=== PATIENT | female | born 1940 | race Caucasian/White ===

== ENCOUNTER 2023-11-10 14:26 | Outpatient (RCR) | payer MEDICARE, OTHER, SELFPAY ==
[2023-11-10 14:58] VITALS: BP 141/66
[2023-11-10] MEDS: PROLIA 60 MG SC (15:20)
== END 2023-11-13 10:59 | disposition home or self-care (01) ==
LOC: OID 14:26
PROVIDERS: ATTENDING PHYSICIAN Internal Medicine Rheumatology; FAMILY PHYSICIAN Nurse Practitioner Adult Health; PRIMARYCARE PHYSICIAN Specialist
DX: M81.0 Age-related osteoporosis without current pathological fracture (principal); G61.81 Chronic inflammatory demyelinating polyneuritis; R29.6 Repeated falls
CPT/HCPCS: 96372; J0897

== ENCOUNTER → 2023-12-04 14:20 | Outpatient (REF) | payer MEDICARE, OTHER, SELFPAY ==
[2023-12-04 14:51] LABS: % Basophils 0.9 % (0-2); % Eosinophils 2.7 % (0-6); % Immature Granulocytes 0.4 % (0-0.5); % Lymphocytes 22.8 % (20.5-51.1); % Monocytes 6.5 % (1.7-9.3); % Neutrophils 66.7 % (42.2-75.2); Absolute Basophils 0.1 10^3/uL (0-0.2); Absolute Eosinophils 0.3 10^3/uL (0-0.7); Absolute Lymphocytes 2.1 10^3/uL (1.2-3.4); Absolute Monocytes 0.6 10^3/uL (0.1-0.6); Absolute Neutrophils 6.2 10^3/uL (1.4-6.5); Hematocrit 31.9 % (37.0-47.0); Hemoglobin 10.2 g/dL (12.0-16.0); Mean Corpuscular Hgb 28.3 pg (27.0-31.0); Mean Corpuscular Volume 88.4 fL (81.0-99.0); Mean Platelet Volume 9.4 fL (7.4-10.4); Nucleated Red Blood Cells % 0 %; Platelet Count 175 10^3/uL (130-400); Red Blood Cell Count 3.61 10^6/uL (4.20-5.40); Red Cell Dist. Width 17.1 % (11.5-14.5); White Blood Cell Count 9.3 10^3/uL (4.8-10.8)
== END ==
LOC: OIDL 14:20
PROVIDERS: ATTENDING PHYSICIAN Internal Medicine Hematology & Oncology
DX: D72.829 Elevated white blood cell count, unspecified (principal)
CPT/HCPCS: 85025

== ENCOUNTER → 2023-12-11 12:47 | Outpatient (REF) | payer MEDICARE, OTHER, SELFPAY ==
[2023-12-11 16:26] LABS: ALT (SGPT) 26 U/L (0-35); AST (SGOT) 45 U/L (14-36); Albumin 4.2 g/dl (3.5-5.0); Alkaline Phosphatase 188 U/L (38-126); Blood Urea Nitrogen 17 mg/dl (7-17); Carbon Dioxide 24 mmol/L (22-30); Chloride 101 mmol/L (98-107); Glucose 123 mg/dl (70-99); Potassium 4.3 mmol/L (3.5-5.1); Sodium 140 mmol/L (135-145); Total Bilirubin 0.4 mg/dl (0.2-1.3); Total Protein 7.7 g/dl (6.3-8.2); eGFR > 60.00
[2023-12-11 16:58] LABS: TSH 0.96 uIU/ml (0.47-4.68)
[2023-12-12 08:56] LABS: Glycohemoglobin (HgbA1c) 6.5 % (4.0-5.6)
[2023-12-12 10:26] LABS: Intact PTH 11.1 pg/ml (13.6-85.8)
== END ==
LOC: DHCBS HW 12:47
PROVIDERS: ATTENDING PHYSICIAN Internal Medicine Cardiovascular Disease; FAMILY PHYSICIAN Nurse Practitioner Adult Health; OTHER PHYSICIAN Internal Medicine Hematology & Oncology; REFERRING PHYSICIAN Internal Medicine Endocrinology, Diabetes & Metabolism
DX: R06.00 Dyspnea, unspecified (principal); I35.0 Nonrheumatic aortic (valve) stenosis; E11.40 Type 2 diabetes mellitus with diabetic neuropathy, unspecified; E83.52 Hypercalcemia; E04.2 Nontoxic multinodular goiter
CPT/HCPCS: 36415; 80053; 83036; 83970; 84443; 93306

== ENCOUNTER 2023-12-12 14:57 | Outpatient (RCR) | payer MEDICARE, OTHER, SELFPAY ==
[2023-12-12 14:25] LABS: % Basophils 0.5 % (0-2); % Eosinophils 3.1 % (0-6); % Immature Granulocytes 0.2 % (0-0.5); % Lymphocytes 25.4 % (20.5-51.1); % Monocytes 5.6 % (1.7-9.3); % Neutrophils 65.2 % (42.2-75.2); Absolute Basophils 0.1 10^3/uL (0-0.2); Absolute Eosinophils 0.3 10^3/uL (0-0.7); Absolute Lymphocytes 2.5 10^3/uL (1.2-3.4); Absolute Monocytes 0.6 10^3/uL (0.1-0.6); Absolute Neutrophils 6.4 10^3/uL (1.4-6.5); Hematocrit 31.9 % (37.0-47.0); Hemoglobin 10.2 g/dL (12.0-16.0); Mean Corpuscular Hgb 28.3 pg (27.0-31.0); Mean Corpuscular Volume 88.6 fL (81.0-99.0); Mean Platelet Volume 9.2 fL (7.4-10.4); Platelet Count 189 10^3/uL (130-400); Red Cell Dist. Width 18.2 % (11.5-14.5); White Blood Cell Count 9.8 10^3/uL (4.8-10.8)
== END 2024-01-07 23:59 | disposition home or self-care (01) ==
LOC: OID 14:57
PROVIDERS: Internal Medicine Hematology & Oncology; ATTENDING PHYSICIAN Internal Medicine Rheumatology; FAMILY PHYSICIAN Nurse Practitioner Adult Health; PRIMARYCARE PHYSICIAN Specialist
DX: M81.0 Age-related osteoporosis without current pathological fracture (principal); G61.81 Chronic inflammatory demyelinating polyneuritis; Z87.81 Personal history of (healed) traumatic fracture; R29.6 Repeated falls
CPT/HCPCS: 85025

== ENCOUNTER → 2023-12-19 14:10 | Outpatient (REF) | payer MEDICARE, OTHER, SELFPAY ==
[2023-12-19 14:14] LABS: % Basophils 0.5 % (0-2); % Eosinophils 4.9 % (0-6); % Immature Granulocytes 0.2 % (0-0.5); % Lymphocytes 25.5 % (20.5-51.1); % Monocytes 7.4 % (1.7-9.3); % Neutrophils 61.5 % (42.2-75.2); Absolute Eosinophils 0.3 10^3/uL (0-0.7); Absolute Lymphocytes 1.7 10^3/uL (1.2-3.4); Absolute Monocytes 0.5 10^3/uL (0.1-0.6); Absolute Neutrophils 4.1 10^3/uL (1.4-6.5); Hematocrit 32.4 % (37.0-47.0); Hemoglobin 10.3 g/dL (12.0-16.0); Mean Corp Hgb Conc. 31.8 g/dL (33.0-37.0); Mean Corpuscular Hgb 28.9 pg (27.0-31.0); Mean Platelet Volume 10.1 fL (7.4-10.4); Platelet Count 163 10^3/uL (130-400); Red Blood Cell Count 3.56 10^6/uL (4.20-5.40); Red Cell Dist. Width 19.2 % (11.5-14.5); White Blood Cell Count 6.6 10^3/uL (4.8-10.8)
== END ==
LOC: OIDL 14:10
PROVIDERS: ATTENDING PHYSICIAN Internal Medicine Hematology & Oncology
DX: D72.829 Elevated white blood cell count, unspecified (principal); D47.2 Monoclonal gammopathy; D50.9 Iron deficiency anemia, unspecified
CPT/HCPCS: 85025

== ENCOUNTER → 2024-01-17 09:50 | Outpatient (REF) | payer MEDICARE, OTHER, SELFPAY ==
[2024-01-17 16:48] LABS: HDL Cholesterol 37 mg/dl
[2024-01-17 16:58] LABS: LDL Cholesterol, Calculated 40 mg/dl; Total Cholesterol 134 mg/dl (50-199); Triglyceride 288 mg/dl (10-149); Very Low Density Lipoprotein 57 mg/dl (0-30)
== END ==
LOC: WDC 09:50
PROVIDERS: ATTENDING PHYSICIAN Nurse Practitioner Adult Health; REFERRING PHYSICIAN Internal Medicine Endocrinology, Diabetes & Metabolism
DX: E04.2 Nontoxic multinodular goiter (principal); N63.24 Unspecified lump in the left breast, lower inner quadrant; N64.4 Mastodynia; E78.2 Mixed hyperlipidemia; D64.9 Anemia, unspecified; K31.84 Gastroparesis; R14.0 Abdominal distension (gaseous); K43.9 Ventral hernia without obstruction or gangrene
CPT/HCPCS: 36415; 74177; 76536; 76642; 77062; 77066; 80061; Q9967

== ENCOUNTER → 2024-03-13 12:25 | Outpatient (REF) | payer MEDICARE, OTHER, SELFPAY ==
[2024-03-13 16:51] LABS: % Basophils 0.9 % (0-2); % Eosinophils 5.1 % (0-6); % Immature Granulocytes 0.5 % (0-0.5); % Lymphocytes 27.1 % (20.5-51.1); % Monocytes 6.5 % (1.7-9.3); % Neutrophils 59.9 % (42.2-75.2); Absolute Basophils 0.1 10^3/uL (0-0.2); Absolute Eosinophils 0.4 10^3/uL (0-0.7); Absolute Lymphocytes 2.2 10^3/uL (1.2-3.4); Absolute Monocytes 0.5 10^3/uL (0.1-0.6); Absolute Neutrophils 4.9 10^3/uL (1.4-6.5); Hematocrit 31.1 % (37.0-47.0); Hemoglobin 9.6 g/dL (12.0-16.0); Mean Corp Hgb Conc. 30.9 g/dL (33.0-37.0); Mean Corpuscular Hgb 28.6 pg (27.0-31.0); Mean Corpuscular Volume 92.6 fL (81.0-99.0); Mean Platelet Volume 10.2 fL (7.4-10.4); Nucleated Red Blood Cells % 0 %; Platelet Count 162 10^3/uL (130-400); Red Blood Cell Count 3.36 10^6/uL (4.20-5.40); Red Cell Dist. Width 16.4 % (11.5-14.5); White Blood Cell Count 8.2 10^3/uL (4.8-10.8)
[2024-03-13 17:09] LABS: Iron 62 ug/dl (37-170)
[2024-03-13 17:18] LABS: Percent Saturation 15 % (20-50); Total Iron Binding Capacity 393 ug/dl (265-497)
[2024-03-13 17:54] LABS: Ferritin 20.1 ng/ml (11.1-264.0)
== END ==
LOC: HWLAB 12:25
PROVIDERS: ATTENDING PHYSICIAN Internal Medicine Hematology & Oncology; FAMILY PHYSICIAN Nurse Practitioner Adult Health; OTHER PHYSICIAN Specialist; REFERRING PHYSICIAN Internal Medicine Endocrinology, Diabetes & Metabolism
DX: D72.829 Elevated white blood cell count, unspecified (principal); D47.2 Monoclonal gammopathy; D50.9 Iron deficiency anemia, unspecified
CPT/HCPCS: 36415; 82728; 82784; 83521; 83540; 83550; 84155; 84165; 85025; 86334

== ENCOUNTER → 2024-03-18 13:31 | Outpatient (REF) | payer MEDICARE, OTHER, SELFPAY | LOC: SDSPAT 13:31 | PROVIDERS: ATTENDING PHYSICIAN Surgery; FAMILY PHYSICIAN Nurse Practitioner Adult Health; OTHER PHYSICIAN Internal Medicine Cardiovascular Disease; OTHER PHYSICIAN Internal Medicine Endocrinology, Diabetes & Metabolism; OTHER PHYSICIAN Obstetrics & Gynecology | DX: K43.2 Incisional hernia without obstruction or gangrene (principal) | CPT/HCPCS: 36415; 93005 ==

== ENCOUNTER 2024-03-20 14:23 | Emergency (ER) | payer MEDICARE, OTHER, SELFPAY ==
[2024-03-20 14:25] VITALS: BP 147/70
--- NOTE | 2024-03-20 15:42 | ED.GENMED ---
History of Present Illness
General
Chief Complaint: Fall
Source: patient
Exam Limitations: none
Time Seen by Provider: 03/20/24 15:12
Nursing documentation reviewed up to this point in time: agreed with
Travel History
Have you had any contact with someone who has COVID-19?: No
Do you have any symptoms of coronavirus? Fever > 100 degrees, chills, cough, shortness of breath, sore throat, loss of taste or smell, muscle aches, or headache?: No
History of Present Illness
History of Present Illness:
Patient is an atrial female who presents to the ER for evaluation right leg pain care patient reports she fell 3 times on Monday her knees gave out. She since then has had pain in the right buttock area rating down to her right knee. She normally
walks with a rollator type walker. She is concerned that she is possibly anemic or it was her low iron that caused her to fall though she denies any weakness presently.
Daughter at bedside reports patient has had intermittent sciatica in the past this is not new. She was prescribed tramadol and gabapentin. She in addition has been taking her Tylenol.
Past History
Past History
ED Past Medical History: Asthma, GERD, HTN, Hypercholesterolemia, NIDDM and Other (Diverticulosis)
ED Past Surgical History: Cholecystectomy, Gynecological (Hysterectomy) and Other (Bladder lift, back surg, Hernia repair)
Social History
Tobacco: Former smoker
Alcohol: Occasional
Drug: None
Personal:
Living: with family
Family History
Family History: Other (Breast cancer in her brother, colon cancer breast cancer and cervical cancer in her mother, coronary disease and hypertension in the family)
Review of Systems
Review of Systems
Allergies reviewed?: Yes
All Other Systems: ROS reviewed and negative except as documented in HPI and ROS
Constitutional: Reports no symptoms
Musculoskeletal: Reports other (pain right hip radiating to right knee region )
Skin: Reports no symptoms
Neurological: Reports no symptoms
Psychiatric: Reports no symptoms
Phy Exam
General Physical Exam
General Presentation: no apparent distress
General age: appears stated age
General Skin: warm and dry
General Habitus: elderly
General Mental: alert
General Hydration: appears well hydrated
Cardiovascular Exam
Cardiovascular Exam: regular rate/rhythm, no murmur and normal peripheral pulses
Pulmonary Exam
Pulmonary Exam: lungs clear and no respiratory distress
Neurological Exam
Neurological Exam: alert and oriented x3
Musculoskeletal Exam
Musculoskeletal Exam: other (Bilateral pulses to both extremities full range of motion to bilateral hips no obvious swelling to right leg no erythema full lection extension of knee, mildly tender over the right sciatic and region of buttocks, left
arm with mild scattered ecchymosis no bony tenderness, full ROM no head injury )
Skin Exam
Skin Exam: normal color and warm/dry
Psychiatric Exam
Psychiatric Exam: normal mood/affect
Course
Orders/Labs/Results
Orders:
Orders
03/20/24 15:31
Hip, Right 2-3 Views [CR Hip - RT w/wo Pel 2-3 Vw*] Urgent
Comment:
Reason For Exam: trauma
Include a pelvis x-ray?: Yes
03/20/24 15:43
CBC/With Diff [Complete Blood Count/With Diff] Urgent
Comprehensive Metabolic Panel Urgent
CR Foot - Left Min 3 Views Urgent
Comment:
Reason For Exam: Injury, bruising and pain
Abnormal Lab Results
03/20/24
15:43
RBC 3.45 L 10^6/uL
(4.20-5.40)
Hgb 10.0 L g/dL
(12.0-16.0)
Hct 30.9 L %
(37.0-47.0)
MCHC 32.4 L g/dL
(33.0-37.0)
RDW 16.3 H %
(11.5-14.5)
Abs Immat Gran (auto) 0.1 H 10^3/uL
(0-0.05)
Absolute Neuts (auto) 6.8 H 10^3/uL
(1.4-6.5)
Immature Gran % 0.6 H %
(0-0.5)
Lymphocytes % 14.6 L %
(20.5-51.1)
BUN 19 H mg/dl
(7-17)
Glucose 135 H mg/dl
(70-99)
AST 41 H U/L
(14-36)
Alkaline Phosphatase 213 H U/L
(38-126)
03/20/24 15:43
03/20/24 15:43
Vital Signs
Initial and Last Documented VS:
Initial Vital Signs
Temp Pulse Resp BP Pulse Ox
99.4 F 92 20 147/70 97
03/20/24 14:25 03/20/24 14:25 03/20/24 14:25 03/20/24 14:25 03/20/24 14:25
Last Documented Vital Signs
Temp Pulse Resp BP Pulse Ox
99.4 F 92 20 147/70 97
03/20/24 14:25 03/20/24 14:25 03/20/24 14:25 03/20/24 14:25 03/20/24 14:25
MDM/Problems Addressed
Differential Diagnosis Includes:
Not limited to fracture muscle strain sciatica
MDM/Problems Addressed:
83-year-old female presents to the ER for evaluation of right buttock pain rating to her right knee. Patient reports she fell several days ago because her legs gave out. She was concerned that she is possibly anemic. She currently has no
symptoms. Patient arrives awake alert no acute distress she is describing more of a sciatica type pain she does have full range of motion to her hip full range of motion to her knee and there is no obvious swelling or effusion to the knee no
redness. She has no obvious swelling to right leg. She has bilateral strong pulses. No obvious head injury. Patient's hemoglobin today is 10.0 which is improved from 9.6 March 13. She has normal creatinine. Patient w/ normal hip x-ray/ nml foot
xray.
Daughter reports patient has had sciatica in the past. She is on tramadol and gabapentin.
Patient walked back and forth with a walker very stable feels want to go home.
*Radiology
Radiology exam reviewed: radiology read reviewed
*Critical Care Note
Total Time (30-74mins, 75-104mins- exclusive of procedures): Not Applicable
ED Attending Note
-
Portions of this chart may have been created with voice recognition software.� Occasional wrong word or��sound alike� substitutions may have occurred due to the inherent limitations of voice recognition software.
Discharge Plan
Departure
Patient Disposition: Home (Routine Discharge)
Date of Disposition: 03/20/24
Time of Disposition: 17:44
Patient with high blood pressure during this ER visit?: Yes
Condition: Fair
Covid-19: Not Applicable
Discharge Problem:
Sciatica
Instructions: Sciatica (DC), BLOOD PRESSURE
Prescriptions:
No Action
albuterol sulfate 1 PUFF HFA aerosol inhaler
2 puff inhalation R Q6HPRN PRN (Reason: sob)
cyanocobalamin (vitamin B-12) 1,000 MCG tablet
1,000 mcg PO DAILY
amlodipine 2.5 MG tablet
10 mg PO DAILY
oxybutynin chloride [Ditropan XL] 5 MG tablet extended release 24hr
5 mg PO DAILY
rosuvastatin 5 MG tablet
5 mg PO QPM
lisinopril 20 MG tablet
20 mg PO DAILY
gabapentin 100 MG capsule
300 mg PO QID
fluticasone propionate 1 SPRAY spray,suspension
1 spray intranasal DAILYPRN PRN (Reason: congestion)
metformin 500 MG tablet extended release 24 hr
1,000 mg PO BID@0800,1700
loratadine 10 MG tablet
10 mg PO DAILY
cholecalciferol (vitamin D3) 1,000 UNITS tablet
5,000 units PO DAILY
nortriptyline 75 MG capsule
75 mg PO HS
acetaminophen 325 MG tablet
650 mg PO Q4HWA 0RF
aspirin 325 MG tablet,delayed release (DR/EC)
81 mg PO DAILY
Ocuvite Tablet
1 tab PO DAILY
Systane (PF) 0.4-0.3 % Dropperette
1 drp OPHTHALMIC (EYE) 6XD PRN (Reason: dry eye)
omega-3 acid ethyl esters [Lovaza] 1 gram Capsule
2 cap PO BID
ropinirole 12 mg Tablet Extended Release 24 Hr
25 mg PO HS
Centrum Silver Women 8 mg iron-400 mcg-300 mcg Tablet
1 tab PO DAILY
estradiol 0.01 % (0.1 mg/gram) Cream
1 g VAGINAL QWEEK
coenzyme Q10 [CoQ-10] 100 mg Capsule
100 mg PO DAILY
milk thistle 140 mg Capsule
140 mg PO BID
allopurinol 300 mg Tablet
450 mg PO DAILY
Prolia 60 mg/mL Syringe
60 mg SC [id number]
cranberry fruit concentrate
1 unit PO DAILY
tramadol 50 MG tablet
50 mg PO DAILY
polyethylene glycol 3350 [Miralax] 17 gram Powder In Packet
17 g PO DAILY
Benefiber (guar gum) Packet
1 tbsp PO DAILY
pantoprazole 40 mg Tablet,Delayed Release (Dr/Ec)
40 mg PO DAILY
ropinirole 0.5 mg Tablet
0.5 mg PO .2DAYSEVERYOTHERWEEK
Patient Comments:
With Gammagard Infusion
methenamine hippurate 1 gram Tablet
1 g PO BID
Gammagard 10 gram Recon Soln
30 g IV [id number]
Referrals:
Mana Abreu CRNP [Family Provider] -
Activity Restrictions/Additional Instructions:
Follow-up with family doctor in the next several days for reevaluation. Continue to take your medications as previously recommended and return if any worsening of symptoms
Interventions
Interventions:
*Risk Screen - Suicide Last Done: 03/20/24 14:25
*General Assessment Last Done: 03/20/24 14:54
*Neglect/Abuse Screening Last Done: 03/20/24 14:54
ED-Musculoskeletal Assessment Last Done: 03/20/24 14:50
ED- Neurological Assessment Last Done: 03/20/24 14:50
ED-Skin Assessment Last Done: 03/20/24 14:50
Discharge Date and Time
Print Language: PASHTO
[2024-03-20 16:02] LABS: % Basophils 0.7 % (0-2); % Eosinophils 4.4 % (0-6); % Immature Granulocytes 0.6 % (0-0.5); % Lymphocytes 14.6 % (20.5-51.1); % Monocytes 5.2 % (1.7-9.3); % Neutrophils 74.5 % (42.2-75.2); Absolute Basophils 0.1 10^3/uL (0-0.2); Absolute Eosinophils 0.4 10^3/uL (0-0.7); Absolute Immature Granulocytes 0.1 10^3/uL (0-0.05); Absolute Lymphocytes 1.3 10^3/uL (1.2-3.4); Absolute Monocytes 0.5 10^3/uL (0.1-0.6); Absolute Neutrophils 6.8 10^3/uL (1.4-6.5); Hematocrit 30.9 % (37.0-47.0); Mean Corp Hgb Conc. 32.4 g/dL (33.0-37.0); Mean Corpuscular Volume 89.6 fL (81.0-99.0); Mean Platelet Volume 9.7 fL (7.4-10.4); Nucleated Red Blood Cells % 0 %; Platelet Count 186 10^3/uL (130-400); Red Blood Cell Count 3.45 10^6/uL (4.20-5.40); Red Cell Dist. Width 16.3 % (11.5-14.5); White Blood Cell Count 9.1 10^3/uL (4.8-10.8)
[2024-03-20 16:12] LABS: ALT (SGPT) 24 U/L (0-35); AST (SGOT) 41 U/L (14-36); Alkaline Phosphatase 213 U/L (38-126); Blood Urea Nitrogen 19 mg/dl (7-17); Calcium 10.1 mg/dl (8.4-10.2); Carbon Dioxide 26 mmol/L (22-30); Chloride 104 mmol/L (98-107); Glucose 135 mg/dl (70-99); Potassium 4.1 mmol/L (3.5-5.1); Sodium 139 mmol/L (135-145); Total Bilirubin 0.4 mg/dl (0.2-1.3); Total Protein 8.1 g/dl (6.3-8.2); eGFR > 60.00
== END 2024-03-20 18:07 | disposition home or self-care (01) ==
LOC: EMR 14:23
PROVIDERS: Nurse Practitioner; EMERGENCY PHYSICIAN Emergency Medicine; FAMILY PHYSICIAN Nurse Practitioner Adult Health
DX: M79.604 Pain in right leg (principal); M54.30 Sciatica, unspecified side; W19.XXXA Unspecified fall, initial encounter; J45.909 Unspecified asthma, uncomplicated; K21.9 Gastro-esophageal reflux disease without esophagitis; I10 Essential (primary) hypertension; E78.00 Pure hypercholesterolemia, unspecified; E11.9 Type 2 diabetes mellitus without complications; Z87.891 Personal history of nicotine dependence; Z80.0 Family history of malignant neoplasm of digestive organs; Z80.3 Family history of malignant neoplasm of breast; Z82.49 Family history of ischemic heart disease and other diseases of the circulatory system; Z90.49 Acquired absence of other specified parts of digestive tract; Z90.710 Acquired absence of both cervix and uterus
CPT/HCPCS: 99283; 73502; 73630; 80053; 85025

== ENCOUNTER → 2024-03-22 15:47 | Outpatient (REF) | payer MEDICARE, OTHER, SELFPAY ==
[2024-03-22 16:38] LABS: % Basophils 0.6 % (0-2); % Eosinophils 4.5 % (0-6); % Immature Granulocytes 0.7 % (0-0.5); % Lymphocytes 23.5 % (20.5-51.1); % Monocytes 6.8 % (1.7-9.3); % Neutrophils 63.9 % (42.2-75.2); Absolute Basophils 0.1 10^3/uL (0-0.2); Absolute Eosinophils 0.4 10^3/uL (0-0.7); Absolute Immature Granulocytes 0.1 10^3/uL (0-0.05); Absolute Monocytes 0.6 10^3/uL (0.1-0.6); Absolute Neutrophils 5.4 10^3/uL (1.4-6.5); Hematocrit 28.9 % (37.0-47.0); Hemoglobin 9.4 g/dL (12.0-16.0); Mean Corp Hgb Conc. 32.5 g/dL (33.0-37.0); Mean Corpuscular Hgb 29.3 pg (27.0-31.0); Mean Platelet Volume 9.9 fL (7.4-10.4); Nucleated Red Blood Cells % 0 %; Platelet Count 195 10^3/uL (130-400); Red Blood Cell Count 3.21 10^6/uL (4.20-5.40); Red Cell Dist. Width 17.1 % (11.5-14.5); White Blood Cell Count 8.4 10^3/uL (4.8-10.8)
== END ==
LOC: REG 15:47
PROVIDERS: Nurse Practitioner Acute Care; ATTENDING PHYSICIAN Internal Medicine Rheumatology; FAMILY PHYSICIAN Nurse Practitioner Adult Health; PRIMARYCARE PHYSICIAN Specialist
DX: M81.0 Age-related osteoporosis without current pathological fracture (principal); G61.81 Chronic inflammatory demyelinating polyneuritis; R29.6 Repeated falls; Z87.81 Personal history of (healed) traumatic fracture; D72.829 Elevated white blood cell count, unspecified; D47.2 Monoclonal gammopathy; D50.9 Iron deficiency anemia, unspecified
CPT/HCPCS: 85025

== ENCOUNTER → 2024-04-03 16:25 | Outpatient (REF) | payer MEDICARE, OTHER, SELFPAY ==
[2024-04-03 12:24] LABS: % Basophils 0.4 % (0-2); % Eosinophils 3.7 % (0-6); % Immature Granulocytes 0.2 % (0-0.5); % Lymphocytes 21.6 % (20.5-51.1); % Monocytes 4.5 % (1.7-9.3); % Neutrophils 69.6 % (42.2-75.2); Absolute Eosinophils 0.4 10^3/uL (0-0.7); Absolute Lymphocytes 2.1 10^3/uL (1.2-3.4); Absolute Monocytes 0.4 10^3/uL (0.1-0.6); Absolute Neutrophils 6.6 10^3/uL (1.4-6.5); Hematocrit 31.5 % (37.0-47.0); Mean Corp Hgb Conc. 31.7 g/dL (33.0-37.0); Mean Corpuscular Hgb 29.7 pg (27.0-31.0); Mean Corpuscular Volume 93.5 fL (81.0-99.0); Mean Platelet Volume 9.8 fL (7.4-10.4); Platelet Count 180 10^3/uL (130-400); Red Blood Cell Count 3.37 10^6/uL (4.20-5.40); Red Cell Dist. Width 17.8 % (11.5-14.5); White Blood Cell Count 9.5 10^3/uL (4.8-10.8)
== END ==
LOC: OIDL 16:25
PROVIDERS: ATTENDING PHYSICIAN Nurse Practitioner Acute Care
DX: D72.829 Elevated white blood cell count, unspecified (principal)
CPT/HCPCS: 85025

== ENCOUNTER → 2024-04-15 12:26 | Outpatient (REF) | payer MEDICARE, OTHER, SELFPAY ==
[2024-04-15 16:00] LABS: ALT (SGPT) 27 U/L (0-35); AST (SGOT) 44 U/L (14-36); Alkaline Phosphatase 215 U/L (38-126); Blood Urea Nitrogen 24 mg/dl (7-17); Calcium 9.8 mg/dl (8.4-10.2); Carbon Dioxide 25 mmol/L (22-30); Chloride 104 mmol/L (98-107); Glucose 131 mg/dl (70-99); Potassium 4.3 mmol/L (3.5-5.1); Sodium 140 mmol/L (135-145); Total Bilirubin 0.3 mg/dl (0.2-1.3); Total Protein 6.9 g/dl (6.3-8.2); Uric Acid 4.3 mg/dl (2.5-6.2); eGFR 56.25
[2024-04-15 16:16] LABS: Vitamin D, 25-OH*** 79.4 ng/mL (30-80)
== END ==
LOC: HWLAB 12:26
PROVIDERS: ATTENDING PHYSICIAN Internal Medicine Rheumatology; FAMILY PHYSICIAN Nurse Practitioner Adult Health; OTHER PHYSICIAN Internal Medicine Endocrinology, Diabetes & Metabolism; REFERRING PHYSICIAN Internal Medicine Hematology & Oncology
DX: E55.9 Vitamin D deficiency, unspecified (principal); M10.9 Gout, unspecified
CPT/HCPCS: 36415; 80053; 82306; 84550

== ENCOUNTER → 2024-04-26 13:36 | Outpatient (REF) | payer MEDICARE, OTHER, SELFPAY ==
[2024-04-26 15:46] LABS: % Basophils 1.1 % (0-2); % Eosinophils 4.5 % (0-6); % Immature Granulocytes 0.6 % (0-0.5); % Monocytes 5.9 % (1.7-9.3); % Neutrophils 62.9 % (42.2-75.2); Absolute Basophils 0.1 10^3/uL (0-0.2); Absolute Eosinophils 0.4 10^3/uL (0-0.7); Absolute Immature Granulocytes 0.1 10^3/uL (0-0.05); Absolute Monocytes 0.5 10^3/uL (0.1-0.6); Hematocrit 29.7 % (37.0-47.0); Hemoglobin 9.6 g/dL (12.0-16.0); Mean Corp Hgb Conc. 32.3 g/dL (33.0-37.0); Mean Corpuscular Hgb 29.6 pg (27.0-31.0); Mean Corpuscular Volume 91.7 fL (81.0-99.0); Mean Platelet Volume 9.9 fL (7.4-10.4); Nucleated Red Blood Cells % 0 %; Platelet Count 173 10^3/uL (130-400); Red Blood Cell Count 3.24 10^6/uL (4.20-5.40); Red Cell Dist. Width 17.3 % (11.5-14.5)
[2024-04-26 16:02] LABS: Iron 63 ug/dl (37-170)
[2024-04-26 16:11] LABS: Percent Saturation 18 % (20-50); Total Iron Binding Capacity 338 ug/dl (265-497)
== END ==
LOC: HWLAB 13:36
PROVIDERS: ATTENDING PHYSICIAN Internal Medicine Hematology & Oncology; FAMILY PHYSICIAN Nurse Practitioner Adult Health; OTHER PHYSICIAN Internal Medicine Gastroenterology; OTHER PHYSICIAN Obstetrics & Gynecology; REFERRING PHYSICIAN Specialist
DX: D72.829 Elevated white blood cell count, unspecified (principal)
CPT/HCPCS: 36415; 82728; 83540; 83550; 85025

== ENCOUNTER → 2024-04-30 12:25 | Outpatient (REF) | payer MEDICARE, OTHER, SELFPAY ==
[2024-04-30 15:51] LABS: ALT (SGPT) 30 U/L (0-35); AST (SGOT) 50 U/L (14-36); Albumin 4.1 g/dl (3.5-5.0); Alkaline Phosphatase 231 U/L (38-126); Alkaline Phosphatase, Total 231 U/L (38-126); Amylase 55 U/L (30-110); Blood Urea Nitrogen 21 mg/dl (7-17); Calcium 10.2 mg/dl (8.4-10.2); Carbon Dioxide 27 mmol/L (22-30); Chloride 101 mmol/L (98-107); GGTP 280 U/L (12-43); Glucose 170 mg/dl (70-99); Lipase 130 U/L (23-300); Potassium 4.4 mmol/L (3.5-5.1); Sodium 141 mmol/L (135-145); Total Bilirubin 0.3 mg/dl (0.2-1.3); eGFR 56.25
[2024-04-30 22:30] LABS: Alk Phos After Heat 190; Alkaline Phosphatase Percent 82.25
[2024-05-02 17:49] LABS: Alk Phos Bone Specific Results 28.3 ug/L
== END ==
LOC: HWLAB 12:25
PROVIDERS: ATTENDING PHYSICIAN Nurse Practitioner Adult Health; OTHER PHYSICIAN Internal Medicine Gastroenterology; OTHER PHYSICIAN Obstetrics & Gynecology; REFERRING PHYSICIAN Internal Medicine Hematology & Oncology
DX: R74.8 Abnormal levels of other serum enzymes (principal); R19.00 Intra-abdominal and pelvic swelling, mass and lump, unspecified site; R14.0 Abdominal distension (gaseous); R10.12 Left upper quadrant pain
CPT/HCPCS: 36415; 80053; 82150; 82977; 83690; 84075; 84078

== ENCOUNTER → 2024-05-06 07:30 | Outpatient (REF) | payer MEDICARE, OTHER, SELFPAY ==
--- NOTE | 2024-03-18 10:48 | PTCARENOTE ---
Patients 03/13 [facility] 9.6- Orin @ Dr. Sanchez office notified
[2024-03-18 13:54] VITALS: BMI 31.8
[2024-05-06 14:28] LABS: % Basophils 1.1 % (0-2); % Eosinophils 5.6 % (0-6); % Immature Granulocytes 0.3 % (0-0.5); % Lymphocytes 27.9 % (20.5-51.1); % Monocytes 7.6 % (1.7-9.3); % Neutrophils 57.5 % (42.2-75.2); Absolute Basophils 0.1 10^3/uL (0-0.2); Absolute Eosinophils 0.4 10^3/uL (0-0.7); Absolute Lymphocytes 1.8 10^3/uL (1.2-3.4); Absolute Monocytes 0.5 10^3/uL (0.1-0.6); Absolute Neutrophils 3.7 10^3/uL (1.4-6.5); Hematocrit 31.1 % (37.0-47.0); Hemoglobin 10.2 g/dL (12.0-16.0); Mean Corp Hgb Conc. 32.8 g/dL (33.0-37.0); Mean Corpuscular Hgb 29.6 pg (27.0-31.0); Mean Corpuscular Volume 90.1 fL (81.0-99.0); Mean Platelet Volume 9.4 fL (7.4-10.4); Nucleated Red Blood Cells % 0 %; Platelet Count 172 10^3/uL (130-400); Red Blood Cell Count 3.45 10^6/uL (4.20-5.40); Red Cell Dist. Width 17.1 % (11.5-14.5); White Blood Cell Count 6.4 10^3/uL (4.8-10.8)
== END ==
LOC: REG 07:30
PROVIDERS: ATTENDING PHYSICIAN Surgery
DX: K43.2 Incisional hernia without obstruction or gangrene (principal); Z01.818 Encounter for other preprocedural examination
CPT/HCPCS: 85025

== ENCOUNTER 2024-05-13 15:25 | Outpatient (RCR) | payer MEDICARE, OTHER, SELFPAY ==
[2024-05-13 15:53] VITALS: BP 127/64
[2024-05-13] MEDS: PROLIA 60 MG SC (15:55)
== END 2024-05-14 08:22 | disposition home or self-care (01) ==
LOC: OID 15:25
PROVIDERS: ATTENDING PHYSICIAN Internal Medicine Rheumatology; FAMILY PHYSICIAN Nurse Practitioner Adult Health
DX: M81.0 Age-related osteoporosis without current pathological fracture (principal)
CPT/HCPCS: 96372; J0897

== ENCOUNTER → 2024-05-13 15:51 | Outpatient (REF) | payer MEDICARE, OTHER, SELFPAY ==
[2024-05-13 14:47] LABS: % Basophils 0.8 % (0-2); % Eosinophils 4.3 % (0-6); % Immature Granulocytes 0.6 % (0-0.5); % Monocytes 6.4 % (1.7-9.3); % Neutrophils 63.9 % (42.2-75.2); Absolute Basophils 0.1 10^3/uL (0-0.2); Absolute Eosinophils 0.4 10^3/uL (0-0.7); Absolute Immature Granulocytes 0.1 10^3/uL (0-0.05); Absolute Monocytes 0.5 10^3/uL (0.1-0.6); Absolute Neutrophils 5.3 10^3/uL (1.4-6.5); Hematocrit 31.9 % (37.0-47.0); Hemoglobin 10.3 g/dL (12.0-16.0); Mean Corp Hgb Conc. 32.3 g/dL (33.0-37.0); Mean Corpuscular Hgb 29.3 pg (27.0-31.0); Mean Corpuscular Volume 90.9 fL (81.0-99.0); Mean Platelet Volume 9.5 fL (7.4-10.4); Nucleated Red Blood Cells % 0 %; Platelet Count 167 10^3/uL (130-400); Red Blood Cell Count 3.51 10^6/uL (4.20-5.40); Red Cell Dist. Width 17.1 % (11.5-14.5); White Blood Cell Count 8.3 10^3/uL (4.8-10.8)
== END ==
LOC: OIDL 15:51
PROVIDERS: ATTENDING PHYSICIAN Internal Medicine Hematology & Oncology
DX: D72.829 Elevated white blood cell count, unspecified (principal)
CPT/HCPCS: 85025

== ENCOUNTER → 2024-05-29 17:58 | Outpatient (REF) | payer MEDICARE, OTHER, SELFPAY | LOC: MRI 17:58 | PROVIDERS: ATTENDING PHYSICIAN Nurse Practitioner Adult Health | DX: R74.8 Abnormal levels of other serum enzymes (principal); R19.00 Intra-abdominal and pelvic swelling, mass and lump, unspecified site; K31.84 Gastroparesis; K45.8 Other specified abdominal hernia without obstruction or gangrene; R14.0 Abdominal distension (gaseous); R10.12 Left upper quadrant pain | CPT/HCPCS: 74183; A9575 ==

== ENCOUNTER → 2024-06-25 12:34 | Outpatient (REF) | payer MEDICARE, OTHER, SELFPAY ==
[2024-06-25 15:40] LABS: % Basophils 0.9 % (0-2); % Eosinophils 4.9 % (0-6); % Immature Granulocytes 0.5 % (0-0.5); % Lymphocytes 24.6 % (20.5-51.1); % Monocytes 4.9 % (1.7-9.3); % Neutrophils 64.2 % (42.2-75.2); Absolute Basophils 0.1 10^3/uL (0-0.2); Absolute Eosinophils 0.4 10^3/uL (0-0.7); Absolute Lymphocytes 2.2 10^3/uL (1.2-3.4); Absolute Monocytes 0.4 10^3/uL (0.1-0.6); Absolute Neutrophils 5.7 10^3/uL (1.4-6.5); Hematocrit 30.6 % (37.0-47.0); Hemoglobin 9.6 g/dL (12.0-16.0); Mean Corp Hgb Conc. 31.4 g/dL (33.0-37.0); Mean Corpuscular Volume 95.6 fL (81.0-99.0); Mean Platelet Volume 9.5 fL (7.4-10.4); Nucleated Red Blood Cells % 0 %; Platelet Count 176 10^3/uL (130-400); Red Cell Dist. Width 16.6 % (11.5-14.5); White Blood Cell Count 8.8 10^3/uL (4.8-10.8)
[2024-06-25 15:43] LABS: Urine Albumin 1+ (Neg - Trace); Urine Bilirubin Negative (Negative); Urine Character Slightly Cloudy (Clear); Urine Color Yellow; Urine Glucose Negative (Negative); Urine Ketone Negative (Negative); Urine Leukocyte Trace (Negative); Urine Nitrite Negative (Negative); Urine Occult Blood Negative (Negative); Urine Urobilinogen Negative (Neg - 1+)
[2024-06-25 15:48] LABS: ALT (SGPT) 34 U/L (0-35); AST (SGOT) 49 U/L (14-36); Albumin 4.1 g/dl (3.5-5.0); Alkaline Phosphatase 265 U/L (38-126); Blood Urea Nitrogen 23 mg/dl (7-17); Carbon Dioxide 26 mmol/L (22-30); Chloride 103 mmol/L (98-107); Glucose 102 mg/dl (70-99); HDL Cholesterol 41 mg/dl; Iron 62 ug/dl (37-170); LDL Cholesterol, Calculated 39 mg/dl; Potassium 4.8 mmol/L (3.5-5.1); Sodium 143 mmol/L (135-145); Total Bilirubin 0.3 mg/dl (0.2-1.3); Total Cholesterol 138 mg/dl (50-199); Total Protein 7.2 g/dl (6.3-8.2); Triglyceride 291 mg/dl (10-149); Very Low Density Lipoprotein 58 mg/dl (0-30); eGFR 44.91
[2024-06-25 15:58] LABS: Percent Saturation 18 % (20-50); Total Iron Binding Capacity 334 ug/dl (265-497)
[2024-06-25 16:19] LABS: TSH 2.42 uIU/ml (0.47-4.68)
[2024-06-25 16:26] LABS: Urine Bacteria Many (Negative); Urine Red Blood Cell 0-2 /HPF (0-2); Urine White Cell 30-40 /HPF (0-5)
[2024-06-26 08:39] LABS: Glycohemoglobin (HgbA1c) 5.3 % (4.0-5.6)
[2024-06-26 10:27] LABS: Intact PTH 27.6 pg/ml (13.6-85.8)
== END ==
LOC: HWLAB 12:34
PROVIDERS: ATTENDING PHYSICIAN Internal Medicine Hematology & Oncology; FAMILY PHYSICIAN Nurse Practitioner Adult Health; OTHER PHYSICIAN Internal Medicine Endocrinology, Diabetes & Metabolism; OTHER PHYSICIAN Internal Medicine Gastroenterology; OTHER PHYSICIAN Internal Medicine Rheumatology; REFERRING PHYSICIAN Specialist
DX: R39.9 Unspecified symptoms and signs involving the genitourinary system (principal); E78.2 Mixed hyperlipidemia; E11.40 Type 2 diabetes mellitus with diabetic neuropathy, unspecified; E04.2 Nontoxic multinodular goiter; E83.52 Hypercalcemia; D72.829 Elevated white blood cell count, unspecified; D47.2 Monoclonal gammopathy; D50.9 Iron deficiency anemia, unspecified
CPT/HCPCS: 36415; 80053; 80061; 81003; 81015; 82728; 83036; 83540; 83550; 83970; 84443; 85025; 87086; 87088; 87186

== ENCOUNTER → 2024-07-11 11:19 | Outpatient (REF) | payer MEDICARE, OTHER, SELFPAY ==
[2024-07-11 15:31] LABS: HDL Cholesterol 38 mg/dl; LDL Cholesterol, Calculated 37 mg/dl; Total Cholesterol 132 mg/dl (50-199); Triglyceride 289 mg/dl (10-149); Very Low Density Lipoprotein 57 mg/dl (0-30)
[2024-07-11 15:53] LABS: Urine Albumin 2+ (Neg - Trace); Urine Bilirubin Negative (Negative); Urine Character Slightly Cloudy (Clear); Urine Color Yellow; Urine Glucose Negative (Negative); Urine Ketone Negative (Negative); Urine Leukocyte 1+ (Negative); Urine Nitrite Negative (Negative); Urine Occult Blood Negative (Negative); Urine Urobilinogen Negative (Neg - 1+)
[2024-07-11 16:11] LABS: Urine Bacteria Many (Negative); Urine Red Blood Cell 0-2 /HPF (0-2)
== END ==
LOC: HWLAB 11:19
PROVIDERS: ATTENDING PHYSICIAN Nurse Practitioner Adult Health
DX: R39.9 Unspecified symptoms and signs involving the genitourinary system (principal); E78.2 Mixed hyperlipidemia
CPT/HCPCS: 36415; 80061; 81003; 81015; 87086; 87088; 87186

== ENCOUNTER → 2024-07-16 13:28 | Outpatient (REF) | payer MEDICARE, OTHER, SELFPAY | LOC: RAD 13:28 | PROVIDERS: ATTENDING PHYSICIAN Surgery Vascular Surgery; FAMILY PHYSICIAN Nurse Practitioner Adult Health; OTHER PHYSICIAN Specialist | DX: I73.9 Peripheral vascular disease, unspecified (principal) | CPT/HCPCS: 93922; 93925 ==

== ENCOUNTER → 2024-07-29 12:26 | Outpatient (REF) | payer MEDICARE, OTHER, SELFPAY ==
[2024-07-29 16:20] LABS: % Eosinophils 5.2 % (0-6); % Immature Granulocytes 0.5 % (0-0.5); % Lymphocytes 21.3 % (20.5-51.1); % Monocytes 6.1 % (1.7-9.3); % Neutrophils 65.9 % (42.2-75.2); Absolute Basophils 0.1 10^3/uL (0-0.2); Absolute Eosinophils 0.4 10^3/uL (0-0.7); Absolute Lymphocytes 1.6 10^3/uL (1.2-3.4); Absolute Monocytes 0.5 10^3/uL (0.1-0.6); Absolute Neutrophils 4.9 10^3/uL (1.4-6.5); Hematocrit 27.7 % (37.0-47.0); Hemoglobin 8.7 g/dL (12.0-16.0); Mean Corp Hgb Conc. 31.4 g/dL (33.0-37.0); Mean Corpuscular Hgb 29.2 pg (27.0-31.0); Mean Platelet Volume 10.4 fL (7.4-10.4); Nucleated Red Blood Cells % 0.3 %; Platelet Count 175 10^3/uL (130-400); Red Blood Cell Count 2.98 10^6/uL (4.20-5.40); White Blood Cell Count 7.4 10^3/uL (4.8-10.8)
[2024-07-29 17:30] LABS: Iron 49 ug/dl (37-170)
[2024-07-29 17:41] LABS: Percent Saturation 13 % (20-50); Total Iron Binding Capacity 370 ug/dl (265-497)
[2024-07-29 20:49] LABS: AFP Male/Tumor Marker 2.42 ng/ml; Ferritin 19.6 ng/ml (11.1-264.0)
== END ==
LOC: HWLAB 12:26
PROVIDERS: ATTENDING PHYSICIAN Internal Medicine Gastroenterology; FAMILY PHYSICIAN Nurse Practitioner Adult Health; OTHER PHYSICIAN Obstetrics & Gynecology; OTHER PHYSICIAN Specialist; REFERRING PHYSICIAN Internal Medicine Hematology & Oncology
DX: N39.0 Urinary tract infection, site not specified (principal); K74.69 Other cirrhosis of liver
CPT/HCPCS: 36415; 82105; 82728; 83540; 83550; 85025; 87086

== ENCOUNTER → 2024-08-12 09:31 | Outpatient (REF) | payer MEDICARE, OTHER, SELFPAY ==
[2024-08-12 09:59] VITALS: BP 156/70; BP_SYST 90
[2024-08-12 09:59] LABS: % Eosinophils 6.3 % (0-6); % Immature Granulocytes 0.5 % (0-0.5); % Lymphocytes 22.9 % (20.5-51.1); % Monocytes 5.8 % (1.7-9.3); % Neutrophils 63.5 % (42.2-75.2); Absolute Basophils 0.1 10^3/uL (0-0.2); Absolute Eosinophils 0.4 10^3/uL (0-0.7); Absolute Lymphocytes 1.4 10^3/uL (1.2-3.4); Absolute Monocytes 0.4 10^3/uL (0.1-0.6); Absolute Neutrophils 3.9 10^3/uL (1.4-6.5); Hematocrit 26.9 % (37.0-47.0); Hemoglobin 8.3 g/dL (12.0-16.0); Mean Corp Hgb Conc. 30.9 g/dL (33.0-37.0); Mean Corpuscular Volume 90.9 fL (81.0-99.0); Mean Platelet Volume 10.4 fL (7.4-10.4); Nucleated Red Blood Cells % 0 %; Platelet Count 166 10^3/uL (130-400); Red Blood Cell Count 2.96 10^6/uL (4.20-5.40); Red Cell Dist. Width 16.9 % (11.5-14.5); White Blood Cell Count 6.2 10^3/uL (4.8-10.8)
[2024-08-12 10:09] LABS: INR 1.11; PT 14.1 Sec (11.4-14.6)
[2024-08-12] MEDS: ATIVAN 0.5 MG IV (10:11)
[2024-08-12] MEDS: NSS (PRESERVATIVE FREE) 0.25 ML IV (10:11)
[2024-08-12 11:15] VITALS: BP 129/61
== END ==
LOC: RADI 09:31
PROVIDERS: ATTENDING PHYSICIAN Internal Medicine Hematology & Oncology; FAMILY PHYSICIAN Nurse Practitioner Adult Health
DX: D72.829 Elevated white blood cell count, unspecified (principal); D47.2 Monoclonal gammopathy; D50.9 Iron deficiency anemia, unspecified
CPT/HCPCS: 88305; 88311; 88312; 36415; 38222; 77012; 85025; 85610; 88313

== ENCOUNTER → 2024-08-16 13:49 | Outpatient (REF) | payer MEDICARE, OTHER, SELFPAY ==
[2024-08-16 14:22] LABS: % Basophils 0.9 % (0-2); % Eosinophils 5.8 % (0-6); % Immature Granulocytes 0.4 % (0-0.5); % Monocytes 6.4 % (1.7-9.3); % Neutrophils 61.5 % (42.2-75.2); Absolute Basophils 0.1 10^3/uL (0-0.2); Absolute Eosinophils 0.5 10^3/uL (0-0.7); Absolute Monocytes 0.5 10^3/uL (0.1-0.6); Absolute Neutrophils 4.9 10^3/uL (1.4-6.5); Hematocrit 27.9 % (37.0-47.0); Hemoglobin 8.6 g/dL (12.0-16.0); Mean Corp Hgb Conc. 30.8 g/dL (33.0-37.0); Mean Corpuscular Hgb 27.1 pg (27.0-31.0); Nucleated Red Blood Cells % 0 %; Platelet Count 192 10^3/uL (130-400); Red Blood Cell Count 3.17 10^6/uL (4.20-5.40); Red Cell Dist. Width 16.6 % (11.5-14.5)
== END ==
LOC: OIDL 13:49
PROVIDERS: ATTENDING PHYSICIAN Internal Medicine Hematology & Oncology
DX: D72.829 Elevated white blood cell count, unspecified (principal); D47.2 Monoclonal gammopathy; D50.9 Iron deficiency anemia, unspecified
CPT/HCPCS: 85025

== ENCOUNTER → 2024-08-23 13:29 | Outpatient (REF) | payer MEDICARE, OTHER, SELFPAY ==
[2024-08-23 13:53] LABS: % Basophils 0.8 % (0-2); % Eosinophils 7.6 % (0-6); % Immature Granulocytes 0.7 % (0-0.5); % Lymphocytes 17.1 % (20.5-51.1); % Monocytes 6.7 % (1.7-9.3); % Neutrophils 67.1 % (42.2-75.2); Absolute Basophils 0.1 10^3/uL (0-0.2); Absolute Eosinophils 0.6 10^3/uL (0-0.7); Absolute Immature Granulocytes 0.1 10^3/uL (0-0.05); Absolute Lymphocytes 1.4 10^3/uL (1.2-3.4); Absolute Monocytes 0.6 10^3/uL (0.1-0.6); Absolute Neutrophils 5.6 10^3/uL (1.4-6.5); Hematocrit 27.5 % (37.0-47.0); Hemoglobin 8.4 g/dL (12.0-16.0); Mean Corp Hgb Conc. 30.5 g/dL (33.0-37.0); Mean Corpuscular Hgb 28.3 pg (27.0-31.0); Mean Corpuscular Volume 92.6 fL (81.0-99.0); Mean Platelet Volume 10.1 fL (7.4-10.4); Nucleated Red Blood Cells % 0.2 %; Platelet Count 179 10^3/uL (130-400); Red Blood Cell Count 2.97 10^6/uL (4.20-5.40); Red Cell Dist. Width 18.5 % (11.5-14.5); White Blood Cell Count 8.3 10^3/uL (4.8-10.8)
== END ==
LOC: OIDL 13:29
PROVIDERS: ATTENDING PHYSICIAN Internal Medicine Hematology & Oncology
DX: D72.829 Elevated white blood cell count, unspecified (principal); D47.2 Monoclonal gammopathy
CPT/HCPCS: 85025

== ENCOUNTER → 2024-10-07 12:35 | Outpatient (REF) | payer MEDICARE, OTHER, SELFPAY ==
[2024-10-07 16:20] LABS: ALT (SGPT) 28 U/L (0-35); AST (SGOT) 45 U/L (14-36); Alkaline Phosphatase 246 U/L (38-126); Alkaline Phosphatase, Total 246 U/L (38-126); Blood Urea Nitrogen 26 mg/dl (7-17); Calcium 10.1 mg/dl (8.4-10.2); Carbon Dioxide 23 mmol/L (22-30); Chloride 103 mmol/L (98-107); Glucose 113 mg/dl (70-99); Iron 58 ug/dl (37-170); Potassium 4.9 mmol/L (3.5-5.1); Sodium 138 mmol/L (135-145); Total Bilirubin 0.2 mg/dl (0.2-1.3); Total Protein 7.6 g/dl (6.3-8.2); Uric Acid 3.2 mg/dl (2.5-6.2)
[2024-10-07 16:29] LABS: Percent Saturation 14 % (20-50); Total Iron Binding Capacity 387 ug/dl (265-497)
[2024-10-07 16:55] LABS: Ferritin 18.2 ng/ml (11.1-264.0)
[2024-10-07 17:40] LABS: % Basophils 0.7 % (0-2); % Eosinophils 5.5 % (0-6); % Immature Granulocytes 0.5 % (0-0.5); % Lymphocytes 22.7 % (20.5-51.1); % Monocytes 7.3 % (1.7-9.3); % Neutrophils 63.3 % (42.2-75.2); Absolute Basophils 0.1 10^3/uL (0-0.2); Absolute Eosinophils 0.5 10^3/uL (0-0.7); Absolute Lymphocytes 1.9 10^3/uL (1.2-3.4); Absolute Monocytes 0.6 10^3/uL (0.1-0.6); Absolute Neutrophils 5.4 10^3/uL (1.4-6.5); Hematocrit 27.5 % (37.0-47.0); Hemoglobin 7.9 g/dL (12.0-16.0); Mean Corp Hgb Conc. 28.7 g/dL (33.0-37.0); Mean Corpuscular Hgb 28.3 pg (27.0-31.0); Mean Corpuscular Volume 98.6 fL (81.0-99.0); Nucleated Red Blood Cells % 0 %; Platelet Count 171 10^3/uL (130-400); Red Blood Cell Count 2.79 10^6/uL (4.20-5.40); Red Cell Dist. Width 18.4 % (11.5-14.5); White Blood Cell Count 8.5 10^3/uL (4.8-10.8)
[2024-10-07 17:41] LABS: Hypochromasia 2+; Microcytosis 2+; Normal RBC Morphology No
[2024-10-07 17:42] LABS: Macrocytosis 1+; Tear Drop Red Blood Cells Occasional
[2024-10-07 17:48] LABS: Alk Phos After Heat 227; Alkaline Phosphatase Percent 92.28
== END ==
LOC: HWLAB 12:35
PROVIDERS: ATTENDING PHYSICIAN Internal Medicine Hematology & Oncology; FAMILY PHYSICIAN Nurse Practitioner Adult Health; OTHER PHYSICIAN Internal Medicine Cardiovascular Disease; OTHER PHYSICIAN Internal Medicine Gastroenterology; REFERRING PHYSICIAN Internal Medicine Rheumatology
DX: D72.829 Elevated white blood cell count, unspecified (principal); D47.2 Monoclonal gammopathy; D50.9 Iron deficiency anemia, unspecified; C90.00 Multiple myeloma not having achieved remission
CPT/HCPCS: 36415; 80053; 82728; 83540; 83550; 84078; 84550; 85025

== ENCOUNTER → 2024-10-10 14:29 | Outpatient (REF) | payer MEDICARE, OTHER, SELFPAY | LOC: RAD 14:29 | PROVIDERS: ATTENDING PHYSICIAN Internal Medicine Hematology & Oncology; OTHER PHYSICIAN Internal Medicine Gastroenterology; PRIMARYCARE PHYSICIAN Nurse Practitioner Adult Health | DX: D72.829 Elevated white blood cell count, unspecified (principal); D47.2 Monoclonal gammopathy; D50.9 Iron deficiency anemia, unspecified; C90.00 Multiple myeloma not having achieved remission | CPT/HCPCS: 77075 ==

== ENCOUNTER 2024-10-11 11:23 | Outpatient (RCR) | payer MEDICARE, OTHER, SELFPAY ==
[2024-10-11 12:12] VITALS: BP 118/52
[2024-10-11 12:29] VITALS: BP 117/54
[2024-10-11 14:36] VITALS: BP 134/63
== END 2024-11-08 23:59 | disposition home or self-care (01) ==
LOC: OID 11:23
PROVIDERS: ATTENDING PHYSICIAN Internal Medicine Hematology & Oncology; FAMILY PHYSICIAN Nurse Practitioner Adult Health
DX: D50.9 Iron deficiency anemia, unspecified (principal); D47.2 Monoclonal gammopathy; D72.829 Elevated white blood cell count, unspecified; C90.00 Multiple myeloma not having achieved remission
CPT/HCPCS: 36415; 36430; 86850; 86900; 86901; 86920; P9016

== ENCOUNTER → 2024-10-18 15:50 | Outpatient (REF) | payer MEDICARE, OTHER, SELFPAY ==
[2024-10-18 14:44] LABS: % Basophils 0.5 % (0-2); % Eosinophils 7.9 % (0-6); % Immature Granulocytes 0.4 % (0-0.5); % Lymphocytes 20.6 % (20.5-51.1); % Monocytes 4.8 % (1.7-9.3); % Neutrophils 65.8 % (42.2-75.2); Absolute Eosinophils 0.6 10^3/uL (0-0.7); Absolute Lymphocytes 1.7 10^3/uL (1.2-3.4); Absolute Monocytes 0.4 10^3/uL (0.1-0.6); Absolute Neutrophils 5.4 10^3/uL (1.4-6.5); Hemoglobin 9.7 g/dL (12.0-16.0); Mean Corp Hgb Conc. 30.3 g/dL (33.0-37.0); Mean Corpuscular Hgb 28.5 pg (27.0-31.0); Mean Corpuscular Volume 94.1 fL (81.0-99.0); Mean Platelet Volume 10.1 fL (7.4-10.4); Platelet Count 204 10^3/uL (130-400); Red Cell Dist. Width 16.8 % (11.5-14.5); White Blood Cell Count 8.2 10^3/uL (4.8-10.8)
== END ==
LOC: OIDL 15:50
PROVIDERS: ATTENDING PHYSICIAN Internal Medicine Hematology & Oncology
DX: D72.829 Elevated white blood cell count, unspecified (principal)
CPT/HCPCS: 85025

== ENCOUNTER → 2024-10-25 16:22 | Outpatient (REF) | payer MEDICARE, OTHER, SELFPAY ==
[2024-10-25 11:47] LABS: % Basophils 0.3 % (0-2); % Eosinophils 3.8 % (0-6); % Immature Granulocytes 0.3 % (0-0.5); % Monocytes 5.3 % (1.7-9.3); % Neutrophils 72.3 % (42.2-75.2); Absolute Eosinophils 0.5 10^3/uL (0-0.7); Absolute Lymphocytes 2.2 10^3/uL (1.2-3.4); Absolute Monocytes 0.7 10^3/uL (0.1-0.6); Absolute Neutrophils 8.8 10^3/uL (1.4-6.5); Hemoglobin 10.5 g/dL (12.0-16.0); Mean Corp Hgb Conc. 30.9 g/dL (33.0-37.0); Mean Corpuscular Hgb 29.2 pg (27.0-31.0); Mean Corpuscular Volume 94.4 fL (81.0-99.0); Mean Platelet Volume 9.2 fL (7.4-10.4); Platelet Count 213 10^3/uL (130-400); Red Cell Dist. Width 17.9 % (11.5-14.5); White Blood Cell Count 12.2 10^3/uL (4.8-10.8)
== END ==
LOC: OIDL 16:22
PROVIDERS: ATTENDING PHYSICIAN Internal Medicine Hematology & Oncology
DX: D72.829 Elevated white blood cell count, unspecified (principal)
CPT/HCPCS: 85025

== ENCOUNTER → 2024-11-01 16:16 | Outpatient (REF) | payer MEDICARE, OTHER, SELFPAY ==
[2024-11-01 12:12] LABS: % Basophils 0.3 % (0-2); % Eosinophils 6.3 % (0-6); % Immature Granulocytes 0.1 % (0-0.5); % Lymphocytes 21.3 % (20.5-51.1); % Monocytes 5.6 % (1.7-9.3); % Neutrophils 66.4 % (42.2-75.2); Absolute Eosinophils 0.5 10^3/uL (0-0.7); Absolute Lymphocytes 1.5 10^3/uL (1.2-3.4); Absolute Monocytes 0.4 10^3/uL (0.1-0.6); Absolute Neutrophils 4.7 10^3/uL (1.4-6.5); Hematocrit 30.9 % (37.0-47.0); Hemoglobin 9.5 g/dL (12.0-16.0); Mean Corp Hgb Conc. 30.7 g/dL (33.0-37.0); Mean Corpuscular Hgb 29.4 pg (27.0-31.0); Mean Corpuscular Volume 95.7 fL (81.0-99.0); Mean Platelet Volume 9.1 fL (7.4-10.4); Platelet Count 189 10^3/uL (130-400); Red Blood Cell Count 3.23 10^6/uL (4.20-5.40); Red Cell Dist. Width 18.8 % (11.5-14.5); White Blood Cell Count 7.1 10^3/uL (4.8-10.8)
== END ==
LOC: OIDL 16:16
PROVIDERS: ATTENDING PHYSICIAN Internal Medicine Hematology & Oncology
DX: D72.829 Elevated white blood cell count, unspecified (principal)
CPT/HCPCS: 85025

== ENCOUNTER → 2024-11-07 13:33 | Outpatient (REF) | payer MEDICARE, OTHER, SELFPAY ==
[2024-11-07 16:05] LABS: % Basophils 0.6 % (0-2); % Eosinophils 5.7 % (0-6); % Immature Granulocytes 0.5 % (0-0.5); % Lymphocytes 21.9 % (20.5-51.1); % Monocytes 5.4 % (1.7-9.3); % Neutrophils 65.9 % (42.2-75.2); Absolute Basophils 0.1 10^3/uL (0-0.2); Absolute Eosinophils 0.5 10^3/uL (0-0.7); Absolute Lymphocytes 1.9 10^3/uL (1.2-3.4); Absolute Monocytes 0.5 10^3/uL (0.1-0.6); Absolute Neutrophils 5.6 10^3/uL (1.4-6.5); Hematocrit 29.6 % (37.0-47.0); Hemoglobin 9.3 g/dL (12.0-16.0); Mean Corp Hgb Conc. 31.4 g/dL (33.0-37.0); Mean Corpuscular Hgb 29.6 pg (27.0-31.0); Mean Corpuscular Volume 94.3 fL (81.0-99.0); Nucleated Red Blood Cells % 0.2 %; Platelet Count 175 10^3/uL (130-400); Red Blood Cell Count 3.14 10^6/uL (4.20-5.40); White Blood Cell Count 8.5 10^3/uL (4.8-10.8)
[2024-11-07 16:24] LABS: ALT (SGPT) 26 U/L (0-35); AST (SGOT) 39 U/L (14-36); Albumin 4.3 g/dl (3.5-5.0); Alkaline Phosphatase 261 U/L (38-126); Blood Urea Nitrogen 23 mg/dl (7-17); Carbon Dioxide 24 mmol/L (22-30); Chloride 102 mmol/L (98-107); Glucose 110 mg/dl (70-99); Iron 93 ug/dl (37-170); Sodium 139 mmol/L (135-145); Total Bilirubin 0.5 mg/dl (0.2-1.3); Total Protein 7.4 g/dl (6.3-8.2); eGFR > 60.00
[2024-11-07 16:33] LABS: Percent Saturation 27 % (20-50); Total Iron Binding Capacity 341 ug/dl (265-497)
== END ==
LOC: HWLAB 13:33
PROVIDERS: ATTENDING PHYSICIAN Internal Medicine Hematology & Oncology; FAMILY PHYSICIAN Nurse Practitioner Adult Health; OTHER PHYSICIAN Internal Medicine Cardiovascular Disease; OTHER PHYSICIAN Internal Medicine Gastroenterology; REFERRING PHYSICIAN Internal Medicine Rheumatology
DX: D72.829 Elevated white blood cell count, unspecified (principal); D47.2 Monoclonal gammopathy; D50.9 Iron deficiency anemia, unspecified; C90.00 Multiple myeloma not having achieved remission
CPT/HCPCS: 36415; 80053; 82232; 82728; 82784; 83521; 83540; 83550; 84155; 84165; 85025; 86334

== ENCOUNTER 2024-11-25 13:38 | Outpatient (RCR) | payer MEDICARE, OTHER, SELFPAY ==
[2024-11-25 14:28] VITALS: BP 138/52
[2024-11-25] MEDS: PROLIA 60 MG SC (14:38)
== END 2024-11-26 08:54 | disposition home or self-care (01) ==
LOC: OID 13:38
PROVIDERS: ATTENDING PHYSICIAN Internal Medicine Rheumatology; FAMILY PHYSICIAN Nurse Practitioner Adult Health
DX: M81.0 Age-related osteoporosis without current pathological fracture (principal)
CPT/HCPCS: 96372; J0897

== ENCOUNTER → 2024-12-04 13:16 | Outpatient (REF) | payer MEDICARE, OTHER, SELFPAY ==
[2024-12-04 15:58] LABS: % Eosinophils 4.9 % (0-6); % Immature Granulocytes 0.3 % (0-0.5); % Lymphocytes 23.6 % (20.5-51.1); % Monocytes 6.9 % (1.7-9.3); % Neutrophils 63.3 % (42.2-75.2); Absolute Basophils 0.1 10^3/uL (0-0.2); Absolute Eosinophils 0.3 10^3/uL (0-0.7); Absolute Lymphocytes 1.6 10^3/uL (1.2-3.4); Absolute Monocytes 0.5 10^3/uL (0.1-0.6); Absolute Neutrophils 4.3 10^3/uL (1.4-6.5); Hematocrit 25.4 % (37.0-47.0); Mean Corp Hgb Conc. 31.5 g/dL (33.0-37.0); Mean Corpuscular Hgb 29.7 pg (27.0-31.0); Mean Corpuscular Volume 94.4 fL (81.0-99.0); Nucleated Red Blood Cells % 0.3 %; Platelet Count 185 10^3/uL (130-400); Red Blood Cell Count 2.69 10^6/uL (4.20-5.40); Red Cell Dist. Width 17.8 % (11.5-14.5); White Blood Cell Count 6.8 10^3/uL (4.8-10.8)
[2024-12-04 16:05] LABS: Iron 51 ug/dl (37-170)
[2024-12-04 16:15] LABS: Percent Saturation 13 % (20-50); Total Iron Binding Capacity 377 ug/dl (265-497)
[2024-12-04 16:41] LABS: Ferritin 32.1 ng/ml (11.1-264.0)
== END ==
LOC: HWLAB 13:16
PROVIDERS: ATTENDING PHYSICIAN Internal Medicine Hematology & Oncology; FAMILY PHYSICIAN Nurse Practitioner Adult Health; OTHER PHYSICIAN Internal Medicine Gastroenterology; REFERRING PHYSICIAN Specialist
DX: D72.829 Elevated white blood cell count, unspecified (principal); C90.00 Multiple myeloma not having achieved remission
CPT/HCPCS: 36415; 82728; 83540; 83550; 85025

== ENCOUNTER → 2024-12-11 11:20 | Outpatient (REF) | payer MEDICARE, OTHER, SELFPAY ==
[2024-12-11 16:19] LABS: % Basophils 1.1 % (0-2); % Eosinophils 5.9 % (0-6); % Immature Granulocytes 0.3 % (0-0.5); % Lymphocytes 25.6 % (20.5-51.1); % Monocytes 5.9 % (1.7-9.3); % Neutrophils 61.2 % (42.2-75.2); ALT (SGPT) 25 U/L (0-35); AST (SGOT) 40 U/L (14-36); Absolute Basophils 0.1 10^3/uL (0-0.2); Absolute Eosinophils 0.4 10^3/uL (0-0.7); Absolute Lymphocytes 1.9 10^3/uL (1.2-3.4); Absolute Monocytes 0.4 10^3/uL (0.1-0.6); Absolute Neutrophils 4.6 10^3/uL (1.4-6.5); Albumin 4.1 g/dl (3.5-5.0); Alkaline Phosphatase 257 U/L (38-126); Blood Urea Nitrogen 25 mg/dl (7-17); Carbon Dioxide 24 mmol/L (22-30); Chloride 104 mmol/L (98-107); Glucose 107 mg/dl (70-99); Hematocrit 26.9 % (37.0-47.0); Mean Corp Hgb Conc. 29.7 g/dL (33.0-37.0); Mean Corpuscular Hgb 28.4 pg (27.0-31.0); Mean Corpuscular Volume 95.4 fL (81.0-99.0); Mean Platelet Volume 10.7 fL (7.4-10.4); Nucleated Red Blood Cells % 0 %; Platelet Count 213 10^3/uL (130-400); Potassium 4.9 mmol/L (3.5-5.1); Red Blood Cell Count 2.82 10^6/uL (4.20-5.40); Red Cell Dist. Width 17.1 % (11.5-14.5); Sodium 139 mmol/L (135-145); Total Bilirubin 0.7 mg/dl (0.2-1.3); Total Protein 7.3 g/dl (6.3-8.2); White Blood Cell Count 7.5 10^3/uL (4.8-10.8)
[2024-12-11 16:25] LABS: INR 0.97; PT 13.4 Sec (11.4-14.6)
[2024-12-11 16:26] LABS: APTT 31.3 Sec (23.4-35.0)
[2024-12-11 16:35] LABS: Intact PTH 25.1 pg/ml (13.6-85.8)
[2024-12-11 16:49] LABS: TSH 2.85 uIU/ml (0.47-4.68)
[2024-12-12 08:13] LABS: Glycohemoglobin (HgbA1c) 5.3 % (4.0-5.6)
[2024-12-12 19:22] LABS: AFP Male/Tumor Marker 2.94 ng/ml
== END ==
LOC: HWRAD 11:20
PROVIDERS: ATTENDING PHYSICIAN Internal Medicine Gastroenterology; FAMILY PHYSICIAN Nurse Practitioner Adult Health; OTHER PHYSICIAN Internal Medicine Cardiovascular Disease; OTHER PHYSICIAN Internal Medicine Hematology & Oncology; OTHER PHYSICIAN Internal Medicine Rheumatology; OTHER PHYSICIAN Specialist; REFERRING PHYSICIAN Internal Medicine Endocrinology, Diabetes & Metabolism
DX: K74.69 Other cirrhosis of liver (principal); E11.40 Type 2 diabetes mellitus with diabetic neuropathy, unspecified; E04.2 Nontoxic multinodular goiter; E83.52 Hypercalcemia
CPT/HCPCS: 36415; 76700; 80053; 82105; 83036; 83970; 84443; 85025; 85610; 85730

== ENCOUNTER → 2024-12-11 12:44 | Outpatient (REF) | payer MEDICARE, OTHER, SELFPAY | LOC: HWRCS 12:44 | PROVIDERS: ATTENDING PHYSICIAN Internal Medicine Cardiovascular Disease; FAMILY PHYSICIAN Nurse Practitioner Adult Health | DX: I35.0 Nonrheumatic aortic (valve) stenosis (principal) | CPT/HCPCS: 93306 ==

== ENCOUNTER → 2024-12-17 13:39 | Outpatient (REF) | payer MEDICARE, OTHER, SELFPAY ==
[2024-12-17 13:49] LABS: % Basophils 0.3 % (0-2); % Eosinophils 4.4 % (0-6); % Immature Granulocytes 0.5 % (0-0.5); % Lymphocytes 19.2 % (20.5-51.1); % Monocytes 5.7 % (1.7-9.3); % Neutrophils 69.9 % (42.2-75.2); Absolute Eosinophils 0.4 10^3/uL (0-0.7); Absolute Immature Granulocytes 0.1 10^3/uL (0-0.05); Absolute Lymphocytes 1.9 10^3/uL (1.2-3.4); Absolute Monocytes 0.6 10^3/uL (0.1-0.6); Absolute Neutrophils 6.9 10^3/uL (1.4-6.5); Hematocrit 26.4 % (37.0-47.0); Mean Corp Hgb Conc. 30.3 g/dL (33.0-37.0); Mean Corpuscular Hgb 29.1 pg (27.0-31.0); Mean Platelet Volume 8.9 fL (7.4-10.4); Platelet Count 184 10^3/uL (130-400); Red Blood Cell Count 2.75 10^6/uL (4.20-5.40); White Blood Cell Count 9.8 10^3/uL (4.8-10.8)
== END ==
LOC: OIDL 13:39
PROVIDERS: ATTENDING PHYSICIAN Internal Medicine Hematology & Oncology
DX: D72.829 Elevated white blood cell count, unspecified (principal); D47.2 Monoclonal gammopathy; D50.9 Iron deficiency anemia, unspecified; C90.00 Multiple myeloma not having achieved remission
CPT/HCPCS: 85025

== ENCOUNTER → 2024-12-19 13:42 | Outpatient (REF) | payer MEDICARE, OTHER, SELFPAY ==
[2024-12-19 14:22] LABS: % Basophils 0.5 % (0-2); % Immature Granulocytes 1.2 % (0-0.5); % Lymphocytes 21.5 % (20.5-51.1); % Monocytes 5.4 % (1.7-9.3); % Neutrophils 66.4 % (42.2-75.2); Absolute Basophils 0.1 10^3/uL (0-0.2); Absolute Eosinophils 0.5 10^3/uL (0-0.7); Absolute Immature Granulocytes 0.1 10^3/uL (0-0.05); Absolute Lymphocytes 2.2 10^3/uL (1.2-3.4); Absolute Monocytes 0.6 10^3/uL (0.1-0.6); Absolute Neutrophils 6.8 10^3/uL (1.4-6.5); Hematocrit 26.4 % (37.0-47.0); Hemoglobin 8.1 g/dL (12.0-16.0); Mean Corp Hgb Conc. 30.7 g/dL (33.0-37.0); Mean Corpuscular Hgb 28.7 pg (27.0-31.0); Mean Corpuscular Volume 93.6 fL (81.0-99.0); Mean Platelet Volume 10.4 fL (7.4-10.4); Platelet Count 227 10^3/uL (130-400); Red Blood Cell Count 2.82 10^6/uL (4.20-5.40); White Blood Cell Count 10.3 10^3/uL (4.8-10.8)
== END ==
LOC: OIDL 13:42
PROVIDERS: ATTENDING PHYSICIAN Internal Medicine Hematology & Oncology
DX: D72.829 Elevated white blood cell count, unspecified (principal); D47.2 Monoclonal gammopathy; D50.9 Iron deficiency anemia, unspecified; C90.00 Multiple myeloma not having achieved remission
CPT/HCPCS: 85025

== ENCOUNTER 2024-12-24 06:14 | Day surgery (SDC) | payer MEDICARE, OTHER, SELFPAY ==
[2024-12-24 08:10] LABS: Glucose - Point of Care 125 mg/dl (70-99)
[2024-12-24 08:13] VITALS: BMI 31.2
[2024-12-24 08:14] VITALS: BMI 31.2
[2024-12-24 08:15] VITALS: BP 136/57
[2024-12-24 10:21] LABS: Glucose - Point of Care 104 mg/dl (70-99)
[2024-12-24 12:16] VITALS: BP 124/60
[2024-12-24 12:30] VITALS: BP 130/72
== END 2024-12-24 12:50 | disposition home or self-care (01) ==
LOC: GI 06:14
PROVIDERS: ATTENDING PHYSICIAN Internal Medicine Gastroenterology
DX: K31.811 Angiodysplasia of stomach and duodenum with bleeding (principal); D50.9 Iron deficiency anemia, unspecified; K92.1 Melena
CPT/HCPCS: 44366; 82962

== ENCOUNTER → 2024-12-26 15:04 | Outpatient (REF) | payer MEDICARE, OTHER, SELFPAY ==
[2024-12-26 14:34] LABS: % Basophils 0.4 % (0-2); % Eosinophils 4.8 % (0-6); % Immature Granulocytes 0.4 % (0-0.5); % Lymphocytes 20.5 % (20.5-51.1); % Monocytes 5.4 % (1.7-9.3); % Neutrophils 68.5 % (42.2-75.2); Absolute Eosinophils 0.4 10^3/uL (0-0.7); Absolute Lymphocytes 1.9 10^3/uL (1.2-3.4); Absolute Monocytes 0.5 10^3/uL (0.1-0.6); Absolute Neutrophils 6.2 10^3/uL (1.4-6.5); Hematocrit 30.3 % (37.0-47.0); Hemoglobin 9.1 g/dL (12.0-16.0); Mean Corpuscular Hgb 28.9 pg (27.0-31.0); Mean Corpuscular Volume 96.2 fL (81.0-99.0); Mean Platelet Volume 9.9 fL (7.4-10.4); Platelet Count 221 10^3/uL (130-400); Red Blood Cell Count 3.15 10^6/uL (4.20-5.40)
== END ==
LOC: OIDL 15:04
PROVIDERS: ATTENDING PHYSICIAN Internal Medicine Hematology & Oncology
DX: D72.829 Elevated white blood cell count, unspecified (principal); D47.2 Monoclonal gammopathy; D50.9 Iron deficiency anemia, unspecified; C90.00 Multiple myeloma not having achieved remission
CPT/HCPCS: 85025

== ENCOUNTER → 2025-01-07 14:34 | Outpatient (REF) | payer MEDICARE, OTHER, SELFPAY | LOC: RAD 14:34 | PROVIDERS: ATTENDING PHYSICIAN Nurse Practitioner Adult Health; OTHER PHYSICIAN Internal Medicine Cardiovascular Disease; REFERRING PHYSICIAN Surgery Vascular Surgery | DX: R60.0 Localized edema (principal) | CPT/HCPCS: 93971 ==

== ENCOUNTER → 2025-02-05 09:56 | Outpatient (REF) | payer MEDICARE, OTHER, SELFPAY ==
[2025-02-05 11:23] LABS: % Basophils 1.1 % (0-2); % Eosinophils 6.2 % (0-6); % Immature Granulocytes 0.5 % (0-0.5); % Monocytes 5.8 % (1.7-9.3); % Neutrophils 66.4 % (42.2-75.2); Absolute Basophils 0.1 10^3/uL (0-0.2); Absolute Eosinophils 0.5 10^3/uL (0-0.7); Absolute Lymphocytes 1.7 10^3/uL (1.2-3.4); Absolute Monocytes 0.5 10^3/uL (0.1-0.6); Absolute Neutrophils 5.7 10^3/uL (1.4-6.5); Hemoglobin 10.3 g/dL (12.0-16.0); Mean Corp Hgb Conc. 31.2 g/dL (33.0-37.0); Mean Corpuscular Hgb 28.7 pg (27.0-31.0); Mean Corpuscular Volume 91.9 fL (81.0-99.0); Mean Platelet Volume 10.1 fL (7.4-10.4); Nucleated Red Blood Cells % 0 %; Platelet Count 190 10^3/uL (130-400); Red Blood Cell Count 3.59 10^6/uL (4.20-5.40); Red Cell Dist. Width 16.1 % (11.5-14.5); White Blood Cell Count 8.6 10^3/uL (4.8-10.8)
[2025-02-05 11:40] LABS: Iron 54 ug/dl (37-170)
[2025-02-05 11:50] LABS: Percent Saturation 13 % (20-50); Total Iron Binding Capacity 401 ug/dl (265-497)
[2025-02-05 12:13] LABS: Ferritin 28.3 ng/ml (11.1-264.0)
== END ==
LOC: HWLAB 09:56
PROVIDERS: ATTENDING PHYSICIAN Internal Medicine Hematology & Oncology; FAMILY PHYSICIAN Nurse Practitioner Adult Health
DX: D72.829 Elevated white blood cell count, unspecified (principal); D47.2 Monoclonal gammopathy; D50.9 Iron deficiency anemia, unspecified; C90.00 Multiple myeloma not having achieved remission
CPT/HCPCS: 36415; 82728; 83540; 83550; 85025

== ENCOUNTER → 2025-02-13 12:48 | Outpatient (REF) | payer MEDICARE, OTHER, SELFPAY ==
[2025-02-13 16:35] LABS: % Eosinophils 6.2 % (0-6); % Immature Granulocytes 0.5 % (0-0.5); % Lymphocytes 22.7 % (20.5-51.1); % Neutrophils 64.6 % (42.2-75.2); Absolute Basophils 0.1 10^3/uL (0-0.2); Absolute Eosinophils 0.7 10^3/uL (0-0.7); Absolute Immature Granulocytes 0.1 10^3/uL (0-0.05); Absolute Lymphocytes 2.4 10^3/uL (1.2-3.4); Absolute Monocytes 0.5 10^3/uL (0.1-0.6); Absolute Neutrophils 6.8 10^3/uL (1.4-6.5); Hematocrit 32.7 % (37.0-47.0); Hemoglobin 10.2 g/dL (12.0-16.0); Mean Corp Hgb Conc. 31.2 g/dL (33.0-37.0); Mean Corpuscular Hgb 28.1 pg (27.0-31.0); Mean Corpuscular Volume 90.1 fL (81.0-99.0); Nucleated Red Blood Cells % 0 %; Platelet Count 205 10^3/uL (130-400); Red Blood Cell Count 3.63 10^6/uL (4.20-5.40); Red Cell Dist. Width 16.1 % (11.5-14.5); White Blood Cell Count 10.4 10^3/uL (4.8-10.8)
[2025-02-13 16:46] LABS: ALT (SGPT) 24 U/L (0-35); AST (SGOT) 33 U/L (14-36); Albumin 4.2 g/dl (3.5-5.0); Alkaline Phosphatase 231 U/L (38-126); Blood Urea Nitrogen 24 mg/dl (7-17); Calcium 9.7 mg/dl (8.4-10.2); Carbon Dioxide 23 mmol/L (22-30); Chloride 106 mmol/L (98-107); Glucose 171 mg/dl (70-99); Potassium 4.7 mmol/L (3.5-5.1); Sodium 141 mmol/L (135-145); Total Bilirubin 0.4 mg/dl (0.2-1.3); Total Protein 7.1 g/dl (6.3-8.2)
[2025-02-16 04:50] LABS: Beta-2-Microglobulin 6.1 mg/L (<=3.0)
== END ==
LOC: HWLAB 12:48
PROVIDERS: ATTENDING PHYSICIAN Nurse Practitioner Primary Care; FAMILY PHYSICIAN Nurse Practitioner Adult Health; OTHER PHYSICIAN Internal Medicine Gastroenterology; OTHER PHYSICIAN Specialist; REFERRING PHYSICIAN Internal Medicine Rheumatology
DX: D72.829 Elevated white blood cell count, unspecified (principal); D47.2 Monoclonal gammopathy; D50.9 Iron deficiency anemia, unspecified; C90.00 Multiple myeloma not having achieved remission
CPT/HCPCS: 36415; 80053; 82232; 82784; 83521; 84155; 84165; 85025; 86334

== ENCOUNTER 2025-02-21 16:14 | Outpatient (RCR) | payer MEDICARE, OTHER, SELFPAY ==
[2025-02-21 15:19] LABS: % Basophils 0.8 % (0-2); % Eosinophils 5.2 % (0-6); % Immature Granulocytes 0.6 % (0-0.5); % Lymphocytes 20.9 % (20.5-51.1); % Monocytes 5.9 % (1.7-9.3); % Neutrophils 66.6 % (42.2-75.2); Absolute Basophils 0.1 10^3/uL (0-0.2); Absolute Eosinophils 0.5 10^3/uL (0-0.7); Absolute Immature Granulocytes 0.1 10^3/uL (0-0.05); Absolute Monocytes 0.6 10^3/uL (0.1-0.6); Absolute Neutrophils 6.5 10^3/uL (1.4-6.5); Hematocrit 32.2 % (37.0-47.0); Hemoglobin 10.2 g/dL (12.0-16.0); Mean Corp Hgb Conc. 31.7 g/dL (33.0-37.0); Mean Corpuscular Hgb 28.6 pg (27.0-31.0); Mean Corpuscular Volume 90.2 fL (81.0-99.0); Mean Platelet Volume 9.5 fL (7.4-10.4); Nucleated Red Blood Cells % 0.2 %; Platelet Count 184 10^3/uL (130-400); Red Blood Cell Count 3.57 10^6/uL (4.20-5.40); Red Cell Dist. Width 16.4 % (11.5-14.5); White Blood Cell Count 9.7 10^3/uL (4.8-10.8)
== END 2025-03-08 23:59 | disposition home or self-care (01) ==
LOC: OID 16:14
PROVIDERS: Internal Medicine Hematology & Oncology; ATTENDING PHYSICIAN Internal Medicine Rheumatology; FAMILY PHYSICIAN Nurse Practitioner Adult Health
DX: M81.0 Age-related osteoporosis without current pathological fracture (principal); D64.9 Anemia, unspecified
CPT/HCPCS: 85025

== ENCOUNTER → 2025-03-06 12:02 | Outpatient (REF) | payer MEDICARE, OTHER, SELFPAY ==
[2025-03-06 15:36] LABS: % Basophils 1.1 % (0-2); % Eosinophils 5.5 % (0-6); % Immature Granulocytes 0.9 % (0-0.5); % Lymphocytes 22.5 % (20.5-51.1); % Monocytes 5.7 % (1.7-9.3); % Neutrophils 64.3 % (42.2-75.2); Absolute Basophils 0.1 10^3/uL (0-0.2); Absolute Eosinophils 0.4 10^3/uL (0-0.7); Absolute Immature Granulocytes 0.1 10^3/uL (0-0.05); Absolute Lymphocytes 1.8 10^3/uL (1.2-3.4); Absolute Monocytes 0.5 10^3/uL (0.1-0.6); Absolute Neutrophils 5.1 10^3/uL (1.4-6.5); Hematocrit 32.9 % (37.0-47.0); Hemoglobin 10.3 g/dL (12.0-16.0); Mean Corp Hgb Conc. 31.3 g/dL (33.0-37.0); Mean Corpuscular Hgb 29.6 pg (27.0-31.0); Mean Corpuscular Volume 94.5 fL (81.0-99.0); Mean Platelet Volume 9.9 fL (7.4-10.4); Nucleated Red Blood Cells % 0 %; Platelet Count 173 10^3/uL (130-400); Red Blood Cell Count 3.48 10^6/uL (4.20-5.40); Red Cell Dist. Width 18.7 % (11.5-14.5); White Blood Cell Count 7.9 10^3/uL (4.8-10.8)
[2025-03-06 15:42] LABS: ALT (SGPT) 26 U/L (0-35); AST (SGOT) 34 U/L (14-36); Alkaline Phosphatase 272 U/L (38-126); Blood Urea Nitrogen 16 mg/dl (7-17); Calcium 9.6 mg/dl (8.4-10.2); Carbon Dioxide 31 mmol/L (22-30); Chloride 108 mmol/L (98-107); Glucose 128 mg/dl (70-99); Potassium 4.8 mmol/L (3.5-5.1); Sodium 146 mmol/L (135-145); Total Bilirubin 0.4 mg/dl (0.2-1.3); Total Protein 7.4 g/dl (6.3-8.2); eGFR > 60.00
[2025-03-09 04:02] LABS: Beta-2-Microglobulin 5.8 mg/L (<=3.0)
== END ==
LOC: HWRAD 12:02
PROVIDERS: ATTENDING PHYSICIAN Nurse Practitioner Adult Health; FAMILY PHYSICIAN Nurse Practitioner Adult Health; OTHER PHYSICIAN Internal Medicine Gastroenterology; OTHER PHYSICIAN Internal Medicine Rheumatology; OTHER PHYSICIAN Specialist; REFERRING PHYSICIAN Nurse Practitioner Primary Care
DX: R91.1 Solitary pulmonary nodule (principal); D72.829 Elevated white blood cell count, unspecified; D47.2 Monoclonal gammopathy; D50.9 Iron deficiency anemia, unspecified; C90.00 Multiple myeloma not having achieved remission
CPT/HCPCS: 36415; 71250; 80053; 82232; 82784; 83521; 84155; 84165; 85025; 86334

== ENCOUNTER → 2025-03-31 13:54 | Outpatient (REF) | payer MEDICARE, OTHER, SELFPAY | LOC: HWRAD 13:54 | PROVIDERS: ATTENDING PHYSICIAN Internal Medicine Rheumatology; FAMILY PHYSICIAN Nurse Practitioner Adult Health | DX: M81.0 Age-related osteoporosis without current pathological fracture (principal) | CPT/HCPCS: 77080 ==

== ENCOUNTER → 2025-04-02 09:44 | Outpatient (REF) | payer MEDICARE, OTHER, SELFPAY | LOC: PAVMRI 09:44 | PROVIDERS: ATTENDING PHYSICIAN Internal Medicine Gastroenterology; FAMILY PHYSICIAN Nurse Practitioner Adult Health | DX: K74.69 Other cirrhosis of liver (principal) | CPT/HCPCS: 74183; A9575 ==

== ENCOUNTER → 2025-04-02 12:13 | Outpatient (REF) | payer MEDICARE, OTHER, SELFPAY ==
[2025-04-02 16:01] LABS: % Basophils 0.7 % (0-2); % Eosinophils 5.5 % (0-6); % Immature Granulocytes 0.7 % (0-0.5); % Lymphocytes 21.8 % (20.5-51.1); % Monocytes 5.2 % (1.7-9.3); % Neutrophils 66.1 % (42.2-75.2); Absolute Basophils 0.1 10^3/uL (0-0.2); Absolute Eosinophils 0.5 10^3/uL (0-0.7); Absolute Immature Granulocytes 0.1 10^3/uL (0-0.05); Absolute Lymphocytes 1.8 10^3/uL (1.2-3.4); Absolute Monocytes 0.4 10^3/uL (0.1-0.6); Absolute Neutrophils 5.6 10^3/uL (1.4-6.5); Hematocrit 30.4 % (37.0-47.0); Hemoglobin 9.7 g/dL (12.0-16.0); Mean Corp Hgb Conc. 31.9 g/dL (33.0-37.0); Mean Corpuscular Hgb 29.5 pg (27.0-31.0); Mean Corpuscular Volume 92.4 fL (81.0-99.0); Mean Platelet Volume 10.6 fL (7.4-10.4); Nucleated Red Blood Cells % 0.2 %; Platelet Count 186 10^3/uL (130-400); Red Blood Cell Count 3.29 10^6/uL (4.20-5.40); Red Cell Dist. Width 17.7 % (11.5-14.5); White Blood Cell Count 8.4 10^3/uL (4.8-10.8)
[2025-04-02 16:10] LABS: Iron 65 ug/dl (37-170)
[2025-04-02 16:24] LABS: Percent Saturation 18 % (20-50); Total Iron Binding Capacity 351 ug/dl (265-497)
[2025-04-02 16:44] LABS: Ferritin 59.6 ng/ml (11.1-264.0)
== END ==
LOC: HWLAB 12:13
PROVIDERS: ATTENDING PHYSICIAN Nurse Practitioner Primary Care; FAMILY PHYSICIAN Nurse Practitioner Adult Health; REFERRING PHYSICIAN Internal Medicine Endocrinology, Diabetes & Metabolism
DX: D72.829 Elevated white blood cell count, unspecified (principal); D47.2 Monoclonal gammopathy; D50.9 Iron deficiency anemia, unspecified; C90.00 Multiple myeloma not having achieved remission
CPT/HCPCS: 36415; 82728; 83540; 83550; 85025

== ENCOUNTER → 2025-05-07 12:42 | Outpatient (REF) | payer MEDICARE, OTHER, SELFPAY ==
[2025-05-07 16:10] LABS: Hematocrit 28.5 % (37.0-47.0); Hemoglobin 8.9 g/dL (12.0-16.0); Mean Corp Hgb Conc. 31.2 g/dL (33.0-37.0); Mean Corpuscular Volume 91.6 fL (81.0-99.0); Nucleated Red Blood Cells % 0 %; Platelet Count 219 10^3/uL (130-400); Red Cell Dist. Width 16.6 % (11.5-14.5)
[2025-05-07 16:24] LABS: Iron 50 ug/dl (37-170)
[2025-05-07 16:33] LABS: Total Iron Binding Capacity 421 ug/dl (265-497)
[2025-05-07 16:59] LABS: Ferritin 15.9 ng/ml (11.1-264.0)
== END ==
LOC: HWLAB 12:42
PROVIDERS: ATTENDING PHYSICIAN Nurse Practitioner Primary Care; FAMILY PHYSICIAN Nurse Practitioner Adult Health
DX: D72.829 Elevated white blood cell count, unspecified (principal); D47.2 Monoclonal gammopathy; D50.9 Iron deficiency anemia, unspecified; C90.00 Multiple myeloma not having achieved remission
CPT/HCPCS: 36415; 82728; 83540; 83550; 85025

== ENCOUNTER → 2025-05-08 12:35 | Outpatient (REF) | payer MEDICARE, OTHER, SELFPAY ==
[2025-05-08 15:57] LABS: ALT (SGPT) 23 U/L (0-35); AST (SGOT) 35 U/L (14-36); Albumin 4.1 g/dl (3.5-5.0); Alkaline Phosphatase 236 U/L (38-126); Blood Urea Nitrogen 26 mg/dl (7-17); Calcium 9.8 mg/dl (8.4-10.2); Carbon Dioxide 23 mmol/L (22-30); Chloride 105 mmol/L (98-107); Glucose 190 mg/dl (70-99); Potassium 5.1 mmol/L (3.5-5.1); Sodium 140 mmol/L (135-145); Total Protein 7.1 g/dl (6.3-8.2); Uric Acid 3.7 mg/dl (2.5-6.2); eGFR 44.64
[2025-05-08 16:13] LABS: Vitamin D, 25-OH*** 73.5 ng/mL (30-80)
== END ==
LOC: HWLAB 12:35
PROVIDERS: ATTENDING PHYSICIAN Internal Medicine Rheumatology; FAMILY PHYSICIAN Nurse Practitioner Adult Health
DX: M81.0 Age-related osteoporosis without current pathological fracture (principal); M10.9 Gout, unspecified
CPT/HCPCS: 36415; 80053; 82306; 84550

== ENCOUNTER 2025-05-27 13:00 | Outpatient (RCR) | payer MEDICARE, OTHER, SELFPAY ==
[2025-05-27 13:15] VITALS: BP 143/56
[2025-05-27] MEDS: PROLIA 60 MG SC (13:30)
== END 2025-05-28 11:00 | disposition home or self-care (01) ==
LOC: OID 13:00
PROVIDERS: ATTENDING PHYSICIAN Internal Medicine Rheumatology; FAMILY PHYSICIAN Nurse Practitioner Adult Health
DX: M81.0 Age-related osteoporosis without current pathological fracture (principal); D64.9 Anemia, unspecified
CPT/HCPCS: 96372; J0897

== ENCOUNTER → 2025-06-05 10:41 | Outpatient (REF) | payer MEDICARE, OTHER, SELFPAY ==
[2025-06-05 15:42] LABS: Hematocrit 25.2 % (37.0-47.0); Hemoglobin 7.4 g/dL (12.0-16.0); Mean Corp Hgb Conc. 29.4 g/dL (33.0-37.0); Mean Corpuscular Volume 88.7 fL (81.0-99.0); Nucleated Red Blood Cells % 0 %; Platelet Count 229 10^3/uL (130-400); Red Cell Dist. Width 16.6 % (11.5-14.5)
[2025-06-05 15:59] LABS: ALT (SGPT) 20 U/L (0-35); AST (SGOT) 29 U/L (14-36); Albumin 4.1 g/dl (3.5-5.0); Alkaline Phosphatase 214 U/L (38-126); Blood Urea Nitrogen 21 mg/dl (7-17); Calcium 9.2 mg/dl (8.4-10.2); Carbon Dioxide 26 mmol/L (22-30); Chloride 107 mmol/L (98-107); Glucose 126 mg/dl (70-99); Iron 34 ug/dl (37-170); Potassium 4.9 mmol/L (3.5-5.1); Sodium 139 mmol/L (135-145); Total Protein 6.9 g/dl (6.3-8.2); eGFR 55.55
[2025-06-05 16:07] LABS: Total Iron Binding Capacity 429 ug/dl (265-497)
[2025-06-05 16:21] LABS: TSH 4.85 uIU/ml (0.47-4.68)
[2025-06-05 16:26] LABS: Ferritin 8.3 ng/ml (11.1-264.0)
[2025-06-06 08:54] LABS: Glycohemoglobin (HgbA1c) 6.5 % (4.0-5.6)
== END ==
LOC: HWLAB 10:41
PROVIDERS: ATTENDING PHYSICIAN Internal Medicine Endocrinology, Diabetes & Metabolism; FAMILY PHYSICIAN Nurse Practitioner Adult Health; OTHER PHYSICIAN Internal Medicine Cardiovascular Disease; OTHER PHYSICIAN Internal Medicine Gastroenterology; OTHER PHYSICIAN Internal Medicine Hematology & Oncology; OTHER PHYSICIAN Internal Medicine Rheumatology; OTHER PHYSICIAN Specialist; REFERRING PHYSICIAN Nurse Practitioner Primary Care
DX: D72.829 Elevated white blood cell count, unspecified (principal); D47.2 Monoclonal gammopathy; D50.9 Iron deficiency anemia, unspecified; C90.00 Multiple myeloma not having achieved remission; E11.40 Type 2 diabetes mellitus with diabetic neuropathy, unspecified; E04.2 Nontoxic multinodular goiter; E83.52 Hypercalcemia
CPT/HCPCS: 36415; 80053; 82728; 83036; 83540; 83550; 83970; 84443; 85025

== ENCOUNTER 2025-06-13 18:21 | Inpatient (IN) | payer MEDICARE, OTHER, SELFPAY ==
[2025-06-13] VITALS (7 sets, daily range): BP systolic 88–149; BP diastolic 50–75; BMI 32.2
[2025-06-13 16:02] LABS: Hematocrit 22.1 % (37.0-47.0); Hemoglobin 6.7 g/dL (12.0-16.0); Mean Corp Hgb Conc. 30.3 g/dL (33.0-37.0); Mean Corpuscular Volume 85.7 fL (81.0-99.0); Nucleated Red Blood Cells % 0.2 %; Platelet Count 175 10^3/uL (130-400); Red Cell Dist. Width 16.7 % (11.5-14.5)
[2025-06-13 16:03] LABS: ALT (SGPT) 22 U/L (0-35); AST (SGOT) 25 U/L (14-36); Albumin 3.9 g/dl (3.5-5.0); Alkaline Phosphatase 180 U/L (38-126); Blood Urea Nitrogen 24 mg/dl (7-17); Calcium 9.2 mg/dl (8.4-10.2); Carbon Dioxide 26 mmol/L (22-30); Chloride 106 mmol/L (98-107); Glucose 155 mg/dl (70-99); Potassium 4.9 mmol/L (3.5-5.1); Sodium 138 mmol/L (135-145); Total Protein 6.4 g/dl (6.3-8.2); eGFR 55.55
--- NOTE | 2025-06-13 16:50 | ED.GENMED ---
History of Present Illness
General
Chief Complaint: Dizziness
Source: patient, spouse and family
Exam Limitations: none
Time Seen by Provider: 06/13/25 16:15
Nursing documentation reviewed up to this point in time: agreed with
History of Present Illness
History of Present Illness:
Note:
CHIEF COMPLAINT(S)
Anemia and symptoms of dizziness or lightheadedness.
HISTORY OF PRESENT ILLNESS
The patient is an 85-year-old female presenting with anemia. The patient had a visit today with another physician, Dr. Mckeon, who reviewed recent test results showing the patients blood levels are low. Previous tests on the showed
hemoglobin at 7, now decreased to 6.7. The patient is not on blood thinners aside from taking a baby aspirin. This issue of anemia has been ongoing for over a year. The patient has had previous interventions including iron infusions and a
transfusion. In December, an endoscopy was performed revealing a bleeder, which was treated with cautery, resulting in temporary improvement. However, symptoms worsened again by April. The patient reports feeling dizzy or light-headed for the past week.
No blood has been noticed in stools. Further examination, including a rectal exam, suggests no external bleeding but indicates potential higher gastrointestinal tract bleeding as stools appear brown.
The patient is also being evaluated for a possible blood transfusion and will likely be admitted to the hospital for further management. A consent form for a blood transfusion is being prepared, and discussions with a hospitalist about admission are
underway. Future gastrointestinal evaluation may include a colonoscopy to further explore the source of bleeding.
CHRONIC MEDICAL CONDITIONS SIGNIFICANTLY AFFECTING CARE
The patient has a history of fatty liver which has progressed to cirrhosis, potentially contributing to the current condition.
PHYSICAL EXAM
General: Alert, no acute distress.
Skin: Warm, dry.
Head: Normocephalic, atraumatic.
Neck: Supple, trachea midline.
Eye Ears, nose, mouth and throat: Oral mucosa moist.
Cardiovascular: Normal peripheral perfusion, No edema.
Respiratory: Respirations are non-labored.
Gastrointestinal: Abdomen nondistended.
Back: Normal range of motion, Normal alignment.
Musculoskeletal: Normal ROM, normal strength.
Neurological: Alert and oriented to person, place, time, and situation, No focal neurological deficit observed.
Psychiatric: Cooperative, appropriate mood & affect.
PLAN
1. Prepare a consent form and proceed with a blood transfusion of at least one unit based on the patients present anemia.
2. Admit the patient to the hospital for further monitoring and investigation regarding the source of bleeding.
3. Consult with a hospitalist regarding the admission.
4. Consider future gastrointestinal evaluation with colonoscopy to assess potential sources of higher GI tract bleeding.
DIFFERENTIAL DIAGNOSIS
The Differential Diagnosis includes, in no particular order and is not limited to:
1. Gastrointestinal bleed (upper or lower)
2. Peptic ulcer disease
3. Hiatal hernia
4. Colon cancer
5. Esophageal varices
6. Gastritis
7. Angiodysplasia
8. Diverticulosis
9. Iron deficiency anemia
10. Liver cirrhosis-related bleeding
SUMMARY OF ENCOUNTER
The patient presented to the emergency department with symptoms of anemia and a history of gastrointestinal bleeding. Initial laboratory tests indicated significant anemia, and as a result, one unit of packed red blood cells was ordered. The
patients vital signs were stable, and their condition was assessed as good upon arrival. Given the persistent anemia and suspected ongoing gastrointestinal bleeding, the decision was made to admit the patient for inpatient monitoring and management.
DISPOSITION
Admit
ASSESSMENT
The patient is likely experiencing a gastrointestinal bleed as evidenced by anemia, which requires further investigation and management.
PLAN
1. Admit the patient to the hospital under the care of hospitalists.
2. Administer one unit of packed red blood cells for anemia correction.
INDEPENDENT REVIEW OF LABS AND INTERPRETATION OF TESTS
My independent review of hemoglobin levels shows a decrease to 6.7, indicating anemia.
MANAGEMENT OF THE PATIENTS CARE WAS DISCUSSED WITH
The case was discussed with the hospitalist team for admission and further management.
MEDICAL DECISION MAKING
-Complexity of Data Reviewed: Chronic conditions affecting care include liver cirrhosis potentially related to the bleeding. Differential diagnoses considered include gastrointestinal bleed, peptic ulcer disease, hiatal hernia, colon cancer,
esophageal varices, gastritis, angiodysplasia, diverticulosis, iron deficiency anemia, and liver cirrhosis-related bleeding.
Category 3
Discussion of management with hospitalist for admission and with gastroenterology for likely consultation.
DIAGNOSIS
1. Gastrointestinal hemorrhage (ICD-10: K92.2)
2. Anemia, unspecified (ICD-10: D64.9)
Past History
Past History
ED Past Medical History: Asthma, GERD, HTN, Hypercholesterolemia, NIDDM and Other (Diverticulosis)
ED Past Surgical History: Cholecystectomy, Gynecological (Hysterectomy) and Other (Bladder lift, back surg, Hernia repair)
Social History
Tobacco: Former smoker
Alcohol: Occasional
Drug: None
Personal:
Living: with family
Family History
Family History: Other (Breast cancer in her brother, colon cancer breast cancer and cervical cancer in her mother, coronary disease and hypertension in the family)
Phy Exam
Physical Exam
Physical Exam:
.
Course
Orders/Labs/Results
Orders:
Orders
06/13/25 Dinner
1800 calorie (15 carb) Diabetic
At Your Request: Full Participation
06/13/25 15:29
Type And Crossmatch [Type+Screen] Urgent
CMP [Comprehensive Metabolic Panel] Urgent
Complete Blood Count/With Diff Urgent
Folate Urgent
Comment: ADD ON
LDH Urgent
Comment: ADD ON
Reticulocyte Count Urgent
Comment: ADD ON
Vitamin B12 Urgent
Comment: ADD ON
06/13/25 16:48
Blood Bank Products [* Blood Bank Products] Urgent
Dr's Orders: 1 unit packed red blood cells
Blood Bank Products: *Packed RBC Leuko(PRBC's)
Quantity: 1
Transfuse Today: Yes
Reason: Anemia
06/13/25 17:35
Add On- LAB Routine
Tests Added?: B12, folate, retic, LDH
06/13/25 17:53
Admit/Transfer Patient As Directed
Co-Sign Provider:
Level of Care: Inpatient admission
Assign to:: Medical/Surgical
Physician / Group: Katherine
Diagnosis: Symptomatic anemia, GI bleed
Reason for Hospitalization: Transfusion, GI consult
Expected length of stay greater than two midnights?: Yes
ELOS- Estimated Length of Stay in days: 3
I certify the patient meets the requirements for IP care: Yes
06/13/25 17:54
PRN Pain Medication Management As Directed
May give lesser potent ordered pain med per pt: Yes
preference::
Protocol:: Medication orders for pain may be administered in a
manner that supports deferring to patient preference
when the pt is:
- Requesting an ordered lesser potent pain medication.
Least to most potent pain medications are defined
as: acetaminophen < NSAID < tramadol < opioids
(morphine, oxycodone, hydromorphone).
- Requesting a lesser dose of the same medication IF
ORDERED.
- Requesting a less intrusive route of administration
if both routes are prescribed by the provider (PO <
IV).
06/13/25 17:57
Code Status As Directed
Resuscitation Status: Full Code
06/13/25 20:41
Acetaminophen [Tylenol] 650 mg PO Q6HPRN PRN
Albuterol [ProAIR HFA INHALER] 2 puff INH R Q6HPRN PRN sob
Dextrose 50%-Water [Dextrose 50% Syringe] 12.5 grams IV [id number] PRN
Gabapentin [Neurontin] 300 mg PO BID
Glucagon [GlucaGen] 1 mg IM PRN PRN
Methenamine Hippurate [Hiprex] 1 gram PO BID
Pantoprazole [Protonix IV] 40 mg IV BID
06/13/25 20:41
GASTROINTESTINAL CONSULT Routine
Consulting Provider: Shivani Monahan
Was physician already notified: Yes
Activity As Directed
Activity Level: With Assistance
Bedside Glucose Monitoring As Directed
Frequency: AC&HS
Additional Instructions:: Change to q6h if pt on TPN, tube feeding or not eating
Sequential Compression Device [Pneumatic Compression Sleeves] As Directed
Type: Knee high
DX Deep Vein Thrombosis Video Routine
06/13/25 22:00
Gabapentin [Neurontin] 600 mg PO HS
Risperidone [Risperdal] 0.25 mg PO HS
nortriptyline 75 mg PO HS
06/14/25 06:00
CBC/With Diff [Complete Blood Count/With Diff] IN AM
06/14/25 07:30
Insulin Aspart Corrective Low [Novolog Flexpen-Low Resistance] See Protocol SC AC
06/14/25 08:00
Allopurinol [Zyloprim] 450 mg PO DAILY
Amlodipine [Norvasc] 10 mg PO DAILY
Aspirin Low Dose EC [Aspir Low (Enteric Coated)] 81 mg PO DAILY
Cholecalciferol (Vitamin D3) [VITAMIN D3 (cholecalciferol)] 25 mcg PO DAILY
Lisinopril [Zestril] 20 mg PO DAILY
Oxybutynin Chloride [Ditropan] 5 mg PO DAILY
Polyethylene Glycol Powder [Miralax] 17 grams PO DAILY
Rosuvastatin Calcium [Crestor] 5 mg PO DAILY
cyanocobalamin (vitamin B-12) 1,000 mcg PO DAILY
06/15/25 06:00
CBC/With Diff [Complete Blood Count/With Diff] IN AM
06/16/25 06:00
CBC/With Diff [Complete Blood Count/With Diff] IN AM
Abnormal Lab Results
06/13/25
15:29
RBC 2.58 L 10^6/uL
(4.20-5.40)
Hgb 6.7 L* g/dL
(12.0-16.0)
Hct 22.1 L %
(37.0-47.0)
MCH 26.0 L pg
(27.0-31.0)
MCHC 30.3 L g/dL
(33.0-37.0)
RDW 16.7 H %
(11.5-14.5)
Abs Immat Gran (auto) 0.1 H 10^3/uL
(0-0.05)
Immature Gran % 0.6 H %
(0-0.5)
Lymphocytes % 19.6 L %
(20.5-51.1)
Retic Count 3.2 H %
(0.4-2.8)
BUN 24 H mg/dl
(7-17)
Glucose 155 H mg/dl
(70-99)
Alkaline Phosphatase 180 H U/L
(38-126)
Vitamin B12 > 1000 H pg/ml
(239-931)
Crossmatch IS Only See Detail
06/13/25 15:29
06/13/25 15:29
Vital Signs
Initial and Last Documented VS:
Initial Vital Signs
Temp Pulse Resp BP Pulse Ox
97.7 F 91 18 138/59 96
06/13/25 15:13 06/13/25 15:13 06/13/25 15:13 06/13/25 15:13 06/13/25 15:13
Last Documented Vital Signs
Temp Pulse Resp BP Pulse Ox
98.2 F 85 20 133/75 92
06/13/25 18:56 06/13/25 18:56 06/13/25 18:56 06/13/25 18:56 06/13/25 18:56
*Pulse Oximetry
SaO2: 96
Oxygen Mode of Delivery: Room air
Patient hypoxic: no
*Critical Care Note
Total Time (30-74mins, 75-104mins- exclusive of procedures): 32
comment:
Critical care statement: A total of 32 minutes of critical care time was provided for this patient. This includes management of unstable vital signs, evaluation of the patient at bedside, reviewing the patient's pertinent medical records, discussion
with consultants, review of old EKGs and review of pertinent medical records. This time with separate from time utilized to perform the aforementioned documented procedures
ED Attending Note
-
Portions of this chart may have been created with voice recognition software.� Occasional wrong word or��sound alike� substitutions may have occurred due to the inherent limitations of voice recognition software.
Discharge Plan
Departure
Patient Disposition: Admit
Date of Disposition: 06/13/25
Time of Disposition: 17:00
Admit to: Med/Surg
Presentation/result/management discussed w/ accepting MD/DO: Hospitalist
Patient with high blood pressure during this ER visit?: Yes
Condition: Good
Discharge Problem:
GI (gastrointestinal hemorrhage), Anemia
Interventions
Interventions:
*Risk Screen - Suicide Last Done: 06/13/25 17:33
*General Assessment Last Done: 06/13/25 17:34
*Neglect/Abuse Screening Last Done: 06/13/25 17:33
*ED- Fall Risk Assessment Last Done: 06/13/25 17:32
ED- Neurological Assessment Last Done: 06/13/25 17:33
ED Swallowing Screen Last Done: 06/13/25 17:31
--- NOTE | 2025-06-13 18:00 | HPS.HSE ---
Family Physician
-
Family Physician: Mana Abreu
Chief Complaint
-
Fatigue, weakness, anemia
History of Present Illness
85-year-old female with chronic anemia here with progressive fatigue, weakness, dyspnea with exertion.
She was seen by her electrical logger (Dr. Faina Mckeon) this morning and referred to the emergency room for further evaluation of worsening anemia.
Patient denies melena or hematochezia.
Medical History
Past Medical History
Past Medical History: Reports Other
Additional Past Medical History:
Chronic anemia
Moderate aortic stenosis
AVALOS cirrhosis
CIDP
Hyperlipidemia
DM2
MILTON
PAD
MGUS
Emphysema
Ambulatory dysfunction
Essential hypertension
Past Surgical History: Reports Other
Additional Past Surgical History:
Back surgery
Hysterectomy
Cholecystectomy
Oophorectomy
Esophageal dilation
Bladder procedure
Social History
Tobacco: Former Smoker
Alcohol: Occasional
Drug: None
Living: With Family
Employment: Not Employed
Family History
Family History: Not pertinent
Allergies / Home Medications
Allergies reflects when Allergies were last updated in [facility].
Home Medications with original date entered in [facility]
Allergy/Medication List:
Allergies
Allergy/AdvReac Type Severity Reaction Status Date / Time
adhesive Allergy TAPE-BLISTE Verified 05/27/25 14:14
RS
atorvastatin Allergy muscle Verified 05/27/25 14:14
spasm
ciprofloxacin (From Cipro) Allergy Severe Verified 05/27/25 14:14
Hypotension
pollen extracts Allergy Shortness Verified 05/27/25 14:14
of Breath
Sulfa (Sulfonamide Allergy red line Verified 05/27/25 14:14
Antibiotics) on body
environment Allergy Shortness Uncoded 05/27/25 14:14
of Breath
Home Medications
albuterol sulfate 90 mcg/actuation aerosol inhaler 2 puff inhalation R Q6HPRN PRN sob 04/30/13
cyanocobalamin (vitamin B-12) 1,000 mcg tablet 1,000 mcg PO DAILY 08/08/18
rosuvastatin 5 mg tablet 5 mg PO DAILY High cholesterol 01/24/19
fluticasone propionate 50 mcg/actuation nasal spray,suspension 1 spray intranasal DAILYPRN PRN congestion 10/03/19
lisinopril 20 mg tablet 20 mg PO DAILY Blood pressure 10/03/19
metformin 500 mg tablet,extended release 24 hr 1,000 mg PO BID@0800,1700 Diabetes 10/03/19
nortriptyline 75 mg capsule 75 mg PO HS Mental Health/Anxiety 09/27/20
allopurinol 300 mg tablet 450 mg PO DAILY 08/30/22
denosumab 60 mg/mL subcutaneous syringe (Prolia) 60 mg SC [id number] 08/30/22
milk thistle 140 mg capsule 250 mg PO DAILY 08/30/22
coenzyme Q10 100 mg capsule (CoQ-10) 200 mg PO DAILY 09/15/22
estradiol 0.01% (0.1 mg/gram) vaginal cream 1 applic vaginal DAILYPRN PRN vaginal dryness 09/15/22
peg 400-propylene glycol (PF) 0.4 %-0.3 % eye drops in a dropperette (Systane (PF)) 1 drp BOTH EYES TIDPRN PRN dry eye 09/15/22
vitamin A-vitamin C-vit E-min tablet 1 tab PO DAILY 09/15/22
cranberry fruit concentrate 500 mg capsule 500 mg PO DAILY 03/30/23
immune globulin (human) (IgG) 10 gram intravenous solution 30 g IV QMONTH 11/10/23
methenamine hippurate 1 gram tablet 1 g PO BID 11/10/23
pantoprazole 40 mg tablet,delayed release 40 mg PO DAILY 11/10/23
polyethylene glycol 3350 17 gram oral powder packet (Miralax) 17 g PO DAILY 11/10/23
amlodipine 10 mg tablet 10 mg PO DAILY 08/08/24
cholecalciferol (vitamin D3) 125 mcg (5,000 unit) tablet (Vitamin D3) 25 mcg PO DAILY 08/08/24
gabapentin 300 mg capsule 300 mg PO BID 08/08/24
oxybutynin chloride 5 mg tablet 5 mg PO DAILY 05/27/25
aspirin 81 mg tablet,delayed release 81 mg PO DAILY 06/13/25
gabapentin 300 mg capsule 600 mg PO HS 06/13/25
omega-3 acid ethyl esters 1 gram capsule 2 g PO BID 06/13/25
risperidone 0.25 mg tablet 0.25 mg PO HS 06/13/25
wheat dextrin (with aspartame) 3 gram/6 gram oral powder packet 1 ea PO DAILY 06/13/25
Review of Systems
-
History Source: Patient and Family
A 12 point ROS was completed and negative except as noted: Yes
Physical Exam
Vital Signs
Vital Signs
Temp Pulse Resp BP Pulse Ox
98.4 F 92 20 125/65 92
06/13/25 17:45 06/13/25 17:45 06/13/25 17:45 06/13/25 17:45 06/13/25 17:45
Physical Exam
General: Well Developed, Well Nourished, No Apparent Distress, Comfortable and Other (Pale complexion)
HEENT: NormoCephalic, Anicteric and Moist mucous membranes
Respiratory: Clear
Cardiac: S1/S2 and Regular Rhythm
Breast: Deferred by me
GI: Soft, Non Tender and Non Distended
Genito-urinary: Deferred by me
Musculoskeletal: No Clubbing, No Cyanosis and No Edema
Skin: Warm and Dry
Neuro: AO x 3
Hematologic/Lymphatic: No Lymphadenopathy
Psych: Calm
Laboratory Results
-
06/13/25 15:29
06/13/25 15:29
Laboratory Results
Total Bilirubin 0.3 mg/dl (0.2-1.3) 06/13/25 15:29
AST 25 U/L (14-36) 06/13/25 15:29
ALT 22 U/L (0-35) 06/13/25 15:29
Alkaline Phosphatase 180 U/L (38-126) H 06/13/25 15:29
Impression/Plan
-
Symptomatic acute on chronic anemia -known history of iron deficiency anemia. Admit to [facility]. Continue blood transfusion ordered in the emergency room.
Check CBC in the morning.
She had a bone marrow biopsy August 2024, no evidence of amyloid. She carries a diagnosis of MGUS. Known to Dr. Fowler.
Acute on chronic GI bleed -heme positive stool in the emergency room. Hemodynamically stable. Consult GI. Protonix IV twice daily.
Previous colonoscopy August 2022 showed rectal tubular adenoma.
Previous small bowel enteroscopy December 2024 showed nonbleeding gastric angiectasia, bleeding duodenal angiectasia, treated.
Not on anticoagulation. Does use low-dose aspirin daily.
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
GERD
CIDP/ambulatory dysfunction -uses a walker. Consult PT.
MGUS
DM 2 with neuropathy/nephropathy -hemoglobin A1c 6.5% on 06/05/2025. Hold metformin, use low resistance NovoLog scale.
History of gout
Osteoporosis
Restless leg syndrome
Moderate aortic stenosis
Essential hypertension -stable.
Hyperlipidemia -rosuvastatin.
Mild emphysema
Obesity due to excess calories
Full code
Family updated at the bedside.
[2025-06-13 18:05] LABS: Reticulocyte Count 3.2 % (0.4-2.8)
[2025-06-13 18:16] LABS: LDH 158 U/L (120-246)
[2025-06-13] MEDS: TYLENOL 650 MG PO (18:25)
[2025-06-13 19:22] LABS: Folate 19.2 ng/ml (2.76-20); Vitamin B12 > 1000 pg/ml (239-931)
[2025-06-13 19:56] LABS: Glucose - Point of Care 118 mg/dl (70-99)
[2025-06-13] MEDS: PROTONIX IV 40 MG IV (22:01)
[2025-06-13] MEDS: PAMELOR 75 MG PO (22:02)
[2025-06-13] MEDS: HIPREX 1 GRAM PO (22:02)
[2025-06-13] MEDS: NEURONTIN 300 MG PO ×2 (22:02→22:47)
[2025-06-13] MEDS: NSS (PRESERVATIVE FREE) 10 ML IV (22:02)
[2025-06-13] MEDS: RISPERDAL 0.25 MG PO (22:04)
[2025-06-14] MEDS: TYLENOL 650 MG PO (00:42)
[2025-06-14 07:18] VITALS: BP 135/71
[2025-06-14 07:29] LABS: Hematocrit 23.8 % (37.0-47.0); Hemoglobin 7.5 g/dL (12.0-16.0); Mean Corp Hgb Conc. 31.5 g/dL (33.0-37.0); Mean Corpuscular Volume 83.5 fL (81.0-99.0); Nucleated Red Blood Cells % 0 %; Platelet Count 170 10^3/uL (130-400); Red Cell Dist. Width 16.5 % (11.5-14.5)
--- NOTE | 2025-06-14 08:06 | W.PN.HOSP.TC ---
Today's Communication/Plan
-
Transfuse
IV iron
GI consult
Assessment / Plan
Assessment / Plan
Gen-AAOx3, NAD
HEENT-NC, AT, anicteric, clear oral mm
Neck-supple
CV-reg, no M, +S1/S2
Lungs-clear B/L
Abd-soft, NT, ND
Ext-no edema
Musculoskeletal-no cyanosis, clubbing
Skin-warm and dry
Neuro-grossly non-focal
Psych-calm, cooperative
Symptomatic acute on chronic anemia -known history of iron deficiency anemia.
She had a bone marrow biopsy August 2024, no evidence of amyloid. She carries a diagnosis of MGUS. Known to Dr. Fowler.
Admission hemoglobin 6.7, 7.5 this morning after 1 unit PRBC. Will order second unit of blood.
Start IV iron.
Acute on chronic GI bleed -heme positive stool in the emergency room. Hemodynamically stable. Consult GI. Protonix IV twice daily.
Previous colonoscopy August 2022 showed rectal tubular adenoma.
Previous small bowel enteroscopy December 2024 showed nonbleeding gastric angiectasia, bleeding duodenal angiectasia, treated.
Not on anticoagulation. Does use low-dose aspirin daily.
AVALOS cirrhosis -known to Dr Frnaco.
GERD
CIDP/ambulatory dysfunction -uses a walker. Consult PT.
MGUS
DM 2 with neuropathy/nephropathy -hemoglobin A1c 6.5% on 06/05/2025. Hold metformin, use low resistance NovoLog scale.
History of gout
Osteoporosis
Restless leg syndrome
Moderate aortic stenosis
Essential hypertension -stable.
Hyperlipidemia -rosuvastatin.
Mild emphysema
Obesity due to excess calories
Full code
Anticipated Discharge: > 48 hours
Subjective/Interval History
-
Date of Service: June 14, 2025
Patient seen and examined, complaining of lower extremity pain from her neuropathy.
Objective Data
-
Labs:
Laboratory Results
06/14/25
07:06
WBC 7.8
Hgb 7.5 L
Hct 23.8 L
Plt Count 170
Vital Signs:
Vital Signs
Temp Pulse Resp BP Pulse Ox
98.3 F 92 18 141/55 92
06/13/25 23:52 06/13/25 23:52 06/13/25 23:52 06/13/25 23:52 06/13/25 23:52
I&O
06/13/25 06/14/25 06/15/25
06:59 06:59 06:59
Intake Total 250 / 250
Balance 250 / 250
Review of Systems
-
History Source: Patient
All other systems: Reviewed and negative
[2025-06-14 08:17] LABS: Glucose - Point of Care 141 mg/dl (70-99)
[2025-06-14 08:18] VITALS: BP 135/71
[2025-06-14] MEDS: NOVOLOG FLEXPEN-LOW RESISTANCE SC (08:55)
--- NOTE | 2025-06-14 09:33 | CON.GI ---
Addendum entered and electronically signed by Shivani Monahan DO 06/14/25 14:45:
Patient seen and examined independently of the medical practice assistant. I agree with his note with my additions below. I was available throughout the history, physical, assessment and plan which we discussed thoroughly
Patient was seen with her daughter at bedside who gave some history as well.
Sanna is a 84 year-old female with PMH�of�Hypertension, hyperlipidemia, mod , type 2 diabetes, MILTON uses CPAP, PVD, chronic inflammatory demyelinating polyneuropathy gets IVIG, gout, emphysema, ventral hernia containing bladder, MGUS/MM, chronic
constipation/IBS, gastroparesis, GERD, esophageal stenosis s/p dilatation in the past, colon polyps, MERRICK, cirrhosis here for f/u.� She had small bowel enteroscopy for iron deficiency anemia with Dr. Rowley on 12/24/2024 and was noted to have nonbleeding
gastric AVM and a bleeding duodenal AVM which was treated with APC.� She has not had any further episodes of melena and her hemoglobin was stable prior to May. She also received IV iron infusion multiple times throughout 2024 she sees
Juana Fowler and had a bone marrow biopsy 08/2024 and was consistent with smoldering MM. reflux is pretty well-controlled on pantoprazole 40 mg daily.� She does have intermittent episodes of epigastric and right upper quadrant pain.� She also
describes some dysphagia at times with even regurgitation. She states her ventral hernia has been problematic and causes some upper abdominal discomfort. She met with Dr. Bishop who because of her comorbidities held off on surgery.
In terms of anemia she does get intermittent significant epistaxis where she feels like she almost has to come to the emergency room because they will not stop. She gets them roughly every other month. Has not seen ENT in quite some time which she
saw in the past for sinusitis. Her stools are brown. She does not have any significant overt bleeding. Denies any vaginal bleeding or any blood in the urine.
Her last colonoscopy was a fair prep in 2021 which has not been repeated.
OBJECTIVE DATA :
--- Hemoglobins throughout 2024 been roughly around 10 then on 06/05/2025 hemoglobin 7.4, 06/13/2025 hemoglobin 6.7 and after 1 unit 7.5 today 06/14/2025 -patient has received multiple rounds of IV iron with Dr. Fowler and 1 unit of transfusion in February 2025
--- 12/11/2024 echocardiogram shows mild aortic regurgitation, moderate aortic stenosis, trace tricuspid regurgitation, IVC is of normal size, EF is 55 to 60%
---12/2024 hemoglobin 8, MCV 95, platelets 213
12/24/2024� small bowel enteroscopy with Dr. Rowley normal esophagus possible single nonbleeding angiectasia in the stomach treated with APC actively bleeding angiectasia in the fourth portion of the duodenum/ proximal jejunum treated with APC rest of
the examined jejunum was normal
12/11/2024 ultrasound of the abdomen cirrhosis and portal hypertension changes small 0.7 cm right hepatic lobe lesion possible hemangioma although indeterminate MRI was recommended
12/11/2024 AFP normal at 2.94
05/30/2024 MRI abdomen status post cholecystectomy, CBD 9.9 mm no CBD stone or mass seen, cirrhosis, splenomegaly, minimal fluid in the left upper quadrant, no hepatic mass, right adrenal adenoma stable from 2021, lung nodule in the right lower lobe
of the lung, pancreas appeared normal
02/12/24 PET scan Small focus of minimal FDG uptake in the lower lobe of the right lung corresponding with nodular opacity seen on prior Abdomen CT which does not meet PET criteria for malignancy
01/17/2024 CT abdomen and pelvis no acute pathology, groundglass density in the right lower lung possible pulmonary nodule, bladder containing ventral hernia of the anterior pelvic wall, right adrenal nodule stable from 2018, moderate fecal material
throughout the colon
05/09/2023 capsule endoscopy was normal
08/30/[address] Felix showed one 7 mm rectal polyp- TA, a large amount of semiliquid stool was found in the entire colon lavaged resulting in fair visualization, ileum was normal.
04/14/2022 Gastric emptying study showed markedly prolonged gastric emptying suspicious for gastroparesis.
03/21/[address] Felix showed a benign-appearing esophageal stenosis which was dilated with 18 mm TTS balloon, mild antral gastritis- negative for H. pylori, fundic-body polyp, retained food in the stomach, esophageal biopsies
obtained negative for EOE, normal duodenum - negative for celiac
03/03/2022�Upper GI on showed a 3 cm long segment of smoothly marginated narrowing of the distal thoracic esophagus probably a benign stricture.
#Acute on chronic iron deficiency anemia with history of melena which has resolved since her enteroscopy 12/[address] Rowley and had a bleeding duodenal angiectasia and a nonbleeding gastric angiectasia that was treated. Currently here with brown
Heme positive stool
-- Etiology of her chronic anemia with iron deficiency is likely multifactorial including blood loss from epistaxis plus GI angioectasias plus multiple myeloma/MGUS
--She has had multiple IV iron infusions and still has low iron
-- Received 1 unit of blood on 06/13/2025, will give her IV iron as well. Ordered by hospitalist already
-- Patient on twice daily PPI
Will proceed to endoscopy on Monday--and patient will also need inpatient colonoscopy
--She will likely be very difficult to prep as she has had fair preps in the past, has neuropathy and is not very mobile so we will start prep tomorrow at noon. I also discussed we may do the EGD separate from the colonoscopy but we will see how
well she preps
--Full liquids tonight then clears tomorrow
--I did tell her I would inform Dr. Fowler on Monday
# Questionable cirrhosis likely from MAFLD. Given her age will hold on liver biopsy. She does have a chronically elevated alkaline phosphatase level and GGT elevated workup in the past was essentially unremarkable but now positive monoclonal protein
is being worked up for possible myeloma versus MGUS. MRI in 2023 was negative for neoplasm. Endoscopy in 2021 and recent enteroscopy 12/2024 did not reveal any varices.
Patient has normal platelet count--no varices on prior EGD
No IVC distention or significant right-sided heart failure on echo that I reviewed from December 2024
Original Note:
Consultation
-
Date/Time Consultation Requested: 06/13/2025 21:00
Date/Time Consultation Performed: 06/14/2025 09:30
Requesting Provider: Ezra Murphy
Performing Provider: Shivani Monahan
Reason for Consultation: heme positive stool
Medical History
Chief Complaint / HPI
Chief Complaint: Dyspnea on exertion
History of Present Illness:
Sanna is an 85-year-old female with a past medical history of chronic anemia (known MERRICK), MGUS (follows with Dr. Fowler, bone marrow biopsy August 2024 showed no evidence of amyloid), moderate aortic stenosis, AVALOS with cirrhosis, GERD,
ambulatory dysfunction, NIDDM, osteoporosis, essential hypertension, hyperlipidemia, obesity who presented with worsening dyspnea on exertion and low hemoglobin on outpatient labs.
She reports a chronic history of anemia which has previously been worked up and considered to be multifactorial. She reports no BRBPR, melenic stools or hematochezia of any kind. She has a history of alternating constipation followed by incontinence
and liquid stools for which she takes daily fiber and miralax. She has been receiving iron infusions for [address] Fowler and required blood transfusions in February of 2025 for anemia. She has a history of near monthly epistaxis which she reports
is hard to stop. She has been getting monthly lab work to follow blood counts and was seen by her frame table operator (Dr. Faina Mckeon) morning of admission for results which showed worsening anemia <7 for which she was referred to the emergency room
for further evaluation and transfusion. Hemoglobin on admission was 6.7 with MCV 85 and she was hemodynamically stable. She received 1 unit PRBC with repeat hemoglobin 7.5. Heme stool was positive in the ED. GI was consulted for further evaluation
and positive stool and progressive anemia.
She had a upper endoscopy in December 2021 which demonstrated normal mucosa of entire esophagus, biopsies for EOE which were negative, mild antral gastritis with negative biopsies for H. pylori, normal duodenum with negative biopsies for celiac.
She had a colonoscopy in August 2022 which demonstrated polyp in the mid rectum, biopsy positive for tubular adenoma, large amount of stool in the colon interfering with visualization, normal terminal ileum. There was concern for possible missed
polyps given poor prep, but she has not had repeat colonoscopy.
She had small bowel enteroscopy 12/24/[address] Rowley which demonstrated normal esophagus, single nonbleeding angioectasia in the stomach, active bleeding angioectasia in the fourth portion of duodenum/proximal jejunum treated with APC, normal
jejunum.
Past Medical History
Past Medical History: Other (see hpi)
Past Surgical History: Other
Social History
Tobacco: Former Smoker
Alcohol: Occasional
Drug: None
Living: With Family
Employment: Not Employed
Family History
Family History: Reviewed & Not Pertinent
Allergies / Home Medications
Allergy/AdvReac Type Severity Reaction Status Date / Time
adhesive Allergy TAPE-BLISTE Verified 05/27/25 14:14
RS
atorvastatin Allergy muscle Verified 05/27/25 14:14
spasm
ciprofloxacin (From Cipro) Allergy Severe Verified 05/27/25 14:14
Hypotension
dog dander Allergy Shortness Verified 06/13/25 20:46
of Breath
grass pollen Allergy Shortness Verified 06/13/25 20:46
of Breath
house dust Allergy Shortness Verified 06/13/25 20:46
of Breath
pollen extracts Allergy Shortness Verified 05/27/25 14:14
of Breath
Sulfa (Sulfonamide Allergy red line Verified 05/27/25 14:14
Antibiotics) on body
tree and shrub pollen Allergy Shortness Verified 06/13/25 20:46
of Breath
�Medication �Instructions �Recorded
albuterol sulfate 90 mcg/actuation 2 puff inhalation R Q6HPRN PRN sob 04/30/13
aerosol inhaler
cyanocobalamin (vitamin B-12) 1,000 mcg PO DAILY 08/08/18
1,000 mcg tablet
rosuvastatin 5 mg tablet 5 mg PO DAILY High cholesterol 01/24/19
fluticasone propionate 50 1 spray intranasal DAILYPRN PRN 10/03/19
mcg/actuation nasal congestion
spray,suspension
lisinopril 20 mg tablet 20 mg PO DAILY Blood pressure 10/03/19
metformin 500 mg tablet,extended 1,000 mg PO BID@0800,1700 Diabetes 10/03/19
release 24 hr
nortriptyline 75 mg capsule 75 mg PO HS Mental Health/Anxiety 09/27/20
allopurinol 300 mg tablet 450 mg PO DAILY 08/30/22
denosumab 60 mg/mL subcutaneous 60 mg SC [id number] 08/30/22
syringe (Prolia)
milk thistle 140 mg capsule 250 mg PO DAILY 08/30/22
coenzyme Q10 100 mg capsule 200 mg PO DAILY 09/15/22
(CoQ-10)
estradiol 0.01% (0.1 mg/gram) 1 applic vaginal DAILYPRN PRN 09/15/22
vaginal cream vaginal dryness
peg 400-propylene glycol (PF) 0.4 1 drp BOTH EYES TIDPRN PRN dry eye 09/15/22
%-0.3 % eye drops in a dropperette
(Systane (PF))
vitamin A-vitamin C-vit E-min 1 tab PO DAILY 09/15/22
tablet
cranberry fruit concentrate 500 mg 500 mg PO DAILY 03/30/23
capsule
immune globulin (human) (IgG) 10 30 g IV QMONTH 11/10/23
gram intravenous solution
methenamine hippurate 1 gram tablet 1 g PO BID 11/10/23
pantoprazole 40 mg tablet,delayed 40 mg PO DAILY 11/10/23
release
polyethylene glycol 3350 17 gram 17 g PO DAILY 11/10/23
oral powder packet (Miralax)
amlodipine 10 mg tablet 10 mg PO DAILY 08/08/24
cholecalciferol (vitamin D3) 125 25 mcg PO DAILY 08/08/24
mcg (5,000 unit) tablet (Vitamin
D3)
gabapentin 300 mg capsule 300 mg PO BID 08/08/24
oxybutynin chloride 5 mg tablet 5 mg PO DAILY 05/27/25
aspirin 81 mg tablet,delayed 81 mg PO DAILY 06/13/25
release
gabapentin 300 mg capsule 600 mg PO HS 06/13/25
omega-3 acid ethyl esters 1 gram 2 g PO BID 06/13/25
capsule
risperidone 0.25 mg tablet 0.25 mg PO HS 06/13/25
wheat dextrin (with aspartame) 3 1 ea PO DAILY 06/13/25
gram/6 gram oral powder packet
Review of Systems
-
History Source: Patient and Family
All other systems: A 12 pt ROS was Negative except as stated above in HPI
Vital Signs
Temp Pulse Resp BP Pulse Ox
98.2 F 83 18 135/71 94
06/14/25 07:18 06/14/25 07:18 06/14/25 07:18 06/14/25 07:18 06/14/25 07:18
Physical Exam
Exam
General: Well Developed, Well Nourished, No Apparent Distress and Comfortable
HEENT: Normocephalic, Anicteric, Moist Mucous Membranes and Atraumatic
Respiratory: Clear and Non Labored Respirations; Negative Wheezes, Rales or Rhonchi
Cardiac: S1/S2, Regular Rhythm and Murmur
Breast: Deferred by me
GI: Soft, Normal Bowel Sounds, Tender (epigastric region) and Distended
Musculoskeletal: No Clubbing, No Cyanosis and No Edema
Skin: Warm and Dry
Neuro: AO x 3
Psych: Calm
Results
WBC 7.8 10^3/uL (4.8-10.8) 06/14/25 07:06
Hgb 7.5 g/dL (12.0-16.0) L 06/14/25 07:06
Hct 23.8 % (37.0-47.0) L 06/14/25 07:06
MCV 83.5 fL (81.0-99.0) 06/14/25 07:06
Plt Count 170 10^3/uL (130-400) 06/14/25 07:06
Absolute Neuts (auto) 5.0 10^3/uL (1.4-6.5) 06/14/25 07:06
Sodium 138 mmol/L (135-145) 06/13/25 15:
Potassium 4.9 mmol/L (3.5-5.1) 06/13/25:
Chloride 106 mmol/L (98-107) 06/13/25:
Carbon Dioxide 26 mmol/L (22-30) 06/13/25:
BUN 24 mg/dl (7-17) H 06/13/25:
Creatinine 1.0 mg/dL (0.6-1.0) 06/13/25:
Calcium 9.2 mg/dl (8.4-10.2) 06/13/25:
Total Bilirubin 0.3 mg/dl (0.2-1.3) 06/13/25 15:
AST 25 U/L (14-36) 06/13/25:
ALT 22 U/L (0-35) 06/13/25 15:
Alkaline Phosphatase 180 U/L (38-126) H 06/13/25:
Diagnostic Image Results:
Prior GI Procedures:
EGD:
(03/21/2022):
Impression: - Normal mucosa was found in the entire esophagus.
Several biopsies were obtained for evaluation of
eosinophilic esophagitis.
- Z-line regular, 39 cm from the incisors.
- Benign-appearing esophageal stenosis. Dilated with
18 mm balloon.
- Mild antral gastritis. Biopsies were taken for
Helicobacter pylori testing.
- A medium amount of food (residue) in the stomach.
- Normal examined duodenum. Biopsied for evaluation of
celiac disease.
Recommendation: - To prevent gastroesophageal reflux and heartburn;
Avoid fatty/greasy meals, caffeine (coffee, tea, cola
and chocolate), alcohol, tobacco, spicy foods (onions,
garlic, peppers, tomatoes) and citric acid (oranges,
ignacia, limes, grapefruits). You have to decide what
causes symptoms- everyone is different.
Don't lie down for a few hours after eating.
Don't wear tight clothes.
Lose weight if needed.
Elevate the head of your bed by six inches (sleeping
on more pillows is not effective) if problems occur at
night or you have symptoms upon awakening in the
morning.
- Call my office after next week for biopsy results
([phone]).
- Do a gastric emptying study at appointment to be
scheduled.
- Return to my office in 6 months.
Colonoscopy:
(08/30/2022):
Findings:
A 7 mm polyp was found in the mid rectum. The polyp was sessile. The
polyp was removed with a cold snare. Resection and retrieval were
complete. To prevent bleeding post-intervention, one hemostatic clip was
successfully placed. There was no bleeding at the end of the procedure.
A large amount of semi-liquid stool was found in the entire colon,
interfering with visualization. Lavage of the area was performed using
200 - 500 mL of normal saline, resulting in clearance with fair
visualization.
No other significant abnormalities were identified in a careful
examination of the remainder of the colon.
No additional abnormalities were found on retroflexion.
The terminal ileum appeared normal.
Impression: - One 7 mm polyp in the mid rectum, removed with a
cold snare. Resected and retrieved. Clip was placed.
- A large amount of semi-liquid stool was found in the
entire colon, interfering with visualization. Lavage
of the area was performed using 200 - 500 mL of normal
saline, resulting in clearance with fair visualization.
- The examined portion of the ileum was normal.
Recommendation: - To prevent colon cancer:
High fiber, low fat diet.
Take a multivitamin with Vitamins C and B complex
along with calcium (Centrum, Theragram, Multiple
vitamin, etc.)
- Call my office next week for biopsy results
([phone]).
- For constipation;
Increase the amount of fiber in your diet with fruits,
vegetables and/or bran.
Use Fibercon, Citrucel, Benefiber or Metamucil if
foods don't help.
Ideally you should consume 25-30 grams of fiber daily.
Consider stool softeners (Colace/Docusate) or senna
based medications.
If problems persist, try Miralax/Glycolax- an over the
counter medicine.
Linzess, Amitiza, Trulance (prescription medicines)
can also be effective.
Assessment / Plan
-
Sanna is an 85-year-old female with a past medical history of chronic anemia (known MERRICK), MGUS (follows with Dr. Fowler, bone marrow biopsy August 2024 showed no evidence of amyloid), moderate aortic stenosis, AVALOS with cirrhosis, GERD,
ambulatory dysfunction, NIDDM, osteoporosis, essential hypertension, hyperlipidemia, obesity who presented with worsening dyspnea on exertion and low hemoglobin on outpatient labs. She has a long history of anemia believed to be multifactorial,
gets iron infusions outpatient and is required blood transfusion in the past. She has no overt bright red blood per rectum, melenic stools, hematochezia, however stool was heme positive in ED.
#Heme positive stool
#Acute on chronic normocytic anemia, multifactorial (MERRICK, proliferative, ?blood loss)
#Angioectasia of the duodenum/proximal jejunum
#GERD
Given history of known bleeding angioectasias and worsening acute on chronic anemia requiring blood transfusion, would ideally proceed with bidirectional scoping, starting with EGD with tentative date on Saturday 06/16
Start clear liquid diet tomorrow
Start bowel prep for colonoscopy in afternoon tomorrow she would likely need 2 days of prep
Baseline hemoglobin seems to be 10 - 8. Admission hemoglobin 6.7, posttransfusion hemoglobin 7.5
- Continue to monitor H&H, transfuse for hemoglobin <7
She remains hemodynamically stable, no signs of overt large-volume blood loss
B12 folate levels normal
Continue with iron infusion
Continue with IV PPI BID
GI will continue following,
-
-
Thank you for consultation and allowing me to participate in the patient's care. Please call the motion picture critic GI physician during the after hours with any questions or concerns.
[2025-06-14] MEDS: ASPIR LOW (ENTERIC COATED) 81 MG PO (10:12)
[2025-06-14] MEDS: NORVASC 10 MG PO (10:12)
[2025-06-14] MEDS: DITROPAN 5 MG PO (10:12)
[2025-06-14] MEDS: CRESTOR 5 MG PO (10:12)
[2025-06-14] MEDS: NSS (PRESERVATIVE FREE) 10 ML IV ×2 (10:12→20:17)
[2025-06-14] MEDS: HIPREX 1 GRAM PO ×2 (10:12→20:17)
[2025-06-14] MEDS: MIRALAX 17 GRAMS PO (10:12)
[2025-06-14] MEDS: VITAMIN B-12 1000 MCG PO (10:13)
[2025-06-14] MEDS: ZESTRIL 20 MG PO (10:13)
[2025-06-14] MEDS: ZYLOPRIM 450 MG PO (10:13)
[2025-06-14] MEDS: PROTONIX IV 40 MG IV ×2 (10:13→20:17)
[2025-06-14] MEDS: VITAMIN D3 (cholecalciferol) 25 MCG PO (10:13)
[2025-06-14] MEDS: FLUSH (NSS) 2 FLUSH IV (10:14)
[2025-06-14] MEDS: NEURONTIN 300 MG PO ×2 (10:17→13:47)
[2025-06-14 12:32] LABS: Glucose - Point of Care 209 mg/dl (70-99)
[2025-06-14 12:34] VITALS: BP 147/65
[2025-06-14 12:52] VITALS: BP 145/66
[2025-06-14] MEDS: NOVOLOG FLEXPEN-LOW RESISTANCE 2 UNITS SC ×2 (13:47→17:26)
[2025-06-14 15:04] VITALS: BP 127/56
--- NOTE | 2025-06-14 15:04 | PTCARENOTE ---
Completed entire unit of PRBCs at this time without any apparent transfusion reaction, will monitor.
--- NOTE | 2025-06-14 15:05 | PTOTSP ---
Speech therapy
Presentation: Patient was oriented, alert and willing to participate. Patient's speech and language appeared to be WNL during conversation. Patient denied any communicative deficits or complaints.
History: Patient and family shared that patient has a hx of 'slow to empty esophagus' and hiatal hernia which she visits GI for. Patient prefers to take medications whole in puree.
Swallowing function: Patient was observed with several presentations of thin liquids (straw), puree, and regular consistency solids in which patient appeared to tolerate as she did not exhibit any overt clinical s/sx of aspiration. Patient did
demonstrate slight prolonged mastication of regular consistency solids in which thin liquid wash assisted with manipulation. Of note, patient has top dentures and is edentulous on the bottom which is likely contributing to the prolonged but
effective mastication.
Given patient's history, consider GI workup and consideration of small, frequent meals of regular consistency solids and thin liquids to assist with intake.
Recommendations:
1) Continuation of regular consistency solids and thin liquids
2) GI work up
3) Small, frequent meals
4) Medications whole in puree
Plan: [employer]PER will continue to follow to ensure tolerance; pending hospitalization.
[2025-06-14] MEDS: FERRLECIT 110 MG IV (15:11)
[2025-06-14 16:50] LABS: Glucose - Point of Care 230 mg/dl (70-99)
[2025-06-14] MEDS: NEURONTIN 600 MG PO (21:34)
[2025-06-14] MEDS: PAMELOR 75 MG PO (21:35)
[2025-06-14] MEDS: RISPERDAL 0.25 MG PO (21:36)
[2025-06-14 21:55] LABS: Glucose - Point of Care 154 mg/dl (70-99)
[2025-06-14 22:57] VITALS: BP 136/60
[2025-06-15 07:45] LABS: Glucose - Point of Care 161 mg/dl (70-99)
[2025-06-15] MEDS: NOVOLOG FLEXPEN-LOW RESISTANCE 1 UNITS SC ×2 (07:51→12:38)
[2025-06-15] MEDS: HIPREX 1 GRAM PO ×2 (07:52→20:24)
[2025-06-15] MEDS: ASPIR LOW (ENTERIC COATED) 81 MG PO (07:52)
[2025-06-15] MEDS: CRESTOR 5 MG PO (07:52)
[2025-06-15] MEDS: DITROPAN 5 MG PO (07:52)
[2025-06-15] MEDS: MIRALAX 17 GRAMS PO (07:52)
[2025-06-15 07:53] VITALS: BP 162/81
[2025-06-15] MEDS: VITAMIN D3 (cholecalciferol) 25 MCG PO (07:53)
[2025-06-15] MEDS: NSS (PRESERVATIVE FREE) 10 ML IV ×2 (07:53→20:25)
[2025-06-15] MEDS: PROTONIX IV 40 MG IV ×2 (07:53→20:24)
[2025-06-15] MEDS: VITAMIN B-12 1000 MCG PO (07:53)
[2025-06-15] MEDS: ZYLOPRIM 450 MG PO (07:53)
[2025-06-15] MEDS: FLUSH (NSS) 2 FLUSH IV (07:54)
[2025-06-15] MEDS: TYLENOL 650 MG PO (07:54)
[2025-06-15 07:57] LABS: Hematocrit 28.8 % (37.0-47.0); Hemoglobin 8.7 g/dL (12.0-16.0); Mean Corp Hgb Conc. 30.2 g/dL (33.0-37.0); Mean Corpuscular Volume 84.2 fL (81.0-99.0); Nucleated Red Blood Cells % 0 %; Platelet Count 174 10^3/uL (130-400); Red Cell Dist. Width 16.5 % (11.5-14.5)
[2025-06-15] MEDS: NORVASC 10 MG PO (07:58)
[2025-06-15] MEDS: ZESTRIL 20 MG PO (07:58)
[2025-06-15] MEDS: NEURONTIN 300 MG PO ×2 (08:13→12:37)
--- NOTE | 2025-06-15 09:42 | W.PN.HOSP.TC ---
Today's Communication/Plan
-
Check EKG
Assessment / Plan
Assessment / Plan
Gen-AAOx3, NAD
HEENT-NC, AT, anicteric, clear oral mm
Neck-supple
CV-tachycardic, irregular, no M, +S1/S2
Lungs-clear B/L
Abd-soft, NT, ND
Ext-no edema
Musculoskeletal-no cyanosis, clubbing
Skin-warm and dry
Neuro-grossly non-focal
Psych-calm, cooperative
Symptomatic acute on chronic anemia -known history of iron deficiency anemia.
She had a bone marrow biopsy August 2024, no evidence of amyloid. She carries a diagnosis of MGUS. Known to Dr. Fowler.
Hemoglobin improved to 8.7 today. Has had 2 units of blood transfused so far. Continue IV iron.
Acute on chronic GI bleed -heme positive stool in the emergency room. Hemodynamically stable. Seen by gastroenterology.
Previous colonoscopy August 2022 showed rectal tubular adenoma.
Previous small bowel enteroscopy December 2024 showed nonbleeding gastric angiectasia, bleeding duodenal angiectasia, treated.
Not on anticoagulation. Does use low-dose aspirin daily.
Plan for EGD and colonoscopy this admission. Starting prep today.
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
GERD
CIDP/ambulatory dysfunction -uses a walker. Consult PT.
MGUS
DM 2 with neuropathy/nephropathy -hemoglobin A1c 6.5% on 06/05/2025. Hold metformin, use low resistance NovoLog scale.
History of gout
Osteoporosis
Restless leg syndrome -symptoms improving on IV iron, as well as blood transfusion. Continue gabapentin at home dose.
Moderate aortic stenosis
Essential hypertension -stable.
Hyperlipidemia -rosuvastatin.
Mild emphysema
Obesity due to excess calories
Full code
Anticipated Discharge: > 48 hours
Subjective/Interval History
-
Date of Service: June 15, 2025
Patient seen and examined, complaining of some abdominal discomfort. Restless legs have improved overnight.
Objective Data
-
Labs:
Laboratory Results
06/15/25
06:11
WBC 8.7
Hgb 8.7 L
Hct 28.8 L
Plt Count 174
Vital Signs:
Vital Signs
Temp Pulse Resp BP Pulse Ox
97.6 F 91 18 162/81 97
06/15/25 07:53 06/15/25 07:58 06/15/25 07:53 06/15/25 07:58 06/15/25 07:53
I&O
06/14/25 06/15/25 06/16/25
06:59 06:59 06:59
Intake Total 250 / 250 860 / 860
Output Total 550 / 550
Balance 250 / 250 310 / 310
Review of Systems
-
History Source: Patient
All other systems: Reviewed and negative
[2025-06-15 12:03] LABS: Glucose - Point of Care 153 mg/dl (70-99)
[2025-06-15 12:15] VITALS: BP 125/65
[2025-06-15] MEDS: NULYTELY SOLUTION 4 LITERS PO (12:38)
--- NOTE | 2025-06-15 13:07 | CM ---
Met with patient at bedside
Pharmacy verified: [facility] @ [address] [facility]
Lives alone; Rancher w/ basement; ramp to enter; does not go down the basement; bathroom has walk-in shower w/ grab bar and shower chair
PLOF: Ambulates w/ Rollator; needs Assistance w/ personal care and ADLs; has watchmaker apprentice 7 days/week; stay till dinner time; neighbor is readily available if needed. She wears an emergency alert bracelet; no longer drives
DME: Glucometer, CPAP
SNF stay at [facility]; no Home Health/VN services; if home health/VN is recommended, preference is VNA
Daughter will transport home
PT/OT assessments pending
Discharge plan to be determined; Case Management will monitor for needs/services and support if recommended
[2025-06-15] MEDS: FERRLECIT 110 MG IV (14:08)
[2025-06-15 15:06] VITALS: BP 125/75
[2025-06-15 15:49] VITALS: BP 124/78; BP 125/75; PULSE 89
[2025-06-15 16:33] LABS: Glucose - Point of Care 126 mg/dl (70-99)
[2025-06-15] MEDS: NOVOLOG FLEXPEN-LOW RESISTANCE SC (17:22)
[2025-06-15 21:17] LABS: Glucose - Point of Care 171 mg/dl (70-99)
[2025-06-15] MEDS: PAMELOR 75 MG PO (22:52)
[2025-06-15] MEDS: RISPERDAL 0.25 MG PO (22:52)
[2025-06-15] MEDS: NEURONTIN 600 MG PO (22:52)
[2025-06-15 23:00] VITALS: BP 153/65
[2025-06-16 05:56] LABS: Glucose - Point of Care 131 mg/dl (70-99)
[2025-06-16 07:25] VITALS: BP 137/71
[2025-06-16] MEDS: NOVOLOG FLEXPEN-LOW RESISTANCE SC ×3 (08:21→17:47)
[2025-06-16] MEDS: ZYLOPRIM 450 MG PO (08:41)
[2025-06-16] MEDS: NSS (PRESERVATIVE FREE) 10 ML IV ×2 (08:42→20:47)
[2025-06-16] MEDS: PROTONIX IV 40 MG IV ×2 (08:43→20:46)
[2025-06-16] MEDS: NORVASC 10 MG PO (08:45)
[2025-06-16] MEDS: CRESTOR 5 MG PO (08:45)
[2025-06-16] MEDS: VITAMIN B-12 1000 MCG PO (08:45)
[2025-06-16] MEDS: HIPREX 1 GRAM PO ×2 (08:46→20:46)
[2025-06-16] MEDS: ZESTRIL 20 MG PO (08:46)
[2025-06-16] MEDS: VITAMIN D3 (cholecalciferol) 25 MCG PO (08:46)
[2025-06-16] MEDS: DITROPAN 5 MG PO (08:46)
[2025-06-16] MEDS: TYLENOL 650 MG PO (08:50)
--- NOTE | 2025-06-16 09:25 | W.PN.HOSP.TC ---
Today's Communication/Plan
-
For colonoscopy tomorrow
Assessment / Plan
Assessment / Plan
Symptomatic acute on chronic anemia -known history of iron deficiency anemia.
She had a bone marrow biopsy August 2024, no evidence of amyloid. She carries a diagnosis of MGUS. Known to Dr. Fowler.
Status post 2 units packed red blood cells 06/13 due to hemoglobin is 6.7. Hemoglobin improved to 7.5 after transfusion, and continues to trend upward
Continue IV iron, trend hemoglobin
Acute on chronic GI bleed -heme positive stool in the emergency room. Hemodynamically stable. Seen by gastroenterology.
Previous colonoscopy August 2022 showed rectal tubular adenoma.
Previous small bowel enteroscopy December 2024 showed nonbleeding gastric angiectasia, bleeding duodenal angiectasia, treated.
Not on anticoagulation. Does use low-dose aspirin daily.
Status post EGD 06/16, showing torturous esophagus, no lesions in the stomach
Plan for colonoscopy tomorrow
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
GERD
CIDP/ambulatory dysfunction -uses a walker. PT rec SNF, CM sent referrals
MGUS - f/u w/ Dr. Fowler outpt
DM 2 with neuropathy/nephropathy -hemoglobin A1c 6.5% on 06/05/2025. Hold metformin, use low resistance NovoLog scale.
History of gout
Osteoporosis
Restless leg syndrome -symptoms improving on IV iron, as well as blood transfusion. Continue gabapentin at home dose.
Moderate aortic stenosis
Essential hypertension -stable.
Hyperlipidemia -rosuvastatin.
Mild emphysema
Obesity due to excess calories
DVT prophylaxis�SCD secondary to GI bleed
Full code
Total time spent to see the patient on the floor, examine the patient, review data and lab results, discuss treatment plan with patient, nursing staff around 45 minutes.
Physical Exam
General: No acute distress
HEENT: Normocephalic, Atraumatic, EOMI, MMM
Respiratory: Clear to Auscultation bilaterally
Cardiac: Normal S1/S2, Regular Rate and Rhythm
GI: Soft, Nontender, Nondistended, Normal Bowel Sounds
Extremities: No Clubbing, Cyanosis, or Edema
Neuro: Nonfocal/Grossly Intact
Psych: Calm, Cooperative
Derm: No Visible lesions
Anticipated Discharge: 24 - 48 hours
Subjective/Interval History
-
Date of Service: June 16, 2025
Denies abd pain, N/V. No fever.
Objective Data
-
Labs:
Laboratory Results
06/16/25
08:53
WBC Pending
Hgb Pending
Hct Pending
Plt Count Pending
Vital Signs:
Vital Signs
Temp Pulse Resp BP Pulse Ox
98.2 F 93 18 137/71 95
06/16/25 07:25 06/16/25 08:45 06/16/25 07:25 06/16/25 08:45 06/16/25 07:25
I&O
06/15/25 06/16/25 06/17/25
06:59 06:59 06:59
Intake Total 860 / 860 660 / 660
Output Total 550 / 550
Balance 310 / 310 660 / 660
[2025-06-16 09:32] LABS: Hematocrit 30.8 % (37.0-47.0); Hemoglobin 9.4 g/dL (12.0-16.0); Mean Corp Hgb Conc. 30.5 g/dL (33.0-37.0); Mean Corpuscular Volume 83.9 fL (81.0-99.0); Nucleated Red Blood Cells % 0.2 %; Platelet Count 179 10^3/uL (130-400); Red Cell Dist. Width 16.5 % (11.5-14.5)
[2025-06-16] MEDS: ASPIR LOW (ENTERIC COATED) 81 MG PO (10:41)
[2025-06-16] MEDS: MIRALAX 17 GRAMS PO (10:41)
[2025-06-16] MEDS: NEURONTIN 300 MG PO ×2 (10:44→14:18)
[2025-06-16 12:18] LABS: Glucose - Point of Care 123 mg/dl (70-99)
[2025-06-16] MEDS: CITROMA 300 ML PO (12:25)
--- NOTE | 2025-06-16 13:41 | CM ---
Spoke with patient with daughter Patel and son in law bedside.
Patient is interested in skilled rehab, referrals sent.
Per daughter patient is for colonoscopy tomorrow.
Plan: skilled rehab once stable, will need insurance auth.
[2025-06-16] MEDS: FERRLECIT 110 MG IV (14:17)
[2025-06-16 15:22] VITALS: BP 125/58
[2025-06-16 16:53] LABS: Glucose - Point of Care 157 mg/dl (70-99)
[2025-06-16] MEDS: NULYTELY SOLUTION 2 LITERS PO (18:23)
[2025-06-16 21:20] LABS: Glucose - Point of Care 171 mg/dl (70-99)
[2025-06-16] MEDS: RISPERDAL 0.25 MG PO (22:33)
[2025-06-16] MEDS: PAMELOR 75 MG PO (22:33)
[2025-06-16] MEDS: NEURONTIN 600 MG PO (22:34)
[2025-06-16 23:00] VITALS: BP 149/72
[2025-06-17] VITALS (7 sets, daily range): BP systolic 13–146; BP diastolic 49–71; PULSE 87; O2SAT 95
[2025-06-17 07:01] LABS: Glucose - Point of Care 131 mg/dl (70-99)
[2025-06-17] MEDS: NOVOLOG FLEXPEN-LOW RESISTANCE SC ×2 (07:39→12:53)
[2025-06-17 09:23] LABS: Hematocrit 31.4 % (37.0-47.0); Hemoglobin 9.7 g/dL (12.0-16.0); Mean Corp Hgb Conc. 30.9 g/dL (33.0-37.0); Mean Corpuscular Volume 83.1 fL (81.0-99.0); Platelet Count 174 10^3/uL (130-400); Red Cell Dist. Width 16.8 % (11.5-14.5)
--- NOTE | 2025-06-17 11:09 | PN.CDI ---
CDI
- -
CDI:
Physician Documentation Request
Admit Date: 06/13/25 18:21
Dear Doctor Do,
Patient admitted for anemia.
06/16 Hospitalist PN: 'Symptomatic acute on chronic anemia -known history of iron deficiency anemia...Status post 2 units packed red blood cells 06/13 due to hemoglobin is 6.7. Hemoglobin improved to 7.5 after transfusion, and continues to trend
upward...Acute on chronic GI bleed -heme positive stool in the emergency room.'
Based on the above, could you clarify, in your progress note, which of the following is the most likely type of anemia you are evaluating, monitoring and/or treating?
Acute blood loss anemia with baseline chronic anemia
Chronic iron deficiency anemia due to blood loss
Other
Use of terms such as suspected, likely, concern for, or probable (associated with a specific diagnosis that is being evaluated, monitored, or treated as if it exists) are acceptable and can be coded in the inpatient setting, when documented at the
time of discharge.
Thank you,
Candice Ramírez RN, BSN
CDI Specialist
Available via [facility] text
Please use your independent medical judgment in providing your response.
[2025-06-17 12:03] LABS: Glucose - Point of Care 129 mg/dl (70-99)
[2025-06-17 12:43] LABS: Glucose - Point of Care 114 mg/dl (70-99)
[2025-06-17] MEDS: HIPREX 1 GRAM PO ×2 (12:49→19:56)
[2025-06-17] MEDS: ZYLOPRIM 450 MG PO (12:49)
[2025-06-17] MEDS: VITAMIN D3 (cholecalciferol) 25 MCG PO (12:49)
[2025-06-17] MEDS: NORVASC 10 MG PO (12:49)
[2025-06-17] MEDS: CRESTOR 5 MG PO (12:50)
[2025-06-17] MEDS: ASPIR LOW (ENTERIC COATED) PO (12:51)
[2025-06-17] MEDS: ZESTRIL 20 MG PO (12:51)
[2025-06-17] MEDS: DITROPAN 5 MG PO (12:51)
[2025-06-17] MEDS: VITAMIN B-12 1000 MCG PO (12:51)
[2025-06-17] MEDS: PROTONIX IV 40 MG IV ×2 (12:52→19:57)
[2025-06-17] MEDS: NSS (PRESERVATIVE FREE) 10 ML IV ×2 (12:52→19:57)
[2025-06-17] MEDS: MIRALAX PO (12:52)
[2025-06-17] MEDS: NEURONTIN PO (12:56)
[2025-06-17] MEDS: NEURONTIN 300 MG PO (12:56)
--- NOTE | 2025-06-17 15:44 | W.PN.HOSP.TC ---
Today's Communication/Plan
-
Discharge to short-term rehab when bed available
Assessment / Plan
Assessment / Plan
Acute blood loss anemia with baseline chronic anemia -known history of iron deficiency anemia.
She had a bone marrow biopsy August 2024, no evidence of amyloid. She carries a diagnosis of MGUS. Known to Dr. Fowler.
Status post 2 units packed red blood cells 06/13 due to hemoglobin is 6.7. Hemoglobin improved to 7.5 after transfusion, and continues to trend upward
Continue IV iron, monitor hemoglobin. Can discharge on oral iron every other day
Discharge to short-term rehab when bed available
Acute on chronic GI bleed -heme positive stool in the emergency room. Hemodynamically stable. Seen by gastroenterology.
Previous colonoscopy August 2022 showed rectal tubular adenoma.
Previous small bowel enteroscopy December 2024 showed nonbleeding gastric angiectasia, bleeding duodenal angiectasia, treated.
Not on anticoagulation. Does use low-dose aspirin daily.
Status post EGD 06/16, showing torturous esophagus, no lesions in the stomach
Status post colonoscopy 06/17, showing multiple polyps, internal hemorrhoids, no evidence of active GI bleeding, brown stool noted
GI recommends outpatient follow-up, may need VCE if continues to have bloody stools
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
GERD
CIDP/ambulatory dysfunction -uses a walker. PT rec SNF, CM sent referrals
MGUS - f/u w/ Dr. Fowler outpt
DM 2 with neuropathy/nephropathy -hemoglobin A1c 6.5% on 06/05/2025. Hold metformin, use low resistance NovoLog scale.
History of gout
Osteoporosis
Restless leg syndrome -symptoms improving on IV iron, as well as blood transfusion. Continue gabapentin at home dose.
Moderate aortic stenosis
Essential hypertension -stable.
Hyperlipidemia -rosuvastatin.
Mild emphysema
Obesity due to excess calories
DVT prophylaxis�SCD secondary to GI bleed
Full code
Updated family at bedside 06/17
Total time spent to see the patient on the floor, examine the patient, review data and lab results, discuss treatment plan with patient, nursing staff around 40 minutes.
Physical Exam
General: No acute distress
HEENT: Normocephalic, Atraumatic, EOMI, MMM
Respiratory: Clear to Auscultation bilaterally
Cardiac: Normal S1/S2, Regular Rate and Rhythm
GI: Soft, Nontender, Nondistended, Normal Bowel Sounds
Extremities: No Clubbing, Cyanosis, or Edema
Neuro: Nonfocal/Grossly Intact
Psych: Calm, Cooperative
Derm: No Visible lesions
Anticipated Discharge: Within 24 hours
Subjective/Interval History
-
Date of Service: June 17, 2025
Patient denies black or bloody stools. Denies nausea, vomiting. No chest pain, shortness of breath. No fever.
Objective Data
-
Labs:
Laboratory Results
06/17/25
08:43
WBC Pending
Hgb Pending
Hct Pending
Plt Count Pending
Vital Signs:
Vital Signs
Temp Pulse Resp BP Pulse Ox
97.9 F 87 18 135/67 96
06/17/25 07:20 06/17/25 07:20 06/17/25 07:20 06/17/25 07:20 06/17/25 07:20
I&O
06/16/25 06/17/25 06/18/25
06:59 06:59 06:59
Intake Total 660 / 660 840 / 840
Balance 660 / 660 840 / 840
[2025-06-17] MEDS: FERRLECIT 110 MG IV (16:03)
[2025-06-17 16:30] LABS: Glucose - Point of Care 262 mg/dl (70-99)
[2025-06-17] MEDS: NOVOLOG FLEXPEN-LOW RESISTANCE 3 UNITS SC (17:18)
--- NOTE | 2025-06-17 18:47 | W.PN.UPDATE ---
Update Note
Progress Note Update
Updated colonoscopy results with patient's daughter over the phone. Will recommend continued follow-up with Dr. Franco. No further recommendation. Will sign off
[2025-06-17 21:35] LABS: Glucose - Point of Care 201 mg/dl (70-99)
[2025-06-17] MEDS: NEURONTIN 600 MG PO (22:49)
[2025-06-17] MEDS: RISPERDAL 0.25 MG PO (22:49)
[2025-06-17] MEDS: PAMELOR 75 MG PO (22:49)
[2025-06-18 07:25] VITALS: BP 162/78
[2025-06-18 08:13] LABS: Glucose - Point of Care 170 mg/dl (70-99)
[2025-06-18 08:42] LABS: Hematocrit 27.9 % (37.0-47.0); Hemoglobin 8.3 g/dL (12.0-16.0); Mean Corp Hgb Conc. 29.7 g/dL (33.0-37.0); Mean Corpuscular Volume 86.1 fL (81.0-99.0); Platelet Count 172 10^3/uL (130-400); Red Cell Dist. Width 17.4 % (11.5-14.5)
--- NOTE | 2025-06-18 09:13 | W.PN.HOSP.TC ---
Today's Communication/Plan
-
Discharge to short-term rehab tomorrow
Assessment / Plan
Assessment / Plan
Acute blood loss anemia with baseline chronic anemia -known history of iron deficiency anemia.
She had a bone marrow biopsy August 2024, no evidence of amyloid. She carries a diagnosis of MGUS. Known to Dr. Fowler.
Status post 2 units packed red blood cells 06/13 due to hemoglobin is 6.7. Hemoglobin improved to 7.5 after transfusion, and continues to trend upward
Continue IV iron, monitor hemoglobin. Can discharge on oral iron every other day
Discharge to short-term rehab when bed available
Acute on chronic GI bleed -heme positive stool in the emergency room. Hemodynamically stable. Seen by gastroenterology.
Previous colonoscopy August 2022 showed rectal tubular adenoma.
Previous small bowel enteroscopy December 2024 showed nonbleeding gastric angiectasia, bleeding duodenal angiectasia, treated.
Not on anticoagulation. Does use low-dose aspirin daily.
Status post EGD 06/16, showing torturous esophagus, no lesions in the stomach
Status post colonoscopy 06/17, showing multiple polyps, internal hemorrhoids, no evidence of active GI bleeding, brown stool noted
GI recommends outpatient follow-up, may need VCE if continues to have bloody stools
Follow-up with your usual GI doctor, Dr. Franco in the office
Acute urinary retention -start bladder scan protocol
Inguinal hernia-outpatient follow-up with general surgery
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
GERD
CIDP/ambulatory dysfunction -uses a walker. PT rec SNF, CM sent referrals
MGUS - f/u w/ Dr. Fowler outpt
DM 2 with neuropathy/nephropathy -hemoglobin A1c 6.5% on 06/05/2025. Hold metformin, use low resistance NovoLog scale.
History of gout
Osteoporosis
Restless leg syndrome -symptoms improving on IV iron, as well as blood transfusion. Continue gabapentin at home dose.
Moderate aortic stenosis
Essential hypertension -stable.
Hyperlipidemia -rosuvastatin.
Mild emphysema
Obesity due to excess calories
DVT prophylaxis�SCD secondary to GI bleed
Full code
Updated family at bedside 06/17
Updated daughter on phone 06/18, all questions answered
Total time spent to see the patient on the floor, examine the patient, review data and lab results, discuss treatment plan with patient, nursing staff around 50 minutes.
Physical Exam
General: No acute distress
HEENT: Normocephalic, Atraumatic, EOMI, MMM
Respiratory: Clear to Auscultation bilaterally
Cardiac: Normal S1/S2, Regular Rate and Rhythm
GI: Soft, Nontender, Nondistended, Normal Bowel Sounds
Extremities: No Clubbing, Cyanosis, or Edema
Neuro: Nonfocal/Grossly Intact
Psych: Calm, Cooperative
Anticipated Discharge: Within 24 hours
Subjective/Interval History
-
Date of Service: June 18, 2025
Patient complains of feeling bloated. She is having problems urinating. No stools since her colonoscopy. No chest pain, no shortness of breath. No fever, no vomiting.
Objective Data
-
Labs:
Laboratory Results
06/18/25
07:10
WBC 9.0
Hgb 8.3 L
Hct 27.9 L
Plt Count 172
Vital Signs:
Vital Signs
Temp Pulse Resp BP Pulse Ox
98.2 F 86 16 162/78 92
06/18/25 07:25 06/18/25 07:25 06/18/25 07:25 06/18/25 07:25 06/18/25 07:25
I&O
06/17/25 06/18/25 06/19/25
06:59 06:59 06:59
Intake Total 840 / 840 480 / 480
Balance 840 / 840 480 / 480
[2025-06-18] MEDS: VITAMIN B-12 1000 MCG PO (09:32)
[2025-06-18] MEDS: ZYLOPRIM 450 MG PO (09:32)
[2025-06-18] MEDS: VITAMIN D3 (cholecalciferol) 25 MCG PO (09:32)
[2025-06-18] MEDS: MIRALAX 17 GRAMS PO (09:32)
[2025-06-18] MEDS: HIPREX 1 GRAM PO ×2 (09:32→22:15)
[2025-06-18] MEDS: NEURONTIN 300 MG PO ×2 (09:33→11:50)
[2025-06-18] MEDS: DITROPAN 5 MG PO (09:33)
[2025-06-18] MEDS: ZESTRIL 20 MG PO (09:33)
[2025-06-18] MEDS: NOVOLOG FLEXPEN-LOW RESISTANCE 1 UNITS SC (09:33)
[2025-06-18] MEDS: CRESTOR 5 MG PO (09:33)
[2025-06-18] MEDS: NORVASC 10 MG PO (09:33)
[2025-06-18] MEDS: NSS (PRESERVATIVE FREE) 10 ML IV ×2 (09:34→22:14)
[2025-06-18] MEDS: PROTONIX IV 40 MG IV ×2 (09:34→22:15)
[2025-06-18 12:36] LABS: Glucose - Point of Care 210 mg/dl (70-99)
[2025-06-18] MEDS: NOVOLOG FLEXPEN-LOW RESISTANCE 2 UNITS SC (13:02)
[2025-06-18] MEDS: FERRLECIT 110 MG IV (13:03)
--- NOTE | 2025-06-18 14:06 | CM ---
Addendum entered by Og Hollins 06/18/25 15:55:
CM called [facility] ([phone]) to initiate SNF auth. Spoke w/ Ana. Requested clinicals to be faxed for review
ANTONIA faxed clinicals to [phone]. Pending ref # [id number]
Original Note:
Chart reviewed. Plan is for patient to d/c to SNF. [facility] and is able to offer a bed to patient.
Awaiting OT, orders placed. Will start authorization once notes are available
Spoke w/ patient's daughter, agreeable to [facility]. Shared concerns about patient's blood level and desire to speak w/ GI. Updated hospitalist who confirmed daughter was explained patient's medical progress, will have GI follow up w/ daughter today
Plan is for patient to d/c tomorrow, however, will need to await insurance authorization
Plan: [facility]
[2025-06-18 15:20] VITALS: BP 151/61
[2025-06-18 15:24] VITALS: BP 144/61; PULSE 86; O2SAT 95
[2025-06-18 15:26] VITALS: BP 144/61; PULSE 87
[2025-06-18 17:33] LABS: Glucose - Point of Care 123 mg/dl (70-99)
[2025-06-18] MEDS: NOVOLOG FLEXPEN-LOW RESISTANCE SC (17:36)
[2025-06-18 21:18] LABS: Glucose - Point of Care 160 mg/dl (70-99)
[2025-06-18] MEDS: PAMELOR 75 MG PO (22:15)
[2025-06-18] MEDS: NEURONTIN 600 MG PO (22:15)
[2025-06-18] MEDS: RISPERDAL 0.25 MG PO (22:16)
[2025-06-18 23:39] VITALS: BP 158/72
[2025-06-19 07:49] VITALS: BP 147/69
[2025-06-19 08:14] LABS: Glucose - Point of Care 153 mg/dl (70-99)
[2025-06-19 08:19] LABS: Hematocrit 28.9 % (37.0-47.0); Hemoglobin 9.0 g/dL (12.0-16.0); Mean Corp Hgb Conc. 31.1 g/dL (33.0-37.0); Mean Corpuscular Volume 86.8 fL (81.0-99.0); Platelet Count 158 10^3/uL (130-400); Red Cell Dist. Width 17.8 % (11.5-14.5)
--- NOTE | 2025-06-19 08:35 | W.PN.UPDATE ---
Update Note
Progress Note Update
I spoke with the daughter again. Explained GI findings. Answered all question. Advised to follow-up with Dr. Franco as outpatient for video capsule endoscopy. message sent to office to schedule VCE
[2025-06-19] MEDS: NOVOLOG FLEXPEN-LOW RESISTANCE 1 UNITS SC (09:02)
[2025-06-19] MEDS: HIPREX 1 GRAM PO (09:02)
[2025-06-19] MEDS: CRESTOR 5 MG PO (09:02)
[2025-06-19] MEDS: DITROPAN 5 MG PO (09:02)
[2025-06-19] MEDS: ZESTRIL 20 MG PO (09:03)
[2025-06-19] MEDS: VITAMIN D3 (cholecalciferol) 25 MCG PO (09:03)
[2025-06-19] MEDS: ZYLOPRIM 450 MG PO (09:03)
[2025-06-19] MEDS: NORVASC 10 MG PO (09:03)
[2025-06-19] MEDS: PROTONIX IV 40 MG IV (09:03)
[2025-06-19] MEDS: NSS (PRESERVATIVE FREE) 10 ML IV (09:04)
[2025-06-19] MEDS: MIRALAX 17 GRAMS PO (09:04)
[2025-06-19] MEDS: NEURONTIN 300 MG PO ×2 (09:13→12:50)
--- NOTE | 2025-06-19 09:24 | W.PN.HOSP.TC ---
Today's Communication/Plan
-
Discharge to STR today
Assessment / Plan
Assessment / Plan
Acute blood loss anemia with baseline chronic anemia -known history of iron deficiency anemia.
She had a bone marrow biopsy August 2024, no evidence of amyloid. She carries a diagnosis of MGUS. Known to Dr. Fowler.
Status post 2 units packed red blood cells 06/13 due to hemoglobin is 6.7. Hemoglobin improved to 7.5 after transfusion, and continues to trend upward
S/p IV iron, Hgb stable at 9. Will discharge on oral iron every other day
Discharge to short-term rehab today
Acute on chronic GI bleed -heme positive stool in the emergency room. Hemodynamically stable. Seen by gastroenterology.
Previous colonoscopy August 2022 showed rectal tubular adenoma.
Previous small bowel enteroscopy December 2024 showed nonbleeding gastric angiectasia, bleeding duodenal angiectasia, treated.
Not on anticoagulation. Does use low-dose aspirin daily. Cleared by GI to resume aspirin upon discharge
Status post EGD 06/16, showing torturous esophagus, no lesions in the stomach
Status post colonoscopy 06/17, showing multiple polyps, internal hemorrhoids, no evidence of active GI bleeding, brown stool noted
GI recommends outpatient follow-up, may need VCE if continues to have bloody stools
Follow-up with your usual GI doctor, Dr. Franco in the office
Acute urinary retention - bladder scan protocol, pt has been voiding. Recommend stopping oxybutynin
Inguinal hernia-outpatient follow-up with Dr. Bishop/general surgery
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
GERD - continue PPI daily
CIDP/ambulatory dysfunction -uses a walker. PT rec SNF, CM on board
MGUS - seen by jean claude 06/19. F/u w/ Dr. Fowler outpt
DM 2 with neuropathy/nephropathy -hemoglobin A1c 6.5% on 06/05/2025. Resume metformin upon dc
History of gout
Osteoporosis
Restless leg syndrome -symptoms improving on IV iron, as well as blood transfusion. Continue gabapentin at home dose.
Moderate aortic stenosis
Essential hypertension -stable.
Hyperlipidemia -rosuvastatin.
Mild emphysema
Obesity due to excess calories
DVT prophylaxis�SCD secondary to GI bleed
Full code
Updated family at bedside 06/17
Updated daughter on phone 06/18, all questions answered
Updated daughter on phone 06/19, all questions answered
Physical Exam
General: No acute distress
HEENT: Normocephalic, Atraumatic, EOMI, MMM
Respiratory: Clear to Auscultation bilaterally
Cardiac: Normal S1/S2, Regular Rate and Rhythm
GI: Soft, Nontender, Nondistended, Normal Bowel Sounds
Extremities: No Clubbing, Cyanosis, or Edema
Neuro: Nonfocal/Grossly Intact
Psych: Calm, Cooperative
Anticipated Discharge: Today
Subjective/Interval History
-
Date of Service: June 19, 2025
Patient was able to void. No BM. No CP/SOB/palp. No fever, no vomiting.
Objective Data
-
Labs:
Laboratory Results
06/19/25
07:37
WBC 8.2
Hgb 9.0 L
Hct 28.9 L
Plt Count 158
Vital Signs:
Vital Signs
Temp Pulse Resp BP Pulse Ox
97.9 F 77 18 147/69 93
06/19/25 07:49 06/19/25 07:49 06/19/25 07:49 06/19/25 07:49 06/19/25 07:49
I&O
06/18/25 06/19/25 06/20/25
06:59 06:59 06:59
Intake Total 480 / 480 240 / 720 480 / 480
Balance 480 / 480 240 / 720 480 / 480
[2025-06-19] MEDS: VITAMIN B-12 1000 MCG PO (09:27)
--- NOTE | 2025-06-19 09:40 | CON.ONC ---
Consultation
-
Date Consultation Requested: 06/18/25
Date Consultation Performed: 06/19/25
Requesting Provider: Tripp Vance MD
Performing Provider: Dr. Larkin
Reason for Consultation: MGUS and Anemia
Impression
Impression
Acute on Chronic Iron Deficiency Anemia
MGUS
Essential Hypertension
Hyperlipidemia
Type 2 Diabetes Mellitus
Obstructive Sleep Apnea with CPAP
Plan
Plan
Acute on Chronic Iron Deficiency Anemia
-S/p 2 units of pRBCs. Most recent hemoglobin 9.0 with relative stability in this value since her 2nd transfusion
-S/p 5 bags of IV Iron therapy, with the last bag administered on 06/18/2025
-EGD on 06/16/2025: Tortuous esophagus, and no lesions in the stomach.
-Colonoscopy 06/17/2025: Multiple polyps, internal hemorrhoids and no active GI bleed.
-Continue to monitor H&H while in the hospital
-Patient is known to Dr. Fowler in the outpatient setting. Recommend outpatient follow up for continued care of her Iron Deficiency Anemia and MGUS
-Thank you for the consultation. Hematology will sign off. Please contact the team with any further questions.
Patient History
History of Present Illness
This is an 85 y/o female with history of chronic iron deficiency anemia and MGUS who presented to the ED with fatigue, weakness and dyspnea on exertion on 06/13/2025. She is a patient of Dr. Fowler in the outpatient office where she received IV Iron
infusions. She had a small bowel enteroscopy on 12/2024 which showed nonbleeding gastric angiectasia, bleeding duodenal angiectasia which was treated at that time.
In the ED, her stool was heme positive. Her hemoglobin was 6.7, and 7.5 after 1 unit of pRBCs. GI was consulted and she was started on Protonix IV twice daily. She was admitted for further management.
A second unit of pRBCs was given on 06/14/2025 and her hemoglobin increased to 8.7. On 06/16/2025 she had an EGD which showed tortuous esophagus, and no lesions in the stomach. On 06/17/2025 colonoscopy which showed multiple polyps, internal hemorrhoids
and no active GI bleed. It was recommended she follow up outpatient with GI.
Today, she reports feeling very well. She denies any shortness of breath, chest pain, abdominal pain, nasuea, diarrhea, constipation or fatigue. She is in good spirits today and has no complaints or concerns.
Past-Medical/Surgical History
Essential Hypertension
Hyperlipidemia
Type 2 Diabetes Mellitus
Obstructive Sleep Apnea with CPAP
MGUS
Iron Deficiency Anemia
GERD
Patient Medication
�Medication �Instructions �Recorded �Confirmed �Last Taken �Type
albuterol sulfate 90 mcg/actuation 2 puff inhalation R Q6HPRN PRN sob 04/30/13 06/13/25 05/30/25 12:00 History
aerosol inhaler
cyanocobalamin (vitamin B-12) 1,000 mcg PO DAILY 08/08/18 06/13/25 06/13/25 08:00 History
1,000 mcg tablet
rosuvastatin 5 mg tablet 5 mg PO DAILY High cholesterol 01/24/19 06/13/25 06/13/25 08:00 History
fluticasone propionate 50 1 spray intranasal DAILYPRN PRN 10/03/19 06/13/25 05/26/25 History
mcg/actuation nasal congestion
spray,suspension
lisinopril 20 mg tablet 20 mg PO DAILY Blood pressure 10/03/19 06/13/25 06/13/25 08:00 History
metformin 500 mg tablet,extended 1,000 mg PO BID@0800,1700 Diabetes 10/03/19 06/13/25 06/13/25 08:00 History
release 24 hr
nortriptyline 75 mg capsule 75 mg PO HS Mental Health/Anxiety 09/27/20 06/13/25 06/12/25 History
allopurinol 300 mg tablet 450 mg PO DAILY 1106/13/25 06/13/25 08:00 History
denosumab 60 mg/mL subcutaneous 60 mg SC [id number] 08/30/22 06/13/25 05/26/25 History
syringe (Prolia)
milk thistle 140 mg capsule 250 mg PO DAILY 08/30/22 06/13/25 06/13/25 08:00 History
coenzyme Q10 100 mg capsule 200 mg PO DAILY 09/15/22 06/13/25 06/13/25 08:00 History
(CoQ-10)
estradiol 0.01% (0.1 mg/gram) 1 applic vaginal DAILYPRN PRN 09/15/22 06/13/25 05/26/25 History
vaginal cream vaginal dryness
peg 400-propylene glycol (PF) 0.4 1 drp BOTH EYES TIDPRN PRN dry eye 09/15/22 06/13/25 06/13/25 08:00 History
%-0.3 % eye drops in a dropperette
(Systane (PF))
vitamin A-vitamin C-vit E-min 1 tab PO DAILY 09/15/22 06/13/25 06/13/25 08:00 History
tablet
cranberry fruit concentrate 500 mg 500 mg PO DAILY 03/30/23 06/13/25 06/13/25 08:00 History
capsule
immune globulin (human) (IgG) 10 30 g IV QMONTH 11/10/23 06/13/25 11/26/24 History
gram intravenous solution
methenamine hippurate 1 gram tablet 1 g PO BID 11/10/23 06/13/25 06/13/25 History
pantoprazole 40 mg tablet,delayed 40 mg PO DAILY 11/10/23 06/13/25 06/13/25 08:00 History
release
polyethylene glycol 3350 17 gram 17 g PO DAILY 11/10/23 06/13/25 06/13/25 08:00 History
oral powder packet (Miralax)
amlodipine 10 mg tablet 10 mg PO DAILY 08/08/24 06/13/25 06/13/25 08:00 History
cholecalciferol (vitamin D3) 125 25 mcg PO DAILY 08/08/24 06/13/25 06/13/25 08:00 History
mcg (5,000 unit) tablet (Vitamin
D3)
gabapentin 300 mg capsule 300 mg PO BID 08/08/24 06/13/25 06/13/25 History
oxybutynin chloride 5 mg tablet 5 mg PO DAILY 05/27/25 06/13/25 06/13/25 08:00 History
aspirin 81 mg tablet,delayed 81 mg PO DAILY 06/13/25 06/13/25 06/13/25 08:00 History
release
gabapentin 300 mg capsule 600 mg PO HS 06/13/25 06/13/25 06/12/25 History
omega-3 acid ethyl esters 1 gram 2 g PO BID 06/13/25 06/13/25 06/13/25 History
capsule
risperidone 0.25 mg tablet 0.25 mg PO HS 06/13/25 06/13/25 06/12/25 History
wheat dextrin (with aspartame) 3 1 ea PO DAILY 06/13/25 06/13/25 06/13/25 08:00 History
gram/6 gram oral powder packet
Active Medications
Generic Name Dose Route Start Last Admin
Trade Name Freq PRN Reason Stop Dose Admin
Acetaminophen 650 mg 06/13/25 20:41 06/16/25 08:50
Acetaminophen 325 Mg Tablet PO 07/11/25 20:40 650 mg
Q6HPRN PRN Administration
mild pain/ fever>100.5F
Albuterol 2 puff 06/13/25 20:41
Albuterol Hfa [90 Mcg/Dose] Inhaler INH
R Q6HPRN PRN
sob
Protocol
Allopurinol 450 mg 06/14/25 08:00 06/19/25 09:03
Allopurinol 300 Mg Tablet PO 07/12/25 07:59 450 mg
DAILY MAXI Administration
Amlodipine Besylate 10 mg 06/14/25 08:00 06/19/25 09:03
Amlodipine 10 Mg Tablet PO 07/12/25 07:59 10 mg
DAILY MAXI Administration
Cholecalciferol 25 mcg 06/14/25 08:00 06/19/25 09:03
Cholecalciferol (Vitamin D3) 25 Mcg Tablet (1,000 Units) PO 07/12/25 07:59 25 mcg
DAILY MAXI Administration
Cyanocobalamin 1,000 mcg 06/14/25 08:00 06/19/25 09:27
Cyanocobalamin (Vitamin B-12) 500 Mcg Tablet PO 07/12/25 07:59 1,000 mcg
DAILY MAXI Administration
Dextrose 12.5 grams 06/13/25 20:41
Dextrose 50% (0.5 Grams/Ml) 50 Ml Syringe IV 07/11/25 20:40
[id number] PRN
hypoglycemia
Protocol
Gabapentin 300 mg 06/14/25 09:00 06/19/25 09:13
Gabapentin 300 Mg Capsule PO 07/12/25 08:59 300 mg
BID@0900,1200 MAXI Administration
Gabapentin 600 mg 06/14/25 22:00 06/18/25 22:15
Gabapentin 300 Mg Capsule PO 07/12/25 21:59 600 mg
HS MAXI Administration
Glucagon 1 mg 06/13/25 20:41
Glucagon 1 Mg Vial IM 07/11/25 20:40
PRN PRN
hypoglycemia
Protocol
Insulin Aspart 0 units 06/14/25 07:30 06/19/25 09:02
Insulin Aspart Low Resistance 300 Units/3 Ml Pen.Injctr SC 07/12/25 07:29 1 units
AC MAXI Administration
Protocol
Lisinopril 20 mg 06/14/25 08:00 06/19/25 09:03
Lisinopril 20 Mg Tablet PO 07/12/25 07:59 20 mg
DAILY MAXI Administration
Methenamine Hippurate 1 gram 06/13/25 20:41 06/19/25 09:02
Methenamine Hippurate 1 Gram Tablet PO 07/13/25 08:01 1 gram
BID MAXI Administration
Nortriptyline HCl 75 mg 06/13/25 22:00 06/18/25 22:15
Nortriptyline 25 Mg Capsule PO 07/11/25 21:59 75 mg
HS MAXI Administration
Oxybutynin Chloride 5 mg 06/14/25 08:00 06/19/25 09:02
Oxybutynin 5 Mg Tablet PO 07/12/25 07:59 5 mg
DAILY MAXI Administration
Pantoprazole Sodium 40 mg 06/13/25 20:41 06/19/25 09:03
Pantoprazole Sodium 40 Mg/10 Ml Vial IV 07/11/25 20:40 40 mg
BID MAXI Administration
Polyethylene Glycol 17 grams 06/14/25 08:00 06/19/25 09:04
Polyethylene Glycol Powder 17 Grams Packet PO 07/12/25 07:59 17 grams
DAILY MAXI Administration
Risperidone 0.25 mg 06/13/25 22:00 06/18/25 22:16
Risperidone 0.25 Mg Tablet PO 07/11/25 21:59 0.25 mg
HS MAXI Administration
Rosuvastatin Calcium 5 mg 06/14/25 08:00 06/19/25 09:02
Rosuvastatin (Crestor) 5 Mg Tablet PO 07/12/25 07:59 5 mg
DAILY MAXI Administration
Sodium Chloride 0 flush 06/13/25 21:00 06/15/25 07:54
Sodium Chloride 0.9% (Flush) Syringe IV 07/11/25 20:59 2 flush
PER PROTOCOL MAXI Administration
Sodium Chloride 10 ml 06/13/25 20:41 06/19/25 09:04
Sodium Chloride 0.9% (Preservative Free) 10 Ml Vial IV 07/11/25 20:40 10 ml
BID MAXI Administration
Review of Systems
-
History Source: Patient
Constitutional: Denies Fever, Fatigue, Chills or Weakness
Respiratory: Denies Cough or Trouble Breathing
Cardiac: Denies Chest Pain
GI: Denies Abdominal Pain, Nausea, Vomiting, Diarrhea or Constipated
Musculoskeletal: Denies Joint Pain
Neuro: Denies Dizzy, Headache or Weakness
Hematologic/Lymphatic: Denies Bleeding
Physical Exam
-
General: Well Developed, Well Nourished, No Apparent Distress and Comfortable
Cardiology: Normal Sinus Rhythm, S1 and S2
Pulmonary: Clear
Musculoskeletal: No Clubbing, No Cyanosis and No Edema
Skin: Warm and Dry
Psych: Calm
Labs
Lab Results
WBC 8.2 10^3/uL (4.8-10.8) 06/19/25 07:37
RBC 3.33 10^6/uL (4.20-5.40) L 06/19/25 07:37
Hgb 9.0 g/dL (12.0-16.0) L 06/19/25 07:37
Hct 28.9 % (37.0-47.0) L 06/19/25 07:37
MCV 86.8 fL (81.0-99.0) 06/19/25 07:37
MCH 27.0 pg (27.0-31.0) 06/19/25 07:37
MCHC 31.1 g/dL (33.0-37.0) L 06/19/25 07:37
RDW 17.8 % (11.5-14.5) H 06/19/25 07:37
Plt Count 158 10^3/uL (130-400) 06/19/25 07:37
MPV 9.5 fL (7.4-10.4) 06/19/25 07:37
Abs Immat Gran (auto) 0.1 10^3/uL (0-0.05) H 06/16/25 08:53
Absolute Neuts (auto) 6.6 10^3/uL (1.4-6.5) H 06/16/25 08:53
Absolute Lymphs (auto) 1.6 10^3/uL (1.2-3.4) 06/16/25 08:53
Absolute Monos (auto) 0.5 10^3/uL (0.1-0.6) 06/16/25 08:53
Absolute Eos (auto) 0.3 10^3/uL (0-0.7) 06/16/25 08:53
Absolute Basos (auto) 0.0 10^3/uL (0-0.2) 06/16/25 08:53
Immature Gran % 0.6 % (0-0.5) H 06/16/25 08:53
Neutrophils % 72.9 % (42.2-75.2) 06/16/25 08:53
Lymphocytes % 17.8 % (20.5-51.1) L 06/16/25 08:53
Monocytes % 5.2 % (1.7-9.3) 06/16/25 08:53
Eosinophils % 3.1 % (0-6) 06/16/25 08:53
Basophils % 0.4 % (0-2) 06/16/25 08:53
Creatinine 1.0 mg/dL (0.6-1.0) 06/13/25 15:29
Vital Signs
Vital Signs
Temp Pulse Resp BP Pulse Ox
97.9 F 77 18 147/69 93
06/19/25 07:49 06/19/25 07:49 06/19/25 07:49 06/19/25 07:49 06/19/25 07:49
[2025-06-19 12:03] LABS: Glucose - Point of Care 299 mg/dl (70-99)
--- NOTE | 2025-06-19 12:40 | CM ---
Addendum entered by Sabina Arora 06/19/25 14:29:
ANTONIA met with Sanna, her daughter and son in law to discuss transfer to [facility] today. IMM reviewed, signed and copy placed in chart.
Pt is ambulatory in the room, does not qualify for ambulance, and family is upset about the cost of a w/c van ($90). Daughter requested that I stay in the room while she called pt's insurance; daughter advised by the medical insurance collector that
w/c van transport was not covered.
ANTONIA spoke with RN who agrees that going by car with family is a safe plan.
Pt's daughter and son in law will drive her via car; will need to go home to drive a different car before they can transport to [facility].
Original Note:
Call received from Lisa with [facility]. Sanna has been approved for transfer to [facility] 06/19-06/23/2025. NRD os 06/23/2025 with updates to be sent to [phone].
[facility] has accepted for transfer today.
IMM provided to patient, signed copy placed in chart.
Report: [phone]
[2025-06-19] MEDS: NOVOLOG FLEXPEN-LOW RESISTANCE 3 UNITS SC (12:50)
--- NOTE | 2025-06-19 14:24 | W.DCSUMMARY ---
Discharge Summary
Discharge Data
Date of Admission: 06/13/25
Date of Discharge: 06/19/25
-
Pending Results: Yes
Additional Pending Results:
Colon polyps
Hospital Course
Discharge diagnosis:
Acute blood loss anemia superimposed on chronic baseline iron deficiency anemia
Acute on chronic gastrointestinal bleed
Acute urinary retention
Inguinal hernia
Cirrhosis
Gastroesophageal reflux disease
Monoclonal colopathy of undetermined significance
Chronic inflammatory demyelinating polyneuropathy
Obesity due to excess calories
Consults: GI, hematology
Procedures:
EGD Impression:
- Tortuous esophagus.
The fundus contained apple sauce which made visualization slightly
difficult but no findings to explain her anemia.
- No gross lesions were noted in the entire examined stomach. No
angioectasias to treat. No blood found.
- Normal examined duodenum.
- No specimens collected.
Colonoscopy Impression:
- The examined portion of the ileum was normal.
- One 14 mm polyp in the cecum, removed with a hot snare. Resected
and retrieved.
- Five 4 to 8 mm polyps in the ascending colon, removed with a cold
snare. Resected and retrieved.
- Four 4 to 7 mm polyps in the transverse colon, removed with a
cold snare. Resected and retrieved.
- Four 5 to 18 mm polyps in the sigmoid colon, removed with a hot
snare. Resected and retrieved.
- Internal hemorrhoids.
Hospital course:
85-year-old female with a past medical history of GI bleed, chronic iron deficiency anemia, CIDP, MGUS, AVALOS cirrhosis, hypertension, and obesity who is admitted for worsening symptomatic anemia with concerns for GI bleed. Patient was seen in
conjunction with GI, she has brown heme positive stool. Her aspirin was held. She underwent endoscopy which was unremarkable. She underwent colonoscopy and had multiple removal of polyps. Colonoscopy also revealed internal hemorrhoids. GI
cleared her to resume her aspirin 2 days post colonoscopy.
Patient's hemoglobin was 6.7 on the day of admission. She received a total of 2 units of packed red blood cells. Her hemoglobin improved, and remained stable at 9.0 on the day of discharge. She also received 5 doses of IV iron. She will be
discharged on oral iron to be taken every other day. She was seen in conjunction with hematology per daughter's request. Hematology recommends outpatient follow-up.
Daughter is concerned about patient's AVALOS cirrhosis. She has been recommended to follow-up with her usual GI doctor, Dr. Adam, for her cirrhosis as well as her anemia and heme positive stool.
Patient has an inguinal hernia, and had canceled her elective repair with Dr. Bishop due to anemia. She had difficulty urinating. Recommend that she permanently discontinue her oxybutynin. Daughter was concerned that her hernia was causing
impaired urination. Discussed with Dr. Bishop, who states that her inguinal hernia would not cause that. Dr. Bishop recommends outpatient follow-up.
Patient was seen in conjunction with PT, who recommended short-term rehab. She is medically stable and cleared by GI for discharge. She needs to follow-up with her usual GI doctor, foundation drill operator helper, surgeon, and neurologist in the office.
Disposition: Short-term rehab
Discharge planning: Required 38 minutes
Discharge Plan
-
Patient Disposition: Retirement/SNF
Discharge Diagnosis/Procedures: Acute blood loss anemia superimposed on chronic iron deficiency anemia
Condition: Good
Diet: Low Fat and Low Cholesterol
Activity: As tolerated
Activity Restrictions/Additional Instructions:
GI said it was fine for you to resume your aspirin 81 mg daily.
You complained of difficulty urinating. Recommend you stop oxybutynin, as this causes urinary retention.
Follow-up with your PCP 1 week after you leave rehab, and hematology/GI/general surgery as directed.
Referrals:
Juana Fowler DO [Active, Hematology / Oncology] - in two to three weeks
Calvin Bishop MD [Active, Surgical] - in two to three weeks
Leslie Franco MD [Active, Gastroenterology]
Referral Note: follow up 4-6 weeks with anemia
Mana Abreu CRNP [Family Provider, General] - in one week
Prescriptions:
New
ferrous sulfate 325 mg (65 mg iron) tablet
325 mg PO Q OTHER DAY Qty: 30 0RF
Continued
albuterol sulfate 1 PUFF HFA aerosol inhaler
2 puff inhalation R Q6HPRN PRN (Reason: sob)
cyanocobalamin (vitamin B-12) 1,000 MCG tablet
1,000 mcg PO DAILY
rosuvastatin 5 MG tablet
5 mg PO DAILY
lisinopril 20 MG tablet
20 mg PO DAILY
fluticasone propionate 1 SPRAY spray,suspension
1 spray intranasal DAILYPRN PRN (Reason: congestion)
metformin 500 MG tablet extended release 24 hr
1,000 mg PO BID@0800,1700
nortriptyline 75 MG capsule
75 mg PO HS
vitamin A-vitamin C-vit E-min Tablet
1 tab PO DAILY
Systane (PF) 0.4-0.3 % Dropperette
1 drp BOTH EYES TIDPRN PRN (Reason: dry eye)
estradiol 0.01 % (0.1 mg/gram) Cream
1 applic VAGINAL DAILYPRN PRN (Reason: vaginal dryness)
coenzyme Q10 [CoQ-10] 100 mg Capsule
200 mg PO DAILY
milk thistle 140 mg Capsule
250 mg PO DAILY
allopurinol 300 mg Tablet
450 mg PO DAILY
Prolia 60 mg/mL Syringe
60 mg SC [id number]
Patient Comments:
cranberry fruit concentrate 500 mg Capsule
500 mg PO DAILY
polyethylene glycol 3350 [Miralax] 17 gram Powder In Packet
17 g PO DAILY
pantoprazole 40 mg Tablet,Delayed Release (Dr/Ec)
40 mg PO DAILY
methenamine hippurate 1 gram Tablet
1 g PO BID
immune globulin (human) (IgG) 10 gram Recon Soln
30 g IV QMONTH
amlodipine 10 mg Tablet
10 mg PO DAILY
gabapentin 300 mg Capsule
300 mg PO BID
cholecalciferol (vitamin D3) [Vitamin D3] 125 mcg (5,000 unit) Tablet
25 mcg PO DAILY
risperidone 0.25 mg Tablet
0.25 mg PO HS
aspirin 81 mg Tablet,Delayed Release (Dr/Ec)
81 mg PO DAILY
gabapentin 300 mg Capsule
600 mg PO HS
omega-3 acid ethyl esters 1 gram capsule
2 g PO BID
wheat dextrin (with aspartame) 3 gram/6 gram Powder In Packet
1 ea PO DAILY
Discontinued
oxybutynin chloride 5 mg Tablet
5 mg PO DAILY
Patient Comments:
no current pharmacy fills
Discharge Orders:
Discharge Patient (As Directed); Ordered 06/19/25
Ordered By: Tripp Vance
Discharge Date and Time
Discharge Date/Time: 06/19/25 15:46
Print Language: MONEGASQUE
[2025-06-19 14:56] VITALS: BP 150/70
== END 2025-06-19 15:46 | DRG 378 ==
LOC: 4 EAST ACU 18:21
PROVIDERS: Internal Medicine Gastroenterology; Student in an Organized Health Care Education/Training Program; ADMITTING PHYSICIAN Hospitalist; ATTENDING PHYSICIAN Family Medicine; CONSULT PHYSICIAN Internal Medicine; EMERGENCY PHYSICIAN Emergency Medicine; FAMILY PHYSICIAN Nurse Practitioner Adult Health; OTHER PHYSICIAN Internal Medicine Hematology & Oncology
PROC: 30233N1 Transfusion of Nonautologous Red Blood Cells into Peripheral Vein, Percutaneous Approach (ICD-10-PCS; 2025-06-13)
PROC: 0DJ08ZZ Inspection of Upper Intestinal Tract, Via Natural or Artificial Opening Endoscopic (ICD-10-PCS; 2025-06-16)
PROC: 0DBN8ZZ Excision of Sigmoid Colon, Via Natural or Artificial Opening Endoscopic (ICD-10-PCS; 2025-06-17)
PROC: 0DBL8ZZ Excision of Transverse Colon, Via Natural or Artificial Opening Endoscopic (ICD-10-PCS; 2025-06-17)
PROC: 0DBH8ZZ Excision of Cecum, Via Natural or Artificial Opening Endoscopic (ICD-10-PCS; 2025-06-17)
PROC: 0DBK8ZZ Excision of Ascending Colon, Via Natural or Artificial Opening Endoscopic (ICD-10-PCS; 2025-06-17)
DX: K92.2 Gastrointestinal hemorrhage, unspecified (principal); D62 Acute posthemorrhagic anemia; Q39.9 Congenital malformation of esophagus, unspecified; K74.60 Unspecified cirrhosis of liver; E11.40 Type 2 diabetes mellitus with diabetic neuropathy, unspecified; E78.00 Pure hypercholesterolemia, unspecified; I10 Essential (primary) hypertension; K21.9 Gastro-esophageal reflux disease without esophagitis; J45.909 Unspecified asthma, uncomplicated; I35.0 Nonrheumatic aortic (valve) stenosis; K75.81 Nonalcoholic steatohepatitis (NASH); G47.33 Obstructive sleep apnea (adult) (pediatric); D47.2 Monoclonal gammopathy; J43.9 Emphysema, unspecified; R26.2 Difficulty in walking, not elsewhere classified; E11.51 Type 2 diabetes mellitus with diabetic peripheral angiopathy without gangrene; M10.9 Gout, unspecified; M81.0 Age-related osteoporosis without current pathological fracture; G25.81 Restless legs syndrome; K64.8 Other hemorrhoids; D50.9 Iron deficiency anemia, unspecified; K63.5 Polyp of colon; E66.09 Other obesity due to excess calories; R33.9 Retention of urine, unspecified; K40.90 Unilateral inguinal hernia, without obstruction or gangrene, not specified as recurrent; Z60.2 Problems related to living alone; Z87.891 Personal history of nicotine dependence; Z90.710 Acquired absence of both cervix and uterus; Z90.49 Acquired absence of other specified parts of digestive tract; Z80.0 Family history of malignant neoplasm of digestive organs; Z80.49 Family history of malignant neoplasm of other genital organs; Z80.3 Family history of malignant neoplasm of breast; Z82.49 Family history of ischemic heart disease and other diseases of the circulatory system; Z88.2 Allergy status to sulfonamides; Z88.8 Allergy status to other drugs, medicaments and biological substances; Z91.048 Other nonmedicinal substance allergy status; Z79.82 Long term (current) use of aspirin; Z79.84 Long term (current) use of oral hypoglycemic drugs; Z79.51 Long term (current) use of inhaled steroids; Z86.0101 Personal history of adenomatous and serrated colon polyps; Z68.32 Body mass index [BMI] 32.0-32.9, adult; Z88.1 Allergy status to other antibiotic agents
CPT/HCPCS: 80053; 82607; 82746; 82962; 83615; 85025; 85027; 85045; 86850; 86900; 86901; 86920; 88305; 92526; 92610; 93005; 97116; 97163; 97167; 97530; 97535; 99291; J2916; P9016

== ENCOUNTER → 2025-06-23 11:19 | Outpatient (REF) | payer OTHER, MEDICARE, SELFPAY ==
[2025-06-23 12:40] LABS: Hematocrit 29.1 % (37.0-47.0); Hemoglobin 8.7 g/dL (12.0-16.0); Mean Corp Hgb Conc. 29.9 g/dL (33.0-37.0); Mean Corpuscular Volume 89.0 fL (81.0-99.0); Nucleated Red Blood Cells % 0 %; Platelet Count 179 10^3/uL (130-400); Red Cell Dist. Width 19.6 % (11.5-14.5)
[2025-06-23 13:11] LABS: Blood Urea Nitrogen 21 mg/dl (7-17); Calcium 9.4 mg/dl (8.4-10.2); Carbon Dioxide 24 mmol/L (22-30); Chloride 108 mmol/L (98-107); Glucose 131 mg/dl (70-99); Potassium 3.7 mmol/L (3.5-5.1); Sodium 141 mmol/L (135-145); eGFR 55.55
== END ==
LOC: OLABP 11:19
PROVIDERS: ATTENDING PHYSICIAN Family Medicine
DX: I10 Essential (primary) hypertension (principal); D64.9 Anemia, unspecified; K92.2 Gastrointestinal hemorrhage, unspecified; D50.9 Iron deficiency anemia, unspecified; D47.2 Monoclonal gammopathy; E11.9 Type 2 diabetes mellitus without complications; E78.5 Hyperlipidemia, unspecified; G25.81 Restless legs syndrome; G47.33 Obstructive sleep apnea (adult) (pediatric); I35.0 Nonrheumatic aortic (valve) stenosis; J43.9 Emphysema, unspecified; K21.9 Gastro-esophageal reflux disease without esophagitis; K75.81 Nonalcoholic steatohepatitis (NASH); R33.9 Retention of urine, unspecified
CPT/HCPCS: 36415; 80048; 85025

== ENCOUNTER → 2025-06-30 10:31 | Outpatient (REF) | payer OTHER, MEDICARE, SELFPAY ==
[2025-06-30 10:58] LABS: Hematocrit 32.4 % (37.0-47.0); Hemoglobin 10.2 g/dL (12.0-16.0); Mean Corp Hgb Conc. 31.5 g/dL (33.0-37.0); Mean Corpuscular Volume 86.9 fL (81.0-99.0); Nucleated Red Blood Cells % 0 %; Platelet Count 235 10^3/uL (130-400); Red Cell Dist. Width 19.9 % (11.5-14.5)
[2025-06-30 11:08] LABS: Iron 63 ug/dl (37-170)
[2025-06-30 11:17] LABS: Total Iron Binding Capacity 357 ug/dl (265-497)
[2025-06-30 11:42] LABS: Ferritin 128.0 ng/ml (11.1-264.0)
== END ==
LOC: OLABP 10:31
PROVIDERS: ATTENDING PHYSICIAN Family Medicine
DX: D64.9 Anemia, unspecified (principal); K92.2 Gastrointestinal hemorrhage, unspecified; I10 Essential (primary) hypertension; D50.9 Iron deficiency anemia, unspecified; D47.2 Monoclonal gammopathy; E11.9 Type 2 diabetes mellitus without complications; E78.5 Hyperlipidemia, unspecified; G25.81 Restless legs syndrome; G47.33 Obstructive sleep apnea (adult) (pediatric); I35.0 Nonrheumatic aortic (valve) stenosis; J43.9 Emphysema, unspecified; K21.9 Gastro-esophageal reflux disease without esophagitis; K75.81 Nonalcoholic steatohepatitis (NASH); R33.9 Retention of urine, unspecified
CPT/HCPCS: 36415; 82728; 83540; 83550; 85025

== ENCOUNTER → 2025-07-11 13:10 | Outpatient (REF) | payer OTHER, MEDICARE, SELFPAY | LOC: WDC 13:10 | PROVIDERS: ATTENDING PHYSICIAN Nurse Practitioner Adult Health | DX: Z12.31 Encounter for screening mammogram for malignant neoplasm of breast (principal) | CPT/HCPCS: 77063; 77067 ==

== ENCOUNTER → 2025-07-30 13:50 | Outpatient (REF) | payer MEDICARE, OTHER, SELFPAY | LOC: DHVS 13:50 | PROVIDERS: ATTENDING PHYSICIAN Surgery Vascular Surgery; FAMILY PHYSICIAN Nurse Practitioner Adult Health; OTHER PHYSICIAN Specialist | DX: I73.9 Peripheral vascular disease, unspecified (principal) | CPT/HCPCS: 93922 ==

== ENCOUNTER → 2025-08-04 11:40 | Outpatient (REF) | payer MEDICARE, OTHER, SELFPAY ==
[2025-08-04 11:47] LABS: Hematocrit 26.4 % (37.0-47.0); Hemoglobin 7.7 g/dL (12.0-16.0); Mean Corp Hgb Conc. 29.2 g/dL (33.0-37.0); Mean Corpuscular Volume 94.3 fL (81.0-99.0); Platelet Count 196 10^3/uL (130-400); Red Cell Dist. Width 20.1 % (11.5-14.5)
== END ==
LOC: OIDL 11:40
PROVIDERS: ATTENDING PHYSICIAN Internal Medicine Hematology & Oncology
DX: D72.829 Elevated white blood cell count, unspecified (principal); D47.2 Monoclonal gammopathy; D50.9 Iron deficiency anemia, unspecified; C90.00 Multiple myeloma not having achieved remission
CPT/HCPCS: 85025

== ENCOUNTER 2025-08-24 15:56 | Inpatient (IN) | payer MEDICARE, OTHER, SELFPAY ==
[2025-08-24] VITALS (9 sets, daily range): BP systolic 116–159; BP diastolic 56–90; BMI 31.8
[2025-08-24 12:00] LABS: Hematocrit 29.6 % (37.0-47.0); Hemoglobin 8.9 g/dL (12.0-16.0); Mean Corp Hgb Conc. 30.1 g/dL (33.0-37.0); Mean Corpuscular Volume 99.7 fL (81.0-99.0); Nucleated Red Blood Cells % 0.3 %; Platelet Count 154 10^3/uL (130-400); Red Cell Dist. Width 20.7 % (11.5-14.5)
[2025-08-24 12:14] LABS: ALT (SGPT) 25 U/L (0-35); AST (SGOT) 35 U/L (14-36); Albumin 3.8 g/dl (3.5-5.0); Alkaline Phosphatase 261 U/L (38-126); Blood Urea Nitrogen 24 mg/dl (7-17); Calcium 9.6 mg/dl (8.4-10.2); Carbon Dioxide 24 mmol/L (22-30); Chloride 105 mmol/L (98-107); Glucose 212 mg/dl (70-99); Potassium 4.2 mmol/L (3.5-5.1); Sodium 137 mmol/L (135-145); Total Protein 7.4 g/dl (6.3-8.2); eGFR 49.55
[2025-08-24] MEDS: LASIX 40 MG IV (14:01)
--- NOTE | 2025-08-24 14:10 | ED.GENMED ---
History of Present Illness
<Kaleb Bhatia PA-C - Last Filed: 08/24/25 14:21>
General
Chief Complaint: Breathing Problem
Source: patient
Exam Limitations: none
Time Seen by Provider: 08/24/25 13:42
History of Present Illness
History of Present Illness:
85-year-old female presents complaining of increasing shortness of breath and work of breathing over the past couple days. She also notes leg swelling and weight gain. She finds a self propping herself up on pillows to sleep. She is not
anticoagulated. She is not typically on oxygen. No other complaints at this time. She does have a history of cirrhosis
Past History
<KT Macias Last Filed: 08/24/25 14:21>
Past History
ED Past Medical History: Asthma, GERD, HTN, Hypercholesterolemia, NIDDM and Other (Diverticulosis)
ED Past Surgical History: Cholecystectomy, Gynecological (Hysterectomy) and Other (Bladder lift, back surg, Hernia repair)
Social History
Tobacco: Former smoker
Alcohol: Occasional
Drug: None
Personal:
Living: with family
Family History
Family History: Other (Breast cancer in her brother, colon cancer breast cancer and cervical cancer in her mother, coronary disease and hypertension in the family)
Phy Exam
<KT Macias Last Filed: 08/24/25 14:21>
Physical Exam
Physical Exam:
General: Well-developed female with increased work of breathing
HEENT: Normal cephalic atraumatic
Heart: Regular rate and rhythm
Lungs: Subtle rales at the bases.
Abdomen is soft distended nontender
Extremities: Pitting edema bilateral lower extremities
Scores
<KT Macias Last Filed: 08/24/25 14:21>
Heart Failure Risk
Heart Failure Risk Score: Not Applicable
Course
<Kaleb Bhatia PA-C - Last Filed: 08/24/25 14:21>
Orders/Labs/Results
Orders:
Orders
08/24/25 11:26
Electrocardiogram (*1) Urgent
Reason for Study: Shortness of Breath
EKG- Treatment ONCE
08/24/25 11:32
Chest [CR Chest - 2 Views ] Urgent
Comment:
Reason For Exam: SOB
08/24/25 11:50
BNP [NT-proBNP] Urgent
CBC/With Diff [Complete Blood Count/With Diff] Urgent
CMP [Comprehensive Metabolic Panel] Urgent
08/24/25 13:56
Furosemide [Lasix] 40 mg IV NOW STA
08/24/25 15:00
Admit/Transfer Patient As Directed
Co-Sign Provider:
Level of Care: Inpatient admission
Assign to:: Telemetry
Physician / Group: Hospitalist
Diagnosis: CHF
Reason for Telemetry: Acute Heart Failure
Date to Stop Telemetry: 08/27/25
Time to Stop Telemetry: 11:00
Reason for Hospitalization: .
Expected length of stay greater than two midnights?: Yes
ELOS- Estimated Length of Stay in days: 3
I certify the patient meets the requirements for IP care: Yes
PRN Pain Medication Management As Directed
May give lesser potent ordered pain med per pt: Yes
preference::
Protocol:: Medication orders for pain may be administered in a
manner that supports deferring to patient preference
when the pt is:
- Requesting an ordered lesser potent pain medication.
Least to most potent pain medications are defined
as: acetaminophen < NSAID < tramadol < opioids
(morphine, oxycodone, hydromorphone).
- Requesting a lesser dose of the same medication IF
ORDERED.
- Requesting a less intrusive route of administration
if both routes are prescribed by the provider (PO <
IV).
08/27/25 11:00
DC Protocol for Telemetry ONCE
Abnormal Lab Results
08/24/25
11:50
RBC 2.97 L 10^6/uL
(4.20-5.40)
Hgb 8.9 L g/dL
(12.0-16.0)
Hct 29.6 L %
(37.0-47.0)
MCV 99.7 H fL
(81.0-99.0)
MCHC 30.1 L g/dL
(33.0-37.0)
RDW 20.7 H %
(11.5-14.5)
Lymphocytes % 16.6 L %
(20.5-51.1)
BUN 24 H mg/dl
(7-17)
Creatinine 1.1 H mg/dL
(0.6-1.0)
Glucose 212 H mg/dl
(70-99)
Alkaline Phosphatase 261 H U/L
(38-126)
08/24/25 11:50
08/24/25 11:50
Vital Signs
Initial and Last Documented VS:
Initial Vital Signs
Temp Pulse Resp BP Pulse Ox
98.4 F 88 20 141/69 96
08/24/25 11:31 08/24/25 11:31 08/24/25 11:31 08/24/25 11:31 08/24/25 11:31
Last Documented Vital Signs
Temp Pulse Resp BP Pulse Ox
98.4 F 92 22 142/71 96
08/24/25 11:31 08/24/25 14:15 08/24/25 14:15 08/24/25 14:00 08/24/25 14:15
<Rohit Yousif, DO - Last Filed: 08/24/25 15:11>
Orders/Labs/Results
Orders:
Orders
08/24/25 11:26
Electrocardiogram (*1) Urgent
Reason for Study: Shortness of Breath
EKG- Treatment ONCE
08/24/25 11:32
Chest [CR Chest - 2 Views ] Urgent
Comment:
Reason For Exam: SOB
08/24/25 11:50
BNP [NT-proBNP] Urgent
CBC/With Diff [Complete Blood Count/With Diff] Urgent
CMP [Comprehensive Metabolic Panel] Urgent
08/24/25 13:56
Furosemide [Lasix] 40 mg IV NOW STA
08/24/25 15:00
Admit/Transfer Patient As Directed
Co-Sign Provider:
Level of Care: Inpatient admission
Assign to:: Telemetry
Physician / Group: Hospitalist
Diagnosis: CHF
Reason for Telemetry: Acute Heart Failure
Date to Stop Telemetry: 08/27/25
Time to Stop Telemetry: 11:00
Reason for Hospitalization: .
Expected length of stay greater than two midnights?: Yes
ELOS- Estimated Length of Stay in days: 3
I certify the patient meets the requirements for IP care: Yes
PRN Pain Medication Management As Directed
May give lesser potent ordered pain med per pt: Yes
preference::
Protocol:: Medication orders for pain may be administered in a
manner that supports deferring to patient preference
when the pt is:
- Requesting an ordered lesser potent pain medication.
Least to most potent pain medications are defined
as: acetaminophen < NSAID < tramadol < opioids
(morphine, oxycodone, hydromorphone).
- Requesting a lesser dose of the same medication IF
ORDERED.
- Requesting a less intrusive route of administration
if both routes are prescribed by the provider (PO <
IV).
08/27/25 11:00
DC Protocol for Telemetry ONCE
Abnormal Lab Results
08/24/25
11:50
RBC 2.97 L 10^6/uL
(4.20-5.40)
Hgb 8.9 L g/dL
(12.0-16.0)
Hct 29.6 L %
(37.0-47.0)
MCV 99.7 H fL
(81.0-99.0)
MCHC 30.1 L g/dL
(33.0-37.0)
RDW 20.7 H %
(11.5-14.5)
Lymphocytes % 16.6 L %
(20.5-51.1)
BUN 24 H mg/dl
(7-17)
Creatinine 1.1 H mg/dL
(0.6-1.0)
Glucose 212 H mg/dl
(70-99)
Alkaline Phosphatase 261 H U/L
(38-126)
08/24/25 11:50
08/24/25 11:50
Vital Signs
Initial and Last Documented VS:
Initial Vital Signs
Temp Pulse Resp BP Pulse Ox
98.4 F 88 20 141/69 96
08/24/25 11:31 08/24/25 11:31 08/24/25 11:31 08/24/25 11:31 08/24/25 11:31
Last Documented Vital Signs
Temp Pulse Resp BP Pulse Ox
98.4 F 92 22 142/71 96
08/24/25 11:31 08/24/25 14:15 08/24/25 14:15 08/24/25 14:00 08/24/25 14:15
<Kaleb Bhatia PA-C - Last Filed: 08/24/25 14:21>
MDM/Problems Addressed
Differential Diagnosis Includes:
Patient appears volume overloaded with respiratory effort that is increased. Consider CHF versus pneumonia. No fever here. Demonstrates cardiomegaly with pulmonary edema on the x-ray. BNP is 3520
Lasix ordered
Patient was 90 to 91% on room air with increased effort she is now on 2 L nasal cannula oxygen
<Kaleb Bhatia PA-C - Last Filed: 08/24/25 14:21>
*Pulse Oximetry
SaO2: 96
Patient hypoxic: no
*Critical Care Note
Total Time (30-74mins, 75-104mins- exclusive of procedures): Not Applicable
<Kaleb Bhatia PA-C - Last Filed: 08/24/25 14:21>
Update Note
Update Note:
Reviewed labs discussed with emergency room attending. Suspect CHF. Lasix ordered will admit to hospital
ED Attending Note
<Kaleb Bhatia PA-C - Last Filed: 08/24/25 14:21>
-
Portions of this chart may have been created with voice recognition software.� Occasional wrong word or��sound alike� substitutions may have occurred due to the inherent limitations of voice recognition software.
<Rohit Yousif, - Last Filed: 08/24/25 15:11>
ED Attending Note
Patient seen and examined by attending physician: Yes
ED Attending Note:
I reviewed and agree with history treatment plan by Neil Bhatia PA-C. My exam revealed frail female on 2 L nasal cannula oxygen with mild respiratory distress, improved after receiving 2 L nasal cannula oxygen, as well as Lasix. Lungs reveal
Rales at bases bilaterally. Admit to hospitalist for CHF exacerbation.
Discharge Plan
Departure
Patient Disposition: Admit
Date of Disposition: 08/24/25
Time of Disposition: 14:20
Presentation/result/management discussed w/ accepting MD/DO: Hospitalist
Discharge Problem:
CHF (congestive heart failure)
Prescriptions:
No Action
albuterol sulfate 1 PUFF HFA aerosol inhaler
2 puff inhalation R Q6HPRN PRN (Reason: sob)
cyanocobalamin (vitamin B-12) 1,000 MCG tablet
1,000 mcg PO DAILY
rosuvastatin 5 MG tablet
5 mg PO DAILY
lisinopril 20 MG tablet
20 mg PO DAILY
fluticasone propionate 1 SPRAY spray,suspension
1 spray intranasal DAILYPRN PRN (Reason: congestion)
metformin 500 MG tablet extended release 24 hr
1,000 mg PO BID@0800,1700
nortriptyline 75 MG capsule
75 mg PO HS
vitamin A-vitamin C-vit E-min Tablet
1 tab PO DAILY
Systane (PF) 0.4-0.3 % Dropperette
1 drp BOTH EYES TIDPRN PRN (Reason: dry eye)
estradiol 0.01 % (0.1 mg/gram) Cream
1 applic VAGINAL DAILYPRN PRN (Reason: vaginal dryness)
coenzyme Q10 [CoQ-10] 100 mg Capsule
200 mg PO DAILY
milk thistle 140 mg Capsule
250 mg PO DAILY
allopurinol 300 mg Tablet
450 mg PO DAILY
Prolia 60 mg/mL Syringe
60 mg SC [id number]
Patient Comments:
cranberry fruit concentrate 500 mg Capsule
500 mg PO DAILY
polyethylene glycol 3350 [Miralax] 17 gram Powder In Packet
17 g PO DAILY
pantoprazole 40 mg Tablet,Delayed Release (Dr/Ec)
40 mg PO DAILY
methenamine hippurate 1 gram Tablet
1 g PO BID
immune globulin (human) (IgG) 10 gram Recon Soln
30 g IV QMONTH
amlodipine 10 mg Tablet
10 mg PO DAILY
gabapentin 300 mg Capsule
300 mg PO BID
cholecalciferol (vitamin D3) [Vitamin D3] 125 mcg (5,000 unit) Tablet
25 mcg PO DAILY
risperidone 0.25 mg Tablet
0.25 mg PO HS
aspirin 81 mg Tablet,Delayed Release (Dr/Ec)
81 mg PO DAILY
gabapentin 300 mg Capsule
600 mg PO HS
omega-3 acid ethyl esters 1 gram capsule
2 g PO BID
wheat dextrin (with aspartame) 3 gram/6 gram Powder In Packet
1 ea PO DAILY
ferrous sulfate 325 mg (65 mg iron) tablet
325 mg PO Q OTHER DAY Qty: 30 0RF
Referrals:
Mana Abreu CRNP [Family Provider, General]
Interventions
Interventions:
*Risk Screen - Suicide Last Done: 08/24/25 11:26
*General Assessment Last Done: 08/24/25 11:26
*Neglect/Abuse Screening Last Done: 08/24/25 11:26
*ED- Fall Risk Assessment Last Done: 08/24/25 14:19
*ED COVID-19 Vaccine History Last Done: 08/24/25 11:26
*ED Influenza Vaccine History Last Done: 08/24/25 11:26
ED- Cardiac Assessment Last Done: 08/24/25 12:42
ED- Pulmonary Assessment Last Done: 08/24/25 12:42
Discharge Date and Time
Print Language: NEPALI
--- NOTE | 2025-08-24 14:57 | HPS.HSE ---
Family Physician
-
Family Physician: Mana Abreu
Chief Complaint
-
Shortness of breath for a few days duration
History of Present Illness
85 years old female presented with shortness of breath. Patient is accompanied by her caregiver. Patient has a private caregiver every day till 4-5 PM. Maribel, her caregiver for the weekend noticed that patient was short of breath even while
sitting with some increasing swelling of chronic left lower extremity edema. Patient also felt the she had more abdominal distention and felt bloated. She noticed that she had weight gain. They decided to come to the emergency room. In the ER,
she had pulmonary crackles and chest x-ray consistent with congestive heart failure. Elevated BNP. She was given IV Lasix 40 mg. Patient does not take diuretics at home. No recent change in medications. Her most recent admission to the hospital
was for GI bleeding and she finished iron infusion in outpatient setting.
Medical History
Past Medical History
Past Medical History: Reports Other (Hyperlipidemia, obstructive sleep apnea, GI bleeding, GERD, depression, gait dysfunction, peripheral polyneuropathy, diabetes, gout, emphysema, fatty liver, valvular heart disease, peripheral vascular disease,
COPD, constipation,)
Past Surgical History: Reports Other (No recent major surgery)
Social History
Tobacco: Former Smoker
Alcohol: None
Drug: None
Living: Alone (With call worker person. )
Employment: Retired
Family History
Family History: Not pertinent
Allergies / Home Medications
Allergies reflects when Allergies were last updated in [facility].
Home Medications with original date entered in [facility]
Allergy/Medication List:
Allergies
Allergy/AdvReac Type Severity Reaction Status Date / Time
adhesive Allergy TAPE-BLISTE Verified 05/27/25 14:14
RS
atorvastatin Allergy muscle Verified 05/27/25 14:14
spasm
ciprofloxacin (From Cipro) Allergy Severe Verified 05/27/25 14:14
Hypotension
dog dander Allergy Shortness Verified 06/13/25 20:46
of Breath
grass pollen Allergy Shortness Verified 06/13/25 20:46
of Breath
house dust Allergy Shortness Verified 06/13/25 20:46
of Breath
pollen extracts Allergy Shortness Verified 05/27/25 14:14
of Breath
Sulfa (Sulfonamide Allergy red line Verified 05/27/25 14:14
Antibiotics) on body
tree and shrub pollen Allergy Shortness Verified 06/13/25 20:46
of Breath
Home Medications
albuterol sulfate 90 mcg/actuation aerosol inhaler 2 puff inhalation R Q6HPRN PRN sob 04/30/13
cyanocobalamin (vitamin B-12) 1,000 mcg tablet 1,000 mcg PO DAILY 08/08/18
rosuvastatin 5 mg tablet 5 mg PO DAILY High cholesterol 01/24/19
fluticasone propionate 50 mcg/actuation nasal spray,suspension 1 spray intranasal DAILYPRN PRN congestion 10/03/19
lisinopril 20 mg tablet 20 mg PO DAILY Blood pressure 10/03/19
metformin 500 mg tablet,extended release 24 hr 1,000 mg PO BID@0800,1700 Diabetes 10/03/19
nortriptyline 75 mg capsule 75 mg PO HS Mental Health/Anxiety 09/27/20
allopurinol 300 mg tablet 450 mg PO DAILY 08/30/22
denosumab 60 mg/mL subcutaneous syringe (Prolia) 60 mg SC [id number] 08/30/22
milk thistle 140 mg capsule 250 mg PO DAILY 08/30/22
coenzyme Q10 100 mg capsule (CoQ-10) 200 mg PO DAILY 09/15/22
estradiol 0.01% (0.1 mg/gram) vaginal cream 1 applic vaginal DAILYPRN PRN vaginal dryness 09/15/22
peg 400-propylene glycol (PF) 0.4 %-0.3 % eye drops in a dropperette (Systane (PF)) 1 drp BOTH EYES TIDPRN PRN dry eye 09/15/22
vitamin A-vitamin C-vit E-min tablet 1 tab PO DAILY 09/15/22
cranberry fruit concentrate 500 mg capsule 500 mg PO DAILY 03/30/23
immune globulin (human) (IgG) 10 gram intravenous solution 30 g IV QMONTH 11/10/23
methenamine hippurate 1 gram tablet 1 g PO BID 11/10/23
pantoprazole 40 mg tablet,delayed release 40 mg PO DAILY 11/10/23
polyethylene glycol 3350 17 gram oral powder packet (Miralax) 17 g PO DAILY 11/10/23
amlodipine 10 mg tablet 10 mg PO DAILY 08/08/24
cholecalciferol (vitamin D3) 125 mcg (5,000 unit) tablet (Vitamin D3) 25 mcg PO DAILY 08/08/24
gabapentin 300 mg capsule 300 mg PO BID 08/08/24
aspirin 81 mg tablet,delayed release 81 mg PO DAILY 06/13/25
gabapentin 300 mg capsule 600 mg PO HS 06/13/25
omega-3 acid ethyl esters 1 gram capsule 2 g PO BID 06/13/25
risperidone 0.25 mg tablet 0.25 mg PO HS 06/13/25
wheat dextrin (with aspartame) 3 gram/6 gram oral powder packet 1 ea PO DAILY 06/13/25
ferrous sulfate 325 mg (65 mg iron) tablet 325 mg PO Q OTHER DAY #30 tabs 06/19/25
Review of Systems
-
History Source: Patient
A 12 point ROS was completed and negative except as noted: Yes
Constitutional: Denies Fever or Chills
EENT: Denies Sore Throat
Respiratory: Reports Trouble Breathing; Denies Cough
Cardiac: Denies Chest Pain
Abdomen/GI: Denies Abdominal Pain
: Denies Dysuria
Musculoskeletal: Reports Edema (of LLE)
Skin: Denies Rash
Neurological: Denies Numbness
Hematologic/Lymphatic: Denies Bruising
Psych: Denies Panic Disorder
Physical Exam
Vital Signs
Vital Signs
Temp Pulse Resp BP Pulse Ox
98.4 F 92 22 142/71 96
08/24/25 11:31 08/24/25 14:15 08/24/25 14:15 08/24/25 14:00 08/24/25 14:15
Physical Exam
General: Comfortable, Appears Chronically Ill and Obese
HEENT: Moist mucous membranes and Atraumatic
Respiratory: Rales; No Wheezes
Cardiac: S1/S2, Tachycardia and Murmur
GI: Soft, Non Tender and Distended
Genito-urinary: No Rudd
Musculoskeletal: No Cyanosis and Edema, Left Lower Extremity (chronic)
Skin: No Jaundice
Neuro: AO x 3 and Nonfocal/grossly intact
Psych: Calm and Intact Judgment/Insight
Laboratory Results
-
08/24/25 11:50
08/24/25 11:50
Laboratory Results
Total Bilirubin 0.4 mg/dl (0.2-1.3) 08/24/25 11:50
AST 35 U/L (14-36) 08/24/25 11:50
ALT 25 U/L (0-35) 08/24/25 11:50
Alkaline Phosphatase 261 U/L (38-126) H 08/24/25 11:50
Impression/Plan
-
85 years old female presented with shortness of breath, increasing weight
# Acute respiratory distress suspect acute on chronic heart failure with a preserved ejection fraction/valvular heart disease
Admit the patient to telemetry
No hypoxia detected.
Start the patient on intravenous diuretic. Monitor closely renal function and potassium
Continue with lisinopril, add holding parameter for hypotension and monitor renal function
She is not on rate control medications. Will start her on low-dose carvedilol With HR around 90-105
Order echocardiogram
Input after/daily weight
Cholesterol lowering/ cardiac diet
Patient denies chest pain. EKG, no acute ischemic changes. Will check troponin. Primary spar machine operator Dr. Faina Mckeon.
Discussed with spar machine operator on-call, appreciate input
# Chronic left lower extremity swelling, possible lymphedema.
Patient and caregiver increasing swelling. No signs of infection with absence of tenderness/erythema. will do ultrasound to rule out DVT
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
Per patient, no source found. 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
Patient has had IV infusion of iron, finished, not on oral iron supplement.
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
#GERD
# Chronic ambulatory dysfunction -uses a walker. Consulted PT/OT.
# DM 2 with diabetic polyneuropathy
She is stable on metformin, will continue,
c/w NovoLog scale.
#History of gout
# Restless leg syndrome -
d/w daughter, she is on ropinirole.
# Essential hypertension
Added holding parameter to amlodipine and lisinopril while on IV Lasix and new medicine carvedilol
#Hyperlipidemia -rosuvastatin.
# Obstructive sleep apnea/COPD/ emphysema
No history of wheezes or productive cough. Cannot bring on CPAP machine
#Obesity due to excess calories
#Full code, confirmed with patient.
Total time spent to see the patient, examined the patient, review data and lab result, discuss treatment plan with patient, her daughter, ER doctor, spar machine operator on-call, nursing staff around 75 minutes
--- NOTE | 2025-08-24 16:32 | EDCM ---
Reviewed chart and met with pt bedside in ED. Pt lives alone in [place] with basement, does not go down the basement. Has ramp at entrance.
Needs assistance with ADLs and personal care. Has SUEDING AND BUFFING MACHINE OPERATOR 7 days a week from 8 or 9am to 5pm.
Ambulates with rollator. Bathroom has walk in shower and grab bars. Also has glucometer and CPAP. Does not have home O2.
Confirms prescription coverage.
Hx Saravanan VN, has been to [facility] (06/2025), does not want to return to SNF
PCP: Mana Abreu
Pharmacy: [facility]
Anticipate discharge home, CM will continue to follow for all discharge planning needs.
[2025-08-24 17:13] LABS: Troponin I 0.014 ng/ml
[2025-08-24 17:14] LABS: Glucose - Point of Care 113 mg/dl (70-99)
--- NOTE | 2025-08-24 18:13 | PTCARENOTE ---
Received pt. from ED around 1700. Pt. walked from stretcher to bed with a rolling walker. Pt. oriented to room, ordered reviewed and skin assessed. Pt. very dyspneic on excretion but stated 'this is better than yesterday.' Pt. placed on tele
monitored #12. At around 1800, pt. alerting on monitoring analyst in A. Fib with RVR with heart6 rate staying 130-150s. Obtained an EKG to verify rhythm. Pt. with no current complaints, resting comfortably in bed. MDs made aware, medication to be
given.
--- NOTE | 2025-08-24 18:50 | W.PN.UPDATE ---
Update Note
Progress Note Update
After arriving to the floor, Patient developed a fib?, probably it is the reason behind CHF, will order EKG to confirm. Good Bp, will give IV Metoprolol. Patient tells me she still passes blood in stool without ability to control or prevent it and
she get iron infusion. She has recent admission for GI bleeding. Will hold off on systemic AC until it is discussed with cardiology, continue aspirin for tonight. Increase dose of Coreg.
[2025-08-24] MEDS: NOVOLOG FLEXPEN-MODERATE RESISTANCE SC (19:16)
[2025-08-24] MEDS: NEURONTIN PO (19:23)
[2025-08-24] MEDS: LOPRESSOR 5 MG IV (19:24)
[2025-08-24] MEDS: CRESTOR 5 MG PO (19:25)
[2025-08-24] MEDS: HIPREX 1 GRAM PO (20:06)
[2025-08-24] MEDS: DITROPAN 5 MG PO (20:06)
[2025-08-24] MEDS: COREG 3.125 MG PO (20:07)
[2025-08-24 21:32] LABS: Glucose - Point of Care 179 mg/dl (70-99)
[2025-08-24] MEDS: HEPARIN 5000 UNITS SC (22:27)
[2025-08-24] MEDS: NEURONTIN 600 MG PO (22:27)
[2025-08-24] MEDS: REQUIP 0.25 MG PO (22:28)
[2025-08-24] MEDS: PAMELOR 75 MG PO (22:55)
[2025-08-25 02:46] VITALS: BMI 31.7
[2025-08-25 03:00] VITALS: BP 129/70
[2025-08-25] MEDS: HEPARIN 5000 UNITS SC ×3 (05:39→21:53)
[2025-08-25 06:16] LABS: Hematocrit 26.4 % (37.0-47.0); Hemoglobin 7.7 g/dL (12.0-16.0); Mean Corp Hgb Conc. 29.2 g/dL (33.0-37.0); Mean Corpuscular Volume 97.8 fL (81.0-99.0); Platelet Count 143 10^3/uL (130-400); Red Cell Dist. Width 20.6 % (11.5-14.5)
[2025-08-25 06:32] LABS: Blood Urea Nitrogen 26 mg/dl (7-17); Calcium 9.4 mg/dl (8.4-10.2); Carbon Dioxide 28 mmol/L (22-30); Chloride 104 mmol/L (98-107); Estimated Creatinine Clearance 35 ml/min; Glucose 106 mg/dl (70-99); Potassium 3.9 mmol/L (3.5-5.1); Sodium 138 mmol/L (135-145); eGFR 44.64
[2025-08-25 07:25] VITALS: BMI 31.7
[2025-08-25 08:01] VITALS: BP 166/80
[2025-08-25 08:07] LABS: Glucose - Point of Care 150 mg/dl (70-99)
--- NOTE | 2025-08-25 08:55 | CON.CAR ---
Addendum entered and electronically signed by Kit King MD 08/25/25 12:44:
Correction patient is not on IV heparin.
Addendum entered and electronically signed by Kit King MD 08/25/25 10:57:
I saw and examined the patient.
The PATTERN CLERK or PA's note was reviewed and I agree with the note.
Comment: General: Well developed, well nourished in NAD.
Neck: Supple, no JVD, HJR, carotids +2 B/L, no bruits bilaterally.
Heart: Non displaced PMI, irregular, no murmurs, No S3, S4, no rubs.
Lungs: Scattered rhonchi
Extremities: No clubbing, cyanosis or edema bilaterally.
Neuro: Grossly nonfocal, awake, alert and oriented x3.
Sanna has a history of nonobstructive CAD, moderate aortic stenosis, hypertension, diabetes, hyperlipidemia, sleep apnea, chronic anemia with prior GI bleed felt to be due to AV malformation, cirrhosis with portal hypertension, COPD, balance
disorder. She presented with worsening shortness of breath, lower extremity edema, evidence of CHF with elevated proBNP and pulmonary edema seen on chest x-ray. She then went into atrial fibrillation.
Given new onset A-fib and not an ideal candidate for anticoagulation with prior GI bleeding and cirrhosis, will start amiodarone and attempt to keep in sinus rhythm. Will follow QT interval with loading amiodarone 400 mg p.o. 3 times daily. She is
on IV heparin and will need to decide whether she can be switched to Eliquis. Will continue IV Lasix for CHF. Recheck echocardiogram to assess aortic stenosis and ejection fraction
Original Note:
Consultation
Consultation Request
Date/Time Consultation Requested: 08/24/2025
Date/Time Consultation Performed: 08/25/2025
Requesting Provider: Dr. Shah
Performing Provider: Jen Arteaga PA-C for Dr. King
Reason for Consultation: Acute heart failure
Medical History
-
History of Present Illness:
Patient is an 85-year-old female with complex past medical history including nonobstructive coronary artery disease, moderate aortic stenosis, chronic anemia with recent GI bleed with gastric and duodenal angioectasias with cauterization 12/26/2024,
hypertension, hyperlipidemia, type 2 diabetes, obstructive sleep apnea, PVD, neuropathy, cirrhosis with portal hypertension, MGUS, CIPD and balance disorder who presented to emergency department 08/24/2025 with worsening shortness of breath, lower
extremity edema, abdominal distention and weight gain. EKG demonstrated sinus rhythm. Chest x-ray demonstrated increased pulmonary vascularity concerning for mild heart failure. proBNP 3520. Troponin negative. Patient received 40 mg IV Lasix in
emergency department. Patient later developed atrial fibrillation with rapid ventricular response. Cardiology being consulted for new A-fib and heart failure.
At time of this evaluation patient reports she feels a little bit more short of breath and some palpitations/rapid heartbeat.
Past medical history:
Chronic anemia
GI bleed with angioectasias with cauterization 12/2024
Nonobstructive coronary artery disease
Aortic stenosis
Mitral regurgitation
Hypertension
Hyperlipidemia
Type 2 diabetes
Obstructive sleep apnea
PVD
Neuropathy
Cirrhosis with portal hypertension
Chronic inflammatory demyelinating polyneuropathy
Gout
IgG lambda MGUS/Smoldering Myeloma
Mild emphysema with pulmonary nodule
Balance disorder
Past Medical History
Past Medical History: Other (See HPI)
Past Surgical History: Cholecystectomy (2009), Gynecological (Hysterectomy with oophorectomy 2004) and Other (Back surgery, hernia repair 2012, esophageal dilation 2021, bladder surgery, endoscopy with cauterization February 2025)
Social History
Tobacco: Former Smoker
Alcohol: None
Drug: None
Personal:
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
Family History
Family History: Other (Father had heart disease, mother breast/colon cancer, Alzheimer dementia)
Allergies / Home Medications
Allergy/AdvReac Type Severity Reaction Status Date / Time
adhesive Allergy TAPE-BLISTE Verified 05/27/25 14:14
RS
atorvastatin Allergy muscle Verified 05/27/25 14:14
spasm
ciprofloxacin (From Cipro) Allergy Severe Verified 05/27/25 14:14
Hypotension
dog dander Allergy Shortness Verified 06/13/25 20:46
of Breath
grass pollen Allergy Shortness Verified 06/13/25 20:46
of Breath
house dust Allergy Shortness Verified 06/13/25 20:46
of Breath
pollen extracts Allergy Shortness Verified 05/27/25 14:14
of Breath
Sulfa (Sulfonamide Allergy red line Verified 05/27/25 14:14
Antibiotics) on body
tree and shrub pollen Allergy Shortness Verified 06/13/25 20:46
of Breath
�Medication �Instructions �Recorded �Confirmed �Type
albuterol sulfate 90 mcg/actuation 2 puff inhalation R Q6HPRN PRN sob 04/30/13 08/24/25 History
aerosol inhaler
cyanocobalamin (vitamin B-12) 1,000 mcg PO DAILY Supplement 08/08/18 08/24/25 History
1,000 mcg tablet
rosuvastatin 5 mg tablet 5 mg PO DAILY High cholesterol 01/24/19 08/24/25 History
lisinopril 20 mg tablet 20 mg PO DAILY Blood pressure 10/03/19 08/24/25 History
metformin 500 mg tablet,extended 1,000 mg PO BID@0800,1700 Diabetes 10/03/19 08/24/25 History
release 24 hr
nortriptyline 75 mg capsule 75 mg PO HS Mental Health/Anxiety 09/27/20 08/24/25 History
allopurinol 300 mg tablet 450 mg PO DAILY Gout 08/30/22 08/24/25 History
denosumab 60 mg/mL subcutaneous 60 mg SC [id number] BONE HEALTH 08/30/22 08/24/25 History
syringe (Prolia)
estradiol 0.01% (0.1 mg/gram) 1 applic vaginal DAILYPRN PRN 09/15/22 08/24/25 History
vaginal cream vaginal dryness
cranberry fruit concentrate 500 mg 500 mg PO DAILY Supplement 03/30/23 08/24/25 History
capsule
methenamine hippurate 1 gram tablet 1 g PO BID PROPHYLAXIS 11/10/23 08/24/25 History
pantoprazole 40 mg tablet,delayed 40 mg PO DAILY Gastrointestinal 11/10/23 08/24/25 History
release Issue
polyethylene glycol 3350 17 gram 17 g PO DAILY Constipation 11/10/23 08/24/25 History
oral powder packet (Miralax)
amlodipine 10 mg tablet 10 mg PO DAILY Blood Pressure 08/08/24 08/24/25 History
cholecalciferol (vitamin D3) 125 125 mcg PO DAILY Supplement 08/08/24 08/24/25 History
mcg (5,000 unit) tablet (Vitamin
D3)
gabapentin 300 mg capsule 300 mg PO TID Pain 08/08/24 08/24/25 History
aspirin 81 mg tablet,delayed 81 mg PO DAILY Blood Clot 06/13/25 08/24/25 History
release Prevention/Tx
gabapentin 300 mg capsule 600 mg PO HS Pain 06/13/25 08/24/25 History
omega-3 acid ethyl esters 1 gram 2 g PO BID Supplement 06/13/25 08/24/25 History
capsule
coenzyme Q10 200 mg capsule 200 mg PO DAILY Supplement 08/24/25 08/24/25 History
docusate sodium 100 mg capsule 100 mg PO QPM Constipation 08/24/25 08/24/25 History
(Colace)
guar gum 1 tbsp PO DAILY Constipation 08/24/25 08/24/25 History
immune glob,gamma (IgG) 10 See Rx Instructions .Route .COMPLEX 08/24/25 08/24/25 History
%-gly-IgA over 50 mcg/mL injection
solution (Gammagard Liquid)
milk thistle 150 mg capsule 150 mg PO DAILY Supplement 08/24/25 08/24/25 History
ropinirole 0.25 mg tablet 0.25 mg PO QPM Neurological 08/24/25 08/24/25 History
Condition
vitamin A-vitamin C-vit E-min 1 tab PO DAILY Supplement 08/24/25 08/24/25 History
tablet
Physical Exam
Vital Signs
Temp Pulse Resp BP Pulse Ox
97.5 F 83 16 166/80 95
08/25/25 08:01 08/25/25 08:01 08/25/25 08:01 08/25/25 08:01 08/25/25 08:01
GEN: No distress, awake, Ox3, sitting in bed
HEENT: supple, anicteric, mmm
LUNGS: Crackles at bilateral bases CTA, no wheezes/rales, currently on room air
CV: Irregularly irregular, rapid, S1/S2, 2-3/6 systolic murmur
ABD: soft, BS+, NT/ND
EXT: Trace edema, no clubbing or cyanosis
NEURO: Gross non-focal
SKIN: No rash, warm, dry
Lab Results
08/25/25 05:28
08/25/25 05:28
Troponin I 0.014 ng/ml 08/24/25 16:42
Tng-Q-Xsbqfoaeyzu Pept 3520 pg/ml 08/24/25 11:50
Impression / Plan
-
PCP: Mana stands
Manuscript Editor: Dr. Faina Mckeon
Impression:
Presented 08/24/2025 with worsening shortness of breath, edema, abdominal distention and weight gain
Acute heart failure, proBNP 3520
Paroxysmal atrial fibrillation with rapid ventricular response, new diagnosis
Acute on chronic anemia
Chronic anemia
GI bleed with angioectasias with cauterization 12/2024
Nonobstructive coronary artery disease
Aortic stenosis
Mitral regurgitation
Hypertension
Hyperlipidemia
Type 2 diabetes
Obstructive sleep apnea
PVD
Neuropathy
Cirrhosis with portal hypertension
Chronic inflammatory demyelinating polyneuropathy
Gout
IgG lambda MGUS/Smoldering Myeloma
Mild emphysema with pulmonary nodule
Balance disorder
Echo 12/11/24: Normal left ventricular size, wall thickness and LVEF 55-60%. Normal right ventricle.�Mild- moderate mitral regurgitation.�Calcified aortic valve. Peak/mean gradients across the aortic valve are 39/24mmHg. The LAURA� is calculated at
1.1cm2. Mild aortic regurgitation. Moderate aortic stenosis. Trace tricuspid regurgitation. Estimated pulmonary artery pressure of 25-30 mmHg. �Compared to the previous echo 12/11/23, there is no significant change.
Lexiscan nuclear stress test 04/28/2022: Negative for ischemia. There were fixed defects consistent with soft tissue attenuation. Ejection fraction was 61%.
Cardiac catheterization 2015: 40% RCA stenosis
Plan:
Presented 08/24/2025 with worsening shortness of breath, edema, abdominal distention and weight gain.
Acute heart failure with preserved ejection fraction, proBNP 3520. Chest x-ray consistent with heart failure
- Ongoing IV diuresis with Lasix 40 mg twice daily. Of note patient was not on diuretic prior to admission
- Patient's weight is actually less than weight during last admission and last office visit
- Monitor renal function and electrolytes
- Last echo in December 2024 showed preserved ejection fraction and moderate aortic stenosis. Will repeat echo
Paroxysmal atrial fibrillation with rapid ventricular response
- This is new diagnosis this admission.
- Patient converted to sinus rhythm spontaneously on evening of and was in sinus all night. However when working with physical therapy on 08/25/2025 went back into paroxysmal atrial fibrillation. Rates are rapid when in A-fib and
well-controlled when in sinus rhythm.
- Start Amiodarone 400 mg TID 08/25/2025.
- On IV heparin. Will need to consider oral anticoagulation. However patient has history of GI bleed and ongoing anemia, Hgb 7.7.
- New to Coreg 3.125 mg twice a day this admission. Patient was not on AV betty blocking agent prior to hospitalization.
Acute on chronic anemia. Hemoglobin 8.9 on presentation, 7.7 currently.
-Patient was found to have gastric and duodenal angioectasias with cauterization in December 2024
-Will need to monitor closely with consideration of anticoagulation for PAF
plan discussed with pt, nursing and hospitalist
HPI 08/25/2025:
Patient is an 85-year-old female with complex past medical history including nonobstructive coronary artery disease, moderate aortic stenosis, chronic anemia with recent GI bleed with gastric and duodenal angioectasias with cauterization 12/26/2024,
hypertension, hyperlipidemia, type 2 diabetes, obstructive sleep apnea, PVD, neuropathy, cirrhosis with portal hypertension, MGUS, CIPD and balance disorder who presented to emergency department 08/24/2025 with worsening shortness of breath, lower
extremity edema, abdominal distention and weight gain. EKG demonstrated sinus rhythm. Chest x-ray demonstrated increased pulmonary vascularity concerning for mild heart failure. proBNP 3520. Troponin negative. Patient received 40 mg IV Lasix in
emergency department. Patient later developed atrial fibrillation with rapid ventricular response. Cardiology being consulted for new A-fib and heart failure
Data Reviewed
-
EKG: Report Reviewed by me, Discussed with Physician, Discussed with Nurse and Discussed with Patient
Radiology: Report Reviewed by me, Discussed with Physician, Discussed with Nurse and Discussed with Patient
Labs: Labs Reviewed by me, Discussed with Physician, Discussed with Nurse and Discussed with Patient
Old Records: Reviewed
[2025-08-25] MEDS: METAMUCIL, KONSYL 1 PACKET PO (09:17)
[2025-08-25] MEDS: VITAMIN B-12 1000 MCG PO (09:17)
[2025-08-25] MEDS: HIPREX 1 GRAM PO ×2 (09:18→20:35)
[2025-08-25] MEDS: COREG 3.125 MG PO ×2 (09:18→20:32)
[2025-08-25] MEDS: ZYLOPRIM 450 MG PO (09:18)
[2025-08-25] MEDS: LOW STRENGTH ASPIRIN 81 MG PO (09:18)
[2025-08-25] MEDS: PROTONIX 40 MG PO (09:18)
[2025-08-25] MEDS: NEURONTIN 300 MG PO ×2 (09:18→15:14)
[2025-08-25] MEDS: DITROPAN 5 MG PO ×2 (09:19→20:32)
[2025-08-25] MEDS: ZESTRIL 20 MG PO (09:19)
[2025-08-25] MEDS: LASIX 40 MG IV ×2 (09:19→15:13)
[2025-08-25] MEDS: MIRALAX 17 GRAMS PO (09:20)
[2025-08-25] MEDS: NORVASC 10 MG PO (09:20)
[2025-08-25] MEDS: NOVOLOG FLEXPEN-MODERATE RESISTANCE 1 UNITS SC ×2 (09:21→13:22)
[2025-08-25 09:29] LABS: Glycohemoglobin (HgbA1c) 5.0 % (4.0-5.9)
[2025-08-25] MEDS: PACERONE 400 MG PO ×3 (10:38→21:52)
[2025-08-25 11:07] VITALS: BP 99/70
[2025-08-25 11:35] LABS: Glucose - Point of Care 178 mg/dl (70-99)
--- NOTE | 2025-08-25 11:57 | W.PN.HOSP.TC ---
Today's Communication/Plan
-
Monitor vital signs and see plan
Continue with IV diuresis
Continue with amiodarone
Anticoagulation per cardiology
Monitor renal function
Assessment / Plan
Assessment / Plan
General: Comfortable, Appears Chronically Ill and Obese
HEENT: Moist mucous membranes and Atraumatic
Respiratory: Rales; No Wheezes
Cardiac: S1/S2, Tachycardia and Murmur
GI: Soft, Non Tender
Musculoskeletal: No Cyanosis and Edema, Left Lower Extremity (chronic)
Neuro: AO x 3 and Nonfocal/grossly intact
Psych: Calm and Intact Judgment/Insight
Acute respiratory distress suspect acute on chronic heart failure with a preserved ejection fraction/valvular heart disease
Continue with IV diuresis
Cardiology following
Echocardiogram
Continue with lisinopril, add holding parameter for hypotension and monitor renal function
She is not on rate control medications. Will start her on low-dose carvedilol With HR around 90-105
Order echocardiogram
Primary scientific software developer Dr. Faina Mckeon.
New onset atrial fibrillation with RVR
Spontaneously converted to normal sinus rhythm
Now started on amiodarone, monitor
Anticoagulation per cardiology
# Chronic left lower extremity swelling, possible lymphedema.
Patient and caregiver increasing swelling. No signs of infection with absence of tenderness/erythema. will do ultrasound to rule out DVT
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
Anemia of chronic disease, monitor
Per patient, no source found. 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
Patient has had IV infusion of iron, finished, not on oral iron supplement.
Renal insufficiency
Suspect history of CKD, monitor renal function
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
#GERD
# Chronic ambulatory dysfunction -uses a walker. Consulted PT/OT.
# DM 2 with diabetic polyneuropathy
Hold metformin
c/w NovoLog scale.
#History of gout
# Restless leg syndrome -
d/w daughter, she is on ropinirole.
# Essential hypertension
Added holding parameter to amlodipine and lisinopril while on IV Lasix and new medicine carvedilol
#Hyperlipidemia -rosuvastatin.
# Obstructive sleep apnea/COPD/ emphysema
No history of wheezes or productive cough. Cannot bring on CPAP machine
#Obesity due to excess calories
#Full code, confirmed with patient.
I spent a total of 52 minutes with the patient or on the floor. More than 50% of this time involved counseling and coordination of care.
Anticipated Discharge: > 48 hours
Subjective/Interval History
-
Date of Service: August 25, 2025
Does have some shortness of breath
Objective Data
-
Labs:
Laboratory Results
08/25/25
05:28
WBC 6.1
Hgb 7.7 L
Hct 26.4 L
Plt Count 143
Sodium 138
Potassium 3.9
Chloride 104
Carbon Dioxide 28
BUN 26 H
Creatinine 1.2 H
Glucose 106 H
Calcium 9.4
Vital Signs:
Vital Signs
Temp Pulse Resp BP Pulse Ox
97.6 F 125 16 99/70 92
08/25/25 11:07 08/25/25 11:07 08/25/25 11:07 08/25/25 11:07 08/25/25 11:07
I&O
08/24/25 08/25/25 08/26/25
06:59 06:59 06:59
Intake Total 240 / 240
Output Total 800 / 800
Balance -560 / -560
[2025-08-25 15:45] VITALS: BP 138/76
[2025-08-25 17:16] LABS: Glucose - Point of Care 122 mg/dl (70-99)
[2025-08-25] MEDS: NOVOLOG FLEXPEN-MODERATE RESISTANCE SC (17:34)
[2025-08-25] MEDS: CRESTOR 5 MG PO (18:52)
[2025-08-25 19:20] VITALS: BP 116/55
[2025-08-25 21:41] LABS: Glucose - Point of Care 136 mg/dl (70-99)
[2025-08-25] MEDS: REQUIP 0.25 MG PO (21:51)
[2025-08-25] MEDS: PAMELOR 75 MG PO (21:52)
[2025-08-25] MEDS: NEURONTIN 600 MG PO (22:02)
[2025-08-25 23:25] VITALS: BP 130/58
[2025-08-26] VITALS (9 sets, daily range): BP systolic 103–137; BP diastolic 43–64; PULSE 59; O2SAT 90–92; BMI 31.7
[2025-08-26 05:47] LABS: Hematocrit 29.0 % (37.0-47.0); Hemoglobin 8.5 g/dL (12.0-16.0); Mean Corp Hgb Conc. 29.3 g/dL (33.0-37.0); Mean Corpuscular Volume 97.3 fL (81.0-99.0); Nucleated Red Blood Cells % 0.4 %; Platelet Count 185 10^3/uL (130-400); Red Cell Dist. Width 20.4 % (11.5-14.5)
[2025-08-26 06:00] LABS: ALT (SGPT) 25 U/L (0-35); AST (SGOT) 35 U/L (14-36); Albumin 3.7 g/dl (3.5-5.0); Alkaline Phosphatase 281 U/L (38-126); Blood Urea Nitrogen 32 mg/dl (7-17); Calcium 9.5 mg/dl (8.4-10.2); Carbon Dioxide 29 mmol/L (22-30); Chloride 101 mmol/L (98-107); Estimated Creatinine Clearance 30 ml/min; Glucose 128 mg/dl (70-99); Potassium 4.1 mmol/L (3.5-5.1); Sodium 135 mmol/L (135-145); Total Protein 7.1 g/dl (6.3-8.2); eGFR 37.10
[2025-08-26] MEDS: HEPARIN 5000 UNITS SC ×3 (06:00→21:25)
[2025-08-26 07:42] LABS: Glucose - Point of Care 125 mg/dl (70-99)
[2025-08-26] MEDS: NOVOLOG FLEXPEN-MODERATE RESISTANCE SC ×2 (08:10→16:52)
[2025-08-26] MEDS: METAMUCIL, KONSYL 1 PACKET PO (08:22)
[2025-08-26] MEDS: COREG 3.125 MG PO ×2 (08:22→21:19)
[2025-08-26] MEDS: DITROPAN 5 MG PO ×2 (08:23→21:20)
[2025-08-26] MEDS: VITAMIN B-12 1000 MCG PO (08:25)
[2025-08-26] MEDS: ZESTRIL 20 MG PO (08:25)
[2025-08-26] MEDS: NORVASC 10 MG PO (08:25)
[2025-08-26] MEDS: HIPREX 1 GRAM PO ×2 (08:25→21:20)
[2025-08-26] MEDS: NEURONTIN 300 MG PO ×2 (08:25→16:14)
[2025-08-26] MEDS: PROTONIX 40 MG PO (08:26)
[2025-08-26] MEDS: LOW STRENGTH ASPIRIN 81 MG PO (08:26)
[2025-08-26] MEDS: ZYLOPRIM 450 MG PO (08:26)
[2025-08-26] MEDS: MIRALAX 17 GRAMS PO (08:26)
[2025-08-26] MEDS: PACERONE 400 MG PO ×3 (08:27→21:26)
[2025-08-26] MEDS: LASIX IV ×2 (10:22→16:27)
--- NOTE | 2025-08-26 11:25 | W.PN.HOSP.TC ---
Today's Communication/Plan
-
See monitor vitals
See plan
Monitor renal function
Hold current Lasix
Cardiology to see today
Continue Amio
Assessment / Plan
Assessment / Plan
General: Comfortable, Appears Chronically Ill and Obese
HEENT: Moist mucous membranes and Atraumatic
Respiratory: Rales; No Wheezes
Cardiac: S1/S2, Tachycardia and Murmur
GI: Soft, Non Tender
Musculoskeletal: No Cyanosis and Edema, Left Lower Extremity (chronic)
Neuro: AO x 3 and Nonfocal/grossly intact
Psych: Calm and Intact Judgment/Insight
Acute respiratory distress suspect acute on chronic heart failure with a preserved ejection fraction/valvular heart disease
Acute hypoxic respiratory insufficiency likely secondary to above, wean oxygen as tolerated
Was on IV diuresis, now on hold given worsening renal function
Cardiology following
Echocardiogram 08/25 with EF 55%, moderate
Continue with lisinopril, add holding parameter for hypotension and monitor renal function
She is not on rate control medications. Will start her on low-dose carvedilol
Primary offline editor Dr. Faina Mckeon.
New onset atrial fibrillation with RVR
Spontaneously converted to normal sinus rhythm
Now started on amiodarone, monitor
Anticoagulation per cardiology, discussed with cardiology. Not a good candidate for AC
# Chronic left lower extremity swelling, possible lymphedema.
Patient and caregiver increasing swelling. No signs of infection with absence of tenderness/erythema. Lower extremity ultrasound negative for DVT
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
Anemia of chronic disease, monitor
Per patient, no source found. 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
Patient has had IV infusion of iron, finished, not on oral iron supplement.
patient has been seeing hematology outpatient for MM work up
Renal insufficiency
Suspect history of CKD, monitor renal function
# AVALOS cirrhosis -known to Dr Mekapati.
#GERD
# Chronic ambulatory dysfunction -uses a walker. Consulted PT/OT.
# DM 2 with diabetic polyneuropathy
Hold metformin
c/w NovoLog scale.
#History of gout
# Restless leg syndrome -
d/w daughter, she is on ropinirole.
# Essential hypertension
Added holding parameter to amlodipine and lisinopril while on IV Lasix and new medicine carvedilol
#Hyperlipidemia -rosuvastatin.
# Obstructive sleep apnea/COPD/ emphysema
No history of wheezes or productive cough. Cannot bring on CPAP machine
#Obesity due to excess calories
#Full code, confirmed with patient.
I spent a total of 52 minutes with the patient or on the floor. More than 50% of this time involved counseling and coordination of care.
Anticipated Discharge: 24 - 48 hours
Subjective/Interval History
-
Date of Service: August 26, 2025
denies pain
Objective Data
-
Labs:
Laboratory Results
08/26/25
05:19
WBC 7.6
Hgb 8.5 L
Hct 29.0 L
Plt Count 185 D
Sodium 135
Potassium 4.1
Chloride 101
Carbon Dioxide 29
BUN 32 H
Creatinine 1.4 H
Glucose 128 H
Calcium 9.5
Total Bilirubin 0.5
AST 35
ALT 25
Alkaline Phosphatase 281 H
Vital Signs:
Vital Signs
Temp Pulse Resp BP Pulse Ox
98.3 F 72 16 137/60 97
08/26/25 10:54 08/26/25 10:54 08/26/25 10:54 08/26/25 10:54 08/26/25 10:54
I&O
08/25/25 08/26/25 08/27/25
06:59 06:59 06:59
Intake Total 240 / 240 780 / 780
Output Total 800 / 800
Balance -560 / -560 780 / 780
[2025-08-26 13:22] LABS: Glucose - Point of Care 189 mg/dl (70-99)
[2025-08-26] MEDS: NOVOLOG FLEXPEN-MODERATE RESISTANCE 1 UNITS SC (13:31)
--- NOTE | 2025-08-26 14:57 | W.PN.CARDCBS ---
Addendum entered and electronically signed by Elliott Walsh DO 08/26/25 17:11:
I saw and examined the patient.
The Information Analyst's note was reviewed and I agree with the note.
Comment:
Plan:
Continue to hold lasix and monitor cr
If cr improves, consider resume low-dose Lasix in a.m.
Continue amiodarone load 400 mg 3 times daily
Monitor EKG
Not currently an anticoagulation candidate with significant history of anemia and GI bleed.
Discussed with daughter who reiterates that she declines anticoagulation understands the risks and benefits of anticoagulation.
Daughter was appreciative of explanation and update.
Original Note:
Today's Communication / Plan
-
Diuresis currently on hold due to GABRIELA
Repeat BMP in a.m., consider oral Lasix
Continue amiodarone 400 mg 3 times daily with consideration of changing to 200 twice daily x 2 weeks at discharge
EKG in a.m.
Continue subcu heparin for now
Consider outpatient monitor to assess A-fib burden after amiodarone load.
Impression / Plan
-
PCP: Mana ramon
Edger Liner: Dr. Faina Mckeon
Impression:
Presented 08/24/2025 with worsening shortness of breath, edema, abdominal distention and weight gain
Acute heart failure, proBNP 3520
Paroxysmal atrial fibrillation with rapid ventricular response, new diagnosis
Acute on chronic anemia
Chronic anemia
GI bleed with angioectasias with cauterization 12/2024
Nonobstructive coronary artery disease
Aortic stenosis
Mitral regurgitation
Hypertension
Hyperlipidemia
Type 2 diabetes
Obstructive sleep apnea
PVD
Neuropathy
Cirrhosis with portal hypertension
Chronic inflammatory demyelinating polyneuropathy
Gout
IgG lambda MGUS/Smoldering Myeloma
Mild emphysema with pulmonary nodule
Balance disorder
Echo 08/25/2025: EF 55%. Mild concentric LVH. Moderate aortic stenosis with peak/mean gradient 29.6/17, LAURA 1.39 cm2. Moderate MR. PAP 27 mmHg,no change compared to prior study
Echo 12/11/24: Normal left ventricular size, wall thickness and LVEF 55-60%. Normal right ventricle.�Mild- moderate mitral regurgitation.�Calcified aortic valve. Peak/mean gradients across the aortic valve are 39/24mmHg. The LAURA� is calculated at
1.1cm2. Mild aortic regurgitation. Moderate aortic stenosis. Trace tricuspid regurgitation. Estimated pulmonary artery pressure of 25-30 mmHg. �Compared to the previous echo 12/11/23, there is no significant change.
Lexiscan nuclear stress test 04/28/2022: Negative for ischemia. There were fixed defects consistent with soft tissue attenuation. Ejection fraction was 61%.
Cardiac catheterization 2016: 40% RCA stenosis
Plan:
Presented 08/24/2025 with worsening shortness of breath, edema, abdominal distention and weight gain.
Acute heart failure with preserved ejection fraction, proBNP 3520. Chest x-ray consistent with heart failure
- Diuresing with Lasix 40 mg twice daily. Of note patient was not on diuretic prior to admission
-Patient's weight has not changed much since admission. However, weight is actually less than weight during last admission and last office visit
- Bump in creatinine overnight from 1.1 on admission to 1.4 currently. Lasix held 08/26/2025. Consider starting oral Lasix 20 mg in a.m. if creatinine improves
- Echo this admission stable compared to prior echo with preserved ejection fraction
Paroxysmal atrial fibrillation with rapid ventricular response
- This is new diagnosis this admission.
- Patient converted to sinus rhythm spontaneously on evening of and was in sinus all night. Recurrent atrial fibrillation on 08/25/2025 when working with physical therapy for brief time and converted back in sinus rhythm.
- Continue amiodarone 400 mg TID started 08/25/2025. QTc stable at 406 ms. Would consider discharging home on amiodarone 200 mg twice daily x 2 weeks then once a day they will after
- On IV heparin. History of GI bleed and ongoing anemia, Hgb 8.5. Patient not ideal candidate for anticoagulation. Would consider having patient wear a monitor as outpatient to reassess A-fib burden on amiodarone.
- New to Coreg 3.125 mg twice a day this admission. Patient was not on AV betty blocking agent prior to hospitalization.
Acute on chronic anemia. Hemoglobin 8.9 on presentation, 8.5 currently.
-Patient was found to have gastric and duodenal angioectasias with cauterization in December 2024. Continue to monitor H&H
plan discussed with pt, nursing and hospitalist
HPI 08/25/2025:
Patient is an 85-year-old female with complex past medical history including nonobstructive coronary artery disease, moderate aortic stenosis, chronic anemia with recent GI bleed with gastric and duodenal angioectasias with cauterization 12/26/2024,
hypertension, hyperlipidemia, type 2 diabetes, obstructive sleep apnea, PVD, neuropathy, cirrhosis with portal hypertension, MGUS, CIPD and balance disorder who presented to emergency department 08/24/2025 with worsening shortness of breath, lower
extremity edema, abdominal distention and weight gain. EKG demonstrated sinus rhythm. Chest x-ray demonstrated increased pulmonary vascularity concerning for mild heart failure. proBNP 3520. Troponin negative. Patient received 40 mg IV Lasix in
emergency department. Patient later developed atrial fibrillation with rapid ventricular response. Cardiology being consulted for new A-fib and heart failure
Progress Note - Edger Liner
Subjective
Date of Service: August 26, 2025
Patient seen and examined. Patient reports improved shortness of breath. Denies palpitations or chest pain.
Objective
Labs:
08/26/25 05:19
08/26/25 05:19
Labs
Hgb 8.5 g/dL (12.0-16.0) L 08/26/25 05:19
Hct 29.0 % (37.0-47.0) L 08/26/25 05:19
Plt Count 185 10^3/uL (130-400) D 08/26/25 05:19
Sodium 135 mmol/L (135-145) 08/26/25 05:19
Potassium 4.1 mmol/L (3.5-5.1) 08/26/25 05:19
BUN 32 mg/dl (7-17) H 08/26/25 05:19
Creatinine 1.4 mg/dL (0.6-1.0) H 08/26/25 05:19
Glucose 128 mg/dl (70-99) H 08/26/25 05:19
Troponins
08/24/25
16:42
Troponin I 0.014
Vital Signs and I&O:
Vital Signs
Temp Pulse Resp BP Pulse Ox
98.3 F 72 16 137/60 97
08/26/25 10:54 08/26/25 10:54 08/26/25 10:54 08/26/25 10:54 08/26/25 10:54
Vital Signs
Temp Pulse Resp BP Pulse Ox
98.3 F 72 16 137/60 97
08/26/25 10:54 08/26/25 10:54 08/26/25 10:54 08/26/25 10:54 08/26/25 10:54
Intake & Output
08/24/25 08/25/25 08/26/25 08/27/25
06:59 06:59 06:59 06:59
Intake Total 240 / 240 780 / 780
Output Total 800 / 800
Balance -560 / -560 780 / 780
Physical Exam
Physical Exam
GEN: No distress, awake, Ox3
HEENT: supple, anicteric, mmm
LUNGS: CTA, no wheezes/rales
CV: Reg, S1/S2, 1/6 syst LSB, no murmur
ABD: soft, BS+, NT/ND
EXT: Trace edema on left, no significant edema on right
NEURO: Gross non-focal
SKIN: No rash, warm, dry, pink
--- NOTE | 2025-08-26 16:47 | CM ---
CM following for discharge planning; pt previously known to [facility].
Pt currently planning to return home with no needs.
[2025-08-26 16:49] LABS: Glucose - Point of Care 129 mg/dl (70-99)
[2025-08-26] MEDS: CRESTOR 5 MG PO (17:13)
[2025-08-26] MEDS: REQUIP 0.25 MG PO (21:27)
[2025-08-26] MEDS: PAMELOR 75 MG PO (21:28)
[2025-08-26] MEDS: NEURONTIN 600 MG PO (21:29)
[2025-08-26 21:33] LABS: Glucose - Point of Care 272 mg/dl (70-99)
--- NOTE | 2025-08-27 03:11 | DOWNTIME ---
There was a [facility] Client Bass Viol Repairer Downtime on 08/27/2025 from 0100 to 08/27/2025 at 0255. Downtime documentation of patient's care, including medication administrations, has been reconciled in the electronic record per guidelines. Refer to the
patient's paper chart under the miscellaneous tab to see printed paper medication records and downtime forms.
[2025-08-27 03:56] VITALS: BP 121/53
[2025-08-27 05:07] VITALS: BMI 32.3
[2025-08-27 05:42] LABS: Hematocrit 26.9 % (37.0-47.0); Hemoglobin 8.1 g/dL (12.0-16.0); Mean Corp Hgb Conc. 30.1 g/dL (33.0-37.0); Mean Corpuscular Volume 95.7 fL (81.0-99.0); Nucleated Red Blood Cells % 0 %; Platelet Count 190 10^3/uL (130-400); Red Cell Dist. Width 20.3 % (11.5-14.5)
[2025-08-27] MEDS: HEPARIN 5000 UNITS SC ×3 (05:43→20:40)
[2025-08-27 06:06] LABS: ALT (SGPT) 28 U/L (0-35); AST (SGOT) 41 U/L (14-36); Albumin 3.6 g/dl (3.5-5.0); Alkaline Phosphatase 272 U/L (38-126); Blood Urea Nitrogen 38 mg/dl (7-17); Calcium 9.1 mg/dl (8.4-10.2); Carbon Dioxide 28 mmol/L (22-30); Chloride 100 mmol/L (98-107); Estimated Creatinine Clearance 20 ml/min; Glucose 121 mg/dl (70-99); Potassium 4.4 mmol/L (3.5-5.1); Sodium 136 mmol/L (135-145); Total Protein 6.6 g/dl (6.3-8.2); eGFR 22.81
[2025-08-27 08:11] VITALS: BP 113/72
[2025-08-27 08:44] LABS: Glucose - Point of Care 157 mg/dl (70-99)
[2025-08-27] MEDS: DITROPAN 5 MG PO ×2 (09:38→20:40)
[2025-08-27] MEDS: VITAMIN B-12 1000 MCG PO (09:39)
[2025-08-27] MEDS: COREG 3.125 MG PO (09:39)
[2025-08-27] MEDS: NORVASC 10 MG PO (09:39)
[2025-08-27] MEDS: HIPREX PO (09:40)
[2025-08-27] MEDS: NEURONTIN 300 MG PO ×2 (09:40→15:22)
[2025-08-27] MEDS: LASIX IV (09:40)
[2025-08-27] MEDS: LOW STRENGTH ASPIRIN 81 MG PO (09:40)
[2025-08-27] MEDS: PACERONE 400 MG PO (09:40)
[2025-08-27] MEDS: PROTONIX 40 MG PO (09:40)
[2025-08-27] MEDS: MIRALAX 17 GRAMS PO (09:41)
[2025-08-27] MEDS: METAMUCIL, KONSYL 1 PACKET PO (09:41)
[2025-08-27] MEDS: ZYLOPRIM PO (09:41)
[2025-08-27] MEDS: NOVOLOG FLEXPEN-MODERATE RESISTANCE 1 UNITS SC ×3 (09:42→17:30)
[2025-08-27 11:15] LABS: Glucose - Point of Care 182 mg/dl (70-99)
[2025-08-27 11:31] VITALS: BP 103/42
[2025-08-27 13:24] LABS: Urine Character Clear (Clear)
[2025-08-27 13:34] LABS: Urine Squamous Cell >30 /LPF (Few)
[2025-08-27 13:36] LABS: Urine White Cell >100 /HPF (0-5)
--- NOTE | 2025-08-27 13:46 | W.PN.HOSP.TC ---
Today's Communication/Plan
-
Monitor vitals
See plan
Continue to hold Lasix
Monitor volume status
Bladder scan
Check UA
Monitor renal function
Nephrology evaluation
Assessment / Plan
Assessment / Plan
General: Comfortable, Appears Chronically Ill and Obese
HEENT: Moist mucous membranes and Atraumatic
Respiratory: Rales; No Wheezes
Cardiac: S1/S2, Tachycardia and Murmur
GI: Soft, Non Tender
Musculoskeletal: No Cyanosis and Edema, Left Lower Extremity (chronic)
Neuro: AO x 3 and Nonfocal/grossly intact
Psych: Calm and Intact Judgment/Insight
Acute respiratory distress suspect acute on chronic heart failure with a preserved ejection fraction/valvular heart disease
Acute hypoxic respiratory insufficiency likely secondary to above, wean oxygen as tolerated
Was on IV diuresis, now on hold given worsening renal function
Cardiology following
Echocardiogram 08/25 with EF 55%, moderate
Continue with lisinopril, add holding parameter for hypotension and monitor renal function
She is not on rate control medications. Will start her on low-dose carvedilol
Primary management engineer Dr. Faina Mckeon.
New onset atrial fibrillation with RVR
Spontaneously converted to normal sinus rhythm
Now started on amiodarone, monitor
Anticoagulation per cardiology, discussed with cardiology. Not a good candidate for AC
# Chronic left lower extremity swelling, possible lymphedema.
Patient and caregiver increasing swelling. No signs of infection with absence of tenderness/erythema. Lower extremity ultrasound negative for DVT
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
Anemia of chronic disease, monitor
Per patient, no source found. 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
Patient has had IV infusion of iron, finished, not on oral iron supplement.
patient has been seeing hematology outpatient for MM work up
GABRIELA
Suspect history of CKD, monitor renal function
Creatinine 2.2 today, consult nephrology
Check UA
Continue to hold nephrotoxic agents
Bladder scan
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
#GERD
# Chronic ambulatory dysfunction -uses a walker. Consulted PT/OT.
# DM 2 with diabetic polyneuropathy
Hold metformin
c/w NovoLog scale.
#History of gout
# Restless leg syndrome -
d/w daughter, she is on ropinirole.
# Essential hypertension
Added holding parameter to amlodipine and lisinopril while on IV Lasix and new medicine carvedilol
#Hyperlipidemia -rosuvastatin.
# Obstructive sleep apnea/COPD/ emphysema
No history of wheezes or productive cough. Cannot bring on CPAP machine
#Obesity due to excess calories
#Full code, confirmed with patient.
I spent a total of 52 minutes with the patient or on the floor. More than 50% of this time involved counseling and coordination of care.
Anticipated Discharge: > 48 hours
Subjective/Interval History
-
Date of Service: August 27, 2025
Denies pain
Objective Data
-
Labs:
Laboratory Results
08/27/25
05:17
WBC 7.2
Hgb 8.1 L
Hct 26.9 L
Plt Count 190
Sodium 136
Potassium 4.4
Chloride 100
Carbon Dioxide 28
BUN 38 H
Creatinine 2.1 H
Glucose 121 H
Calcium 9.1
Total Bilirubin 0.3
AST 41 H
ALT 28
Alkaline Phosphatase 272 H
Vital Signs:
Vital Signs
Temp Pulse Resp BP Pulse Ox
97.1 F 53 16 103/42 91
08/27/25 11:31 08/27/25 11:31 08/27/25 11:31 08/27/25 11:31 08/27/25 11:31
I&O
08/26/25 08/27/25 08/28/25
06:59 06:59 06:59
Intake Total 780 / 780 1380 / 1380
Output Total 600 / 600
Balance 780 / 780 1380 / 1380 -600 / -600
--- NOTE | 2025-08-27 15:00 | W.PN.CARDCBS ---
Today's Communication / Plan
-
Hold Lasix with rising creatinine
Decrease amiodarone dose and stop carvedilol for bradycardia
Impression / Plan
-
PCP: Mana ramon
Control Board Operator: Dr. Faina Mckeon
Impression:
Presented 08/24/2025 with worsening shortness of breath, edema, abdominal distention and weight gain
Acute heart failure, proBNP 3520
Paroxysmal atrial fibrillation with rapid ventricular response, new diagnosis
Acute on chronic anemia
Chronic anemia
GI bleed with angioectasias with cauterization 12/2024
Nonobstructive coronary artery disease
Aortic stenosis
Mitral regurgitation
Hypertension
Hyperlipidemia
Type 2 diabetes
Obstructive sleep apnea
PVD
Neuropathy
Cirrhosis with portal hypertension
Chronic inflammatory demyelinating polyneuropathy
Gout
IgG lambda MGUS/Smoldering Myeloma
Mild emphysema with pulmonary nodule
Balance disorder
Echo 08/25/2025: EF 55%. Mild concentric LVH. Moderate aortic stenosis with peak/mean gradient 29.6/17, LAURA 1.39 cm2. Moderate MR. PAP 27 mmHg,no change compared to prior study
Echo 12/11/24: Normal left ventricular size, wall thickness and LVEF 55-60%. Normal right ventricle.�Mild- moderate mitral regurgitation.�Calcified aortic valve. Peak/mean gradients across the aortic valve are 39/24mmHg. The LAURA� is calculated at
1.1cm2. Mild aortic regurgitation. Moderate aortic stenosis. Trace tricuspid regurgitation. Estimated pulmonary artery pressure of 25-30 mmHg. �Compared to the previous echo 12/11/23, there is no significant change.
Lexiscan nuclear stress test 04/28/2022: Negative for ischemia. There were fixed defects consistent with soft tissue attenuation. Ejection fraction was 61%.
Cardiac catheterization 2016: 40% RCA stenosis
Plan:
Presented 08/24/2025 with worsening shortness of breath, edema, abdominal distention and weight gain.
Acute heart failure with preserved ejection fraction, proBNP 3520. Chest x-ray concerning for pulm edema.
- With rising Cr now 2.1 from b/l 1.0 would continue to hold lasix
- Echo this admission stable compared to prior echo with preserved ejection fraction
Paroxysmal atrial fibrillation with rapid ventricular response
- This is new diagnosis this admission.
- Patient converted to sinus rhythm spontaneously on evening of and was in sinus all night. Recurrent atrial fibrillation on 08/25/2025 when working with physical therapy for brief time and converted back in sinus rhythm.
- Started on amiodarone 400 mg TID
- With bradycardia will decrease amiodarone to 200 mg twice daily x 2 weeks then once a day they will after
- Stop Coreg
- With history of GI bleed and ongoing anemia not felt to be an anti-coagulation candidate at this time
Acute on chronic anemia. Hemoglobin 8.9 on presentation, 8.5 currently.
-Patient was found to have gastric and duodenal angioectasias with cauterization in December 2024. Continue to monitor H&H
plan discussed with daughter by phone
HPI 08/25/2025:
Patient is an 85-year-old female with complex past medical history including nonobstructive coronary artery disease, moderate aortic stenosis, chronic anemia with recent GI bleed with gastric and duodenal angioectasias with cauterization 12/26/2024,
hypertension, hyperlipidemia, type 2 diabetes, obstructive sleep apnea, PVD, neuropathy, cirrhosis with portal hypertension, MGUS, CIPD and balance disorder who presented to emergency department 08/24/2025 with worsening shortness of breath, lower
extremity edema, abdominal distention and weight gain. EKG demonstrated sinus rhythm. Chest x-ray demonstrated increased pulmonary vascularity concerning for mild heart failure. proBNP 3520. Troponin negative. Patient received 40 mg IV Lasix in
emergency department. Patient later developed atrial fibrillation with rapid ventricular response. Cardiology being consulted for new A-fib and heart failure
Progress Note - Control Board Operator
Subjective
Date of Service: August 27, 2025
NAOE. Reports poor UOP overnight. Maintaining sinus rhythm by review of telemetry.
Objective
Labs:
08/27/25 05:17
08/27/25 05:17
Labs
Hgb 8.1 g/dL (12.0-16.0) L 08/27/25 05:17
Hct 26.9 % (37.0-47.0) L 08/27/25 05:17
Plt Count 190 10^3/uL (130-400) 08/27/25 05:17
Sodium 136 mmol/L (135-145) 08/27/25 05:17
Potassium 4.4 mmol/L (3.5-5.1) 08/27/25 05:17
BUN 38 mg/dl (7-17) H 08/27/25 05:17
Creatinine 2.1 mg/dL (0.6-1.0) H 08/27/25 05:17
Glucose 121 mg/dl (70-99) H 08/27/25 05:17
Troponins
08/24/25
16:42
Troponin I 0.014
Vital Signs and I&O:
Vital Signs
Temp Pulse Resp BP Pulse Ox
97.1 F 53 16 103/42 91
08/27/25 11:31 08/27/25 11:31 08/27/25 11:31 08/27/25 11:31 08/27/25 11:31
Vital Signs
Temp Pulse Resp BP Pulse Ox
97.1 F 53 16 103/42 91
08/27/25 11:31 08/27/25 11:31 08/27/25 11:31 08/27/25 11:31 08/27/25 11:31
Intake & Output
08/25/25 08/26/25 08/27/25 08/28/25
06:59 06:59 06:59 06:59
Intake Total 240 / 240 780 / 780 1380 / 1380
Output Total 800 / 800 600 / 600
Balance -560 / -560 780 / 780 1380 / 1380 -600 / -600
Physical Exam
Physical Exam
Gen: NAD, AA
HEENT: NC/AT, sclera anicteric
CV: RRR, NL s1/s2
Lungs: CTAB on 2L NC
Abd: distended
Ext: No LE edema
Skin: Warm, dry
Neuro: Non-focal
[2025-08-27 15:06] VITALS: BP 106/52
[2025-08-27] MEDS: PACERONE PO (15:09)
[2025-08-27] MEDS: COLACE 100 MG PO ×2 (15:22→20:40)
--- NOTE | 2025-08-27 15:32 | W.CON.NEPH ---
Consultation
-
Date/Time Consultation Requested: 08/27/25 1354
Date/Time Consultation Performed: 08/27/25 1630
Requesting Provider: Mickey dAams
Performing Provider: Brianda Lyman
Reason for Consultation: GABRIELA
Medical History
-
Chief Complaint: SOB
History of Present Illness:
85 years old female with PMH of HTN on AMlodipine, lisinopril, DM on metformin, proteinuria was seen Dr Aguillon 2yrs ago, GERD on PPI, RLS on Ropinirole, HLD low dose statin, Gout on Allopurinol, presented to ER with shortness of breath on 08/24.
caregiver noted with increasing swelling of chronic left lower extremity edema and wt gain. He diagnosed with acute CHF and started IV diuresis. Patient does not take diuretics at home. No recent change in medications. she also noted new afib
with RVR this admit and cards started on Amiodarone. Her cr on admit was at 1.1(baseline 0.9-1.2) increased slowly and today at 2.1 hence nephrology consulted. Lasix held from 08/26. last lisinopril dose was on 08/26.
Her most recent admission to the hospital was for GI bleeding in June. She offers no fever, no dysuria, but unable to void and had SC once today for 600cc. Per family she always has problem. Also with chr constipation. No cp. SOB improving but
has mild cough. No abd pain or n/v.
She follows Heme for anemia , MGUS and receives Fe infusions.
Past Medical History
Hyperlipidemia, obstructive sleep apnea, GI bleeding, GERD, depression, gait dysfunction, peripheral polyneuropathy, diabetes, gout, emphysema, fatty liver, valvular heart disease, peripheral vascular disease, COPD, constipation
Social History
Tobacco: Former Smoker
Alcohol: None
Drug: None
Living: Alone
Employment: Retired
Family History
Family History: Not Pertinent
Allergies / Home Medications
Allergy/AdvReac Type Severity Reaction Status Date / Time
adhesive Allergy TAPE-BLISTE Verified 05/27/25 14:14
RS
atorvastatin Allergy muscle Verified 05/27/25 14:14
spasm
ciprofloxacin (From Cipro) Allergy Severe Verified 05/27/25 14:14
Hypotension
dog dander Allergy Shortness Verified 06/13/25 20:46
of Breath
grass pollen Allergy Shortness Verified 06/13/25 20:46
of Breath
house dust Allergy Shortness Verified 06/13/25 20:46
of Breath
pollen extracts Allergy Shortness Verified 05/27/25 14:14
of Breath
Sulfa (Sulfonamide Allergy red line Verified 05/27/25 14:14
Antibiotics) on body
tree and shrub pollen Allergy Shortness Verified 06/13/25 20:46
of Breath
�Medication �Instructions �Recorded �Confirmed �Type
albuterol sulfate 90 mcg/actuation 2 puff inhalation R Q6HPRN PRN sob 04/30/13 08/24/25 History
aerosol inhaler
cyanocobalamin (vitamin B-12) 1,000 mcg PO DAILY Supplement 08/08/18 08/24/25 History
1,000 mcg tablet
rosuvastatin 5 mg tablet 5 mg PO DAILY High cholesterol 01/24/19 08/24/25 History
lisinopril 20 mg tablet 20 mg PO DAILY Blood pressure 10/03/19 08/24/25 History
metformin 500 mg tablet,extended 1,000 mg PO BID@0800,1700 Diabetes 10/03/19 08/24/25 History
release 24 hr
nortriptyline 75 mg capsule 75 mg PO HS Mental Health/Anxiety 09/27/20 08/24/25 History
allopurinol 300 mg tablet 450 mg PO DAILY Gout 08/30/22 08/24/25 History
denosumab 60 mg/mL subcutaneous 60 mg SC [id number] BONE HEALTH 08/30/22 08/24/25 History
syringe (Prolia)
estradiol 0.01% (0.1 mg/gram) 1 applic vaginal DAILYPRN PRN 09/15/22 08/24/25 History
vaginal cream vaginal dryness
cranberry fruit concentrate 500 mg 500 mg PO DAILY Supplement 03/30/23 08/24/25 History
capsule
methenamine hippurate 1 gram tablet 1 g PO BID PROPHYLAXIS 11/10/23 08/24/25 History
pantoprazole 40 mg tablet,delayed 40 mg PO DAILY Gastrointestinal 11/10/23 08/24/25 History
release Issue
polyethylene glycol 3350 17 gram 17 g PO DAILY Constipation 11/10/23 08/24/25 History
oral powder packet (Miralax)
amlodipine 10 mg tablet 10 mg PO DAILY Blood Pressure 08/08/24 08/24/25 History
cholecalciferol (vitamin D3) 125 125 mcg PO DAILY Supplement 08/08/24 08/24/25 History
mcg (5,000 unit) tablet (Vitamin
D3)
gabapentin 300 mg capsule 300 mg PO TID Pain 08/08/24 08/24/25 History
aspirin 81 mg tablet,delayed 81 mg PO DAILY Blood Clot 06/13/25 08/24/25 History
release Prevention/Tx
gabapentin 300 mg capsule 600 mg PO HS Pain 06/13/25 08/24/25 History
omega-3 acid ethyl esters 1 gram 2 g PO BID Supplement 06/13/25 08/24/25 History
capsule
coenzyme Q10 200 mg capsule 200 mg PO DAILY Supplement 08/24/25 08/24/25 History
docusate sodium 100 mg capsule 100 mg PO QPM Constipation 08/24/25 08/24/25 History
(Colace)
guar gum 1 tbsp PO DAILY Constipation 08/24/25 08/24/25 History
immune glob,gamma (IgG) 10 See Rx Instructions .Route .COMPLEX 08/24/25 08/24/25 History
%-gly-IgA over 50 mcg/mL injection
solution (Gammagard Liquid)
milk thistle 150 mg capsule 150 mg PO DAILY Supplement 08/24/25 08/24/25 History
ropinirole 0.25 mg tablet 0.25 mg PO QPM Neurological 08/24/25 08/24/25 History
Condition
vitamin A-vitamin C-vit E-min 1 tab PO DAILY Supplement 08/24/25 08/24/25 History
tablet
Review of Systems
-
All other systems: Negative unless noted
Physical Exam
Vital Signs
Vital Signs
Temp Pulse Resp BP Pulse Ox
98.0 F 48 18 106/52 93
08/27/25 15:06 08/27/25 15:09 08/27/25 15:06 08/27/25 15:09 08/27/25 15:06
Lab Results
WBC 7.2 10^3/uL (4.8-10.8) 08/27/25 05:17
RBC 2.81 10^6/uL (4.20-5.40) L 08/27/25 05:17
Hgb 8.1 g/dL (12.0-16.0) L 08/27/25 05:17
Hct 26.9 % (37.0-47.0) L 08/27/25 05:17
Plt Count 190 10^3/uL (130-400) 08/27/25 05:17
Sodium 136 mmol/L (135-145) 08/27/25 05:17
Potassium 4.4 mmol/L (3.5-5.1) 08/27/25 05:17
Chloride 100 mmol/L (98-107) 08/27/25 05:17
Carbon Dioxide 28 mmol/L (22-30) 08/27/25 05:17
BUN 38 mg/dl (7-17) H 08/27/25 05:17
Creatinine 2.1 mg/dL (0.6-1.0) H 08/27/25 05:17
eGFR 22.81 08/27/25 05:17
Glucose 121 mg/dl (70-99) H 08/27/25 05:17
Calcium 9.1 mg/dl (8.4-10.2) 08/27/25 05:17
Fmq-S-Vaocmzqyiyd Pept 3520 pg/ml 08/24/25 11:50
Albumin 3.6 g/dl (3.5-5.0) 08/27/25 05:17
Physical Exam
General: Awake, Alert, Oriented, AOx3, No Distress and Nontoxic
HEENT: EOMI, Anicteric, Conjunctivae Clear and Facial Symmetry
Respiratory: Normal Excursion, Nonlabored Respirations and Other (rales at bases)
Cardiac: S1/S2 and Regular Rate/Rhythm
Breast: Deferred by me
Abdomen: Soft, Nontender and Nondistended
Rectal: Deferred by Provider
Musculoskeletal: No Cyanosis and Edema (trace)
Skin: No Rash, Warm and Dry
Neuro: Nonfocal/Grossly Intact
Psych: Mood/afflect pleasant, Insight/judgement good and Appropriate
Data Reviewed
-
Labs: Labs Reviewed by me, Discussed with Nurse, Discussed with Patient and Discussed with Family
Assessment/Plan
-
IMP:
GABRIELA
Acute respiratory distress suspect acute on chronic heart failure with a preserved ejection fraction/valvular heart disease
Acute hypoxic respiratory insufficiency
Echocardiogram 08/25 with EF 55%, moderate
New onset atrial fibrillation with RVR-Spontaneously converted to normal sinus rhythm
Chronic left lower extremity swelling, possible lymphedema.
History of chronic blood loss anemia - chronic GI bleeding.
Anemia of chronic disease, monitor
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
GERD
Chronic ambulatory dysfunction
DM 2 with diabetic polyneuropathy
History of gout
Restless leg syndrome -
Essential hypertension
Hyperlipidemia
Obstructive sleep apnea/COPD/ emphysema
Obesity due to excess calories
Plan:
A/w CHF and had new Afib
GABRIELA-suspect from cardiorenal vs diuresis , baseline 1-1.2, today at 2.1
UA UTI sample, await cx, had SC once 600cc, follow bladder scan, check Fena, renal US
bp are also soft, holding ACEI and hold CCB too
she has knonw h/o liver disease too, echo normal EF, mod
avoid nephrotoxins, metformin held too
dose meds renally
anemia-was seen by heme with MGUS, due for repeat testing per family
follow labs
de/w pt and family
[2025-08-27 16:38] LABS: Glucose - Point of Care 167 mg/dl (70-99)
[2025-08-27] MEDS: CRESTOR 5 MG PO (17:30)
[2025-08-27 20:10] VITALS: BP 127/55
[2025-08-27] MEDS: PAMELOR 75 MG PO (20:39)
[2025-08-27] MEDS: NEURONTIN 600 MG PO (20:40)
[2025-08-27] MEDS: REQUIP 0.25 MG PO (21:55)
[2025-08-27] MEDS: PACERONE 200 MG PO (21:55)
--- NOTE | 2025-08-27 22:00 | PTCARENOTE ---
Patient c/o worsening dyspnea. Crackles auscultated throughout B/L lung. O2 needs increased from 2L at 1900 to now needing 5L of O2, pulse ox 90% on 5L. Lasix currently being held r/t worsening creatinine. LUIS F Lilly notified of above.
Order for Lasix IV and chest x-ray received. Lasix given as ordered. Will continue to monitor.
[2025-08-27] MEDS: LASIX 40 MG IV (22:11)
[2025-08-27 22:47] VITALS: BP 130/48
[2025-08-28] VITALS (8 sets, daily range): BP systolic 111–146; BP diastolic 42–84; BMI 32.6
--- NOTE | 2025-08-28 00:27 | W.PN.UPDATE ---
Update Note
Progress Note Update
2200 PT alerted staff that she had sudden SOB. Was on 02 2L needing to be increased to 5 L to sustain at 90%. Lungs with crackles worse. Lasix has been on hold for 2 day due to increase in creat.
Due to acute symptoms will need to give a dose now. Also ordered repeat cxr
2300 pt feeling much improved post lasix. cxr read as pneumonia, but symptom correspond more with HF. No wBC. afebrile.
[2025-08-28 05:47] LABS: Hematocrit 26.5 % (37.0-47.0); Hemoglobin 8.0 g/dL (12.0-16.0); Mean Corp Hgb Conc. 30.2 g/dL (33.0-37.0); Mean Corpuscular Volume 94.6 fL (81.0-99.0); Nucleated Red Blood Cells % 0.2 %; Platelet Count 192 10^3/uL (130-400); Red Cell Dist. Width 20.6 % (11.5-14.5)
[2025-08-28] MEDS: HEPARIN 5000 UNITS SC ×3 (06:13→21:51)
[2025-08-28 06:15] LABS: ALT (SGPT) 37 U/L (0-35); AST (SGOT) 49 U/L (14-36); Albumin 3.5 g/dl (3.5-5.0); Alkaline Phosphatase 265 U/L (38-126); Blood Urea Nitrogen 47 mg/dl (7-17); Calcium 9.0 mg/dl (8.4-10.2); Carbon Dioxide 26 mmol/L (22-30); Chloride 98 mmol/L (98-107); Estimated Creatinine Clearance 17 ml/min; Glucose 104 mg/dl (70-99); Potassium 4.4 mmol/L (3.5-5.1); Sodium 131 mmol/L (135-145); Total Protein 6.8 g/dl (6.3-8.2); eGFR 18.50
[2025-08-28 08:11] LABS: Glucose - Point of Care 143 mg/dl (70-99)
[2025-08-28] MEDS: NOVOLOG FLEXPEN-MODERATE RESISTANCE SC (08:40)
[2025-08-28] MEDS: VITAMIN B-12 1000 MCG PO (10:18)
[2025-08-28] MEDS: LOW STRENGTH ASPIRIN 81 MG PO (10:18)
[2025-08-28] MEDS: NEURONTIN 300 MG PO ×3 (10:18→21:51)
[2025-08-28] MEDS: PACERONE 200 MG PO ×2 (10:19→20:21)
[2025-08-28] MEDS: COLACE 100 MG PO ×2 (10:19→20:17)
[2025-08-28] MEDS: MIRALAX PO (10:19)
[2025-08-28] MEDS: DITROPAN 5 MG PO ×2 (10:19→20:17)
[2025-08-28] MEDS: METAMUCIL, KONSYL 1 PACKET PO (10:19)
[2025-08-28] MEDS: PROTONIX 40 MG PO (10:20)
[2025-08-28] MEDS: DULCOLAX 10 MG RECTAL (10:41)
[2025-08-28 11:17] LABS: Glucose - Point of Care 183 mg/dl (70-99)
[2025-08-28] MEDS: NOVOLOG FLEXPEN-MODERATE RESISTANCE 1 UNITS SC ×2 (11:21→17:16)
--- NOTE | 2025-08-28 11:55 | W.PN.NEPH.PH ---
Today's Communication / Plan
-
see plan
Assessment/Plan
-
IMP:
GABRIELA
Acute respiratory distress suspect acute on chronic heart failure with a preserved ejection fraction/valvular heart disease
Acute hypoxic respiratory insufficiency
Echocardiogram 08/25 with EF 55%, moderate
New onset atrial fibrillation with RVR-Spontaneously converted to normal sinus rhythm
Chronic left lower extremity swelling, possible lymphedema.
History of chronic blood loss anemia - chronic GI bleeding.
Anemia of chronic disease, monitor
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
GERD
Chronic ambulatory dysfunction
DM 2 with diabetic polyneuropathy
History of gout
Restless leg syndrome -
Essential hypertension
Hyperlipidemia
Obstructive sleep apnea/COPD/ emphysema
Obesity due to excess calories
Plan:
A/w CHF and had new Afib
GABRIELA-suspect from cardiorenal vs diuresis, U na low , baseline 1-1.2, today at 2.5
UA UTI sample, E coli cx, berry placed for retention, renal US non acute
has 2.4gm/gm of cr -proteinuria , will send serologies
she has MGUS likely repeat labs as well
hypervolemic hypoantremia -monitor
would cont prn lasix
may need RHC if cr cont to rise
bp better with holding ACEI and CCB
she has knonw h/o liver disease and echo normal EF, mod
avoid nephrotoxins, metformin held too
dose meds renally
anemia-was seen by heme with MGUS out pt
follow labs
de/w pt and primary
-
-
Date of Service: August 28, 2025
CC / HPI / ROS
-
Chief Complaint:
GABRIELA
History of Present Illness:
cr up at 2.5, non oliguric , berry placed for retntion
BP improving, had lasix last night for sob
hb stable at 8
Review of Systems:
no cp , sob better this am
no n/v
Labs
-
Labs:
WBC 8.5 10^3/uL (4.8-10.8) 08/28/25 05:21
RBC 2.80 10^6/uL (4.20-5.40) L 08/28/25 05:21
Hgb 8.0 g/dL (12.0-16.0) L 08/28/25 05:21
Hct 26.5 % (37.0-47.0) L 08/28/25 05:21
Plt Count 192 10^3/uL (130-400) 08/28/25 05:21
Sodium 131 mmol/L (135-145) L 08/28/25 05:21
Potassium 4.4 mmol/L (3.5-5.1) 08/28/25 05:21
Chloride 98 mmol/L (98-107) 08/28/25 05:21
Carbon Dioxide 26 mmol/L (22-30) 08/28/25 05:21
BUN 47 mg/dl (7-17) H 08/28/25 05:21
Creatinine 2.5 mg/dL (0.6-1.0) H 08/28/25 05:21
eGFR 18.50 08/28/25 05:21
Glucose 104 mg/dl (70-99) H 08/28/25 05:21
Calcium 9.0 mg/dl (8.4-10.2) 08/28/25 05:21
Hmf-X-Jcjgkjviyed Pept 771 pg/ml 08/28/25 05:21
Albumin 3.5 g/dl (3.5-5.0) 08/28/25 05:21
Physical Exam
-
Vital Signs:
Vital Signs
Temp Pulse Resp BP Pulse Ox
98.2 F 60 19 127/46 93
08/28/25 11:00 08/28/25 11:00 08/28/25 11:00 08/28/25 11:00 08/28/25 11:28
Cardiovascular:: Regular rate and rhythm
Respiratory:: Bilateral: Coarse
Lung Excursion:: Normal
Abdomen:: Nontender and Soft
Extremity Edema:: +1: Bilateral:
Berry Catheter: Yes
--- NOTE | 2025-08-28 12:20 | W.PN.HOSP.TC ---
Today's Communication/Plan
-
Monitor vital signs see plan
Worsening shortness of breath overnight, wean oxygen as tolerated
Given her symptoms with COVID antibiotics for now
Consistent with urinary retention, discussed with nephrology and RN. Administer Rudd
Laxatives
Monitor renal function
Monitor LFTs while on Amio
Assessment / Plan
Assessment / Plan
General: Comfortable, Appears Chronically Ill and Obese
HEENT: Moist mucous membranes and Atraumatic
Respiratory: Rales; No Wheezes
Cardiac: S1/S2, Tachycardia and Murmur
GI: Soft, Non Tender
Musculoskeletal: No Cyanosis and Edema, Left Lower Extremity (chronic)
Neuro: AO x 3 and Nonfocal/grossly intact
Psych: Calm and Intact Judgment/Insight
Acute respiratory distress suspect acute on chronic heart failure with a preserved ejection fraction/valvular heart disease
Acute hypoxic respiratory insufficiency likely secondary to above, wean oxygen as tolerated
Chest x-ray 08/27 with possibility of pneumonia. Unclear if this is all from pneumonia or just CHF. Given her worsening hypoxia, will treat with ceftriaxone and doxycycline.
Was on IV diuresis, now on hold given worsening renal function
Cardiology following
Echocardiogram 08/25 with EF 55%, moderate
Does have periods of bradycardia, amiodarone decreased. Coreg discontinued
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 Faina Mckeon.
New onset atrial fibrillation with RVR
Spontaneously converted to normal sinus rhythm with periods of bradycardia
Now on amiodarone 200 mg twice daily. Coreg stopped
Anticoagulation per cardiology, discussed with cardiology. Not a good candidate for AC
# Chronic left lower extremity swelling, possible lymphedema.
Patient and caregiver increasing swelling. No signs of infection with absence of tenderness/erythema. Lower extremity ultrasound negative for DVT
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
Anemia of chronic disease, monitor
Per patient, no source found. 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
Patient has had IV infusion of iron, finished, not on oral iron supplement.
patient has been seeing hematology outpatient for MM work up
GABRIELA
Suspect history of CKD, monitor renal function
Creatinine 2.5 today, nephrology following
UA suggestive of infection, given E. coli will treat with ceftriaxone
Also suspect secondary to acute urinary retention. Required multiple times straight cath. Administer Rudd catheter. Discussed with nephrology. Monitor. Renal ultrasound without acute abnormality
Continue to hold nephrotoxic agents
Elevated LFTs
Monitor especially now on Amio
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
#GERD
# Chronic ambulatory dysfunction -uses a walker. Consulted PT/OT.
# DM 2 with diabetic polyneuropathy
Hold metformin
c/w NovoLog scale.
#History of gout
# Restless leg syndrome -
d/w daughter, she is on ropinirole.
# Essential hypertension
Added holding parameter to amlodipine
#Hyperlipidemia -rosuvastatin.
# Obstructive sleep apnea/COPD/ emphysema
No history of wheezes or productive cough. Cannot bring on CPAP machine
#Obesity due to excess calories
#Full code, confirmed with patient.
I spent a total of 51 minutes with the patient or on the floor. More than 50% of this time involved counseling and coordination of care.
Anticipated Discharge: > 48 hours
Subjective/Interval History
-
Date of Service: August 28, 2025
denies pain
Objective Data
-
Labs:
Laboratory Results
08/28/25
05:21
WBC 8.5
Hgb 8.0 L
Hct 26.5 L
Plt Count 192
Sodium 131 L
Potassium 4.4
Chloride 98
Carbon Dioxide 26
BUN 47 H
Creatinine 2.5 H
Glucose 104 H
Calcium 9.0
Total Bilirubin 0.5
AST 49 H
ALT 37 H
Alkaline Phosphatase 265 H
Vital Signs:
Vital Signs
Temp Pulse Resp BP Pulse Ox
98.2 F 60 19 127/46 93
08/28/25 11:00 08/28/25 11:00 08/28/25 11:00 08/28/25 11:00 08/28/25 11:28
I&O
08/27/25 08/28/25 08/29/25
06:59 06:59 06:59
Intake Total 1380 / 1380 1160 / 1160
Output Total 1650 / 1650
Balance 1380 / 1380 -490 / -490
[2025-08-28] MEDS: STERILE WATER FOR INJECTION 10 ML IV (13:05)
[2025-08-28] MEDS: VIBRAMYCIN 100 MG PO ×2 (13:05→20:17)
[2025-08-28] MEDS: ROCEPHIN 1000 MG IV (13:09)
--- NOTE | 2025-08-28 16:06 | CM ---
Pt on oxygen 3 liters NC Pox 97%. Weaning was attempted .
Watch for home oxygen needs.
Referred to PT OT from Monday which indicated VN .
Dgt Sabine HENDERSON came into room during visit and said she thought her needs were more.
Updated PT done today Awaiting eval.
Plan Watch for oxygen needs Updated PT needed for dc plan
--- NOTE | 2025-08-28 16:12 | W.PN.CARDCBS ---
Addendum entered and electronically signed by Faina Mckeon MD 08/28/25 18:39:
I saw and examined the patient.
The Heel Buffer's note was reviewed and I agree with the note.
Comment:. She was admitted with rapid atrial fibrillation which was a new diagnosis for which she now is in sinus rhythm. This was accompanied by heart failure with reserved ejection fraction and diuresis now with worsening renal function.
Exam on patient is difficult. Not clear volume overloaded. She continues with coughing. She tells me she feels about 60% with her breathing compared to baseline. Daughter and son-in-law are at the bedside.
She has multiple medical problems. She also has multiple medical problems including recent GI bleeding with colonoscopy and EGD noted. No active bleeding at that time, 06/2025. Prior to this 12/2024 she had small bowel endoscopy with single
actively bleeding angioectasia that was treated.
Unclear volume status with worsening renal function in the setting of recent diuresis for heart failure with preserved ejection fraction related to newly diagnosed rapid atrial fibrillation.
Plan at this time which I discussed with the patient and her family at the bedside:
- Right heart catheterization to determine volume status. We discussed the risks and benefits and all questions answered and she will proceed tomorrow.
- If she is dry hydrate and follow renal function.
- If she is dry primary service to look into alternative causes of shortness of breath which may include ongoing anemia, body habitus/sedentary lifestyle, possible aspiration, nasal congestion/URI for which she is currently undergoing treatment
- Moderate aortic valve stenosis noted and stable. Continue to follow.
Atrial fibrillation with rapid ventricular response which is paroxysmal and currently in sinus rhythm.
- Continue amiodarone for rhythm suppression
- Continue to reassess candidacy for oral anticoagulation. Currently given anemia and recent recurrent GI bleeding will need to follow closely.
- She understands she is at a elevated stroke risk. For now not a normal anticoagulation candidate.
Original Note:
Today's Communication / Plan
-
[facility] tomorrow, communicated with family, nursing, hospitalist attending and nephrology
Impression / Plan
-
PCP: Mana ramon
Cap Cutter: Dr. Faina Mckeon
Impression:
Presented with worsening shortness of breath, edema, abdominal distention and weight gain 08/24/2025
Acute HFpEF
Newly diagnosed paroxysmal atrial fibrillation with RVR
Spontaneously converted to SR 08/24/2025, then recurred with A-fib 08/25/2025 and spontaneously converted to SR again 08/25/2025
Amiodarone loading starting 08/25/2025
Acute on chronic anemia
Chronic anemia
GI bleed with angioectasias with cauterization 12/2024
Nonobstructive coronary artery disease
Aortic stenosis
Mitral regurgitation
Hypertension
Hyperlipidemia
Type 2 diabetes
Obstructive sleep apnea
PVD
Neuropathy
Cirrhosis with portal hypertension
Chronic inflammatory demyelinating polyneuropathy
Gout
IgG lambda MGUS/Smoldering Myeloma
Mild emphysema with pulmonary nodule
Balance disorder
Echo 12/11/24: Normal left ventricular size, wall thickness and LVEF 55-60%. Normal right ventricle.�Mild- moderate mitral regurgitation.�Calcified aortic valve. Peak/mean gradients across the aortic valve are 39/24mmHg. The LAURA� is calculated at
1.1cm2. Mild aortic regurgitation. Moderate aortic stenosis. Trace tricuspid regurgitation. Estimated pulmonary artery pressure of 25-30 mmHg. �Compared to the previous echo 12/11/23, there is no significant change.
Echo 08/25/2025: EF 55%. Mild concentric LVH. Moderate aortic stenosis with peak/mean gradient 29.6/17, LAURA 1.39 cm2. Moderate MR. PAP 27 mmHg,no change compared to prior study
Lexiscan nuclear stress test 04/28/2022: Negative for ischemia. There were fixed defects consistent with soft tissue attenuation. Ejection fraction was 61%.
Cardiac catheterization 2016: 40% RCA stenosis
Plan:
-Presented 08/24/2025 with worsening shortness of breath, edema, abdominal distention and weight gain.
-Patient weighed 179 lbs on admission and weight is up to 184 lbs on 08/28/2025 despite attempts at diuresis with Lasix 40 mg IV BID which is now on hold due to GABRIELA
-Cre was 1.1 on admission and has increased to 2.5 on my review of labs 08/28/2025 and this is in the setting of attempts at IV diuresis
-Nephrology note reviewed by me 08/28/2025 and I also discussed with nephrology, plan is for RHC to better determine volume status on 08/29/2025. Nursing telephone supervisor and heart center notified by me and patient does not need to be NPO
-EF preserved to 55% with moderate AAS by echo 08/28/2025
-Patient was not taking a loop diuretic prior to admission
-There was an attempt to add Coreg earlier this admission, the patient then had sinus bradycardia following paroxysms of A-fib and amiodarone loading so Coreg was stopped to allow for amiodarone therapy and suppression of rapid A-fib
-Patient is not a candidate for DEB/ARB/ARNI/aldosterone antagonist due to GABRIELA
-Patient with newly diagnosed paroxysmal A-fib with RVR on admission and then had spontaneous conversion followed by a recurrent episode of A-fib followed by another spontaneous conversion back to SR. Telemetry reviewed by me and patient remains in
SR on 08/28/2025.
-QTc 466 ms on ECG from 08/27/2025 that was reviewed by me, continue amiodarone 200 mg BID, of note dose was lowered earlier this admission due to sinus bradycardia
-Patient has not been started on OAC due to history of significant GI bleed 12/2024 at which point she was found to have gastric and duodenal angiectasias that were treated with APC. Could consider outpatient evaluation for Watchman procedure, the
patient would need to be able to tolerate at least a few months of OAC.
-Admission thus far and plans for RHC reviewed with patient, daughter and son-in-law at bedside by me 08/28/2025. We discussed RHC procedure and risk versus benefit.
HPI 08/25/2025:
Patient is an 85-year-old female with complex past medical history including nonobstructive coronary artery disease, moderate aortic stenosis, chronic anemia with recent GI bleed with gastric and duodenal angioectasias with cauterization 12/26/2024,
hypertension, hyperlipidemia, type 2 diabetes, obstructive sleep apnea, PVD, neuropathy, cirrhosis with portal hypertension, MGUS, CIPD and balance disorder who presented to emergency department 08/24/2025 with worsening shortness of breath, lower
extremity edema, abdominal distention and weight gain. EKG demonstrated sinus rhythm. Chest x-ray demonstrated increased pulmonary vascularity concerning for mild heart failure. proBNP 3520. Troponin negative. Patient received 40 mg IV Lasix in
emergency department. Patient later developed atrial fibrillation with rapid ventricular response. Cardiology being consulted for new A-fib and heart failure
Progress Note - Cap Cutter
Subjective
Date of Service: August 28, 2025
She feels no better since admission
Objective
Labs:
08/28/25 05:21
08/28/25 05:21
Labs
Hgb 8.0 g/dL (12.0-16.0) L 08/28/25 05:21
Hct 26.5 % (37.0-47.0) L 08/28/25 05:21
Plt Count 192 10^3/uL (130-400) 08/28/25 05:21
Sodium 131 mmol/L (135-145) L 08/28/25 05:21
Potassium 4.4 mmol/L (3.5-5.1) 08/28/25 05:21
BUN 47 mg/dl (7-17) H 08/28/25 05:21
Creatinine 2.5 mg/dL (0.6-1.0) H 08/28/25 05:21
Glucose 104 mg/dl (70-99) H 08/28/25 05:21
Vital Signs and I&O:
Vital Signs
Temp Pulse Resp BP Pulse Ox
97.7 F 56 19 133/57 97
08/28/25 15:00 08/28/25 15:00 08/28/25 15:00 08/28/25 15:00 08/28/25 15:00
Vital Signs
Temp Pulse Resp BP Pulse Ox
97.7 F 56 19 133/57 97
08/28/25 15:00 08/28/25 15:00 08/28/25 15:00 08/28/25 15:00 08/28/25 15:00
Intake & Output
08/26/25 08/27/25 08/28/25 08/29/25
06:59 06:59 06:59 06:59
Intake Total 780 / 780 1380 / 1380 1160 / 1160
Output Total 1650 / 1650
Balance 780 / 780 1380 / 1380 -490 / -490
Physical Exam
Physical Exam
GEN: AAOx3
LUNGS: 2 L NC. No audible wheeze
CV: SR on telemetry
[2025-08-28 16:44] LABS: Iron 68 ug/dl (37-170)
[2025-08-28 16:53] LABS: Total Iron Binding Capacity 338 ug/dl (265-497)
[2025-08-28 16:55] LABS: Glucose - Point of Care 178 mg/dl (70-99)
[2025-08-28] MEDS: CRESTOR 5 MG PO (17:16)
[2025-08-28 17:34] LABS: Ferritin 351.0 ng/ml (11.1-264.0)
[2025-08-28 21:40] LABS: Glucose - Point of Care 127 mg/dl (70-99)
[2025-08-28] MEDS: PAMELOR 75 MG PO (21:52)
[2025-08-28] MEDS: REQUIP 0.25 MG PO (21:52)
[2025-08-29] VITALS (8 sets, daily range): BP systolic 123–149; BP diastolic 46–97; PULSE 61; O2SAT 96; BMI 31.5
[2025-08-29 06:02] LABS: Hematocrit 29.2 % (37.0-47.0); Hemoglobin 8.9 g/dL (12.0-16.0); Mean Corp Hgb Conc. 30.5 g/dL (33.0-37.0); Mean Corpuscular Volume 95.4 fL (81.0-99.0); Nucleated Red Blood Cells % 0.2 %; Platelet Count 187 10^3/uL (130-400); Red Cell Dist. Width 20.2 % (11.5-14.5)
[2025-08-29] MEDS: HEPARIN 5000 UNITS SC ×3 (06:03→21:26)
[2025-08-29 06:25] LABS: ALT (SGPT) 38 U/L (0-35); AST (SGOT) 44 U/L (14-36); Albumin 3.8 g/dl (3.5-5.0); Alkaline Phosphatase 303 U/L (38-126); Blood Urea Nitrogen 42 mg/dl (7-17); Calcium 9.4 mg/dl (8.4-10.2); Carbon Dioxide 29 mmol/L (22-30); Chloride 102 mmol/L (98-107); Estimated Creatinine Clearance 21 ml/min; Glucose 91 mg/dl (70-99); Potassium 4.2 mmol/L (3.5-5.1); Sodium 135 mmol/L (135-145); Total Protein 7.1 g/dl (6.3-8.2); eGFR 24.18
[2025-08-29 08:14] LABS: Glucose - Point of Care 122 mg/dl (70-99)
[2025-08-29] MEDS: NOVOLOG FLEXPEN-MODERATE RESISTANCE SC ×2 (08:18→17:39)
[2025-08-29] MEDS: COLACE 100 MG PO ×2 (08:19→21:25)
[2025-08-29] MEDS: VIBRAMYCIN 100 MG PO ×2 (08:19→21:25)
[2025-08-29] MEDS: DITROPAN 5 MG PO ×2 (08:19→21:26)
[2025-08-29] MEDS: LOW STRENGTH ASPIRIN 81 MG PO (08:20)
[2025-08-29] MEDS: NEURONTIN 300 MG PO ×3 (08:20→21:25)
[2025-08-29] MEDS: PROTONIX 40 MG PO (08:20)
[2025-08-29] MEDS: VITAMIN B-12 1000 MCG PO (08:20)
[2025-08-29] MEDS: PACERONE 200 MG PO ×2 (08:20→21:24)
[2025-08-29] MEDS: METAMUCIL, KONSYL 1 PACKET PO (08:26)
[2025-08-29] MEDS: MIRALAX 17 GRAMS PO (08:26)
[2025-08-29 12:05] LABS: Glucose - Point of Care 203 mg/dl (70-99)
--- NOTE | 2025-08-29 12:37 | W.PN.HOSP.TC ---
Today's Communication/Plan
-
Monitor vital signs see plan
PT
Right heart cath today
Continue with antibiotic
Wean oxygen as tolerated
Monitor renal function
Maintain Rudd for now
Monitor LFTs on amiodarone
Assessment / Plan
Assessment / Plan
General: Comfortable, Appears Chronically Ill and Obese
HEENT: Moist mucous membranes and Atraumatic
Respiratory: Rales; No Wheezes
Cardiac: S1/S2, Tachycardia and Murmur
GI: Soft, Non Tender
Musculoskeletal: No Cyanosis and Edema, Left Lower Extremity (chronic)
Neuro: AO x 3 and Nonfocal/grossly intact
Psych: Calm and Intact Judgment/Insight
Acute respiratory distress suspect acute on chronic heart failure with a preserved ejection fraction/valvular heart disease
Acute hypoxic respiratory insufficiency likely secondary to above, wean oxygen as tolerated
Chest x-ray 08/27 with possibility of pneumonia. Unclear if this is all from pneumonia or just CHF. Given her worsening hypoxia, will treat with ceftriaxone and doxycycline.
Was on IV diuresis, now on hold given worsening renal function. Plan for right heart cath 08/29
Cardiology following
Echocardiogram 08/25 with EF 55%, moderate
Does have periods of bradycardia, amiodarone decreased. Coreg discontinued
Primary ic designer standard cells Dr. Faina Mckeon.
New onset atrial fibrillation with RVR
Spontaneously converted to normal sinus rhythm with periods of bradycardia
Now on amiodarone 200 mg twice daily. Coreg stopped
Anticoagulation per cardiology, discussed with cardiology. Not a good candidate for AC and patient also refusing
# Chronic left lower extremity swelling, possible lymphedema.
Patient and caregiver increasing swelling. No signs of infection with absence of tenderness/erythema. Lower extremity ultrasound negative for DVT
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
Anemia of chronic disease, monitor
Per patient, no source found. 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
Patient has had IV infusion of iron, finished, not on oral iron supplement.
patient has been seeing hematology outpatient for MM work up
GABRIELA
Suspect history of CKD, monitor renal function
Creatinine peaked 2.5, nephrology following. Now creatinine 2
UA suggestive of infection, did not dysuria and increased frequency. Given E. coli will treat with ceftriaxone
Also suspect secondary to acute urinary retention. Required multiple times straight cath. Administer Rudd catheter. Patient has had catheter in the past. Discussed with nephrology. Monitor. Renal ultrasound without acute abnormality
Continue to hold nephrotoxic agents
Constipation
Laxatives
Dulcolax suppository
Elevated LFTs
Monitor especially now on Amio
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
#GERD
# Chronic ambulatory dysfunction -uses a walker. Consulted PT/OT.
# DM 2 with diabetic polyneuropathy
Hold metformin
c/w NovoLog scale.
#History of gout
# Restless leg syndrome -
d/w daughter, she is on ropinirole.
# Essential hypertension
Added holding parameter to amlodipine
#Hyperlipidemia -rosuvastatin.
# Obstructive sleep apnea/COPD/ emphysema
No history of wheezes or productive cough. Cannot bring on CPAP machine
#Obesity due to excess calories
#Full code, confirmed with patient.
I spent a total of 52 minutes with the patient or on the floor. More than 50% of this time involved counseling and coordination of care.
Anticipated Discharge: 24 - 48 hours
Subjective/Interval History
-
Date of Service: August 29, 2025
Denies nausea
Objective Data
-
Labs:
Laboratory Results
08/29/25 08/29/25
05:27 05:28
WBC 8.2
Hgb 8.9 L
Hct 29.2 L
Plt Count 187
Sodium 135
Potassium 4.2
Chloride 102
Carbon Dioxide 29
BUN 42 H
Creatinine 2.0 H
Glucose 91
Calcium 9.4
Total Bilirubin 0.4
AST 44 H
ALT 38 H
Alkaline Phosphatase 303 H
Vital Signs:
Vital Signs
Temp Pulse Resp BP Pulse Ox
98.2 F 66 19 145/97 97
08/29/25 11:00 08/29/25 11:00 08/29/25 11:00 08/29/25 11:00 08/29/25 11:00
I&O
08/28/25 08/29/25 08/30/25
06:59 06:59 06:59
Intake Total 1160 / 1160 1200 / 1200
Output Total 1650 / 1650 1500 / 1500
Balance -490 / -490 -300 / -300
[2025-08-29] MEDS: NOVOLOG FLEXPEN-MODERATE RESISTANCE 3 UNITS SC (13:13)
[2025-08-29] MEDS: STERILE WATER FOR INJECTION 10 ML IV (13:17)
[2025-08-29] MEDS: ROCEPHIN 1000 MG IV (13:17)
--- NOTE | 2025-08-29 14:31 | ITS.CL.CATH ---
[facility] - Catheterization
Cardiac Catheterization
Procedure Report:
RIGHT HEART CATHETERIZATION
Date of Procedure: August 29, 2025
Referring: Dr. Faina Mckeon
INDICATION: Shortness of breath and renal insufficiency
Hemodynamics (mmHg):
RA (m) : 23
RV (s/d,m) : 59/17, 26
PA (s/d, m) : 63/30, 45
PCWP (m) : 40 with V waves to 58 mmHg
Ao (s/d,m): 167/74, 107
Cardiac Output : 3.2 L/min and Cardiac Index : 1.8 L/min/m-2
Systemic vascular resistance: 26.3 Wood units or 2100 oxhrc-zzm-cw(-5)
Pulmonary vascular resistance: 1.56 Wood units or 125 bshav-voy-dy(-5)
RADIATION SUMMARY: Fluoro Time (min): 0.8, Dose (mGy): 4.47, DAP (Gy.cm2) : 0.56
CONCLUSION:
1. Elevated right and left ventricular filling pressures.
Copy to: Dr. Faina Mckeon
--- NOTE | 2025-08-29 14:57 | W.PN.NEPH.PH ---
Today's Communication / Plan
-
Reinitiate Lasix 40 mg IV twice daily
Maintain Berry catheter
Follow BMP
Assessment/Plan
-
IMP:
GABRIELA
Acute respiratory distress suspect acute on chronic heart failure with a preserved ejection fraction/valvular heart disease
Acute hypoxic respiratory insufficiency
Echocardiogram 08/25 with EF 55%, moderate
New onset atrial fibrillation with RVR-Spontaneously converted to normal sinus rhythm
Chronic left lower extremity swelling, possible lymphedema.
History of chronic blood loss anemia - chronic GI bleeding.
Anemia of chronic disease, monitor
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
GERD
Chronic ambulatory dysfunction
DM 2 with diabetic polyneuropathy
History of gout
Restless leg syndrome -
Essential hypertension
Hyperlipidemia
Obstructive sleep apnea/COPD/ emphysema
Obesity due to excess calories
Plan:
A/w CHF and had new Afib
GABRIELA-suspect from cardiorenal vs diuresis, U na low , baseline 1-1.2, today at 2.0, pulmonary capillary wedge pressure 40, cardiac output 3.2 L and cardiac index 1.8
Restart Lasix 40 mg IV twice daily
We need to proceed forward with IV diuresis despite rising creatinine levels
Maintain Berry catheter
UA UTI sample, E coli cx, berry placed for retention, renal US non acute
has 2.4gm/gm of cr -proteinuria , will send serologies
she has MGUS likely repeat labs as well
hypervolemic hypoantremia -monitor
would cont prn lasix
may need RHC if cr cont to rise
bp better with holding ACEI and CCB
she has known h/o liver disease and echo normal EF, mod
avoid nephrotoxins, metformin held too
dose meds renally
anemia-was seen by heme with MGUS out pt
follow labs
de/w pt and daughter
-
-
Date of Service: August 29, 2025
CC / HPI / ROS
-
Chief Complaint:
GABRIELA
History of Present Illness:
cr down to 2 non oliguric , hemodynamically stable
hb stable at 8.9
Review of Systems:
no cp , sob better this am
no n/v
Berry catheter in for urinary retention
Labs
-
Labs:
WBC 8.2 10^3/uL (4.8-10.8) 08/29/25 05:28
RBC 3.06 10^6/uL (4.20-5.40) L 08/29/25 05:28
Hgb 8.9 g/dL (12.0-16.0) L 08/29/25 05:28
Hct 29.2 % (37.0-47.0) L 08/29/25 05:28
Plt Count 187 10^3/uL (130-400) 08/29/25 05:28
Sodium 135 mmol/L (135-145) 08/29/25 05:27
Potassium 4.2 mmol/L (3.5-5.1) 08/29/25 05:27
Chloride 102 mmol/L (98-107) 08/29/25 05:27
Carbon Dioxide 29 mmol/L (22-30) 08/29/25 05:27
BUN 42 mg/dl (7-17) H 08/29/25 05:27
Creatinine 2.0 mg/dL (0.6-1.0) H 08/29/25 05:27
eGFR 24.18 08/29/25 05:27
Glucose 91 mg/dl (70-99) 08/29/25 05:27
Calcium 9.4 mg/dl (8.4-10.2) 08/29/25 05:27
Krm-Z-Qzrtzawzbdk Pept 771 pg/ml 08/28/25 05:21
Albumin 3.8 g/dl (3.5-5.0) 08/29/25 05:27
Physical Exam
-
Vital Signs:
Vital Signs
Temp Pulse Resp BP Pulse Ox
98.2 F 66 19 145/97 97
08/29/25 11:00 08/29/25 11:00 08/29/25 11:00 08/29/25 11:00 08/29/25 11:00
Cardiovascular:: Regular rate and rhythm
Respiratory:: Bilateral: Coarse
Lung Excursion:: Normal
Abdomen:: Nontender and Soft
Extremity Edema:: +1: Bilateral:
Berry Catheter: Yes
--- NOTE | 2025-08-29 15:04 | PTCARENOTE ---
Received pt from freezer laboratory technician. 2 freezer laboratory technician nurses at bedside. Right AC cath site assessed with freezer laboratory technician nurse, dressing CDI and red, purple bruise observed under dressing. Verified with freezer laboratory technician RN.
--- NOTE | 2025-08-29 15:12 | CM ---
Patient seen bedside post Cardiac Cath.
Patient seen by physical therapy and the recommendation is for skilled rehab, patient and daughter in agreement.
Referrals placed in [facility].
Patient will require insurance authorization.
Plan: skilled rehab once medically stable, bed located and auth obtained
[2025-08-29] MEDS: CRESTOR 5 MG PO (17:25)
[2025-08-29] MEDS: LASIX 40 MG IV (17:26)
[2025-08-29 17:29] LABS: Glucose - Point of Care 119 mg/dl (70-99)
--- NOTE | 2025-08-29 17:31 | W.PN.UPDATE ---
Update Note
Progress Note Update
I had a long discussion with the patient, her daughter and son-in-law at the bedside. We discussed the results of her right heart catheterization with significant volume overload. We discussed possible etiologies of increased volume. She has
Rudd catheter in place per nephrology for possibility of bladder outlet obstruction and she is now receiving Lasix 40 mg IV twice daily with very good response. We discussed that we will continue to follow along with nephrology as patient
undergoes diuresis with IV Lasix and close follow-up of renal function. We discussed diastolic dysfunction and heart failure with preserved ejection fraction along with known moderate aortic valve stenosis and known moderate/mild to moderate mitral
regurgitation.
We discussed sodium and fluid restricted diet.
I have answered all questions that they have had.
Continue current follow-up.
[2025-08-29] MEDS: REQUIP 0.25 MG PO (21:24)
[2025-08-29] MEDS: PAMELOR 75 MG PO (21:25)
[2025-08-29 21:30] LABS: Glucose - Point of Care 140 mg/dl (70-99)
[2025-08-30 03:00] VITALS: BP 157/53
[2025-08-30 05:46] VITALS: BMI 31.6
[2025-08-30] MEDS: HEPARIN 5000 UNITS SC ×3 (06:11→21:39)
[2025-08-30 06:14] LABS: Hematocrit 30.6 % (37.0-47.0); Hemoglobin 9.2 g/dL (12.0-16.0); Mean Corp Hgb Conc. 30.1 g/dL (33.0-37.0); Mean Corpuscular Volume 95.0 fL (81.0-99.0); Nucleated Red Blood Cells % 0 %; Platelet Count 208 10^3/uL (130-400); Red Cell Dist. Width 19.9 % (11.5-14.5)
[2025-08-30 06:54] LABS: ALT (SGPT) 39 U/L (0-35); AST (SGOT) 46 U/L (14-36); Albumin 3.9 g/dl (3.5-5.0); Alkaline Phosphatase 330 U/L (38-126); Blood Urea Nitrogen 34 mg/dl (7-17); Calcium 9.6 mg/dl (8.4-10.2); Carbon Dioxide 32 mmol/L (22-30); Chloride 100 mmol/L (98-107); Estimated Creatinine Clearance 25 ml/min; Glucose 114 mg/dl (70-99); Potassium 3.9 mmol/L (3.5-5.1); Sodium 138 mmol/L (135-145); Total Protein 7.4 g/dl (6.3-8.2); eGFR 29.39
[2025-08-30 07:20] VITALS: BP 159/63
[2025-08-30] MEDS: DITROPAN 5 MG PO ×2 (08:17→21:41)
[2025-08-30] MEDS: NEURONTIN 300 MG PO ×3 (08:18→21:39)
[2025-08-30] MEDS: LASIX 40 MG IV ×2 (08:18→17:52)
[2025-08-30] MEDS: PROTONIX 40 MG PO (08:18)
[2025-08-30] MEDS: VIBRAMYCIN 100 MG PO ×2 (08:18→21:40)
[2025-08-30] MEDS: LOW STRENGTH ASPIRIN 81 MG PO (08:18)
[2025-08-30] MEDS: VITAMIN B-12 1000 MCG PO (08:18)
[2025-08-30] MEDS: MIRALAX 17 GRAMS PO (08:19)
[2025-08-30] MEDS: COLACE 100 MG PO ×2 (08:19→21:41)
[2025-08-30] MEDS: METAMUCIL, KONSYL 1 PACKET PO (08:22)
[2025-08-30] MEDS: PACERONE 200 MG PO ×2 (08:22→21:40)
[2025-08-30 08:29] LABS: Glucose - Point of Care 138 mg/dl (70-99)
[2025-08-30] MEDS: NOVOLOG FLEXPEN-MODERATE RESISTANCE SC ×2 (08:32→16:36)
--- NOTE | 2025-08-30 11:16 | W.PN.CARDCBS ---
Today's Communication / Plan
-
IV diuresis
Amiodarone for AF control
Holding off currently on oral anticoagulation given history of GI bleeding but would consider outpatient evaluation for either chronic oral anticoagulation or Watchman procedure
Impression / Plan
-
PCP: Mana ramon
Hospitality Associate: Dr. Faina Mckeon
Impression:
Presented with worsening shortness of breath, edema, abdominal distention and weight gain 08/24/2025
Acute HFpEF
Newly diagnosed paroxysmal atrial fibrillation with RVR
Spontaneously converted to SR 08/24/2025, then recurred with A-fib 08/25/2025 and spontaneously converted to SR again 08/25/2025
Amiodarone loading starting 08/25/2025
Acute on chronic anemia
Chronic anemia
GI bleed with angioectasias with cauterization 12/2024
Nonobstructive coronary artery disease
Aortic stenosis
Mitral regurgitation
Hypertension
Hyperlipidemia
Type 2 diabetes
Obstructive sleep apnea
PVD
Neuropathy
Cirrhosis with portal hypertension
Chronic inflammatory demyelinating polyneuropathy
Gout
IgG lambda MGUS/Smoldering Myeloma
Mild emphysema with pulmonary nodule
Balance disorder
Echo 12/11/24: Normal left ventricular size, wall thickness and LVEF 55-60%. Normal right ventricle.�Mild- moderate mitral regurgitation.�Calcified aortic valve. Peak/mean gradients across the aortic valve are 39/24mmHg. The LAURA� is calculated at
1.1cm2. Mild aortic regurgitation. Moderate aortic stenosis. Trace tricuspid regurgitation. Estimated pulmonary artery pressure of 25-30 mmHg. �Compared to the previous echo 12/11/23, there is no significant change.
Echo 08/25/2025: EF 55%. Mild concentric LVH. Moderate aortic stenosis with peak/mean gradient 29.6/17, LAURA 1.39 cm2. Moderate MR. PAP 27 mmHg,no change compared to prior study
Lexiscan nuclear stress test 04/28/2022: Negative for ischemia. There were fixed defects consistent with soft tissue attenuation. Ejection fraction was 61%.
Cardiac catheterization 2016: 40% RCA stenosis
Plan:
-Presented 08/24/2025 with worsening shortness of breath, edema, abdominal distention and weight gain.
-Right heart catheterization results noted. Greater than 2 L of diuresis noted. Please continue IV diuresis
-EF preserved to 55% with moderate AAS by echo 08/28/2025
-Patient was not taking a loop diuretic prior to admission
-There was an attempt to add Coreg earlier this admission, the patient then had sinus bradycardia following paroxysms of A-fib and amiodarone loading so Coreg was stopped to allow for amiodarone therapy and suppression of rapid A-fib
-Patient is not a candidate for DEB/ARB/ARNI/aldosterone antagonist due to GABRIELA
- Continue amiodarone for paroxysmal A-fib
-QTc 466 ms on ECG from 08/27/2025 that was reviewed, continue amiodarone 200 mg BID, of note dose was lowered earlier this admission due to sinus bradycardia
-Patient has not been started on OAC due to history of significant GI bleed 12/2024 at which point she was found to have gastric and duodenal angiectasias that were treated with APC. Could consider outpatient evaluation for Watchman procedure, the
patient would need to be able to tolerate at least a few months of OAC. In the short-term we will make no changes to her current regimen
HPI 08/25/2025:
Patient is an 85-year-old female with complex past medical history including nonobstructive coronary artery disease, moderate aortic stenosis, chronic anemia with recent GI bleed with gastric and duodenal angioectasias with cauterization 12/26/2024,
hypertension, hyperlipidemia, type 2 diabetes, obstructive sleep apnea, PVD, neuropathy, cirrhosis with portal hypertension, MGUS, CIPD and balance disorder who presented to emergency department 08/24/2025 with worsening shortness of breath, lower
extremity edema, abdominal distention and weight gain. EKG demonstrated sinus rhythm. Chest x-ray demonstrated increased pulmonary vascularity concerning for mild heart failure. proBNP 3520. Troponin negative. Patient received 40 mg IV Lasix in
emergency department. Patient later developed atrial fibrillation with rapid ventricular response. Cardiology being consulted for new A-fib and heart failure
Progress Note - Hospitality Associate
Subjective
Date of Service: August 30, 2025
Diuresed overnight
Objective
Labs:
08/30/25 05:23
08/30/25 05:23
Labs
Hgb 9.2 g/dL (12.0-16.0) L 08/30/25 05:23
Hct 30.6 % (37.0-47.0) L 08/30/25 05:23
Plt Count 208 10^3/uL (130-400) 08/30/25 05:23
Sodium 138 mmol/L (135-145) 08/30/25 05:23
Potassium 3.9 mmol/L (3.5-5.1) 08/30/25 05:23
BUN 34 mg/dl (7-17) H 08/30/25 05:23
Creatinine 1.7 mg/dL (0.6-1.0) H 08/30/25 05:23
Glucose 114 mg/dl (70-99) H 08/30/25 05:23
Vital Signs and I&O:
Vital Signs
Temp Pulse Resp BP Pulse Ox
97.1 F 72 12 159/63 93
08/30/25 07:20 08/30/25 07:20 08/30/25 07:20 08/30/25 07:20 08/30/25 07:20
Vital Signs
Temp Pulse Resp BP Pulse Ox
97.1 F 72 12 159/63 93
08/30/25 07:20 08/30/25 07:20 08/30/25 07:20 08/30/25 07:20 08/30/25 07:20
Intake & Output
08/28/25 08/29/25 08/30/25 08/31/25
06:59 06:59 06:59 06:59
Intake Total 1160 / 1160 1200 / 1200 480 / 480
Output Total 1650 / 1650 1500 / 1500 3400 / 3400
Balance -490 / -490 -300 / -300 -2920 / -2920
Physical Exam
Physical Exam
����Physical Exam
���������������������General:��no apparent distress, not acutely ill
���������������������������Neck:��supple. no meningeal signs. normal psoterior pharynx
������������������������
���������������������������Heart:��s1/s2 regular rate and rhythm, no murmur. equal radial pulses.
��������������������������Lungs: ��no acute respiratory distress. clear bilaterally
����������������������Abdomen:�normal bowel sounds. not tender. no CVAT
��������������������������Neuro:��alert and oriented. no focal neurological deficits
������������������������������Skin: ��no rash
�����������������������Psychiatric:�well kept. interactive and cooperative
�����������������������Extremities:��no edema. no calf tenderness. negative homans. good distal pulses
��
�
[2025-08-30 11:36] VITALS: BP 164/73
--- NOTE | 2025-08-30 11:46 | W.PN.HOSP.TC ---
Today's Communication/Plan
-
Monitor vital signs and see plan
Continue with IV diuresis
Maintain Rudd
Monitor renal function
Laxatives
Monitor LFTs
Assessment / Plan
Assessment / Plan
General: Comfortable, Appears Chronically Ill and Obese
HEENT: Moist mucous membranes and Atraumatic
Respiratory: Rales; No Wheezes
Cardiac: S1/S2, Tachycardia and Murmur
GI: Soft, Non Tender
Musculoskeletal: Edema, Left Lower Extremity (chronic)
Neuro: AO x 3 and Nonfocal/grossly intact
Psych: Calm and Intact Judgment/Insight
Acute respiratory distress suspect acute on chronic heart failure with a preserved ejection fraction/valvular heart disease
Acute hypoxic respiratory insufficiency likely secondary to above, wean oxygen as tolerated
Chest x-ray 08/27 with possibility of pneumonia. definitely a component of CHF as well. Given her worsening hypoxia, will treat with ceftriaxone and doxycycline.
s/p right heart cath 08/29 with fluid overload. cw IV diuresis
Cardiology following
Echocardiogram 08/25 with EF 55%, moderate
Does have periods of bradycardia, amiodarone decreased. Coreg discontinued
Primary abrasive water jet cutter operator Dr. Faina Mckeon.
New onset atrial fibrillation with RVR
Spontaneously converted to normal sinus rhythm with periods of bradycardia
Now on amiodarone 200 mg twice daily. Coreg stopped
Anticoagulation per cardiology, discussed with cardiology. Not a good candidate for AC and patient also refusing
# Chronic left lower extremity swelling, possible lymphedema.
Patient and caregiver increasing swelling. No signs of infection with absence of tenderness/erythema. Lower extremity ultrasound negative for DVT
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
Anemia of chronic disease, monitor
Per patient, no source found. 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
Patient has had IV infusion of iron, finished, not on oral iron supplement.
patient has been seeing hematology outpatient for MM work up
GABRIELA
Suspect history of CKD, monitor renal function
Creatinine peaked 2.5, nephrology following. Now creatinine 1.7
UA suggestive of infection, did not dysuria and increased frequency. Given E. coli will treat with ceftriaxone. Finished antibiotic for UTI.
Also suspect secondary to acute urinary retention. Required multiple times straight cath. now with Rudd catheter. . Discussed with nephrology. Monitor. Renal ultrasound without acute abnormality
Continue to hold nephrotoxic agents
Constipation
Laxatives
Dulcolax suppository
Elevated LFTs
Monitor especially now on Amio
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
#GERD
# Chronic ambulatory dysfunction -uses a walker. Consulted PT/OT. rec SNF
# DM 2 with diabetic polyneuropathy
Hold metformin
c/w NovoLog scale.
#History of gout
# Restless leg syndrome -
ropinirole.
# Essential hypertension
Amlodipine on hold
#Hyperlipidemia -rosuvastatin.
# Obstructive sleep apnea/COPD/ emphysema
No history of wheezes or productive cough. cw cpap
#Obesity due to excess calories
#Full code, confirmed with patient.
I spent a total of 52 minutes with the patient or on the floor. More than 50% of this time involved counseling and coordination of care.
Anticipated Discharge: > 48 hours
Subjective/Interval History
-
Date of Service: August 30, 2025
Denies pain
Objective Data
-
Labs:
Laboratory Results
08/30/25
05:23
WBC 10.6
Hgb 9.2 L
Hct 30.6 L
Plt Count 208
Sodium 138
Potassium 3.9
Chloride 100
Carbon Dioxide 32 H
BUN 34 H
Creatinine 1.7 H
Glucose 114 H
Calcium 9.6
Total Bilirubin 0.4
AST 46 H
ALT 39 H
Alkaline Phosphatase 330 H
Vital Signs:
Vital Signs
Temp Pulse Resp BP Pulse Ox
97.7 F 70 14 164/73 94
08/30/25 11:36 08/30/25 11:36 08/30/25 11:36 08/30/25 11:36 08/30/25 11:36
I&O
08/29/25 08/30/25 08/31/25
06:59 06:59 06:59
Intake Total 1200 / 1200 480 / 480
Output Total 1500 / 1500 3400 / 3400
Balance -300 / -300 -2920 / -2920
[2025-08-30 13:04] LABS: Glucose - Point of Care 153 mg/dl (70-99)
--- NOTE | 2025-08-30 13:24 | W.PN.NEPH.PH ---
Today's Communication / Plan
-
Maintain IV diuresis
Follow BMP daily
Creatinine improving to 1.7 and grossly nonoliguric
Assessment/Plan
-
IMP:
GABRIELA
Acute respiratory distress suspect acute on chronic heart failure with a preserved ejection fraction/valvular heart disease
Acute hypoxic respiratory insufficiency
Echocardiogram 08/25 with EF 55%, moderate
New onset atrial fibrillation with RVR-Spontaneously converted to normal sinus rhythm
Chronic left lower extremity swelling, possible lymphedema.
History of chronic blood loss anemia - chronic GI bleeding.
Anemia of chronic disease, monitor
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
GERD
Chronic ambulatory dysfunction
DM 2 with diabetic polyneuropathy
History of gout
Restless leg syndrome -
Essential hypertension
Hyperlipidemia
Obstructive sleep apnea/COPD/ emphysema
Obesity due to excess calories
Plan:
A/w CHF and had new Afib
GABRIELA-suspect from cardiorenal vs diuresis, U na low , baseline 1-1.2, today down to 1.7 and grossly non oliguric ~3400cc pulmonary capillary wedge pressure 40, cardiac output 3.2 L and cardiac index 1.8
maintain Lasix 40 mg IV twice daily
Maintain Berry catheter
UA UTI sample, E coli cx, berry placed for retention, renal US non acute
has 2.4gm/gm of cr -proteinuria , will send serologies
she has MGUS likely repeat labs as well
hypervolemic hypoantremia -monitor
would cont prn lasix
may need RHC if cr cont to rise
bp better with holding ACEI and CCB
she has known h/o liver disease and echo normal EF, mod
avoid nephrotoxins, metformin held too
dose meds renally
anemia-was seen by heme with MGUS out pt
follow labs
-
-
Date of Service: August 30, 2025
CC / HPI / ROS
-
Chief Complaint:
GABRIELA
History of Present Illness:
cr down to 1.7 non oliguric
Hemodynamically stable
Anemia stable
Review of Systems:
no cp , sob better this am
no n/v
Berry catheter in for urinary retention and grossly nonoliguric in excess of 3 L
Labs
-
Labs:
WBC 10.6 10^3/uL (4.8-10.8) 08/30/25 05:23
RBC 3.22 10^6/uL (4.20-5.40) L 08/30/25 05:23
Hgb 9.2 g/dL (12.0-16.0) L 08/30/25 05:23
Hct 30.6 % (37.0-47.0) L 08/30/25 05:23
Plt Count 208 10^3/uL (130-400) 08/30/25 05:23
Sodium 138 mmol/L (135-145) 08/30/25 05:23
Potassium 3.9 mmol/L (3.5-5.1) 08/30/25 05:23
Chloride 100 mmol/L (98-107) 08/30/25 05:23
Carbon Dioxide 32 mmol/L (22-30) H 08/30/25 05:23
BUN 34 mg/dl (7-17) H 08/30/25 05:23
Creatinine 1.7 mg/dL (0.6-1.0) H 08/30/25 05:23
eGFR 29.39 08/30/25 05:23
Glucose 114 mg/dl (70-99) H 08/30/25 05:23
Calcium 9.6 mg/dl (8.4-10.2) 08/30/25 05:23
Ezx-R-Smycrvgrguf Pept 771 pg/ml 08/28/25 05:21
Albumin 3.9 g/dl (3.5-5.0) 08/30/25 05:23
Physical Exam
-
Vital Signs:
Vital Signs
Temp Pulse Resp BP Pulse Ox
97.7 F 70 14 164/73 94
08/30/25 11:36 08/30/25 11:36 08/30/25 11:36 08/30/25 11:36 08/30/25 11:36
Cardiovascular:: Regular rate and rhythm
Respiratory:: Bilateral: Coarse
Lung Excursion:: Normal
Abdomen:: Nontender and Soft
Extremity Edema:: None: Bilateral:
Berry Catheter: Yes
[2025-08-30] MEDS: STERILE WATER FOR INJECTION 10 ML IV (14:31)
[2025-08-30] MEDS: ROCEPHIN 1000 MG IV (14:32)
[2025-08-30] MEDS: NOVOLOG FLEXPEN-MODERATE RESISTANCE 1 UNITS SC (14:32)
[2025-08-30 16:11] VITALS: BP 154/67
[2025-08-30 16:32] LABS: Glucose - Point of Care 84 mg/dl (70-99)
[2025-08-30] MEDS: CRESTOR 5 MG PO (17:52)
[2025-08-30 19:40] VITALS: BP 152/63
[2025-08-30] MEDS: PAMELOR 75 MG PO (21:39)
[2025-08-30] MEDS: REQUIP 0.25 MG PO (21:39)
[2025-08-30 21:54] LABS: Glucose - Point of Care 135 mg/dl (70-99)
[2025-08-30 23:10] VITALS: BP 140/61
[2025-08-31 03:40] VITALS: BP 110/46
[2025-08-31] MEDS: HEPARIN 5000 UNITS SC ×3 (05:36→22:04)
[2025-08-31 06:00] VITALS: BMI 30.3
[2025-08-31] MEDS: DITROPAN 5 MG PO ×2 (07:53→22:08)
[2025-08-31] MEDS: NEURONTIN 300 MG PO ×3 (07:53→22:08)
[2025-08-31] MEDS: VIBRAMYCIN 100 MG PO ×2 (07:53→22:08)
[2025-08-31] MEDS: COLACE 100 MG PO ×2 (07:53→22:09)
[2025-08-31] MEDS: MIRALAX 17 GRAMS PO (07:54)
[2025-08-31] MEDS: LOW STRENGTH ASPIRIN 81 MG PO (07:54)
[2025-08-31] MEDS: LASIX 40 MG IV ×2 (07:54→16:09)
[2025-08-31] MEDS: VITAMIN B-12 1000 MCG PO (07:54)
[2025-08-31] MEDS: PROTONIX 40 MG PO (07:54)
[2025-08-31] MEDS: METAMUCIL, KONSYL 1 PACKET PO (08:02)
[2025-08-31] MEDS: PACERONE 200 MG PO ×2 (08:04→22:07)
[2025-08-31 08:16] LABS: Glucose - Point of Care 125 mg/dl (70-99)
[2025-08-31] MEDS: NOVOLOG FLEXPEN-MODERATE RESISTANCE SC (08:25)
[2025-08-31 08:26] LABS: Hematocrit 34.9 % (37.0-47.0); Hemoglobin 10.3 g/dL (12.0-16.0); Mean Corp Hgb Conc. 29.5 g/dL (33.0-37.0); Mean Corpuscular Volume 98.0 fL (81.0-99.0); Nucleated Red Blood Cells % 0 %; Platelet Count 199 10^3/uL (130-400); Red Cell Dist. Width 19.8 % (11.5-14.5)
[2025-08-31 08:37] VITALS: BP 146/82
--- NOTE | 2025-08-31 08:39 | W.PN.CARDCBS ---
Today's Communication / Plan
-
IV diuresis
Oral anticoagulation
Will follow with you
Impression / Plan
-
PCP: Mana ramon
Non Emergency Services Ambulance Driver: Dr. Faina cMkeon
Impression:
Presented with worsening shortness of breath, edema, abdominal distention and weight gain 08/24/2025
Acute HFpEF
Newly diagnosed paroxysmal atrial fibrillation with RVR
Spontaneously converted to SR 08/24/2025, then recurred with A-fib 08/25/2025 and spontaneously converted to SR again 08/25/2025
Amiodarone loading starting 08/25/2025
Acute on chronic anemia
Chronic anemia
GI bleed with angioectasias with cauterization 12/2024
Nonobstructive coronary artery disease
Aortic stenosis
Mitral regurgitation
Hypertension
Hyperlipidemia
Type 2 diabetes
Obstructive sleep apnea
PVD
Neuropathy
Cirrhosis with portal hypertension
Chronic inflammatory demyelinating polyneuropathy
Gout
IgG lambda MGUS/Smoldering Myeloma
Mild emphysema with pulmonary nodule
Balance disorder
Echo 12/11/24: Normal left ventricular size, wall thickness and LVEF 55-60%. Normal right ventricle.�Mild- moderate mitral regurgitation.�Calcified aortic valve. Peak/mean gradients across the aortic valve are 39/24mmHg. The LAURA� is calculated at
1.1cm2. Mild aortic regurgitation. Moderate aortic stenosis. Trace tricuspid regurgitation. Estimated pulmonary artery pressure of 25-30 mmHg. �Compared to the previous echo 12/11/23, there is no significant change.
Echo 08/25/2025: EF 55%. Mild concentric LVH. Moderate aortic stenosis with peak/mean gradient 29.6/17, LAURA 1.39 cm2. Moderate MR. PAP 27 mmHg,no change compared to prior study
Lexiscan nuclear stress test 04/28/2022: Negative for ischemia. There were fixed defects consistent with soft tissue attenuation. Ejection fraction was 61%.
Cardiac catheterization 2016: 40% RCA stenosis
Plan:
-Presented 08/24/2025 with worsening shortness of breath, edema, abdominal distention and weight gain.
-Right heart catheterization results noted. Please continue IV diuresis
-EF preserved to 55% with moderate AAS by echo 08/28/2025
-Patient was not taking a loop diuretic prior to admission
-There was an attempt to add Coreg earlier this admission, the patient then had sinus bradycardia following paroxysms of A-fib and amiodarone loading so Coreg was stopped to allow for amiodarone therapy and suppression of rapid A-fib
-Patient is not a candidate for DEB/ARB/ARNI/aldosterone antagonist due to GABRIELA
- Continue amiodarone for paroxysmal A-fib
-QTc 466 ms on ECG from 08/27/2025 that was reviewed, continue amiodarone 200 mg BID, of note dose was lowered earlier this admission due to sinus bradycardia
-Patient has not been started on OAC due to history of significant GI bleed 12/2024 at which point she was found to have gastric and duodenal angiectasias that were treated with APC. Could consider outpatient evaluation for Watchman procedure, the
patient would need to be able to tolerate at least a few months of OAC. In the short-term we will make no changes to her current regimen. She appears to be nearing changed to p.o. diuretic on September 01 or
HPI 08/25/2025:
Patient is an 85-year-old female with complex past medical history including nonobstructive coronary artery disease, moderate aortic stenosis, chronic anemia with recent GI bleed with gastric and duodenal angioectasias with cauterization 12/26/2024,
hypertension, hyperlipidemia, type 2 diabetes, obstructive sleep apnea, PVD, neuropathy, cirrhosis with portal hypertension, MGUS, CIPD and balance disorder who presented to emergency department 08/24/2025 with worsening shortness of breath, lower
extremity edema, abdominal distention and weight gain. EKG demonstrated sinus rhythm. Chest x-ray demonstrated increased pulmonary vascularity concerning for mild heart failure. proBNP 3520. Troponin negative. Patient received 40 mg IV Lasix in
emergency department. Patient later developed atrial fibrillation with rapid ventricular response. Cardiology being consulted for new A-fib and heart failure
Progress Note - Non Emergency Services Ambulance Driver
Subjective
Date of Service: August 31, 2025
Improved breathing
Objective
Labs:
08/31/25 07:49
Labs
Hgb 10.3 g/dL (12.0-16.0) L 08/31/25 07:49
Hct 34.9 % (37.0-47.0) L 08/31/25 07:49
Plt Count 199 10^3/uL (130-400) 08/31/25 07:49
Sodium 138 mmol/L (135-145) 08/30/25 05:23
Potassium 3.9 mmol/L (3.5-5.1) 08/30/25 05:23
BUN 34 mg/dl (7-17) H 08/30/25 05:23
Creatinine 1.7 mg/dL (0.6-1.0) H 08/30/25 05:23
Glucose 114 mg/dl (70-99) H 08/30/25 05:23
Vital Signs and I&O:
Vital Signs
Temp Pulse Resp BP Pulse Ox
97.7 F 67 18 146/82 96
08/31/25 08:37 08/31/25 08:37 08/31/25 08:37 08/31/25 08:37 08/31/25 08:37
Vital Signs
Temp Pulse Resp BP Pulse Ox
97.7 F 67 18 146/82 96
08/31/25 08:37 08/31/25 08:37 08/31/25 08:37 08/31/25 08:37 08/31/25 08:37
Intake & Output
08/29/25 08/30/25 08/31/25 09/01/25
06:59 06:59 06:59 06:59
Intake Total 1200 / 1200 480 / 480 1440 / 1440
Output Total 1500 / 1500 3400 / 3400 2450 / 2450
Balance -300 / -300 -2920 / -2920 -1010 / -1010
Physical Exam
Physical Exam
����Physical Exam
���������������������General:��no apparent distress, not acutely ill
���������������������������Neck:��supple. no meningeal signs. normal psoterior pharynx
������������������������
���������������������������Heart:��s1/s2 regular rate and rhythm, no murmur. equal radial pulses.
��������������������������Lungs: ��no acute respiratory distress. clear bilaterally
����������������������Abdomen:�normal bowel sounds. not tender. no CVAT
��������������������������Neuro:��alert and oriented. no focal neurological deficits
������������������������������Skin: ��no rash
�����������������������Psychiatric:�well kept. interactive and cooperative
�����������������������Extremities:��no edema. no calf tenderness. negative homans. good distal pulses
��
�
[2025-08-31 08:44] LABS: ALT (SGPT) 36 U/L (0-35); AST (SGOT) 40 U/L (14-36); Albumin 4.0 g/dl (3.5-5.0); Alkaline Phosphatase 314 U/L (38-126); Blood Urea Nitrogen 34 mg/dl (7-17); Calcium 9.8 mg/dl (8.4-10.2); Chloride 97 mmol/L (98-107); Estimated Creatinine Clearance 24 ml/min; Glucose 112 mg/dl (70-99); Potassium 4.0 mmol/L (3.5-5.1); Sodium 139 mmol/L (135-145); Total Protein 7.1 g/dl (6.3-8.2); eGFR 29.39
[2025-08-31 08:52] LABS: Carbon Dioxide 34 mmol/L (22-30)
--- NOTE | 2025-08-31 11:13 | W.PN.NEPH.PH ---
Today's Communication / Plan
-
follow bmp
maintain lasix
Assessment/Plan
-
IMP:
GABRIELA
Acute respiratory distress suspect acute on chronic heart failure with a preserved ejection fraction/valvular heart disease
Acute hypoxic respiratory insufficiency
Echocardiogram 08/25 with EF 55%, moderate
New onset atrial fibrillation with RVR-Spontaneously converted to normal sinus rhythm
Chronic left lower extremity swelling, possible lymphedema.
History of chronic blood loss anemia - chronic GI bleeding.
Anemia of chronic disease, monitor
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
GERD
Chronic ambulatory dysfunction
DM 2 with diabetic polyneuropathy
History of gout
Restless leg syndrome -
Essential hypertension
Hyperlipidemia
Obstructive sleep apnea/COPD/ emphysema
Obesity due to excess calories
Plan:
A/w CHF and had new Afib
GABRIELA-suspect from cardiorenal vs diuresis, U na low , baseline 1-1.2, today stable at 1.7 and grossly non oliguric ~2400cc pulmonary capillary wedge pressure 40, cardiac output 3.2 L and cardiac index 1.8
maintain Lasix 40 mg IV twice daily
Maintain Berry catheter
UA UTI sample, E coli cx, berry placed for retention, renal US non acute
has 2.4gm/gm of cr -proteinuria , will send serologies
she has MGUS likely repeat labs as well
would cont prn lasix
may need RHC if cr cont to rise
bp better with holding ACEI and CCB
she has known h/o liver disease and echo normal EF, mod
avoid nephrotoxins, metformin held too
dose meds renally
anemia-was seen by heme with MGUS out pt
follow labs
-
-
Date of Service: August 31, 2025
CC / HPI / ROS
-
Chief Complaint:
GABRIELA
History of Present Illness:
cr down to 1.7 non oliguric
Hemodynamically stable
Anemia stable
Review of Systems:
no cp , sob better this am
Some nausea this morning
Berry catheter in for urinary retention and grossly nonoliguric in excess of 3 L
Weights down
Labs
-
Labs:
WBC 9.0 10^3/uL (4.8-10.8) 08/31/25 07:49
RBC 3.56 10^6/uL (4.20-5.40) L 08/31/25 07:49
Hgb 10.3 g/dL (12.0-16.0) L 08/31/25 07:49
Hct 34.9 % (37.0-47.0) L 08/31/25 07:49
Plt Count 199 10^3/uL (130-400) 08/31/25 07:49
Sodium 139 mmol/L (135-145) 08/31/25 07:49
Potassium 4.0 mmol/L (3.5-5.1) 08/31/25 07:49
Chloride 97 mmol/L (98-107) L 08/31/25 07:49
Carbon Dioxide 34 mmol/L (22-30) H 08/31/25 07:49
BUN 34 mg/dl (7-17) H 08/31/25 07:49
Creatinine 1.7 mg/dL (0.6-1.0) H 08/31/25 07:49
eGFR 29.39 08/31/25 07:49
Glucose 112 mg/dl (70-99) H 08/31/25 07:49
Calcium 9.8 mg/dl (8.4-10.2) 08/31/25 07:49
Mft-V-Adpylqgtcxw Pept 771 pg/ml 08/28/25 05:21
Albumin 4.0 g/dl (3.5-5.0) 08/31/25 07:49
Physical Exam
-
Vital Signs:
Vital Signs
Temp Pulse Resp BP Pulse Ox
97.7 F 67 18 146/82 96
08/31/25 08:37 08/31/25 08:37 08/31/25 08:37 08/31/25 08:37 08/31/25 08:37
Cardiovascular:: Regular rate and rhythm
Respiratory:: Bilateral: Coarse
Lung Excursion:: Normal
Abdomen:: Nontender and Soft
Extremity Edema:: None: Bilateral:
Berry Catheter: Yes
--- NOTE | 2025-08-31 12:19 | W.PN.HOSP.TC ---
Today's Communication/Plan
-
Monitor vital signs and see plan
Continue with IV diuresis
Monitor renal function
Monitor LFTs
Continue antibiotic
Maintain Rudd per nephrology
Assessment / Plan
Assessment / Plan
General: Comfortable, Appears Chronically Ill and Obese
HEENT: Moist mucous membranes and Atraumatic
Respiratory: Rales; No Wheezes
Cardiac: S1/S2, systolic Murmur
GI: Soft, Non Tender
Musculoskeletal: Edema LE
Neuro: AO x 3 and Nonfocal/grossly intact
Psych: Calm and Intact Judgment/Insight
Acute respiratory distress suspect acute on chronic heart failure with a preserved ejection fraction/valvular heart disease
Acute hypoxic respiratory insufficiency likely secondary to above, wean oxygen as tolerated
Chest x-ray 08/27 with possibility of pneumonia. definitely a component of CHF as well. Given her worsening hypoxia, will treat with ceftriaxone and doxycycline. Continue antibiotics through 09/01/25
s/p right heart cath 08/29 with fluid overload. cw IV diuresis
Cardiology following
Echocardiogram 08/25 with EF 55%, moderate
Does have periods of bradycardia, amiodarone decreased. Coreg discontinued
Primary pharmacy innovation assistant Dr. Faina Mckeon.
New onset atrial fibrillation with RVR
Spontaneously converted to normal sinus rhythm with periods of bradycardia
Now on amiodarone 200 mg twice daily. Coreg stopped
Anticoagulation per cardiology, discussed with cardiology. Not a good candidate for AC and patient also refusing
# Chronic left lower extremity swelling, possible lymphedema.
Patient and caregiver increasing swelling. No signs of infection with absence of tenderness/erythema. Lower extremity ultrasound negative for DVT
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
Anemia of chronic disease, monitor
Per patient, no source found. 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
Patient has had IV infusion of iron, finished, not on oral iron supplement.
patient has been seeing hematology outpatient for MM work up
GABRIELA
Suspect history of CKD, monitor renal function
Creatinine peaked 2.5, nephrology following. Now creatinine 1.7
UA suggestive of infection,had dysuria and increased frequency. Given E. coli will treat with ceftriaxone. Finished antibiotic for UTI.
Also suspect secondary to acute urinary retention. Required multiple times straight cath. now with Rudd catheter. . Discussed with nephrology. Monitor. Renal ultrasound without acute abnormality. Voiding trial when okay with nephrology
Continue to hold nephrotoxic agents
Constipation
Laxatives
Dulcolax suppository
Elevated LFTs
Monitor especially now on Amio
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
#GERD
# Chronic ambulatory dysfunction -uses a walker. Consulted PT/OT. rec SNF
# DM 2 with diabetic polyneuropathy
Hold metformin
c/w NovoLog scale.
#History of gout
# Restless leg syndrome -
ropinirole.
# Essential hypertension
Amlodipine on hold
#Hyperlipidemia -rosuvastatin.
# Obstructive sleep apnea/COPD/ emphysema
No history of wheezes or productive cough. cw cpap
#Obesity due to excess calories
#Full code, confirmed with patient.
I spent a total of 53 minutes with the patient or on the floor. More than 50% of this time involved counseling and coordination of care.
Anticipated Discharge: 24 - 48 hours
Subjective/Interval History
-
Date of Service: August 31, 2025
denies pain
Objective Data
-
Labs:
Laboratory Results
08/31/25
07:49
WBC 9.0
Hgb 10.3 L
Hct 34.9 L
Plt Count 199
Sodium 139
Potassium 4.0
Chloride 97 L
Carbon Dioxide 34 H
BUN 34 H
Creatinine 1.7 H
Glucose 112 H
Calcium 9.8
Total Bilirubin 0.3
AST 40 H
ALT 36 H
Alkaline Phosphatase 314 H
Vital Signs:
Vital Signs
Temp Pulse Resp BP Pulse Ox
97.7 F 67 18 146/82 96
08/31/25 08:37 08/31/25 08:37 08/31/25 08:37 08/31/25 08:37 08/31/25 08:37
I&O
08/30/25 08/31/25 09/01/25
06:59 06:59 06:59
Intake Total 480 / 480 1440 / 1440
Output Total 3400 / 3400 2450 / 2450
Balance -2920 / -2920 -1010 / -1010
[2025-08-31 12:29] VITALS: BP 135/57
[2025-08-31 12:43] LABS: Glucose - Point of Care 332 mg/dl (70-99)
[2025-08-31] MEDS: NOVOLOG FLEXPEN-MODERATE RESISTANCE 7 UNITS SC (13:25)
[2025-08-31 15:19] VITALS: BP 131/72
[2025-08-31] MEDS: STERILE WATER FOR INJECTION 10 ML IV (16:08)
[2025-08-31] MEDS: ROCEPHIN 1000 MG IV (16:09)
[2025-08-31 17:56] LABS: Glucose - Point of Care 166 mg/dl (70-99)
[2025-08-31] MEDS: CRESTOR 5 MG PO (18:30)
[2025-08-31] MEDS: NOVOLOG FLEXPEN-MODERATE RESISTANCE 1 UNITS SC (18:30)
[2025-08-31 19:00] VITALS: BP 131/56
[2025-08-31 22:02] LABS: Glucose - Point of Care 188 mg/dl (70-99)
[2025-08-31] MEDS: REQUIP 0.25 MG PO (22:08)
[2025-08-31] MEDS: PAMELOR 75 MG PO (22:09)
[2025-08-31 23:00] VITALS: BP 144/57
[2025-08-31] MEDS: ZOFRAN 4 MG IV (23:20)
[2025-09-01 01:43] LABS: Serine Protease-3, IgG 1 AU/mL (0-19)
[2025-09-01 03:00] VITALS: BP 108/45
[2025-09-01 05:34] VITALS: BMI 30.3
[2025-09-01 05:39] LABS: Hematocrit 31.6 % (37.0-47.0); Hemoglobin 9.7 g/dL (12.0-16.0); Mean Corp Hgb Conc. 30.7 g/dL (33.0-37.0); Mean Corpuscular Volume 94.0 fL (81.0-99.0); Nucleated Red Blood Cells % 0.2 %; Platelet Count 212 10^3/uL (130-400); Red Cell Dist. Width 19.8 % (11.5-14.5)
[2025-09-01 05:55] LABS: ALT (SGPT) 30 U/L (0-35); AST (SGOT) 36 U/L (14-36); Albumin 3.7 g/dl (3.5-5.0); Alkaline Phosphatase 277 U/L (38-126); Blood Urea Nitrogen 40 mg/dl (7-17); Calcium 9.4 mg/dl (8.4-10.2); Carbon Dioxide 32 mmol/L (22-30); Chloride 96 mmol/L (98-107); Estimated Creatinine Clearance 22 ml/min; Glucose 116 mg/dl (70-99); Potassium 3.9 mmol/L (3.5-5.1); Sodium 132 mmol/L (135-145); Total Protein 6.9 g/dl (6.3-8.2); eGFR 25.72
[2025-09-01] MEDS: HEPARIN 5000 UNITS SC ×2 (06:35→13:02)
[2025-09-01 07:00] VITALS: BP 133/68
[2025-09-01 08:24] LABS: Glucose - Point of Care 103 mg/dl (70-99)
[2025-09-01] MEDS: NOVOLOG FLEXPEN-MODERATE RESISTANCE SC (08:27)
[2025-09-01] MEDS: NEURONTIN 300 MG PO ×3 (08:48→21:54)
[2025-09-01] MEDS: PROTONIX 40 MG PO (08:48)
[2025-09-01] MEDS: LOW STRENGTH ASPIRIN 81 MG PO (08:48)
[2025-09-01] MEDS: COLACE 100 MG PO ×2 (08:48→21:55)
[2025-09-01] MEDS: VITAMIN B-12 1000 MCG PO (08:48)
[2025-09-01] MEDS: DITROPAN 5 MG PO ×2 (08:49→21:59)
[2025-09-01] MEDS: PACERONE 200 MG PO ×2 (08:49→22:05)
[2025-09-01] MEDS: METAMUCIL, KONSYL 1 PACKET PO (08:49)
[2025-09-01] MEDS: MIRALAX 17 GRAMS PO (08:49)
[2025-09-01] MEDS: LASIX 40 MG IV (08:50)
--- NOTE | 2025-09-01 09:20 | W.PN.HOSP.TC ---
Today's Communication/Plan
-
Voiding trial today
Assessment / Plan
Assessment / Plan
Physical exam:
General: Comfortable, Appears Chronically Ill and Obese
HEENT: Moist mucous membranes and Atraumatic
Respiratory: no Rales; No Wheezes
Cardiac: S1/S2, systolic Murmur
GI: Soft, Non Tender
Musculoskeletal: No Edema LE
Neuro: AO x 3 and Nonfocal/grossly intact
Psych: Calm and Intact Judgment/Insight
A/p:
Acute respiratory distress suspect acute on chronic heart failure with a preserved ejection fraction/valvular heart disease
Acute hypoxic respiratory insufficiency likely secondary to above, wean oxygen as tolerated
Chest x-ray 08/27 with possibility of bibasilar pneumonia. definitely a component of CHF. Was given ABx for hypoxia, no cough, stop doxy. s/p right heart cath 08/29 with fluid overload. cw IV diuresis
Cardiology following
Echocardiogram 08/25 with EF 55%, moderate
Does have periods of bradycardia, amiodarone decreased. Coreg discontinued
Primary setter juice packaging machines Dr. Faina Mckeon.
New onset atrial fibrillation with RVR
Spontaneously converted to normal sinus rhythm with periods of bradycardia
Now on amiodarone 200 mg twice daily. Coreg stopped
Anticoagulation per cardiology, discussed with cardiology. Not a good candidate for AC and patient also refusing
# Chronic left lower extremity swelling, possible lymphedema.
Patient and caregiver increasing swelling. No signs of infection with absence of tenderness/erythema. Lower extremity ultrasound negative for DVT
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
Anemia of chronic disease, monitor
Per patient, no source found. 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
Patient has had IV infusion of iron, finished, not on oral iron supplement.
patient has been seeing hematology outpatient for MM work up
GABRIELA
Suspect history of CKD, monitor renal function
Creatinine peaked 2.5, nephrology following. Now creatinine 1.7
UA suggestive of infection,had dysuria and increased frequency. Given E. coli will treat with ceftriaxone. Finished antibiotic for UTI.
Also suspect secondary to acute urinary retention. Required multiple times straight cath. now with Rudd catheter. . Discussed with nephrology. Monitor. Renal ultrasound without acute abnormality. Voiding trial when okay with nephrology
Continue to hold nephrotoxic agents
hyponatremia
Constipation
Laxatives
Dulcolax suppository
Elevated LFTs
Monitor especially now on Amio
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
#GERD
# Chronic ambulatory dysfunction -uses a walker. Consulted PT/OT. rec SNF
# DM 2 with diabetic polyneuropathy
Hold metformin
c/w NovoLog scale.
#History of gout
# Restless leg syndrome -
ropinirole.
# Essential hypertension
Amlodipine on hold
#Hyperlipidemia -rosuvastatin.
# Obstructive sleep apnea/COPD/ emphysema
No history of wheezes or productive cough. cw cpap
#Obesity due to excess calories
#Full code, confirmed with patient.
Total time spent to see the patient, examine the patient, review data and lab results, discuss treatment plan with patient, nursing staff around 55 minutes�
Anticipated Discharge: 24 - 48 hours
Subjective/Interval History
-
Date of Service: September 01, 2025
No sob
No chest pain
No fevers
Objective Data
-
Labs:
Laboratory Results
09/01/25
05:19
WBC 10.4
Hgb 9.7 L
Hct 31.6 L
Plt Count 212
Sodium 132 L
Potassium 3.9
Chloride 96 L
Carbon Dioxide 32 H
BUN 40 H
Creatinine 1.9 H
Glucose 116 H
Calcium 9.4
Total Bilirubin 0.3
AST 36
ALT 30
Alkaline Phosphatase 277 H
Vital Signs:
Vital Signs
Temp Pulse Resp BP Pulse Ox
98.4 F 65 19 133/68 93
09/01/25 07:00 09/01/25 08:49 09/01/25 07:00 09/01/25 08:50 09/01/25 09:08
I&O
08/31/25 09/01/25 09/02/25
06:59 06:59 06:59
Intake Total 1440 / 1440 1780 / 1780
Output Total 2450 / 2450 1650 / 1650
Balance -1010 / -1010 130 / 130
[2025-09-01 09:36] VITALS: BP 132/57; PULSE 65; O2SAT 96; O2SAT 97
[2025-09-01 11:00] VITALS: BP 129/63
[2025-09-01 12:15] LABS: Glucose - Point of Care 272 mg/dl (70-99)
--- NOTE | 2025-09-01 12:40 | W.PN.NEPH.PH ---
Today's Communication / Plan
-
increase lasix
Assessment/Plan
-
IMP:
GABRIELA
Acute respiratory distress suspect acute on chronic heart failure with a preserved ejection fraction/valvular heart disease
Acute hypoxic respiratory insufficiency
Echocardiogram 08/25 with EF 55%, moderate
New onset atrial fibrillation with RVR-Spontaneously converted to normal sinus rhythm
Chronic left lower extremity swelling, possible lymphedema.
History of chronic blood loss anemia - chronic GI bleeding.
Anemia of chronic disease, monitor
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
GERD
Chronic ambulatory dysfunction
DM 2 with diabetic polyneuropathy
History of gout
Restless leg syndrome -
Essential hypertension
Hyperlipidemia
Obstructive sleep apnea/COPD/ emphysema
Obesity due to excess calories
Plan:
try 80mg IV lasix this afternoon
follow BMP
Pt initiated conversation about HD while dtr was on phone. Dtr was unhappy that dialysis was being discussed. after phone call I reassured patient that she could bring up dialysis whenever she wanted to talk about it.
She would accept HD if it was necessary ( was on HD before he passed)
Maintain Rudd catheter
await PEPs given proteinuria
-
-
Date of Service: September 01, 2025
CC / HPI / ROS
-
Chief Complaint:
GABRIELA
History of Present Illness:
Cr stable 1.9
Hemodynamically stable
Anemia stable
on IV lasix for decompensated HF (wedge 40)
Review of Systems:
no cp, sob better this am
no supplemental O2
Rudd catheter in for urinary retention and grossly nonoliguric in excess of 3 L
Weights down
Labs
-
Labs:
WBC 10.4 10^3/uL (4.8-10.8) 09/01/25 05:19
RBC 3.36 10^6/uL (4.20-5.40) L 09/01/25 05:19
Hgb 9.7 g/dL (12.0-16.0) L 09/01/25 05:19
Hct 31.6 % (37.0-47.0) L 09/01/25 05:19
Plt Count 212 10^3/uL (130-400) 09/01/25 05:19
Sodium 132 mmol/L (135-145) L 09/01/25 05:19
Potassium 3.9 mmol/L (3.5-5.1) 09/01/25 05:19
Chloride 96 mmol/L (98-107) L 09/01/25 05:19
Carbon Dioxide 32 mmol/L (22-30) H 09/01/25 05:19
BUN 40 mg/dl (7-17) H 09/01/25 05:19
Creatinine 1.9 mg/dL (0.6-1.0) H 09/01/25 05:19
eGFR 25.72 09/01/25 05:19
Glucose 116 mg/dl (70-99) H 09/01/25 05:19
Calcium 9.4 mg/dl (8.4-10.2) 09/01/25 05:19
Ddc-K-Bdsechqtivw Pept 771 pg/ml 08/28/25 05:21
Albumin 3.7 g/dl (3.5-5.0) 09/01/25 05:19
Physical Exam
-
Vital Signs:
Vital Signs
Temp Pulse Resp BP Pulse Ox
98.0 F 66 19 129/63 95
09/01/25 11:00 09/01/25 11:00 09/01/25 11:00 09/01/25 11:00 09/01/25 11:00
Cardiovascular:: Regular rate and rhythm
Respiratory:: Bilateral: Coarse
Lung Excursion:: Normal
Abdomen:: Nontender and Soft
Bowel Sounds:: Normal
Extremity Edema:: +1: Bilateral:
[2025-09-01] MEDS: NOVOLOG FLEXPEN-MODERATE RESISTANCE 5 UNITS SC (13:01)
[2025-09-01] MEDS: STERILE WATER FOR INJECTION 10 ML IV (13:02)
[2025-09-01] MEDS: ROCEPHIN 1000 MG IV (13:02)
[2025-09-01 15:00] VITALS: BP 113/51
[2025-09-01] MEDS: LASIX 80 MG IV (15:40)
--- NOTE | 2025-09-01 15:50 | W.PN.CARDCBS ---
Addendum entered and electronically signed by Virgil Soto MD 09/01/25 18:47:
85-year-old woman admitted with acute HFpEF, along with newly diagnosed atrial fibrillation, PAF that recurred and started on amiodarone
PMH: GI bleed with angioectasias, anemia, nonobstructive CAD, aortic stenosis with aortic valve area 1.1 cm 2, peak/mean gradient 39/24 mmHg, mild-moderate mitral regurgitation, hypertension, hyperlipidemia, diabetes, sleep apnea, PAD, neuropathy,
cirrhosis, CIDP, gout, MGUS, COPD, refuses anticoagulation
Medications: albuterol, subcu heparin, rosuvastatin 5 at bedtime, lisinopril 20 mg a day on hold, ropinirole, 0.25 mg nightly, nortriptyline, allopurinol 450 mg daily on hold, MiraLAX, aspirin 81 mg a day, Ditropan, Protonix, amlodipine 10 mg a day,
amiodarone 200 mg twice daily, ceftriaxone, Neurontin, furosemide 40 IV twice daily, with 80 mg x 1
Rest of history as below per Mandi Colin, reviewed in detail and agree unless otherwise specified.
Physically she feels well, is concerned about her creatinine of 1.9, daughter and son-in-law at bedside
129/63, pulse 66, respiratory rate 19, afebrile, weight is 77.6 kg, was 81.3 kg on admit, peak 83.5 kg, lungs are relatively clear, aortic stenosis murmur, soft MR murmur, JVD okay, abdomen obese, extremities without edema,
Sodium 132, potassium 3.9, CO2 32, BUN and creatinine are 40 and 1.9, creatinine was 1.1 on August 24
Impression: Acute on chronic HFpEF
We diagnosed paroxysmal A-fib, now on amiodarone long history of GI bleeding with angioectasias, anticoagulated at present
Aortic stenosis
Mild to moderate mitral regurgitation
Hyperlipidemia
Diabetes
Obstructive sleep apnea
Cirrhosis with portal hypertension
CIDP
MGUS
Other diagnoses per Mandi Colin
Plan:
From the standpoint of heart failure, she seems relatively compensated, but still probably somewhat volume overloaded
Nephrology following, defer to Dr. Clark regarding diuretic dosing. Current creatinine 1.9.
Optimization of GDMT for HFpEF will be difficult given GABRIELA. Ideally patient could be considered for SGLT2 antagonist
Regarding A-fib, she is in sinus rhythm on amiodarone. Given her anemia, with hemoglobin of 9.7, and history of GI bleeding best to continue amiodarone and avoid anticoagulation. Continue amiodarone
At present, no changes required for aortic stenosis.
We will continue to follow.
Original Note:
Today's Communication / Plan
-
Nephrology following, the possibility of initiating HD was raised with patient and daughter today
Extra dose of Lasix 80 mg IV x 1 ordered by nephrology for this afternoon
Weight is down is much as 7 lbs following RHC at the end of last week
Impression / Plan
-
PCP: Mana ramon
Setup Technician: Dr. Faina Mckeon
Impression:
Presented with worsening shortness of breath, edema, abdominal distention and weight gain 08/24/2025
Acute HFpEF
Newly diagnosed paroxysmal atrial fibrillation with RVR
Spontaneously converted to SR 08/24/2025, then recurred with A-fib 08/25/2025 and spontaneously converted to SR again 08/25/2025
Amiodarone loading starting 08/25/2025
Acute on chronic anemia
GI bleed with angiectasias with cauterization 12/2024
Nonobstructive coronary artery disease
Aortic stenosis
Mitral regurgitation
Hypertension
Hyperlipidemia
Type 2 diabetes
Obstructive sleep apnea
PVD
Neuropathy
Cirrhosis with portal hypertension
Chronic inflammatory demyelinating polyneuropathy
Gout
IgG lambda MGUS/Smoldering Myeloma
Mild emphysema with pulmonary nodule
Balance disorder
Echo 12/11/24: Normal left ventricular size, wall thickness and LVEF 55-60%. Normal right ventricle.�Mild- moderate mitral regurgitation.�Calcified aortic valve. Peak/mean gradients across the aortic valve are 39/24mmHg. The LAURA� is calculated at
1.1cm2. Mild aortic regurgitation. Moderate aortic stenosis. Trace tricuspid regurgitation. Estimated pulmonary artery pressure of 25-30 mmHg. �Compared to the previous echo 12/11/23, there is no significant change.
Echo 08/25/2025: EF 55%. Mild concentric LVH. Moderate aortic stenosis with peak/mean gradient 29.6/17, LAURA 1.39 cm2. Moderate MR. PAP 27 mmHg,no change compared to prior study
Lexiscan nuclear stress test 04/28/2022: Negative for ischemia. There were fixed defects consistent with soft tissue attenuation. Ejection fraction was 61%.
Cardiac catheterization 2016: 40% RCA stenosis
Plan:
-Presented 08/24/2025 with worsening shortness of breath, edema, abdominal distention and weight gain.
-Patient had RHC on 08/29/2025 and PCWP was 40 with a CI of 1.8. Report reviewed by me.
-Nephrology updated with results and they continue to follow, nephrology attending discussed the possibility of initiating hemodialysis with the patient and her daughter by phone 09/01/2025. Cre has increased to 1.9 on my review of labs 09/01/2025.
Weight is down 7 lbs with Lasix 40 mg IV BID. Nephrology has also ordered a one-time dose of Lasix 80 mg IV for 09/01/2025 PM.
-Patient was not taking a loop diuretic prior to admission
-EF preserved to 55% with moderate by echo 08/28/2025
-There was an attempt to add Coreg earlier this admission, the patient then had sinus bradycardia following paroxysms of A-fib and amiodarone loading so Coreg was stopped to allow for amiodarone therapy and suppression of rapid A-fib
-Patient is not a candidate for DEB/ARB/ARNI/aldosterone antagonist due to GABRIELA
-Patient with newly diagnosed paroxysmal A-fib with RVR on admission and then had spontaneous conversion followed by a recurrent episode of A-fib followed by another spontaneous conversion back to SR. Telemetry reviewed by me and patient remains in
SR on 09/01/2025.
-Amiodarone was started this admission for paroxysmal A-fib. QTc 466 ms on ECG from 08/27/2025 recheck ECG 09/02/2025, order placed by me.
-Continue amiodarone 200 mg BID, of note dose was lowered earlier this admission due to sinus bradycardia
-Patient has not been started on OAC due to history of significant GI bleed 12/2024 at which point she was found to have gastric and duodenal angiectasias that were treated with APC. Could consider outpatient evaluation for Watchman procedure, the
patient would need to be able to tolerate at least a few months of OAC. In the short-term we will make no changes to her current regimen.
HPI 08/25/2025:
Patient is an 85-year-old female with complex past medical history including nonobstructive coronary artery disease, moderate aortic stenosis, chronic anemia with recent GI bleed with gastric and duodenal angioectasias with cauterization 12/26/2024,
hypertension, hyperlipidemia, type 2 diabetes, obstructive sleep apnea, PVD, neuropathy, cirrhosis with portal hypertension, MGUS, CIPD and balance disorder who presented to emergency department 08/24/2025 with worsening shortness of breath, lower
extremity edema, abdominal distention and weight gain. EKG demonstrated sinus rhythm. Chest x-ray demonstrated increased pulmonary vascularity concerning for mild heart failure. proBNP 3520. Troponin negative. Patient received 40 mg IV Lasix in
emergency department. Patient later developed atrial fibrillation with rapid ventricular response. Cardiology being consulted for new A-fib and heart failure
Progress Note - Setup Technician
Subjective
Date of Service: September 01, 2025
She feels less SOB
Objective
Labs:
09/01/25 05:19
09/01/25 05:19
Labs
Hgb 9.7 g/dL (12.0-16.0) L 09/01/25 05:19
Hct 31.6 % (37.0-47.0) L 09/01/25 05:19
Plt Count 212 10^3/uL (130-400) 09/01/25 05:19
Sodium 132 mmol/L (135-145) L 09/01/25 05:19
Potassium 3.9 mmol/L (3.5-5.1) 09/01/25 05:19
BUN 40 mg/dl (7-17) H 09/01/25 05:19
Creatinine 1.9 mg/dL (0.6-1.0) H 09/01/25 05:19
Glucose 116 mg/dl (70-99) H 09/01/25 05:19
Vital Signs and I&O:
Vital Signs
Temp Pulse Resp BP Pulse Ox
97.8 F 62 19 122/56 95
09/01/25 15:00 09/01/25 15:00 09/01/25 15:00 09/01/25 15:40 09/01/25 15:00
Vital Signs
Temp Pulse Resp BP Pulse Ox
97.8 F 62 19 122/56 95
09/01/25 15:00 09/01/25 15:00 09/01/25 15:00 09/01/25 15:40 09/01/25 15:00
Intake & Output
08/30/25 08/31/25 09/01/25 09/02/25
06:59 06:59 06:59 06:59
Intake Total 480 / 480 1440 / 1440 1780 / 1780
Output Total 3400 / 3400 2450 / 2450 1650 / 1650
Balance -2920 / -2920 -1010 / -1010 130 / 130
Physical Exam
Physical Exam
GEN: AAOx3
LUNGS: RA. No audible wheeze
CV: SR on telemetry
[2025-09-01 16:47] LABS: Glucose - Point of Care 208 mg/dl (70-99)
[2025-09-01] MEDS: NOVOLOG FLEXPEN-MODERATE RESISTANCE 3 UNITS SC (17:01)
[2025-09-01] MEDS: CRESTOR 5 MG PO (17:01)
--- NOTE | 2025-09-01 17:01 | CM ---
[facility] offering a bed for [facility]; referral updated. D/C in 24-48 hours. Will need insurance authorization.
[2025-09-01] MEDS: REQUIP 0.25 MG PO (21:53)
[2025-09-01] MEDS: PAMELOR 75 MG PO (21:59)
[2025-09-01] MEDS: HIPREX 1 GRAM PO (22:00)
[2025-09-01 22:25] LABS: Glucose - Point of Care 171 mg/dl (70-99)
[2025-09-01 23:00] VITALS: BP 131/66
[2025-09-01] MEDS: HEPARIN SC (23:07)
[2025-09-02] VITALS (7 sets, daily range): BP systolic 88–133; BP diastolic 34–87; BMI 30.3
[2025-09-02 00:46] LABS: Albumin 3.04 g/dL (3.75-5.01); Free Kappa Light Chains,Quant 65.86 mg/L (3.30-19.40); Free Lambda Light Chains,Quant 257.48 mg/L (5.71-26.30); Immunofixation Electrophoresis IFE Done; Kappa/Lambda Fr Light Ratio 0.26 (0.26-1.65); Total Protein-Electrophoresis 6.9 g/dL (6.3-8.2)
[2025-09-02] MEDS: HEPARIN SC ×2 (05:04→22:07)
[2025-09-02 05:40] LABS: Hematocrit 32.2 % (37.0-47.0); Hemoglobin 10.1 g/dL (12.0-16.0); Mean Corp Hgb Conc. 31.4 g/dL (33.0-37.0); Mean Corpuscular Volume 94.2 fL (81.0-99.0); Platelet Count 214 10^3/uL (130-400); Red Cell Dist. Width 19.0 % (11.5-14.5)
[2025-09-02 06:08] LABS: Blood Urea Nitrogen 46 mg/dl (7-17); Calcium 9.4 mg/dl (8.4-10.2); Carbon Dioxide 28 mmol/L (22-30); Chloride 97 mmol/L (98-107); Estimated Creatinine Clearance 22 ml/min; Glucose 110 mg/dl (70-99); Potassium 4.1 mmol/L (3.5-5.1); Sodium 135 mmol/L (135-145); eGFR 25.72
[2025-09-02 07:56] LABS: Glucose - Point of Care 128 mg/dl (70-99)
[2025-09-02] MEDS: NOVOLOG FLEXPEN-MODERATE RESISTANCE SC (08:00)
[2025-09-02] MEDS: COLACE 100 MG PO ×2 (08:36→20:37)
[2025-09-02] MEDS: MIRALAX 17 GRAMS PO (08:37)
[2025-09-02] MEDS: METAMUCIL, KONSYL 1 PACKET PO (08:37)
[2025-09-02] MEDS: VITAMIN B-12 1000 MCG PO (08:37)
[2025-09-02] MEDS: NEURONTIN 300 MG PO ×3 (08:37→22:06)
[2025-09-02] MEDS: HIPREX 1 GRAM PO ×2 (08:37→20:37)
[2025-09-02] MEDS: LOW STRENGTH ASPIRIN 81 MG PO (08:37)
[2025-09-02] MEDS: DITROPAN 5 MG PO ×2 (08:37→20:37)
[2025-09-02] MEDS: ZYLOPRIM 100 MG PO (08:37)
[2025-09-02] MEDS: PROTONIX 40 MG PO (08:37)
[2025-09-02] MEDS: PACERONE 200 MG PO ×2 (08:40→20:37)
[2025-09-02] MEDS: LASIX 40 MG IV (08:40)
--- NOTE | 2025-09-02 09:55 | W.PN.HOSP.TC ---
Today's Communication/Plan
-
dc planning
Assessment / Plan
Assessment / Plan
Physical exam:
General: Comfortable, Appears Chronically Ill and Obese
HEENT: Moist mucous membranes and Atraumatic
Respiratory: no Rales; No Wheezes
Cardiac: S1/S2, systolic Murmur
GI: Soft, Non Tender
Musculoskeletal: No Edema LE
Neuro: AO x 3 and Nonfocal/grossly intact
Psych: Calm and Intact Judgment/Insight
A/p:
Acute respiratory distress suspect acute on chronic heart failure with a preserved ejection fraction/valvular heart disease
Acute hypoxic respiratory insufficiency likely secondary to above, wean oxygen as tolerated
Chest x-ray 08/27 with possibility of bibasilar pneumonia. definitely a component of CHF. Was given ABx for hypoxia, no cough, stop doxy. s/p right heart cath 08/29 with fluid overload. cw IV diuresis
Cardiology following
Echocardiogram 08/25 with EF 55%, moderate
Does have periods of bradycardia, amiodarone decreased. Coreg discontinued
Primary art gilder Dr. Faina Mckeon.
New onset atrial fibrillation with RVR
Spontaneously converted to normal sinus rhythm with periods of bradycardia
Now on amiodarone 200 mg twice daily. Coreg stopped
Anticoagulation per cardiology, discussed with cardiology. Not a good candidate for AC and patient also refusing
# Chronic left lower extremity swelling, came down.
Patient and caregiver increasing swelling. No signs of infection with absence of tenderness/erythema. Lower extremity ultrasound negative for DVT
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
Anemia of chronic disease, monitor
Per patient, no source found. 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
Patient has had IV infusion of iron, finished, not on oral iron supplement.
patient has been seeing hematology outpatient for MM work up
GABRIELA
Suspect history of CKD, monitor renal function
Creatinine peaked 2.5, nephrology following. Now creatinine 1.7
UA suggestive of infection,had dysuria and increased frequency. Given E. coli will treat with ceftriaxone. Finished antibiotic for UTI.
Also suspect secondary to acute urinary retention. Renal ultrasound without acute abnormality. Voiding trial went well, off Rudd now, c/w PT/ OT
Continue to hold nephrotoxic agents
hyponatremia
Constipation
Laxatives
Dulcolax suppository
Elevated LFTs
Monitor especially now on Amio
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
#GERD
# Chronic ambulatory dysfunction -uses a walker. Consulted PT/OT. rec SNF
# DM 2 with diabetic polyneuropathy
Hold metformin
c/w NovoLog scale.
#History of gout
redosed Allopurinol for renal function.
# Restless leg syndrome -
ropinirole.
# Essential hypertension
Amlodipine on hold
#Hyperlipidemia -rosuvastatin.
# Obstructive sleep apnea/COPD/ emphysema
No history of wheezes or productive cough. cw cpap
#Obesity due to excess calories
#Full code, confirmed with patient.
Total time spent to see the patient, examine the patient, review data and lab results, discuss treatment plan with patient, nursing staff around 55 minutes�
Anticipated Discharge: Within 24 hours
Subjective/Interval History
-
Date of Service: September 02, 2025
No chest pain
No sob
No abd pain
Objective Data
-
Labs:
Laboratory Results
09/02/25
05:19
WBC 8.9
Hgb 10.1 L
Hct 32.2 L
Plt Count 214
Sodium 135
Potassium 4.1
Chloride 97 L
Carbon Dioxide 28
BUN 46 H
Creatinine 1.9 H
Glucose 110 H
Calcium 9.4
Vital Signs:
Vital Signs
Temp Pulse Resp BP Pulse Ox
98.2 F 66 16 147/64 93
09/02/25 07:46 09/02/25 08:40 09/02/25 07:46 09/02/25 08:40 09/02/25 09:04
I&O
09/01/25 09/02/25 09/03/25
06:59 06:59 06:59
Intake Total 1780 / 1780 600 / 600
Output Total 1650 / 1650 400 / 400
Balance 130 / 130 200 / 200
--- NOTE | 2025-09-02 10:42 | W.PN.CARDCBS ---
Today's Communication / Plan
-
RHC 08/29/2025 PCWP was 40 with a CI of 1.8.
Cont diuresis as per nephrology.
Wt remains flat despite increase in diuretics by nephrology
Nephrology discussed potential of HD with pt
Cr remains 1.9 on Sep 02
EF preserved to 55% with moderate by echo 08/28/2025
Optimization of GDMT for HFpEF limited by GABRIELA.
Regarding A-fib, she is in sinus rhythm on amiodarone 200 mg BID after spontaneous conversion. Given her anemia and history of GI bleeding pt poor anticoagulation candidate and pt and daughter agree. Cont amiodarone
Her aortic stenosis is moderate. Cont clinical follow up. No intervention for this required at this time.
Impression / Plan
-
PCP: Mana ramon
Communications Supervisor: Dr. Faina Mckeon
Impression:
Presented with worsening shortness of breath, edema, abdominal distention and weight gain 08/24/2025
Acute HFpEF
Newly diagnosed paroxysmal atrial fibrillation with RVR
Spontaneously converted to SR 08/24/2025, then recurred with A-fib 08/25/2025 and spontaneously converted to SR again 08/25/2025
Amiodarone loading starting 08/25/2025
Acute on chronic anemia
GI bleed with angiectasias with cauterization 12/2024
Nonobstructive coronary artery disease
Aortic stenosis
Mitral regurgitation
Hypertension
Hyperlipidemia
Type 2 diabetes
Obstructive sleep apnea
PVD
Neuropathy
Cirrhosis with portal hypertension
Chronic inflammatory demyelinating polyneuropathy
Gout
IgG lambda MGUS/Smoldering Myeloma
Mild emphysema with pulmonary nodule
Balance disorder
Lexiscan nuclear stress test 04/28/2022: Negative for ischemia. There were fixed defects consistent with soft tissue attenuation. Ejection fraction was 61%.
Cardiac catheterization 2016: 40% RCA stenosis
Echo 12/11/24: Normal left ventricular size, wall thickness and LVEF 55-60%. Normal right ventricle.�Mild- moderate mitral regurgitation.�Calcified aortic valve. Peak/mean gradients across the aortic valve are 39/24mmHg. The LAURA� is calculated at
1.1cm2. Mild aortic regurgitation. Moderate aortic stenosis. Trace tricuspid regurgitation. Estimated pulmonary artery pressure of 25-30 mmHg. �Compared to the previous echo 12/11/23, there is no significant change.
Echo 08/25/2025: EF 55%. Mild concentric LVH. Moderate aortic stenosis with peak/mean gradient 29.6/17, LAURA 1.39 cm2. Moderate MR. PAP 27 mmHg,no change compared to prior study
Plan:
Presented 08/24/2025 with worsening shortness of breath, edema, abdominal distention and weight gain.
RHC 08/29/2025 PCWP was 40 with a CI of 1.8.
Cont diuresis as per nephrology.
Wt remains flat despite increase in diuretics by nephrology
Nephrology discussed potential of HD with pt
Cr remains 1.9 on Sep 02
EF preserved to 55% with moderate by echo 08/28/2025
Optimization of GDMT for HFpEF limited by GABRIELA.
Regarding A-fib, she is in sinus rhythm on amiodarone 200 mg BID after spontaneous conversion. Given her anemia and history of GI bleeding pt poor anticoagulation candidate and pt and daughter agree. Cont amiodarone
Her aortic stenosis is moderate. Cont clinical follow up. No intervention for this required at this time.
Will update daughter
-There was an attempt to add Coreg earlier this admission, the patient then had sinus bradycardia following paroxysms of A-fib and amiodarone loading so Coreg was stopped to allow for amiodarone therapy and suppression of rapid A-fib
-Patient is not a candidate for DEB/ARB/ARNI/aldosterone antagonist due to GABRIELA
-Patient has not been started on OAC due to history of significant GI bleed 12/2024 at which point she was found to have gastric and duodenal angiectasias that were treated with APC. Could consider outpatient evaluation for Watchman procedure, the
patient would need to be able to tolerate at least a few months of OAC. In the short-term we will make no changes to her current regimen.
HPI 08/25/2025:
Patient is an 85-year-old female with complex past medical history including nonobstructive coronary artery disease, moderate aortic stenosis, chronic anemia with recent GI bleed with gastric and duodenal angioectasias with cauterization 12/26/2024,
hypertension, hyperlipidemia, type 2 diabetes, obstructive sleep apnea, PVD, neuropathy, cirrhosis with portal hypertension, MGUS, CIPD and balance disorder who presented to emergency department 08/24/2025 with worsening shortness of breath, lower
extremity edema, abdominal distention and weight gain. EKG demonstrated sinus rhythm. Chest x-ray demonstrated increased pulmonary vascularity concerning for mild heart failure. proBNP 3520. Troponin negative. Patient received 40 mg IV Lasix in
emergency department. Patient later developed atrial fibrillation with rapid ventricular response. Cardiology being consulted for new A-fib and heart failure
Progress Note - Communications Supervisor
Subjective
Date of Service: September 02, 2025
Pt seen and examined. No cp or dyspnea.
Objective
Labs:
09/02/25 05:19
09/02/25 05:19
Labs
Hgb 10.1 g/dL (12.0-16.0) L 09/02/25 05:19
Hct 32.2 % (37.0-47.0) L 09/02/25 05:19
Plt Count 214 10^3/uL (130-400) 09/02/25 05:19
Sodium 135 mmol/L (135-145) 09/02/25 05:19
Potassium 4.1 mmol/L (3.5-5.1) 09/02/25 05:19
BUN 46 mg/dl (7-17) H 09/02/25 05:19
Creatinine 1.9 mg/dL (0.6-1.0) H 09/02/25 05:19
Glucose 110 mg/dl (70-99) H 09/02/25 05:19
Vital Signs and I&O:
Vital Signs
Temp Pulse Resp BP Pulse Ox
98.2 F 66 16 147/64 93
09/02/25 07:46 09/02/25 08:40 09/02/25 07:46 09/02/25 08:40 09/02/25 09:04
Vital Signs
Temp Pulse Resp BP Pulse Ox
98.2 F 66 16 147/64 93
09/02/25 07:46 09/02/25 08:40 09/02/25 07:46 09/02/25 08:40 09/02/25 09:04
Intake & Output
08/31/25 09/01/25 09/02/25 09/03/25
06:59 06:59 06:59 06:59
Intake Total 1440 / 1440 1780 / 1780 600 / 600
Output Total 2450 / 2450 1650 / 1650 400 / 400
Balance -1010 / -1010 130 / 130 200 / 200
Physical Exam
Physical Exam
General: No acute distress, AAOX3
Neck: Negative JVD
Heart: Regular, Negative S3 positive S1/S2, Negative S4, No murmur
Lungs: CTA b/l, negative wheezes/rales/rhonchi
Abd: Positive BS, NT/ND, neg rebound/rigidity/guarding
Ext: Negative cyanosis/clubbing/edema
Neuro: nonfocal
[2025-09-02 11:53] LABS: Glucose - Point of Care 238 mg/dl (70-99)
[2025-09-02 12:11] LABS: 24 Hour Urine Total Volume 3400 mL; Ur Free Lambda Excretion/day 67.18 mg/d; Urine Collection Length 24 hr
[2025-09-02] MEDS: HEPARIN 5000 UNITS SC (13:09)
[2025-09-02] MEDS: NOVOLOG FLEXPEN-MODERATE RESISTANCE 3 UNITS SC (13:09)
[2025-09-02] MEDS: STERILE WATER FOR INJECTION IV (13:16)
--- NOTE | 2025-09-02 13:24 | W.PN.NEPH.PH ---
Today's Communication / Plan
-
increase lasix
Assessment/Plan
-
IMP:
GABRIELA
Acute respiratory distress suspect acute on chronic heart failure with a preserved ejection fraction/valvular heart disease
Acute hypoxic respiratory insufficiency
Echocardiogram 08/25 with EF 55%, moderate
New onset atrial fibrillation with RVR-Spontaneously converted to normal sinus rhythm
Chronic left lower extremity swelling, possible lymphedema.
History of chronic blood loss anemia - chronic GI bleeding.
Anemia of chronic disease, monitor
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
GERD
Chronic ambulatory dysfunction
DM 2 with diabetic polyneuropathy
History of gout
Restless leg syndrome -
Essential hypertension
Hyperlipidemia
Obstructive sleep apnea/COPD/ emphysema
Obesity due to excess calories
Plan:
lasix 80mg IV BID
follow BMP
She would accept HD if it was necessary ( was on HD before he passed)
Maintain Rudd catheter
normal PEPs
-
-
Date of Service: September 02, 2025
CC / HPI / ROS
-
Chief Complaint:
GABRIELA
History of Present Illness:
Cr stable 1.9
Hemodynamically stable
Anemia stable
on IV lasix for decompensated HF (wedge 40)
Review of Systems:
no cp, sob
no supplemental O2
Rudd catheter in for urinary retention and grossly nonoliguric in excess of 3 L
Weights down
Labs
-
Labs:
WBC 8.9 10^3/uL (4.8-10.8) 09/02/25 05:19
RBC 3.42 10^6/uL (4.20-5.40) L 09/02/25 05:19
Hgb 10.1 g/dL (12.0-16.0) L 09/02/25 05:19
Hct 32.2 % (37.0-47.0) L 09/02/25 05:19
Plt Count 214 10^3/uL (130-400) 09/02/25 05:19
Sodium 135 mmol/L (135-145) 09/02/25 05:19
Potassium 4.1 mmol/L (3.5-5.1) 09/02/25 05:19
Chloride 97 mmol/L (98-107) L 09/02/25 05:19
Carbon Dioxide 28 mmol/L (22-30) 09/02/25 05:19
BUN 46 mg/dl (7-17) H 09/02/25 05:19
Creatinine 1.9 mg/dL (0.6-1.0) H 09/02/25 05:19
eGFR 25.72 09/02/25 05:19
Glucose 110 mg/dl (70-99) H 09/02/25 05:19
Calcium 9.4 mg/dl (8.4-10.2) 09/02/25 05:19
Lhc-P-Hucwdirtwtl Pept 771 pg/ml 08/28/25 05:21
Albumin 3.7 g/dl (3.5-5.0) 09/01/25 05:19
Physical Exam
-
Vital Signs:
Vital Signs
Temp Pulse Resp BP Pulse Ox
97.7 F 68 17 127/58 98
09/02/25 11:12 09/02/25 11:12 09/02/25 11:12 09/02/25 11:12 09/02/25 11:12
Cardiovascular:: Regular rate and rhythm
Respiratory:: Bilateral: Coarse
Lung Excursion:: Normal
Abdomen:: Nontender and Soft
Bowel Sounds:: Normal
Extremity Edema:: None: Bilateral:
[2025-09-02] MEDS: LASIX 80 MG IV (15:57)
--- NOTE | 2025-09-02 16:38 | W.PN.UPDATE ---
Update Note
Progress Note Update
I called and updated patient's daughter, Sabine, for 11 minutes and 49 seconds. We talked about hospital course thus far including the most up-to-date labs from today. We reviewed that the Hgb is improved to 10.1 today. We also talked that the
creatinine is stable at 1.9. Patient's daughter was already aware that the dose of Lasix was increased to 80 mg IV BID today due to lack of diuresis, weight was stable again at 171 lbs today. Patient's daughter was concerned about Rudd catheter
being removed and notes that there have been concerns as an outpatient that patient does not urinate as often as she should with how much water she drinks. Patient had a previous bladder lift with mesh and the patient's daughter is worried that
this could be affecting her urine output. We made a plan to check bladder U/S as needed decreased urine output, orders placed by me. We also reviewed that patient remains in SR following an episode of brief and self-limited A-fib earlier this
admission. Patient also remains on amiodarone which is new this admission. We talked about the patient likely remaining in the hospital until at least Monday given current labs and progress with diuresis.
[2025-09-02 16:52] LABS: Glucose - Point of Care 170 mg/dl (70-99)
[2025-09-02] MEDS: CRESTOR 5 MG PO (17:03)
[2025-09-02] MEDS: NOVOLOG FLEXPEN-MODERATE RESISTANCE 1 UNITS SC (17:03)
[2025-09-02 21:38] LABS: Glucose - Point of Care 150 mg/dl (70-99)
[2025-09-02] MEDS: PAMELOR 75 MG PO (22:06)
[2025-09-02] MEDS: REQUIP 0.25 MG PO (22:06)
[2025-09-03] VITALS (8 sets, daily range): BP systolic 118–169; BP diastolic 43–76; PULSE 66–68; O2SAT 96; BMI 29.1
[2025-09-03] MEDS: HEPARIN SC ×2 (05:00→23:13)
[2025-09-03 05:41] LABS: Hematocrit 32.4 % (37.0-47.0); Hemoglobin 10.1 g/dL (12.0-16.0); Mean Corp Hgb Conc. 31.2 g/dL (33.0-37.0); Mean Corpuscular Volume 94.5 fL (81.0-99.0); Platelet Count 216 10^3/uL (130-400); Red Cell Dist. Width 19.0 % (11.5-14.5)
[2025-09-03 06:04] LABS: Blood Urea Nitrogen 49 mg/dl (7-17); Calcium 9.2 mg/dl (8.4-10.2); Carbon Dioxide 28 mmol/L (22-30); Chloride 98 mmol/L (98-107); Estimated Creatinine Clearance 20 ml/min; Glucose 118 mg/dl (70-99); Potassium 4.0 mmol/L (3.5-5.1); Sodium 135 mmol/L (135-145); eGFR 22.81
[2025-09-03 08:05] LABS: ANA, IgG Reflex to HEp-2 None Detected (None Detected)
[2025-09-03 08:06] LABS: Glucose - Point of Care 143 mg/dl (70-99)
--- NOTE | 2025-09-03 08:44 | W.PN.CARDCBS ---
Addendum entered and electronically signed by Virgil Soto MD 09/03/25 18:07:
85-year-old woman admitted with acute HFpEF, along with newly diagnosed atrial fibrillation, PAF that recurred and started on amiodarone.
PMH: GI bleed with angioectasias, anemia, nonobstructive CAD, aortic stenosis with aortic valve area 1.1 cm 2, peak/mean gradient 39/24 mmHg, mild-moderate mitral regurgitation, hypertension, hyperlipidemia, diabetes, sleep apnea, PAD, neuropathy,
cirrhosis, CIDP, gout, MGUS, COPD, refuses anticoagulation
Medications: Subcu heparin, methenamine, rosuvastatin 5 mg a day, lisinopril 20 mg daily on hold, ropinirole 0.25 mg nightly, nortriptyline 75 mg at bedtime, MiraLAX, psyllium, aspirin 81 mg a day, Ditropan, pantoprazole, amlodipine on hold, vitamin
B12, Colace, amiodarone 200 mg twice daily, Neurontin, allopurinol 100 mg a day, furosemide 80 mg IV twice daily
She offers no complaints at present
120/49, pulse 60, rr 15, lungs are relatively clear, regular rate and rhythm, Aortic stenosis murmur, mitral regurgitation murmur, JVD okay, no edema, Weight is 74.6 kg, down 3 kg
hemoglobin 10.1, platelets 260, BUN and creatinine are 49 and 2.1 potassium 4
Impression:
Acute on chronic HFpEF
Newly diagnosed paroxysmal A-fib, now on amiodarone long history of GI bleeding with angioectasia, not anticoagulated at present
Aortic stenosis
Mild to moderate mitral regurgitation
Hyperlipidemia
Diabetes
Obstructive sleep apnea
Cirrhosis with portal hypertension
CIDP
MGUS
Other diagnoses per Mandi Eaton
Plan:
From standpoint of atrial fibrillation, she is doing well. She remains in sinus rhythm/sinus bradycardia. Given bradycardia, will reduce amiodarone to 200 mg once daily. She remains off anticoagulation given history of GI bleeding. Aspirin is
optional at this time, for now we will continue and reassess as outpatient.
Her volume status is much improved, being managed by nephrology. Creatinine is 2.1. Eventual transition to oral furosemide per nephrology
Cardiology follow-up arranged.
I spoke with daughter.
We will sign off, please call if questions.
Original Note:
Today's Communication / Plan
-
Diuretics being managed by nephrology.
Remains in SR. Continue amiodarone.
Continue aspirin 81mg daily
Follow up arranged.
Impression / Plan
-
PCP: Mana Abreu
Dimensional Inspector: Dr. Faina Mckeon
Impression:
Presented with worsening shortness of breath, edema, abdominal distention and weight gain 08/24/2025
Acute HFpEF
Newly diagnosed paroxysmal atrial fibrillation with RVR
Spontaneously converted to SR 08/24/2025, then recurred with A-fib 08/25/2025 and spontaneously converted to SR again 08/25/2025
Amiodarone loading starting 08/25/2025
Acute on chronic anemia
GI bleed with angiectasias with cauterization 12/2024
Nonobstructive coronary artery disease
Aortic stenosis
Mitral regurgitation
Hypertension
Hyperlipidemia
Type 2 diabetes
Obstructive sleep apnea
PVD
Neuropathy
Cirrhosis with portal hypertension
Chronic inflammatory demyelinating polyneuropathy
Gout
IgG lambda MGUS/Smoldering Myeloma
Mild emphysema with pulmonary nodule
Balance disorder
Lexiscan nuclear stress test 04/28/2022: Negative for ischemia. There were fixed defects consistent with soft tissue attenuation. Ejection fraction was 61%.
Cardiac catheterization 2016: 40% RCA stenosis
Echo 12/11/24: Normal left ventricular size, wall thickness and LVEF 55-60%. Normal right ventricle.�Mild- moderate mitral regurgitation.�Calcified aortic valve. Peak/mean gradients across the aortic valve are 39/24mmHg. The LAURA� is calculated at
1.1cm2. Mild aortic regurgitation. Moderate aortic stenosis. Trace tricuspid regurgitation. Estimated pulmonary artery pressure of 25-30 mmHg. �Compared to the previous echo 12/11/23, there is no significant change.
Echo 08/25/2025: EF 55%. Mild concentric LVH. Moderate aortic stenosis with peak/mean gradient 29.6/17, LAURA 1.39 cm2. Moderate MR. PAP 27 mmHg,no change compared to prior study
Plan:
-Presented with worsening SOB, edema, and weight gain. Admitted with acute HFpEF. RHC 08/29/2025 with PCWP of 40 and CI 1.8.
-Diuresing with IV lasix 80mg BID. Nephrology managing diuretics given acute renal failure.
-Weight down to 164 lbs 08/14. Down 5lbs overnight if accurate. Creat up to 2.1.
-Echo 08/28/2025 noted preserved EF with moderate as above.
-Lisinopril on hold due to GABRIELA.
-Carvedilol added earlier in admission, but needed to be stopped due to bradycardia to allow for amiodarone therapy.
-Remains in SR on review of telemetry. Continues on amiodarone 200mg BID. HR stable.
-Given h/o anemia and GI bleeding, patient felt to be poor anticoagulation candidate. Patient and daughter agree. Hgb stable at 10.1. On aspirin 81mg daily alone.
-Could consider discussion of Watchman procedure as OP, but the patient would need to tolerate at least a few months of OAC.
-VM left for daughter.
-Will arrange cardiac follow up.
HPI: Patient is an 85-year-old female with complex past medical history including nonobstructive coronary artery disease, moderate aortic stenosis, chronic anemia with recent GI bleed with gastric and duodenal angioectasias with cauterization
12/26/2024, hypertension, hyperlipidemia, type 2 diabetes, obstructive sleep apnea, PVD, neuropathy, cirrhosis with portal hypertension, MGUS, CIPD and balance disorder who presented to emergency department 08/24/2025 with worsening shortness of
breath, lower extremity edema, abdominal distention and weight gain. EKG demonstrated sinus rhythm. Chest x-ray demonstrated increased pulmonary vascularity concerning for mild heart failure. proBNP 3520. Troponin negative. Patient received 40
mg IV Lasix in emergency department. Patient later developed atrial fibrillation with rapid ventricular response. Cardiology being consulted for new A-fib and heart failure
Progress Note - Dimensional Inspector
Subjective
Date of Service: September 03, 2025
Feels well, just tired this morning.
Objective
Labs:
09/03/25 05:12
09/03/25 05:12
Labs
Hgb 10.1 g/dL (12.0-16.0) L 09/03/25 05:12
Hct 32.4 % (37.0-47.0) L 09/03/25 05:12
Plt Count 216 10^3/uL (130-400) 09/03/25 05:12
Sodium 135 mmol/L (135-145) 09/03/25 05:12
Potassium 4.0 mmol/L (3.5-5.1) 09/03/25 05:12
BUN 49 mg/dl (7-17) H 09/03/25 05:12
Creatinine 2.1 mg/dL (0.6-1.0) H 09/03/25 05:12
Glucose 118 mg/dl (70-99) H 09/03/25 05:12
Vital Signs and I&O:
Vital Signs
Temp Pulse Resp BP Pulse Ox
97.7 F 60 15 120/49 95
09/03/25 07:45 09/03/25 07:45 09/03/25 07:45 09/03/25 07:45 09/03/25 07:45
Vital Signs
Temp Pulse Resp BP Pulse Ox
97.7 F 60 15 120/49 95
09/03/25 07:45 09/03/25 07:45 09/03/25 07:45 09/03/25 07:45 09/03/25 07:45
Intake & Output
1109/02/25 09/03/25 09/04/25
06:59 06:59 06:59 06:59
Intake Total 1780 / 1780 600 / 600
Output Total 1650 / 1650 400 / 400 1060 / 1060
Balance 130 / 130 200 / 200 -1060 / -1060
Physical Exam
Physical Exam
GEN: No distress, awake, alert, oriented x3
HEENT: supple, anicteric, mmm
LUNGS: CTA b/l, no wheezes/rales
CV: Reg, S1/S2, 1/6 murmur
EXT: No clubbing, cyanosis, or edema
NEURO: Gross non-focal
SKIN: Warm, dry, no rash
[2025-09-03] MEDS: NOVOLOG FLEXPEN-MODERATE RESISTANCE SC (08:47)
--- NOTE | 2025-09-03 09:49 | W.PN.HOSP.TC ---
Today's Communication/Plan
-
.
Assessment / Plan
Assessment / Plan
Physical exam:
General: Comfortable, Appears Chronically Ill and Obese
HEENT: Moist mucous membranes and Atraumatic
Respiratory: no Rales; No Wheezes
Cardiac: S1/S2, systolic Murmur
GI: Soft, Non Tender
Musculoskeletal: No Edema LE
Neuro: AO x 3 and Nonfocal/grossly intact
Psych: Calm and Intact Judgment/Insight
A/p:
Acute respiratory distress suspect acute on chronic heart failure with a preserved ejection fraction/valvular heart disease
Acute hypoxic respiratory insufficiency likely secondary to above, wean oxygen as tolerated
Chest x-ray 08/27 with possibility of bibasilar pneumonia. definitely a component of CHF. Was given ABx for hypoxia, no cough, stop doxy. s/p right heart cath 08/29 with fluid overload. cw IV diuresis
Cardiology following
Echocardiogram 08/25 with EF 55%, moderate
Does have periods of bradycardia, amiodarone decreased. Coreg discontinued
Primary sash maker Dr. Faina Mckeon.
New onset atrial fibrillation with RVR
Spontaneously converted to normal sinus rhythm with periods of bradycardia
Now on amiodarone 200 mg twice daily. Coreg stopped
Anticoagulation per cardiology, discussed with cardiology. Not a good candidate for AC and patient also refusing
# Chronic left lower extremity swelling, came down.
Patient and caregiver increasing swelling. No signs of infection with absence of tenderness/erythema. Lower extremity ultrasound negative for DVT
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
Anemia of chronic disease, monitor
Per patient, no source found. 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
Patient has had IV infusion of iron, finished, not on oral iron supplement.
patient has been seeing hematology outpatient for MM work up
GABRIELA
Suspect history of CKD, monitor renal function
Creatinine peaked 2.5, nephrology following. Now creatinine around 2-1.9
UA suggestive of infection,had dysuria and increased frequency. Given E. coli , s/p ceftriaxone. Finished antibiotic for UTI.
Also suspect secondary to acute urinary retention. Renal ultrasound without acute abnormality. Voiding trial went well, but on/off retention noted, on bladder scan protocol.
Continue to hold nephrotoxic agents
hyponatremia
Constipation
Laxatives
Dulcolax suppository
Elevated LFTs
Monitor especially now on Amio
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
#GERD
# Chronic ambulatory dysfunction -uses a walker. Consulted PT/OT. rec SNF
# DM 2 with diabetic polyneuropathy
Hold metformin
c/w NovoLog scale.
#History of gout
redosed Allopurinol for renal function.
# Restless leg syndrome -
ropinirole.
# Essential hypertension
Amlodipine on hold
#Hyperlipidemia -rosuvastatin.
# Obstructive sleep apnea/COPD/ emphysema
No history of wheezes or productive cough. cw cpap
#Obesity due to excess calories
#Full code, confirmed with patient.
Total time spent to see the patient, examine the patient, review data and lab results, discuss treatment plan with patient, nursing staff around 55 minutes�
Anticipated Discharge: > 48 hours
Subjective/Interval History
-
Date of Service: September 03, 2025
feels sob upon exertion
Objective Data
-
Labs:
Laboratory Results
09/03/25
05:12
WBC 9.3
Hgb 10.1 L
Hct 32.4 L
Plt Count 216
Sodium 135
Potassium 4.0
Chloride 98
Carbon Dioxide 28
BUN 49 H
Creatinine 2.1 H
Glucose 118 H
Calcium 9.2
Vital Signs:
Vital Signs
Temp Pulse Resp BP Pulse Ox
97.7 F 60 15 120/49 95
09/03/25 07:45 09/03/25 07:45 09/03/25 07:45 09/03/25 07:45 09/03/25 07:45
I&O
09/02/25 09/03/25 09/04/25
06:59 06:59 06:59
Intake Total 600 / 600
Output Total 400 / 400 1060 / 1060
Balance 200 / 200 -1060 / -1060
[2025-09-03] MEDS: VITAMIN B-12 1000 MCG PO (09:59)
[2025-09-03] MEDS: HIPREX 1 GRAM PO ×2 (09:59→20:44)
[2025-09-03] MEDS: ZYLOPRIM 100 MG PO (09:59)
[2025-09-03] MEDS: LOW STRENGTH ASPIRIN 81 MG PO (10:00)
[2025-09-03] MEDS: PROTONIX 40 MG PO (10:00)
[2025-09-03] MEDS: LASIX 80 MG IV ×2 (10:00→17:28)
[2025-09-03] MEDS: MIRALAX 17 GRAMS PO (10:01)
[2025-09-03] MEDS: METAMUCIL, KONSYL 1 PACKET PO (10:01)
[2025-09-03] MEDS: PACERONE 200 MG PO (10:03)
[2025-09-03] MEDS: COLACE 100 MG PO ×2 (10:03→20:44)
[2025-09-03] MEDS: DITROPAN PO ×2 (10:12→20:44)
[2025-09-03] MEDS: NEURONTIN PO (10:16)
[2025-09-03 11:44] LABS: Glucose - Point of Care 256 mg/dl (70-99)
--- NOTE | 2025-09-03 12:36 | W.PN.NEPH.PH ---
Today's Communication / Plan
-
Maintain IV diuretic
Follow BMP
Assessment/Plan
-
IMP:
GABRIELA
Acute respiratory distress suspect acute on chronic heart failure with a preserved ejection fraction/valvular heart disease
Acute hypoxic respiratory insufficiency
Echocardiogram 08/25 with EF 55%, moderate
New onset atrial fibrillation with RVR-Spontaneously converted to normal sinus rhythm
Chronic left lower extremity swelling, possible lymphedema.
History of chronic blood loss anemia - chronic GI bleeding.
Anemia of chronic disease, monitor
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
GERD
Chronic ambulatory dysfunction
DM 2 with diabetic polyneuropathy
History of gout
Restless leg syndrome -
Essential hypertension
Hyperlipidemia
Obstructive sleep apnea/COPD/ emphysema
Obesity due to excess calories
Plan:
Maintain lasix 80mg IV BID, weights now down 7 kg from admission
Will likely transition to oral diuretics
creatinine 2.1 and grossly non oliguric
Catheter was removed I have now lost that metric as a way of measuring patient's kidney function or response to diuretic
follow BMP
She would accept HD if it was necessary ( was on HD before he passed), but this would not likely occur on this admission
-
-
Date of Service: September 03, 2025
CC / HPI / ROS
-
Chief Complaint:
GABRIELA
History of Present Illness:
Cr stable 2.1
Hemodynamically stable
Anemia stable
on IV lasix for decompensated HF (wedge 40)
Review of Systems:
no cp, sob
no supplemental O2
Weights down greater than 7 kg since admission
Labs
-
Labs:
WBC 9.3 10^3/uL (4.8-10.8) 09/03/25 05:12
RBC 3.43 10^6/uL (4.20-5.40) L 09/03/25 05:12
Hgb 10.1 g/dL (12.0-16.0) L 09/03/25 05:12
Hct 32.4 % (37.0-47.0) L 09/03/25 05:12
Plt Count 216 10^3/uL (130-400) 09/03/25 05:12
Sodium 135 mmol/L (135-145) 09/03/25 05:12
Potassium 4.0 mmol/L (3.5-5.1) 09/03/25 05:12
Chloride 98 mmol/L (98-107) 09/03/25 05:12
Carbon Dioxide 28 mmol/L (22-30) 09/03/25 05:12
BUN 49 mg/dl (7-17) H 09/03/25 05:12
Creatinine 2.1 mg/dL (0.6-1.0) H 09/03/25 05:12
eGFR 22.81 09/03/25 05:12
Glucose 118 mg/dl (70-99) H 09/03/25 05:12
Calcium 9.2 mg/dl (8.4-10.2) 09/03/25 05:12
Ezb-Z-Uaeatrfyepn Pept 771 pg/ml 08/28/25 05:21
Albumin 3.7 g/dl (3.5-5.0) 09/01/25 05:19
Physical Exam
-
Vital Signs:
Vital Signs
Temp Pulse Resp BP Pulse Ox
97.6 F 69 16 140/69 95
09/03/25 10:59 09/03/25 10:59 09/03/25 10:59 09/03/25 10:59 09/03/25 10:59
Cardiovascular:: Regular rate and rhythm
Respiratory:: Bilateral: Coarse
Lung Excursion:: Normal
Abdomen:: Nontender and Soft
Bowel Sounds:: Normal
Extremity Edema:: None: Bilateral:
[2025-09-03] MEDS: NOVOLOG FLEXPEN-MODERATE RESISTANCE 5 UNITS SC (13:04)
[2025-09-03] MEDS: HEPARIN 5000 UNITS SC (13:05)
[2025-09-03 16:40] LABS: Glucose - Point of Care 174 mg/dl (70-99)
[2025-09-03] MEDS: NOVOLOG FLEXPEN-MODERATE RESISTANCE 1 UNITS SC (17:29)
[2025-09-03] MEDS: CRESTOR 5 MG PO (17:30)
--- NOTE | 2025-09-03 17:36 | CM ---
CM following for discharge when medically cleared. Anticipated discharge >48 hours per MD.
[2025-09-03] MEDS: NEURONTIN 200 MG PO (20:45)
[2025-09-03 21:24] LABS: Glucose - Point of Care 190 mg/dl (70-99)
[2025-09-03] MEDS: PAMELOR 75 MG PO (23:13)
[2025-09-03] MEDS: REQUIP 0.25 MG PO (23:14)
[2025-09-04 03:13] VITALS: BP 131/53
[2025-09-04 06:00] VITALS: BMI 30.3
[2025-09-04] MEDS: HEPARIN SC ×3 (06:01→22:21)
[2025-09-04 07:00] VITALS: BP 148/64
[2025-09-04 07:51] LABS: Glucose - Point of Care 116 mg/dl (70-99)
[2025-09-04 08:33] LABS: Blood Urea Nitrogen 54 mg/dl (7-17); Calcium 9.4 mg/dl (8.4-10.2); Carbon Dioxide 34 mmol/L (22-30); Chloride 98 mmol/L (98-107); Estimated Creatinine Clearance 18 ml/min; Glucose 109 mg/dl (70-99); Potassium 3.9 mmol/L (3.5-5.1); Sodium 137 mmol/L (135-145); eGFR 20.45
[2025-09-04] MEDS: NOVOLOG FLEXPEN-MODERATE RESISTANCE SC ×2 (10:02→16:49)
[2025-09-04] MEDS: HIPREX 1 GRAM PO ×2 (10:12→20:13)
[2025-09-04] MEDS: MIRALAX 17 GRAMS PO (10:13)
[2025-09-04] MEDS: NEURONTIN 200 MG PO ×2 (10:13→20:14)
[2025-09-04] MEDS: DITROPAN 5 MG PO ×2 (10:13→20:13)
[2025-09-04] MEDS: ZYLOPRIM 100 MG PO (10:13)
[2025-09-04] MEDS: COLACE 100 MG PO ×2 (10:13→20:13)
[2025-09-04] MEDS: LOW STRENGTH ASPIRIN 81 MG PO (10:13)
[2025-09-04] MEDS: VITAMIN B-12 1000 MCG PO (10:14)
[2025-09-04] MEDS: LASIX 80 MG IV ×2 (10:14→17:20)
[2025-09-04] MEDS: PROTONIX 40 MG PO (10:14)
[2025-09-04] MEDS: METAMUCIL, KONSYL 1 PACKET PO (10:24)
[2025-09-04] MEDS: PACERONE 200 MG PO (10:25)
--- NOTE | 2025-09-04 10:25 | W.PN.HOSP.TC ---
Today's Communication/Plan
-
Bladder scan with straight cath
Assessment / Plan
Assessment / Plan
Physical exam:
General: Comfortable, Appears Chronically Ill and Obese
HEENT: Moist mucous membranes and Atraumatic
Respiratory: no Rales; No Wheezes
Cardiac: S1/S2, systolic Murmur
GI: Soft, Non Tender
Musculoskeletal: No Edema LE
Neuro: AO x 3 and Nonfocal/grossly intact
Psych: Calm and Intact Judgment/Insight
A/p:
Acute respiratory distress suspect acute on chronic heart failure with a preserved ejection fraction/valvular heart disease
Acute hypoxic respiratory insufficiency likely secondary to above, wean oxygen as tolerated
Chest x-ray 08/27 with possibility of bibasilar pneumonia. definitely a component of CHF. Was given ABx for hypoxia, no cough, stop doxy. s/p right heart cath 08/29 with fluid overload. cw IV diuresis
Cardiology following
Echocardiogram 08/25 with EF 55%, moderate
Does have periods of bradycardia, amiodarone decreased. Coreg discontinued
Primary tennis player Dr. Faina Mckeon.
New onset atrial fibrillation with RVR
Spontaneously converted to normal sinus rhythm with periods of bradycardia
Now on amiodarone 200 mg twice daily. Coreg stopped
Anticoagulation per cardiology, discussed with cardiology. Not a good candidate for AC and patient also refusing
# Chronic left lower extremity swelling, came down.
Patient and caregiver increasing swelling. No signs of infection with absence of tenderness/erythema. Lower extremity ultrasound negative for DVT
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
Anemia of chronic disease, monitor
Per patient, no source found. 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
Patient has had IV infusion of iron, finished, not on oral iron supplement.
patient has been seeing hematology outpatient for MM work up
GABRIELA
Suspect history of CKD, monitor renal function
Creatinine is still elevated. nephrology following.
UA suggestive of infection,had dysuria and increased frequency. Given E. coli , s/p ceftriaxone. Finished antibiotic for UTI.
Also suspect secondary to acute urinary retention. Renal ultrasound without acute abnormality. Voiding trial went well, but on/off retention noted, on bladder scan protocol.
Continue to hold nephrotoxic agents
hyponatremia
Constipation
Laxatives
Dulcolax suppository
Elevated LFTs
Monitor especially now on Amio
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
#GERD
# Chronic ambulatory dysfunction -uses a walker. Consulted PT/OT. rec SNF
# DM 2 with diabetic polyneuropathy
Hold metformin
c/w NovoLog scale.
#History of gout
redosed Allopurinol for renal function.
# Restless leg syndrome -
ropinirole.
# Essential hypertension
Amlodipine on hold
#Hyperlipidemia -rosuvastatin.
# Obstructive sleep apnea/COPD/ emphysema
No history of wheezes or productive cough. cw cpap
#Obesity due to excess calories
#Full code, confirmed with patient.
Total time spent to see the patient, examine the patient, review data and lab results, discuss treatment plan with patient, nursing staff around 55 minutes�
Anticipated Discharge: > 48 hours
Subjective/Interval History
-
Date of Service: September 04, 2025
No chest pain
No sob
No fevers
Objective Data
-
Labs:
Laboratory Results
09/04/25
07:10
Sodium 137
Potassium 3.9
Chloride 98
Carbon Dioxide 34 H
BUN 54 H
Creatinine 2.3 H
Glucose 109 H
Calcium 9.4
Vital Signs:
Vital Signs
Temp Pulse Resp BP Pulse Ox
97.2 F 59 17 148/64 95
09/04/25 07:00 09/04/25 07:00 09/04/25 07:00 09/04/25 07:00 09/04/25 07:00
I&O
09/03/25 09/04/25 09/05/25
06:59 06:59 06:59
Intake Total 720 / 720
Output Total 1060 / 1060 625 / 625
Balance -1060 / -1060 95 / 95
--- NOTE | 2025-09-04 10:54 | W.PN.NEPH.PH ---
Today's Communication / Plan
-
diurese
Assessment/Plan
-
IMP:
GABRIELA
Acute respiratory distress suspect acute on chronic heart failure with a preserved ejection fraction/valvular heart disease
Acute hypoxic respiratory insufficiency
Echocardiogram 08/25 with EF 55%, moderate
New onset atrial fibrillation with RVR-Spontaneously converted to normal sinus rhythm
Chronic left lower extremity swelling, possible lymphedema.
History of chronic blood loss anemia - chronic GI bleeding.
Anemia of chronic disease, monitor
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
GERD
Chronic ambulatory dysfunction
DM 2 with diabetic polyneuropathy
History of gout
Restless leg syndrome -
Essential hypertension
Hyperlipidemia
Obstructive sleep apnea/COPD/ emphysema
Obesity due to excess calories
Plan:
Maintain lasix 80mg IV BID today, may consider po regimen soon
follow BMP
follow weights
She would accept HD if it was necessary ( was on HD before he passed), but this would not likely occur on this admission
-
-
Date of Service: September 04, 2025
CC / HPI / ROS
-
Chief Complaint:
GABRIELA
History of Present Illness:
Cr stable 2.1 still
Hemodynamically stable
Anemia stable
on IV lasix for decompensated HF (wedge 40)
Review of Systems:
no cp, sob
no supplemental O2
Weights down overall but little in last few days
Labs
-
Labs:
WBC 9.3 10^3/uL (4.8-10.8) 09/03/25 05:12
RBC 3.43 10^6/uL (4.20-5.40) L 09/03/25 05:12
Hgb 10.1 g/dL (12.0-16.0) L 09/03/25 05:12
Hct 32.4 % (37.0-47.0) L 09/03/25 05:12
Plt Count 216 10^3/uL (130-400) 09/03/25 05:12
Sodium 137 mmol/L (135-145) 09/04/25 07:10
Potassium 3.9 mmol/L (3.5-5.1) 09/04/25 07:10
Chloride 98 mmol/L (98-107) 09/04/25 07:10
Carbon Dioxide 34 mmol/L (22-30) H 09/04/25 07:10
BUN 54 mg/dl (7-17) H 09/04/25 07:10
Creatinine 2.3 mg/dL (0.6-1.0) H 09/04/25 07:10
eGFR 20.45 09/04/25 07:10
Glucose 109 mg/dl (70-99) H 09/04/25 07:10
Calcium 9.4 mg/dl (8.4-10.2) 09/04/25 07:10
Cnu-U-Mgfjxsoajnk Pept 771 pg/ml 08/28/25 05:21
Albumin 3.7 g/dl (3.5-5.0) 09/01/25 05:19
Physical Exam
-
Vital Signs:
Vital Signs
Temp Pulse Resp BP Pulse Ox
97.2 F 59 17 148/64 95
09/04/25 07:00 09/04/25 07:00 09/04/25 07:00 09/04/25 07:00 09/04/25 07:00
Cardiovascular:: Regular rate and rhythm
Respiratory:: Bilateral: Coarse
Lung Excursion:: Normal
Abdomen:: Nontender and Soft
Bowel Sounds:: Normal
Extremity Edema:: None: Bilateral:
[2025-09-04 11:00] VITALS: BP 114/54
[2025-09-04 12:56] LABS: Glucose - Point of Care 269 mg/dl (70-99)
[2025-09-04] MEDS: NOVOLOG FLEXPEN-MODERATE RESISTANCE 5 UNITS SC (13:32)
[2025-09-04 15:00] VITALS: BP 131/61
[2025-09-04 16:33] LABS: Glucose - Point of Care 121 mg/dl (70-99)
[2025-09-04] MEDS: CRESTOR 5 MG PO (17:21)
[2025-09-04 19:35] VITALS: BP 143/72
[2025-09-04 21:57] LABS: Glucose - Point of Care 142 mg/dl (70-99)
[2025-09-04] MEDS: PAMELOR 75 MG PO (22:22)
[2025-09-04] MEDS: REQUIP 0.25 MG PO (22:26)
[2025-09-04 23:00] VITALS: BP 146/69
[2025-09-05 03:35] VITALS: BP 136/62
[2025-09-05] MEDS: HEPARIN SC (05:14)
[2025-09-05 05:57] LABS: Hematocrit 33.8 % (37.0-47.0); Hemoglobin 10.4 g/dL (12.0-16.0); Mean Corp Hgb Conc. 30.8 g/dL (33.0-37.0); Mean Corpuscular Volume 93.9 fL (81.0-99.0); Platelet Count 211 10^3/uL (130-400); Red Cell Dist. Width 18.2 % (11.5-14.5)
[2025-09-05 06:20] LABS: Blood Urea Nitrogen 56 mg/dl (7-17); Calcium 9.5 mg/dl (8.4-10.2); Carbon Dioxide 30 mmol/L (22-30); Chloride 100 mmol/L (98-107); Estimated Creatinine Clearance 22 ml/min; Glucose 115 mg/dl (70-99); Potassium 4.0 mmol/L (3.5-5.1); Sodium 137 mmol/L (135-145); eGFR 25.72
[2025-09-05 07:34] VITALS: BP 141/68
[2025-09-05 07:50] LABS: Glucose - Point of Care 121 mg/dl (70-99)
[2025-09-05] MEDS: NOVOLOG FLEXPEN-MODERATE RESISTANCE SC ×2 (08:45→16:50)
[2025-09-05] MEDS: VITAMIN B-12 1000 MCG PO (08:48)
[2025-09-05] MEDS: NEURONTIN 200 MG PO ×2 (08:48→22:15)
[2025-09-05] MEDS: PACERONE 200 MG PO (08:48)
[2025-09-05] MEDS: LOW STRENGTH ASPIRIN 81 MG PO (08:48)
[2025-09-05] MEDS: ZYLOPRIM 100 MG PO (08:49)
[2025-09-05] MEDS: DITROPAN 5 MG PO ×2 (08:49→22:16)
[2025-09-05] MEDS: LASIX 80 MG IV ×2 (08:49→15:47)
[2025-09-05] MEDS: METAMUCIL, KONSYL 1 PACKET PO (08:49)
[2025-09-05] MEDS: HIPREX 1 GRAM PO ×2 (08:49→22:16)
[2025-09-05] MEDS: PROTONIX 40 MG PO (08:51)
[2025-09-05] MEDS: COLACE PO (08:58)
[2025-09-05] MEDS: MIRALAX PO (08:58)
--- NOTE | 2025-09-05 09:14 | W.PN.HOSP.TC ---
Addendum entered and electronically signed by Karis Shah MD 09/05/25 12:01:
Addendum
Patient is having on and off retention required straight cath
Discussed with daughter Sabine, she is requesting urologist consultation. Patient was seen by Dr. Edmondson in the past
End
Original Note:
Today's Communication/Plan
-
.
Assessment / Plan
Assessment / Plan
Physical exam:
General: Comfortable, Appears Chronically Ill and Obese
HEENT: Moist mucous membranes and Atraumatic
Respiratory: no Rales; No Wheezes
Cardiac: S1/S2, systolic Murmur
GI: Soft, Non Tender
Musculoskeletal: No Edema LE
Neuro: AO x 3 and Nonfocal/grossly intact
Psych: Calm and Intact Judgment/Insight
A/p:
Acute respiratory distress suspect acute on chronic heart failure with a preserved ejection fraction/valvular heart disease
Acute hypoxic respiratory insufficiency likely secondary to above, wean oxygen as tolerated
Chest x-ray 08/27 with possibility of bibasilar pneumonia. definitely a component of CHF. Was given ABx for hypoxia, no cough, stop doxy. s/p right heart cath 08/29 with fluid overload. cw IV diuresis
Cardiology following
Echocardiogram 08/25 with EF 55%, moderate
Does have periods of bradycardia, amiodarone decreased. Coreg discontinued
Primary life skills consultant Dr. Faina Mckeon.
New onset atrial fibrillation with RVR
Spontaneously converted to normal sinus rhythm with periods of bradycardia
Now on amiodarone 200 mg twice daily. Coreg stopped
Anticoagulation per cardiology, discussed with cardiology. Not a good candidate for AC and patient also refusing
# Chronic left lower extremity swelling, came down.
Patient and caregiver increasing swelling. No signs of infection with absence of tenderness/erythema. Lower extremity ultrasound negative for DVT
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
Anemia of chronic disease, monitor
Per patient, no source found. 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
Patient has had IV infusion of iron, finished, not on oral iron supplement.
patient has been seeing hematology outpatient for MM work up
GABRIELA
Suspect history of CKD, monitor renal function
Creatinine is still elevated. nephrology following.
UA suggestive of infection,had dysuria and increased frequency. Given E. coli , s/p ceftriaxone. Finished antibiotic for UTI.
Also suspect secondary to acute urinary retention. Renal ultrasound without acute abnormality. Voiding trial went well, but on/off retention noted, on bladder scan protocol.
Continue to hold nephrotoxic agents
hyponatremia
Constipation
Laxatives
Dulcolax suppository
Elevated LFTs
Monitor especially now on Amio
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
#GERD
# Chronic ambulatory dysfunction -uses a walker. Consulted PT/OT. rec SNF
# DM 2 with diabetic polyneuropathy
Hold metformin
c/w NovoLog scale.
#History of gout
redosed Allopurinol for renal function.
# Restless leg syndrome -
ropinirole.
# Essential hypertension
Amlodipine on hold
#Hyperlipidemia -rosuvastatin.
# Obstructive sleep apnea/COPD/ emphysema
No history of wheezes or productive cough. cw cpap
#Obesity due to excess calories
#Full code, confirmed with patient.
Total time spent to see the patient, examine the patient, review data and lab results, discuss treatment plan with patient, nursing staff around 55 minutes�
Anticipated Discharge: > 48 hours
Subjective/Interval History
-
Date of Service: September 05, 2025
No chest pain
No sob
Objective Data
-
Labs:
Laboratory Results
09/05/25
05:25
WBC 8.8
Hgb 10.4 L
Hct 33.8 L
Plt Count 211
Sodium 137
Potassium 4.0
Chloride 100
Carbon Dioxide 30
BUN 56 H
Creatinine 1.9 H
Glucose 115 H
Calcium 9.5
Vital Signs:
Vital Signs
Temp Pulse Resp BP Pulse Ox
97.9 F 61 16 141/68 97
09/05/25 07:34 09/05/25 07:34 09/05/25 07:34 09/05/25 07:34 09/05/25 07:34
I&O
09/04/25 09/05/25 09/06/25
06:59 06:59 06:59
Intake Total 720 / 720 1200 / 1200
Output Total 625 / 625 975 / 975
Balance 95 / 95 225 / 225
[2025-09-05 11:40] LABS: Glucose - Point of Care 290 mg/dl (70-99)
--- NOTE | 2025-09-05 11:51 | W.PN.NEPH.PH ---
Today's Communication / Plan
-
metolazone
Assessment/Plan
-
IMP:
GABRIELA
Acute respiratory distress suspect acute on chronic heart failure with a preserved ejection fraction/valvular heart disease
Acute hypoxic respiratory insufficiency
Echocardiogram 08/25 with EF 55%, moderate
New onset atrial fibrillation with RVR-Spontaneously converted to normal sinus rhythm
Chronic left lower extremity swelling, possible lymphedema.
History of chronic blood loss anemia - chronic GI bleeding.
Anemia of chronic disease, monitor
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
GERD
Chronic ambulatory dysfunction
DM 2 with diabetic polyneuropathy
History of gout
Restless leg syndrome -
Essential hypertension
Hyperlipidemia
Obstructive sleep apnea/COPD/ emphysema
Obesity due to excess calories
Plan:
Maintain lasix 80mg IV BID today
metolazone 2.5mg today
follow BMP
follow weights
follow PVR, likely will require replacement of Rudd with f/u
f/w patient and dtr on phone.
Dtr wants miguel angelal for retention, does not want her mother to be discharged without an explanation and correction of retention
Previously
Pt initiated conversation about HD while dtr was on phone. Dtr was unhappy that dialysis was being discussed. after phone call I reassured patient that she could bring up dialysis whenever she wanted to talk about it.
She would accept HD if it was necessary ( was on HD before he passed)
-
-
Date of Service: September 05, 2025
CC / HPI / ROS
-
Chief Complaint:
GABRIELA
History of Present Illness:
Cr stable 1.9
Hemodynamically stable
Anemia stable
on IV lasix for decompensated HF (wedge 40)
weights only minimally down
PVR today >500
Review of Systems:
no cp, sob
no supplemental O2
Weights down overall but little in last few days
patient notes that she is having difficulty emptying bladder
Labs
-
Labs:
WBC 8.8 10^3/uL (4.8-10.8) 09/05/25 05:25
RBC 3.60 10^6/uL (4.20-5.40) L 09/05/25 05:25
Hgb 10.4 g/dL (12.0-16.0) L 09/05/25 05:25
Hct 33.8 % (37.0-47.0) L 09/05/25 05:25
Plt Count 211 10^3/uL (130-400) 09/05/25 05:25
Sodium 137 mmol/L (135-145) 09/05/25 05:25
Potassium 4.0 mmol/L (3.5-5.1) 09/05/25 05:25
Chloride 100 mmol/L (98-107) 09/05/25 05:25
Carbon Dioxide 30 mmol/L (22-30) 09/05/25 05:25
BUN 56 mg/dl (7-17) H 09/05/25 05:25
Creatinine 1.9 mg/dL (0.6-1.0) H 09/05/25 05:25
eGFR 25.72 09/05/25 05:25
Glucose 115 mg/dl (70-99) H 09/05/25 05:25
Calcium 9.5 mg/dl (8.4-10.2) 09/05/25 05:25
Wnd-B-Alpwbjpxcka Pept 771 pg/ml 08/28/25 05:21
Albumin 3.7 g/dl (3.5-5.0) 09/01/25 05:19
Physical Exam
-
Vital Signs:
Vital Signs
Temp Pulse Resp BP Pulse Ox
97.9 F 61 16 141/68 97
09/05/25 07:34 09/05/25 07:34 09/05/25 07:34 09/05/25 07:34 09/05/25 07:34
Cardiovascular:: Regular rate and rhythm
Respiratory:: Bilateral: CTA
Lung Excursion:: Normal
Abdomen:: Nontender and Soft
Bowel Sounds:: Normal
Extremity Edema:: None: Bilateral:
[2025-09-05] MEDS: NOVOLOG FLEXPEN-MODERATE RESISTANCE 5 UNITS SC (12:34)
[2025-09-05] MEDS: ZAROXOLYN 2.5 MG PO (12:35)
[2025-09-05 15:08] VITALS: BP 137/59
[2025-09-05] MEDS: HEPARIN 5000 UNITS SC ×2 (15:46→22:16)
[2025-09-05 16:35] LABS: Glucose - Point of Care 137 mg/dl (70-99)
--- NOTE | 2025-09-05 17:36 | CON.MD ---
Consultation - Medical
-
see dictated note
pt followed by dr stewart- long hx of recurrent UTI's and incontinence
treated with estrace and urex- was at one time maintained on ditropan- but stopped
admitted with CHF and RI
had ecoli uti on admit- treated with rocephin
had renal u/s on admit- no hydro or mass
has required multiple straight cath's for retention- now berry in place
plan
discussed with pt and daughter
recheck ucx
continue berry
will check with nephrology and med team in am if bethanechol can be started
would generally anticipated TOV in 3-5 days- can be done as outpt
will follow
Consultation
-
Date/Time Consultation Requested: 09/05/25 at noon
Date/Time Consultation Performed: 09/05/25 at 5pm
Requesting Provider: Dr Shah
Performing Provider: Dr Daly
Reason for Consultation: retention
[2025-09-05] MEDS: CRESTOR 5 MG PO (17:37)
[2025-09-05 18:19] LABS: Urine Character Clear (Clear)
[2025-09-05 18:32] LABS: Urine Squamous Cell 0-2 /LPF (Few)
[2025-09-05 18:33] LABS: Urine Red Blood Cell 60-70 /HPF (0-2)
[2025-09-05 21:52] LABS: Glucose - Point of Care 163 mg/dl (70-99)
[2025-09-05] MEDS: PAMELOR 75 MG PO (22:14)
[2025-09-05] MEDS: REQUIP 0.25 MG PO (22:14)
[2025-09-05] MEDS: COLACE 100 MG PO (22:16)
[2025-09-05 23:00] VITALS: BP 107/45
[2025-09-06] MEDS: HEPARIN 5000 UNITS SC ×3 (05:05→22:28)
[2025-09-06 06:00] VITALS: BMI 29.8
[2025-09-06 06:02] LABS: Hematocrit 34.0 % (37.0-47.0); Hemoglobin 10.7 g/dL (12.0-16.0); Mean Corp Hgb Conc. 31.5 g/dL (33.0-37.0); Mean Corpuscular Volume 93.7 fL (81.0-99.0); Platelet Count 212 10^3/uL (130-400); Red Cell Dist. Width 17.6 % (11.5-14.5)
[2025-09-06 06:22] LABS: Blood Urea Nitrogen 57 mg/dl (7-17); Calcium 9.8 mg/dl (8.4-10.2); Carbon Dioxide 29 mmol/L (22-30); Chloride 99 mmol/L (98-107); Estimated Creatinine Clearance 23 ml/min; Glucose 109 mg/dl (70-99); Potassium 4.0 mmol/L (3.5-5.1); Sodium 136 mmol/L (135-145); eGFR 27.44
[2025-09-06 07:37] VITALS: BP 140/64
[2025-09-06 07:49] LABS: Glucose - Point of Care 131 mg/dl (70-99)
--- NOTE | 2025-09-06 08:06 | W.PN.URO.CBU ---
Today's Communication / Plan
-
continue berry
Assessment / Plan
-
hx of recurrent UTI and OAB
admitted with CHF and RI
treated for ecoli UTI
now with urinary retention
continue berry
add bethanechol if not contra-indicated- 25mg bid
if home this weekend- discharge with cath to f/u with dr stewart
Diagnosis
-
Date of Service: September 06, 2025
-
Patient Diagnosis:
hx of chronic cystitis and OAD
admitted with CHF and RI
now with urinary retention
Subjective
-
pt asleep
berry in place
urine clear
Objective
-
Vital Signs
Temp Pulse Resp BP Pulse Ox
98.2 F 64 16 140/64 97
09/06/25 07:37 09/06/25 07:37 09/06/25 07:37 09/06/25 07:37 09/06/25 07:37
Intake and Output
09/05/25 09/06/25 09/07/25
06:59 06:59 06:59
Intake Total 1200 / 1200 900 / 900
Output Total 975 / 975 1650 / 1650
Balance 225 / 225 -750 / -750
Intake:
Oral fluids 1200 / 1200 900 / 900
Output:
Urine, Berry 850 / 850
Urine, Voided 300 / 300
Straight cath output 675 / 675 800 / 800
Other:
Number of approximated SMALL 1
amounts of urine
Laboratory Results
09/06/25 05:24
09/06/25 05:24
Physical Exam
-
General - no acute distress
--- NOTE | 2025-09-06 09:35 | W.PN.HOSP.TC ---
Today's Communication/Plan
-
.
Assessment / Plan
Assessment / Plan
Physical exam:
General: Comfortable, Appears Chronically Ill and Obese
HEENT: Moist mucous membranes and Atraumatic
Respiratory: no Rales; No Wheezes
Cardiac: S1/S2, systolic Murmur
GI: Soft, Non Tender
Musculoskeletal: No Edema LE
Neuro: AO x 3 and Nonfocal/grossly intact
Psych: Calm and Intact Judgment/Insight
A/p:
#GABRIELA
Suspect history of CKD, monitor renal function
Creatinine is starting to come down. nephrology following.
Patient continued to have inability to empty her bladder with a chronic retention required to frequent straight cath. She had voiding trial and she failed. Rudd catheter was placed. She was evaluated by urologist , recommended trial of
bethanechol which might help or might not. Per urology, discharged will be most likely with Rudd catheter
UA suggestive of infection,had dysuria and increased frequency. Given E. coli , s/p ceftriaxone. Finished antibiotic for UTI.
Primary urologist is Dr. Schulte
Continue to hold nephrotoxic agents
Acute respiratory distress suspect acute on chronic heart failure with a preserved ejection fraction/valvular heart disease
Acute hypoxic respiratory insufficiency likely secondary to above, resolved, on room air.
Chest x-ray 08/27 with possibility of bibasilar pneumonia. definitely a component of CHF. Was given ABx for hypoxia, no cough, stop doxy. s/p right heart cath 08/29 with fluid overload. cw IV diuresis
Cardiology followed, diuretic per nephrology
Echocardiogram 08/25 with EF 55%, moderate
Does have periods of bradycardia, amiodarone decreased.
Primary soda fountain clerk Dr. Faina Mckeon.
New onset atrial fibrillation with RVR
Spontaneously converted to normal sinus rhythm with periods of bradycardia
Now on amiodarone 200 mg twice daily. Coreg stopped
Anticoagulation per cardiology, discussed with cardiology. Not a good candidate for AC and patient also refusing
# Chronic left lower extremity swelling, came down.
Patient and caregiver increasing swelling. No signs of infection with absence of tenderness/erythema. Lower extremity ultrasound negative for DVT
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
Anemia of chronic disease, monitor
Per patient, no source found. 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
Patient has had IV infusion of iron, finished, not on oral iron supplement.
patient has been seeing hematology outpatient for MM work up
hyponatremia
Constipation
Laxatives
Dulcolax suppository
Elevated LFTs
Resolved. No GI symptoms.
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
#GERD
# Chronic ambulatory dysfunction -uses a walker. Consulted PT/OT. rec SNF
# DM 2 with diabetic polyneuropathy
Hold metformin
c/w NovoLog scale.
#History of gout
redosed Allopurinol for renal function.
# Restless leg syndrome -
ropinirole.
# Essential hypertension
Amlodipine on hold
#Hyperlipidemia -rosuvastatin.
# Obstructive sleep apnea/COPD/ emphysema
No history of wheezes or productive cough. cw cpap
#Obesity due to excess calories
#Full code, confirmed with patient.
d/w daughter Patel at length
Total time spent to see the patient, examine the patient, review data and lab results, discuss treatment plan with patient, daughter, consultants nursing staff around 55 minutes�
Anticipated Discharge: > 48 hours
Subjective/Interval History
-
Date of Service: September 06, 2025
No chest pain
No sob
No fevers
Objective Data
-
Labs:
Laboratory Results
09/06/25
05:24
WBC 9.4
Hgb 10.7 L
Hct 34.0 L
Plt Count 212
Sodium 136
Potassium 4.0
Chloride 99
Carbon Dioxide 29
BUN 57 H
Creatinine 1.8 H
Glucose 109 H
Calcium 9.8
Vital Signs:
Vital Signs
Temp Pulse Resp BP Pulse Ox
98.2 F 64 16 140/64 97
09/06/25 07:37 09/06/25 07:37 09/06/25 07:37 09/06/25 07:37 09/06/25 07:37
I&O
09/05/25 09/06/25 09/07/25
06:59 06:59 06:59
Intake Total 1200 / 1200 900 / 900
Output Total 975 / 975 1650 / 1650
Balance 225 / 225 -750 / -750
[2025-09-06] MEDS: LASIX 80 MG IV ×2 (09:49→15:55)
[2025-09-06] MEDS: COLACE 100 MG PO ×2 (09:49→22:14)
[2025-09-06] MEDS: NOVOLOG FLEXPEN-MODERATE RESISTANCE SC (09:49)
[2025-09-06] MEDS: HIPREX 1 GRAM PO ×2 (09:49→22:15)
[2025-09-06] MEDS: MIRALAX 17 GRAMS PO (09:49)
[2025-09-06] MEDS: NEURONTIN 200 MG PO ×2 (09:49→22:15)
[2025-09-06] MEDS: LOW STRENGTH ASPIRIN 81 MG PO (09:49)
[2025-09-06] MEDS: PACERONE 200 MG PO (09:49)
[2025-09-06] MEDS: METAMUCIL, KONSYL 1 PACKET PO (09:49)
[2025-09-06] MEDS: URECHOLINE 25 MG PO ×2 (09:50→22:15)
[2025-09-06] MEDS: VITAMIN B-12 1000 MCG PO (09:50)
[2025-09-06] MEDS: ZYLOPRIM 100 MG PO (09:50)
[2025-09-06] MEDS: PROTONIX 40 MG PO (09:50)
--- NOTE | 2025-09-06 11:25 | W.PN.NEPH.PH ---
Today's Communication / Plan
-
follow BMP
Assessment/Plan
-
IMP:
GABRIELA
Acute respiratory distress suspect acute on chronic heart failure with a preserved ejection fraction/valvular heart disease
Acute hypoxic respiratory insufficiency
Echocardiogram 08/25 with EF 55%, moderate
New onset atrial fibrillation with RVR-Spontaneously converted to normal sinus rhythm
Chronic left lower extremity swelling, possible lymphedema.
History of chronic blood loss anemia - chronic GI bleeding.
Anemia of chronic disease, monitor
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
GERD
Chronic ambulatory dysfunction
DM 2 with diabetic polyneuropathy
History of gout
Restless leg syndrome -
Essential hypertension
Hyperlipidemia
Obstructive sleep apnea/COPD/ emphysema
Obesity due to excess calories
Plan:
Maintain lasix 80mg IV BID today
follow BMP
follow weights
berry per urology. no issues with bethanechol from renal standpoint
convert to po lasix tomorrow
-
-
Date of Service: September 06, 2025
CC / HPI / ROS
-
Chief Complaint:
GABRIELA
History of Present Illness:
Cr stable 1.8
Hemodynamically stable
Anemia stable
on IV lasix for decompensated HF (wedge 40)
berry in place 09/06/25
Review of Systems:
no cp, sob
no supplemental O2
Labs
-
Labs:
WBC 9.4 10^3/uL (4.8-10.8) 09/06/25 05:24
RBC 3.63 10^6/uL (4.20-5.40) L 09/06/25 05:24
Hgb 10.7 g/dL (12.0-16.0) L 09/06/25 05:24
Hct 34.0 % (37.0-47.0) L 09/06/25 05:24
Plt Count 212 10^3/uL (130-400) 09/06/25 05:24
Sodium 136 mmol/L (135-145) 09/06/25 05:24
Potassium 4.0 mmol/L (3.5-5.1) 09/06/25 05:24
Chloride 99 mmol/L (98-107) 09/06/25 05:24
Carbon Dioxide 29 mmol/L (22-30) 09/06/25 05:24
BUN 57 mg/dl (7-17) H 09/06/25 05:24
Creatinine 1.8 mg/dL (0.6-1.0) H 09/06/25 05:24
eGFR 27.44 09/06/25 05:24
Glucose 109 mg/dl (70-99) H 09/06/25 05:24
Calcium 9.8 mg/dl (8.4-10.2) 09/06/25 05:24
Joy-Z-Aldczdktwgs Pept 771 pg/ml 08/28/25 05:21
Albumin 3.7 g/dl (3.5-5.0) 09/01/25 05:19
Physical Exam
-
Vital Signs:
Vital Signs
Temp Pulse Resp BP Pulse Ox
98.2 F 64 16 140/64 97
09/06/25 07:37 09/06/25 07:37 09/06/25 07:37 09/06/25 07:37 09/06/25 07:37
Cardiovascular:: Regular rate and rhythm
Respiratory:: Bilateral: Coarse
Lung Excursion:: Normal
Abdomen:: Nontender and Soft
Bowel Sounds:: Normal
Extremity Edema:: None: Bilateral:
[2025-09-06 11:38] LABS: Glucose - Point of Care 185 mg/dl (70-99)
[2025-09-06] MEDS: NOVOLOG FLEXPEN-MODERATE RESISTANCE 1 UNITS SC ×2 (13:08→17:49)
[2025-09-06 15:33] VITALS: BP 107/60
[2025-09-06 16:52] LABS: Glucose - Point of Care 188 mg/dl (70-99)
[2025-09-06] MEDS: CRESTOR 5 MG PO (17:54)
[2025-09-06 21:35] LABS: Glucose - Point of Care 158 mg/dl (70-99)
[2025-09-06] MEDS: PAMELOR 75 MG PO (22:14)
[2025-09-06] MEDS: REQUIP 0.25 MG PO (22:15)
[2025-09-06 23:31] VITALS: BP 101/51
[2025-09-07 03:46] VITALS: BMI 29.8
[2025-09-07 06:08] LABS: Blood Urea Nitrogen 63 mg/dl (7-17); Calcium 9.8 mg/dl (8.4-10.2); Carbon Dioxide 29 mmol/L (22-30); Chloride 97 mmol/L (98-107); Estimated Creatinine Clearance 20 ml/min; Glucose 124 mg/dl (70-99); Potassium 3.8 mmol/L (3.5-5.1); Sodium 134 mmol/L (135-145); eGFR 22.81
[2025-09-07] MEDS: HEPARIN 5000 UNITS SC ×3 (06:11→21:38)
[2025-09-07 07:30] VITALS: BP 118/59
[2025-09-07 07:33] LABS: Glucose - Point of Care 128 mg/dl (70-99)
[2025-09-07] MEDS: NOVOLOG FLEXPEN-MODERATE RESISTANCE SC (07:38)
[2025-09-07] MEDS: LASIX 80 MG IV (08:26)
[2025-09-07] MEDS: VITAMIN B-12 1000 MCG PO (08:27)
[2025-09-07] MEDS: LOW STRENGTH ASPIRIN 81 MG PO (08:27)
[2025-09-07] MEDS: HIPREX 1 GRAM PO ×2 (08:27→20:39)
[2025-09-07] MEDS: MIRALAX 17 GRAMS PO (08:27)
[2025-09-07] MEDS: PACERONE 200 MG PO (08:27)
[2025-09-07] MEDS: METAMUCIL, KONSYL 1 PACKET PO (08:27)
[2025-09-07] MEDS: URECHOLINE 25 MG PO ×2 (08:27→20:40)
[2025-09-07] MEDS: PROTONIX 40 MG PO (08:27)
[2025-09-07] MEDS: ZYLOPRIM 100 MG PO (08:27)
[2025-09-07] MEDS: NEURONTIN 200 MG PO ×2 (08:27→20:39)
[2025-09-07] MEDS: COLACE 100 MG PO ×2 (08:28→20:39)
--- NOTE | 2025-09-07 09:23 | W.PN.HOSP.TC ---
Addendum entered and electronically signed by Karis Shah MD 09/07/25 12:41:
Addendum
Oral Dulcolax was not given this morning as patient had large BM, normal.
Discussed with nephrology, trial of oral Lasix with close monitoring of weight. Updated daughter.
End
Original Note:
Today's Communication/Plan
-
.
Assessment / Plan
Assessment / Plan
Physical exam:
General: Comfortable, Appears Chronically Ill and Obese
HEENT: Moist mucous membranes and Atraumatic
Respiratory: no Rales; No Wheezes
Cardiac: S1/S2, systolic Murmur
GI: Soft, Non Tender
Musculoskeletal: No Edema LE
Neuro: AO x 3 and Nonfocal/grossly intact
Psych: Calm and Intact Judgment/Insight
A/p:
#GABRIELA
Suspect history of CKD, monitor renal function
Creatinine is elevated. Nephrology following.
Patient continued to have inability to empty her bladder with a chronic retention required to frequent straight cath. She had voiding trial and she failed. Rudd catheter was placed. She was evaluated by urologist, recommended trial of
bethanechol which might help or might not. Per urology, discharged will be most likely with Rudd catheter
UA suggestive of infection,had dysuria and increased frequency. Given E. coli , s/p ceftriaxone. Finished antibiotic for UTI.
Primary urologist is Dr. Schulte
Continue to hold nephrotoxic agents
Acute respiratory distress suspect acute on chronic heart failure with a preserved ejection fraction/valvular heart disease
Acute hypoxic respiratory insufficiency likely secondary to above, resolved, on room air.
Chest x-ray 08/27 with possibility of bibasilar pneumonia. definitely a component of CHF. Was given ABx for hypoxia, no cough, stop doxy. s/p right heart cath 08/29 with fluid overload. cw diuresis
Cardiology followed, diuretic per nephrology
Echocardiogram 08/25 with EF 55%, moderate
Does have periods of bradycardia, amiodarone decreased.
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
New onset atrial fibrillation with RVR
Spontaneously converted to normal sinus rhythm with periods of bradycardia
Now on amiodarone 200 mg twice daily. Coreg stopped
Anticoagulation per cardiology, discussed with cardiology. Not a good candidate for AC and patient also refusing
# Chronic left lower extremity swelling, came down.
Patient and caregiver increasing swelling. No signs of infection with absence of tenderness/erythema. Lower extremity ultrasound negative for DVT
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
Anemia of chronic disease, monitor
Per patient, no source found. 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
Patient has had IV infusion of iron, finished, not on oral iron supplement.
patient has been seeing hematology outpatient for MM work up
# Hyponatremia
#Constipation
Resolved. Will c/w Dulcolax, MiraLAX.
PRN Dulcolax suppository
Elevated LFTs
Resolved. No GI symptoms.
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
#GERD
# Chronic ambulatory dysfunction -uses a walker. Consulted PT/OT. rec SNF
# DM 2 with diabetic polyneuropathy
Hold metformin
c/w NovoLog scale.
#History of gout
Re- dosed Allopurinol for renal function.
# Restless leg syndrome -
ropinirole.
# Essential hypertension
Amlodipine & Lisinopril on hold. Normal BP, c/w diuretics.
#Hyperlipidemia -rosuvastatin.
# Obstructive sleep apnea/COPD/ emphysema
No history of wheezes or productive cough. cw C-pap
#Obesity due to excess calories
#Full code, confirmed with patient.
d/w daughter Patel at length
Total time spent to see the patient, examine the patient, review data and lab results, discuss treatment plan with patient, daughter, consultants nursing staff around 55 minutes. �
Anticipated Discharge: > 48 hours
Subjective/Interval History
-
Date of Service: September 07, 2025
no chest pain
no sob
no fever
Objective Data
-
Labs:
Laboratory Results
09/07/25
05:21
Sodium 134 L
Potassium 3.8
Chloride 97 L
Carbon Dioxide 29
BUN 63 H
Creatinine 2.1 H
Glucose 124 H
Calcium 9.8
Vital Signs:
Vital Signs
Temp Pulse Resp BP Pulse Ox
97.2 F 64 16 118/59 97
09/07/25 07:30 09/07/25 08:27 09/07/25 07:30 09/07/25 08:27 09/07/25 09:09
I&O
09/06/25 09/07/25 09/08/25
06:59 06:59 06:59
Intake Total 900 / 900 1200 / 1200
Output Total 1650 / 1650 950 / 950
Balance -750 / -750 250 / 250
--- NOTE | 2025-09-07 10:09 | W.PN.NEPH.PH ---
Today's Communication / Plan
-
po lasix
Assessment/Plan
-
IMP:
GABRIELA
Acute respiratory distress suspect acute on chronic heart failure with a preserved ejection fraction/valvular heart disease
Acute hypoxic respiratory insufficiency
Echocardiogram 08/25 with EF 55%, moderate
New onset atrial fibrillation with RVR-Spontaneously converted to normal sinus rhythm
Chronic left lower extremity swelling, possible lymphedema.
History of chronic blood loss anemia - chronic GI bleeding.
Anemia of chronic disease, monitor
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
GERD
Chronic ambulatory dysfunction
DM 2 with diabetic polyneuropathy
History of gout
Restless leg syndrome -
Essential hypertension
Hyperlipidemia
Obstructive sleep apnea/COPD/ emphysema
Obesity due to excess calories
Plan:
lasix 40mg po daily
on RA, lying supine, no edema
follow BMP
follow weights
berry per urology. no issues with bethanechol from renal standpoint
-
-
Date of Service: September 07, 2025
CC / HPI / ROS
-
Chief Complaint:
GABRIELA
History of Present Illness:
GABRIELA/Cr up to 2.1
Hemodynamically stable
Anemia stable
on IV lasix for decompensated HF (wedge 40)
berry in place 09/06/25
Review of Systems:
no cp, sob
no supplemental O2
Labs
-
Labs:
WBC 9.4 10^3/uL (4.8-10.8) 09/06/25 05:24
RBC 3.63 10^6/uL (4.20-5.40) L 09/06/25 05:24
Hgb 10.7 g/dL (12.0-16.0) L 09/06/25 05:24
Hct 34.0 % (37.0-47.0) L 09/06/25 05:24
Plt Count 212 10^3/uL (130-400) 09/06/25 05:24
Sodium 134 mmol/L (135-145) L 09/07/25 05:21
Potassium 3.8 mmol/L (3.5-5.1) 09/07/25 05:21
Chloride 97 mmol/L (98-107) L 09/07/25 05:21
Carbon Dioxide 29 mmol/L (22-30) 09/07/25 05:21
BUN 63 mg/dl (7-17) H 09/07/25 05:21
Creatinine 2.1 mg/dL (0.6-1.0) H 09/07/25 05:21
eGFR 22.81 09/07/25 05:21
Glucose 124 mg/dl (70-99) H 09/07/25 05:21
Calcium 9.8 mg/dl (8.4-10.2) 09/07/25 05:21
Hvk-P-Umrwwyrfyvh Pept 771 pg/ml 08/28/25 05:21
Albumin 3.7 g/dl (3.5-5.0) 09/01/25 05:19
Physical Exam
-
Vital Signs:
Vital Signs
Temp Pulse Resp BP Pulse Ox
97.2 F 64 16 118/59 97
09/07/25 07:30 09/07/25 08:27 09/07/25 07:30 09/07/25 08:27 09/07/25 09:09
Cardiovascular:: Regular rate and rhythm
Respiratory:: Bilateral: Coarse
Lung Excursion:: Normal
Abdomen:: Nontender and Soft
Bowel Sounds:: Normal
Extremity Edema:: None: Bilateral:
[2025-09-07 11:34] LABS: Glucose - Point of Care 245 mg/dl (70-99)
--- NOTE | 2025-09-07 12:07 | CM ---
Chart reviewed and case assembler spoke with patient and daughter, Sabine by phone, per patient's daughter patient lives alone and would benefit from skilled placement, case assembler reached out to PT to reevaluate patient, patient is for possible
discharge with Rudd, referral sent to [facility] and they have accepted patient, will need Auth.
Plan; Skilled placement at [facility].
[2025-09-07] MEDS: NOVOLOG FLEXPEN-MODERATE RESISTANCE 3 UNITS SC (13:25)
[2025-09-07 15:17] VITALS: BP 130/64
[2025-09-07 16:27] VITALS: BP 109/59; PULSE 69; O2SAT 96
--- NOTE | 2025-09-07 16:42 | W.PN.URO.CBU ---
Today's Communication / Plan
-
discharge with berry and bethanechol
spoke to ashley and update as to plan
Assessment / Plan
-
hx of recurrent UTI and OAB
admitted with CHF and RI
treated for ecoli UTI
now with urinary retention
continue berry
continue bethanechol
call dr stewart after discharge to arrange for outpt TOV
Diagnosis
-
Date of Service: September 07, 2025
-
Patient Diagnosis:
hx of chronic cystitis and OAD
admitted with CHF and RI
now with urinary retention
Subjective
-
pt feels better
berry in place
bethanechol started
Objective
-
Vital Signs
Temp Pulse Resp BP Pulse Ox
98.2 F 75 18 130/64 97
09/07/25 15:17 09/07/25 15:17 09/07/25 15:17 09/07/25 15:17 09/07/25 15:17
Intake and Output
09/06/25 09/07/25 09/08/25
06:59 06:59 06:59
Intake Total 900 / 900 1200 / 1200
Output Total 1650 / 1650 950 / 950
Balance -750 / -750 250 / 250
Intake:
Oral fluids 900 / 900 1200 / 1200
Output:
Urine, Berry 850 / 850 200 / 200
Urine, Voided 750 / 750
Straight cath output 800 / 800
Laboratory Results
09/06/25 05:24
09/07/25 05:21
Physical Exam
-
General - no acute distress
[2025-09-07 16:49] LABS: Glucose - Point of Care 268 mg/dl (70-99)
[2025-09-07] MEDS: NOVOLOG FLEXPEN-MODERATE RESISTANCE 5 UNITS SC (17:27)
[2025-09-07] MEDS: CRESTOR 5 MG PO (17:28)
[2025-09-07] MEDS: PAMELOR 75 MG PO (21:38)
[2025-09-07] MEDS: REQUIP 0.25 MG PO (21:39)
[2025-09-07 22:13] LABS: Glucose - Point of Care 237 mg/dl (70-99)
[2025-09-07 23:29] VITALS: BP 120/61
[2025-09-08 05:26] VITALS: BMI 29.6
[2025-09-08 05:44] LABS: Hematocrit 35.1 % (37.0-47.0); Hemoglobin 10.9 g/dL (12.0-16.0); Mean Corp Hgb Conc. 31.1 g/dL (33.0-37.0); Mean Corpuscular Volume 92.4 fL (81.0-99.0); Platelet Count 218 10^3/uL (130-400); Red Cell Dist. Width 17.4 % (11.5-14.5)
[2025-09-08] MEDS: HEPARIN 5000 UNITS SC ×3 (05:44→22:26)
[2025-09-08 06:07] LABS: Blood Urea Nitrogen 66 mg/dl (7-17); Calcium 9.3 mg/dl (8.4-10.2); Carbon Dioxide 29 mmol/L (22-30); Chloride 98 mmol/L (98-107); Estimated Creatinine Clearance 19 ml/min; Glucose 105 mg/dl (70-99); Potassium 3.6 mmol/L (3.5-5.1); Sodium 135 mmol/L (135-145); eGFR 22.81
[2025-09-08 07:30] VITALS: BP 155/67
[2025-09-08 07:56] LABS: Glucose - Point of Care 135 mg/dl (70-99)
[2025-09-08] MEDS: NOVOLOG FLEXPEN-MODERATE RESISTANCE SC (07:58)
[2025-09-08] MEDS: VITAMIN B-12 1000 MCG PO (08:38)
[2025-09-08] MEDS: COLACE 100 MG PO ×2 (08:38→22:25)
[2025-09-08] MEDS: MIRALAX 17 GRAMS PO (08:38)
[2025-09-08] MEDS: LOW STRENGTH ASPIRIN 81 MG PO (08:38)
[2025-09-08] MEDS: NEURONTIN 200 MG PO ×2 (08:38→22:25)
[2025-09-08] MEDS: ZYLOPRIM 100 MG PO (08:38)
[2025-09-08] MEDS: HIPREX 1 GRAM PO ×2 (08:38→22:25)
[2025-09-08] MEDS: PACERONE 200 MG PO (08:38)
[2025-09-08] MEDS: PROTONIX 40 MG PO (08:38)
[2025-09-08] MEDS: URECHOLINE 25 MG PO ×2 (08:38→22:26)
[2025-09-08] MEDS: LASIX 40 MG PO (08:39)
[2025-09-08] MEDS: METAMUCIL, KONSYL 1 PACKET PO (08:39)
--- NOTE | 2025-09-08 11:45 | W.PN.HOSP.TC ---
Today's Communication/Plan
-
Monitor vital signs
see plan
Monitor renal function
Continue with amiodarone, Lasix
Discussed with daughter
Discharge planning, ed case manager aware. Needs SNF
Assessment / Plan
Assessment / Plan
Physical exam:
General: Comfortable, Appears Chronically Ill and Obese
HEENT: Moist mucous membranes and Atraumatic
Respiratory: no Rales; No Wheezes
Cardiac: S1/S2, systolic Murmur
GI: Soft, Non Tender
Musculoskeletal: No Edema LE
Neuro: AO x 3 and Nonfocal/grossly intact
Psych: Calm and Intact Judgment/Insight
A/p:
#GABRIELA
Suspect history of CKD, monitor renal function
Creatinine is elevated. Nephrology following.
Patient continued to have inability to empty her bladder with a chronic retention required to frequent straight cath. She had voiding trial and she failed. Rudd catheter was placed. She was evaluated by urologist, recommended trial of
bethanechol which might help or might not. Per urology, discharged will be most likely with Rudd catheter
UA suggestive of infection,had dysuria and increased frequency. Given E. coli , s/p ceftriaxone. Finished antibiotic for UTI.
Primary urologist is Dr. Schulte
Continue to hold nephrotoxic agents
Acute respiratory distress suspect acute on chronic heart failure with a preserved ejection fraction/valvular heart disease
Acute hypoxic respiratory insufficiency likely secondary to above, resolved, on room air.
Chest x-ray 08/27 with possibility of bibasilar pneumonia. definitely a component of CHF. Was given ABx for hypoxia, cough, stop doxy. s/p right heart cath 08/29 with fluid overload. cw diuresis
Cardiology followed, diuretic per nephrology. Now on p.o. Lasix
Echocardiogram 08/25 with EF 55%, moderate
Does have periods of bradycardia, amiodarone decreased.
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
New onset atrial fibrillation with RVR
Spontaneously converted to normal sinus rhythm with periods of bradycardia
Now on amiodarone 200 mg daily. Coreg stopped
Anticoagulation per cardiology, discussed with cardiology. Not a good candidate for AC and patient also refusing
# Chronic left lower extremity swelling, came down.
Patient and caregiver increasing swelling. No signs of infection with absence of tenderness/erythema. Lower extremity ultrasound negative for DVT
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
Anemia of chronic disease, monitor
Per patient, no source found. 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
Patient has had IV infusion of iron, finished, not on oral iron supplement.
patient has been seeing hematology outpatient for MM work up
# Hyponatremia
#Constipation
Resolved. Will c/w Dulcolax, MiraLAX.
PRN Dulcolax suppository
Elevated LFTs
Resolved. No GI symptoms.
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
#GERD
# Chronic ambulatory dysfunction -uses a walker. Consulted PT/OT. rec SNF
# DM 2 with diabetic polyneuropathy
Hold metformin
c/w NovoLog scale.
#History of gout
Re- dosed Allopurinol for renal function.
# Restless leg syndrome -
ropinirole.
# Essential hypertension
Amlodipine & Lisinopril on hold. Normal BP, c/w diuretics.
#Hyperlipidemia -rosuvastatin.
# Obstructive sleep apnea/COPD/ emphysema
No history of wheezes or productive cough. cw C-pap
#Obesity due to excess calories
#Full code, confirmed with patient.
Anticipated Discharge: Today
Subjective/Interval History
-
Date of Service: September 08, 2025
Feeling better
Objective Data
-
Labs:
Laboratory Results
09/08/25
05:09
WBC 9.3
Hgb 10.9 L
Hct 35.1 L
Plt Count 218
Sodium 135
Potassium 3.6
Chloride 98
Carbon Dioxide 29
BUN 66 H
Creatinine 2.1 H
Glucose 105 H
Calcium 9.3
Vital Signs:
Vital Signs
Temp Pulse Resp BP Pulse Ox
97.3 F 62 16 155/67 99
09/08/25 07:30 09/08/25 07:30 09/08/25 07:30 09/08/25 07:30 09/08/25 07:30
I&O
09/07/25 09/08/25 09/09/25
06:59 06:59 06:59
Intake Total 1200 / 1200 720 / 720
Output Total 950 / 950 950 / 950
Balance 250 / 250 -230 / -230
[2025-09-08 12:04] LABS: Glucose - Point of Care 223 mg/dl (70-99)
--- NOTE | 2025-09-08 12:05 | W.PN.NEPH.PH ---
Today's Communication / Plan
-
ok for d/c
Assessment/Plan
-
IMP:
GABRIELA
Acute respiratory distress suspect acute on chronic heart failure with a preserved ejection fraction/valvular heart disease
Acute hypoxic respiratory insufficiency
Echocardiogram 08/25 with EF 55%, moderate
New onset atrial fibrillation with RVR-Spontaneously converted to normal sinus rhythm
Chronic left lower extremity swelling, possible lymphedema.
History of chronic blood loss anemia - chronic GI bleeding.
Anemia of chronic disease, monitor
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
GERD
Chronic ambulatory dysfunction
DM 2 with diabetic polyneuropathy
History of gout
Restless leg syndrome -
Essential hypertension
Hyperlipidemia
Obstructive sleep apnea/COPD/ emphysema
Obesity due to excess calories
Plan:
stable renal function cr 2.1, baseline 1-1.2
GABRIELA felt cardiorenal vs diuretics +/- U retention
UA microhematuria but likely berry related, U protein 1.5gm/day
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
stable vol status, cont lasix 40mg po daily and FR
berry per urology. ok for bethanechol from renal standpoint
follow BMP and wts
f/u Dr Aguillon after d/c
d/w pt and daughter on phone in detail, answered questions
-
-
Date of Service: September 08, 2025
CC / HPI / ROS
-
Chief Complaint:
GABRIELA
History of Present Illness:
GABRIELA/Cr stable at 2.1
Hemodynamically stable
Anemia stable 10.9
on po lasix
berry in place 09/06/25
Review of Systems:
no cp, sob
no supplemental O2
Labs
-
Labs:
WBC 9.3 10^3/uL (4.8-10.8) 09/08/25 05:09
RBC 3.80 10^6/uL (4.20-5.40) L 09/08/25 05:09
Hgb 10.9 g/dL (12.0-16.0) L 09/08/25 05:09
Hct 35.1 % (37.0-47.0) L 09/08/25 05:09
Plt Count 218 10^3/uL (130-400) 09/08/25 05:09
Sodium 135 mmol/L (135-145) 09/08/25 05:09
Potassium 3.6 mmol/L (3.5-5.1) 09/08/25 05:09
Chloride 98 mmol/L (98-107) 09/08/25 05:09
Carbon Dioxide 29 mmol/L (22-30) 09/08/25 05:09
BUN 66 mg/dl (7-17) H 09/08/25 05:09
Creatinine 2.1 mg/dL (0.6-1.0) H 09/08/25 05:09
eGFR 22.81 09/08/25 05:09
Glucose 105 mg/dl (70-99) H 09/08/25 05:09
Calcium 9.3 mg/dl (8.4-10.2) 09/08/25 05:09
Jpc-Z-Pfyazvaziul Pept 771 pg/ml 08/28/25 05:21
Albumin 3.7 g/dl (3.5-5.0) 09/01/25 05:19
Physical Exam
-
Vital Signs:
Vital Signs
Temp Pulse Resp BP Pulse Ox
97.3 F 62 16 155/67 99
09/08/25 07:30 09/08/25 07:30 09/08/25 07:30 09/08/25 07:30 09/08/25 07:30
Cardiovascular:: Regular rate and rhythm (murmur+)
Respiratory:: Bilateral: Coarse
Lung Excursion:: Normal
Abdomen:: Nontender and Soft
Bowel Sounds:: Normal
Extremity Edema:: None: Bilateral:
Berry Catheter: Yes
[2025-09-08 13:00] VITALS: BP 138/62; PULSE 67; O2SAT 97
[2025-09-08 13:24] VITALS: BP 138/62; PULSE 68; O2SAT 96
[2025-09-08] MEDS: NOVOLOG FLEXPEN-MODERATE RESISTANCE 3 UNITS SC (13:30)
[2025-09-08 15:30] VITALS: BP 124/56
[2025-09-08 17:06] LABS: Glucose - Point of Care 153 mg/dl (70-99)
--- NOTE | 2025-09-08 17:12 | CM ---
Pt has been accepted for transfer to [facility] tomorrow. Ambulance transport to be arranged for tomorrow.
[facility] Report: [phone]
[facility]
[2025-09-08] MEDS: CRESTOR 5 MG PO (17:23)
[2025-09-08] MEDS: NOVOLOG FLEXPEN-MODERATE RESISTANCE 1 UNITS SC (17:30)
[2025-09-08 21:04] LABS: Glucose - Point of Care 204 mg/dl (70-99)
[2025-09-08] MEDS: PAMELOR 75 MG PO (22:27)
[2025-09-08] MEDS: REQUIP 0.25 MG PO (22:27)
[2025-09-08 23:00] VITALS: BP 137/65
[2025-09-09 03:21] VITALS: BMI 29.6
[2025-09-09] MEDS: HEPARIN 5000 UNITS SC ×2 (05:46→15:04)
[2025-09-09 06:25] LABS: Hematocrit 34.9 % (37.0-47.0); Hemoglobin 11.0 g/dL (12.0-16.0); Mean Corp Hgb Conc. 31.5 g/dL (33.0-37.0); Mean Corpuscular Volume 92.3 fL (81.0-99.0); Nucleated Red Blood Cells % 0 %; Platelet Count 226 10^3/uL (130-400); Red Cell Dist. Width 17.2 % (11.5-14.5)
[2025-09-09 06:47] LABS: Blood Urea Nitrogen 69 mg/dl (7-17); Calcium 9.5 mg/dl (8.4-10.2); Carbon Dioxide 28 mmol/L (22-30); Chloride 99 mmol/L (98-107); Estimated Creatinine Clearance 20 ml/min; Glucose 122 mg/dl (70-99); Potassium 3.9 mmol/L (3.5-5.1); Sodium 134 mmol/L (135-145); eGFR 24.18
[2025-09-09 07:30] VITALS: BP 161/62
[2025-09-09 08:30] LABS: Glucose - Point of Care 135 mg/dl (70-99)
[2025-09-09] MEDS: NOVOLOG FLEXPEN-MODERATE RESISTANCE SC (09:43)
[2025-09-09] MEDS: VITAMIN B-12 1000 MCG PO (09:43)
[2025-09-09] MEDS: PACERONE 200 MG PO (09:44)
[2025-09-09] MEDS: URECHOLINE 25 MG PO (09:44)
[2025-09-09] MEDS: HIPREX 1 GRAM PO (09:44)
[2025-09-09] MEDS: NEURONTIN 200 MG PO (09:44)
[2025-09-09] MEDS: PROTONIX 40 MG PO (09:44)
[2025-09-09] MEDS: LOW STRENGTH ASPIRIN 81 MG PO (09:44)
[2025-09-09] MEDS: LASIX 40 MG PO (09:44)
[2025-09-09] MEDS: COLACE 100 MG PO (09:44)
[2025-09-09] MEDS: ZYLOPRIM 100 MG PO (09:44)
[2025-09-09] MEDS: METAMUCIL, KONSYL 1 PACKET PO (09:45)
[2025-09-09] MEDS: MIRALAX 17 GRAMS PO (09:45)
--- NOTE | 2025-09-09 12:08 | CM ---
Pt has been accepted for transfer to [facility]. Call placed to [facility] and spoke with Ambrosio who provided the reference number for approval: Reference # [id number] for dates of service 09/08-09/10. Ambulance transport arranged for 1:30 pick
up.
Voicemail left for Amna Mcgraw, covering admissions, to make her aware of transfer time, also provided the [employer]'s email address to contact with any questions: [email or web address]
[facility] Report: [phone]
[facility]
--- NOTE | 2025-09-09 12:17 | W.PN.HOSP.TC ---
Today's Communication/Plan
-
Monitor vital signs see plan
Monitor renal function
Now on p.o. Lasix
Discharge today to rehab
Time of discharge 39 minutes
Assessment / Plan
Assessment / Plan
Physical exam:
General: Comfortable, Appears Chronically Ill and Obese
HEENT: Moist mucous membranes and Atraumatic
Respiratory: no Rales; No Wheezes
Cardiac: S1/S2, systolic Murmur
GI: Soft, Non Tender
Musculoskeletal: No Edema LE
Neuro: AO x 3 and Nonfocal/grossly intact
Psych: Calm and Intact Judgment/Insight
A/p:
#GABRIELA
Suspect history of CKD, monitor renal function
Creatinine is elevated. Nephrology following.
Patient continued to have inability to empty her bladder with a chronic retention required to frequent straight cath. She had voiding trial and she failed. Rudd catheter was placed. She was evaluated by urologist, recommended trial of
bethanechol which might help or might not. Per urology, discharged will be most likely with Rudd catheter
UA suggestive of infection,had dysuria and increased frequency. Given E. coli , s/p ceftriaxone. Finished antibiotic for UTI.
Primary urologist is Dr. Schulte
Continue to hold nephrotoxic agents
Acute respiratory distress suspect acute on chronic heart failure with a preserved ejection fraction/valvular heart disease
Acute hypoxic respiratory insufficiency likely secondary to above, resolved, on room air.
Chest x-ray 08/27 with possibility of bibasilar pneumonia. definitely a component of CHF. Was given ABx for hypoxia, cough, stop doxy. s/p right heart cath 08/29 with fluid overload. cw diuresis
Cardiology followed, diuretic per nephrology. Now on p.o. Lasix
Echocardiogram 08/25 with EF 55%, moderate
Does have periods of bradycardia, amiodarone decreased.
Primary traditional chinese herbalist Dr. Faina Mckeon.
New onset atrial fibrillation with RVR
Spontaneously converted to normal sinus rhythm with periods of bradycardia
Now on amiodarone 200 mg daily. Coreg stopped
Anticoagulation per cardiology, discussed with cardiology. Not a good candidate for AC and patient also refusing
# Chronic left lower extremity swelling, came down.
Patient and caregiver increasing swelling. No signs of infection with absence of tenderness/erythema. Lower extremity ultrasound negative for DVT
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
Anemia of chronic disease, monitor
Per patient, no source found. 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
Patient has had IV infusion of iron, finished, not on oral iron supplement.
patient has been seeing hematology outpatient for MM work up
# Hyponatremia
#Constipation
Resolved. Will c/w Dulcolax, MiraLAX.
PRN Dulcolax suppository
Elevated LFTs
Resolved. No GI symptoms.
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
#GERD
# Chronic ambulatory dysfunction -uses a walker. Consulted PT/OT. rec SNF
# DM 2 with diabetic polyneuropathy
Hold metformin
c/w NovoLog scale.
#History of gout
Re- dosed Allopurinol for renal function.
# Restless leg syndrome -
ropinirole.
# Essential hypertension
Amlodipine & Lisinopril on hold. Normal BP, c/w diuretics.
#Hyperlipidemia -rosuvastatin.
# Obstructive sleep apnea/COPD/ emphysema
No history of wheezes or productive cough. cw C-pap
#Obesity due to excess calories
#Full code, confirmed with patient.
Anticipated Discharge: Today
Subjective/Interval History
-
Date of Service: September 09, 2025
Denies pain
Objective Data
-
Labs:
Laboratory Results
09/09/25
06:05
WBC 8.8
Hgb 11.0 L
Hct 34.9 L
Plt Count 226
Sodium 134 L
Potassium 3.9
Chloride 99
Carbon Dioxide 28
BUN 69 H
Creatinine 2.0 H
Glucose 122 H
Calcium 9.5
Vital Signs:
Vital Signs
Temp Pulse Resp BP Pulse Ox
97.6 F 64 16 161/62 99
09/09/25 07:30 09/09/25 07:30 09/09/25 07:30 09/09/25 07:30 09/09/25 07:30
I&O
09/08/25 09/09/25 09/10/25
06:59 06:59 06:59
Intake Total 720 / 720 800 / 800
Output Total 950 / 950 1050 / 1050
Balance -230 / -230 -250 / -250
[2025-09-09 13:08] LABS: Glucose - Point of Care 201 mg/dl (70-99)
[2025-09-09] MEDS: NOVOLOG FLEXPEN-MODERATE RESISTANCE 3 UNITS SC ×2 (13:09→17:49)
--- NOTE | 2025-09-09 13:16 | W.DCSUMMARY ---
Discharge Summary
Discharge Data
Date of Admission: 08/24/25
Date of Discharge: 09/09/25
-
Pending Results: No
Hospital Course
85-year-old female with past medical history of valvular heart disease, CHF, chronic lower extremity edema, anemia, AVALOS cirrhosis, GERD, chronic amatory dysfunction, diabetes mellitus, gout, restless leg syndrome, essential hypertension,
hyperlipidemia, obstructive sleep apnea, COPD/emphysema, obesity came to the hospital acute hypoxic respiratory insufficiency likely secondary to acute on chronic congestive heart failure with valvular heart disease. While patient was in the
hospital his creatinine continued to get worse so nephrology was consulted. Patient continued to retain urine and ended up requiring Rudd catheter. Patient was seen by urology on this hospitalization and was recommended to follow-up with them
outpatient. While she was hospitalized she also had suspected urinary tract infection which was treated with antibiotics. For his heart failure she was initially on IV Lasix which was later transitioned to p.o. Lasix. While patient was in the
hospital she also developed new onset atrial fibrillation and was started on amiodarone. Patient did had periods of bradycardia so Coreg was stopped. Given her previous history of multiple GI bleed patient did not deem good candidate for
anticoagulation per cardiology. Patient was evaluated by physical therapy who recommended rehab. Once her symptoms continue to improve, she was then discharged to rehab with instructions to follow-up with all her physicians outpatient.
Discharge Plan
-
Patient Disposition: Group Home/SNF
Discharge Diagnosis/Procedures: Acute respiratory distress suspect acute on chronic heart failure with a preserved ejection fraction/valvular heart disease
Acute kidney injury
New onset atrial fibrillation with RVR
Suspected UTI
Acute urinary retention
Diet: 2 Gram Sodium and Other diet
Additional Diets: 40 ounce fluid restriction
Activity: With assistance and As tolerated
Driving Restrictions: Not until seen by your Dr
Bathing Restrictions: None
Blood Work: CBC and BMP at SNF
Instructions: *DCA Heart Failure Instructions
Referrals:
Jen Arteaga PA-C [Specified Professional Personl, Cardiology] - 12/10/25 2:00 pm
Referral Note: You have a follow up visit with Dr. Eisenberg's PA, Jen, at the [place] office. Please call with questions.
Mario Aguillon MD [Active, Nephrology] - in two weeks
Mana Abreu CRNP [Family Provider, General] - in less than 1 week
Mukul Schulte MD [Active, Urology] - in one week
Prescriptions:
New
bethanechol chloride 25 mg Tablet
25 mg PO BID Qty: 0 0RF
allopurinol 100 mg Tablet
100 mg PO DAILY Qty: 0 0RF
amiodarone [Pacerone] 200 mg Tablet
200 mg PO DAILY Qty: 0 0RF
gabapentin 100 mg Capsule
200 mg PO BID Qty: 0 0RF
furosemide 40 mg Tablet
40 mg PO DAILY Qty: 0 0RF
Continued
albuterol sulfate 1 PUFF HFA aerosol inhaler
2 puff inhalation R Q6HPRN PRN (Reason: sob)
cyanocobalamin (vitamin B-12) 1,000 MCG tablet
1,000 mcg PO DAILY
rosuvastatin 5 MG tablet
5 mg PO DAILY
nortriptyline 75 MG capsule
75 mg PO HS
estradiol 0.01 % (0.1 mg/gram) Cream
1 applic VAGINAL DAILYPRN PRN (Reason: vaginal dryness)
Prolia 60 mg/mL Syringe
60 mg SC [id number]
Patient Comments:
cranberry fruit concentrate 500 mg Capsule
500 mg PO DAILY
polyethylene glycol 3350 [Miralax] 17 gram Powder In Packet
17 g PO DAILY
pantoprazole 40 mg Tablet,Delayed Release (Dr/Ec)
40 mg PO DAILY
methenamine hippurate 1 gram Tablet
1 g PO BID
cholecalciferol (vitamin D3) [Vitamin D3] 125 mcg (5,000 unit) Tablet
125 mcg PO DAILY
aspirin 81 mg Tablet,Delayed Release (Dr/Ec)
81 mg PO DAILY
omega-3 acid ethyl esters 1 gram capsule
2 g PO BID
coenzyme Q10 200 mg Capsule
200 mg PO DAILY
guar gum Packet
1 tbsp PO DAILY
milk thistle 150 mg Capsule
150 mg PO DAILY
ropinirole 0.25 mg tablet
0.25 mg PO QPM
docusate sodium [Colace] 100 mg Capsule
100 mg PO QPM
vitamin A-vitamin C-vit E-min Tablet
1 tab PO DAILY
Gammagard Liquid 10 % solution
See Rx Instructions .ROUTE .COMPLEX
Rx Instructions:
receives monthly IV
Held
lisinopril 20 MG tablet
20 mg PO DAILY
Hold Instructions: Restart when okay with nephrology
metformin 500 MG tablet extended release 24 hr
1,000 mg PO BID@0800,1700
Hold Instructions: Restart when creatinine improves
amlodipine 10 mg Tablet
10 mg PO DAILY
Hold Instructions: Restart when blood pressure improved
Discontinued
allopurinol 300 mg Tablet
450 mg PO DAILY
gabapentin 300 mg Capsule
300 mg PO TID
gabapentin 300 mg Capsule
600 mg PO HS
Discharge Orders:
Discharge Patient (As Directed); Ordered 09/09/25
Ordered By: Mickey Porter
Discharge Date and Time
Discharge Date/Time: 09/09/25 19:47
Print Language: VENEZUELAN
[2025-09-09 15:45] VITALS: BP 139/59
--- NOTE | 2025-09-09 16:08 | W.PN.NEPH.PH ---
Today's Communication / Plan
-
ok ruiz/c
Assessment/Plan
-
IMP:
GABRIELA
Acute respiratory distress suspect acute on chronic heart failure with a preserved ejection fraction/valvular heart disease
Acute hypoxic respiratory insufficiency
Echocardiogram 08/25 with EF 55%, moderate
New onset atrial fibrillation with RVR-Spontaneously converted to normal sinus rhythm
Chronic left lower extremity swelling, possible lymphedema.
History of chronic blood loss anemia - chronic GI bleeding.
Anemia of chronic disease, monitor
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
GERD
Chronic ambulatory dysfunction
DM 2 with diabetic polyneuropathy
History of gout
Restless leg syndrome -
Essential hypertension
Hyperlipidemia
Obstructive sleep apnea/COPD/ emphysema
Obesity due to excess calories
Plan:
stable renal function cr 2., baseline 1-1.2
GABRIELA felt cardiorenal vs diuretics +/- U retention
UA microhematuria but likely berry related, U protein 1.5gm/day
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
stable vol status, cont lasix 40mg po daily and FR
berry per urology. ok for bethanechol from renal standpoint
follow BMP and wts
f/u Dr Aguillon after d/c
d/w pt and daughter and pt at bedside, answered questions
-
-
Date of Service: September 09, 2025
CC / HPI / ROS
-
Chief Complaint:
GABRIELA
History of Present Illness:
GABRIELA/Cr stable at 2.
Hemodynamically stable
Anemia stable 11
on po lasix
berry in place 09/06/25
Review of Systems:
no cp, sob
no supplemental O2
Labs
-
Labs:
WBC 8.8 10^3/uL (4.8-10.8) 09/09/25 06:05
RBC 3.78 10^6/uL (4.20-5.40) L 09/09/25 06:05
Hgb 11.0 g/dL (12.0-16.0) L 09/09/25 06:05
Hct 34.9 % (37.0-47.0) L 09/09/25 06:05
Plt Count 226 10^3/uL (130-400) 09/09/25 06:05
Sodium 134 mmol/L (135-145) L 09/09/25 06:05
Potassium 3.9 mmol/L (3.5-5.1) 09/09/25 06:05
Chloride 99 mmol/L (98-107) 09/09/25 06:05
Carbon Dioxide 28 mmol/L (22-30) 09/09/25 06:05
BUN 69 mg/dl (7-17) H 09/09/25 06:05
Creatinine 2.0 mg/dL (0.6-1.0) H 09/09/25 06:05
eGFR 24.18 09/09/25 06:05
Glucose 122 mg/dl (70-99) H 09/09/25 06:05
Calcium 9.5 mg/dl (8.4-10.2) 09/09/25 06:05
Ptr-N-Xcutkjozlrd Pept 771 pg/ml 08/28/25 05:21
Albumin 3.7 g/dl (3.5-5.0) 09/01/25 05:19
Physical Exam
-
Vital Signs:
Vital Signs
Temp Pulse Resp BP Pulse Ox
97.6 F 64 16 161/62 99
09/09/25 07:30 09/09/25 07:30 09/09/25 07:30 09/09/25 07:30 09/09/25 07:30
Cardiovascular:: Regular rate and rhythm (murmur+)
Respiratory:: Bilateral: Coarse
Lung Excursion:: Normal
Abdomen:: Nontender and Soft
Bowel Sounds:: Normal
Extremity Edema:: None: Bilateral:
Berry Catheter: Yes
[2025-09-09 16:58] LABS: Glucose - Point of Care 222 mg/dl (70-99)
[2025-09-09] MEDS: CRESTOR 5 MG PO (17:49)
[2025-09-09 18:33] VITALS: BP 141/62
--- NOTE | 2025-09-09 19:54 | PTCARENOTE ---
Transport picked up Pt. Pt received all belongings. Pt left floor with transport and family.
--- NOTE | 2025-09-10 10:29 | W.HF.CON ---
Heart Failure
- LV Function
Left ventricular function study result: LV Ejection fraction >/= 50%
Ejection Fraction Percentage: 55
- ARNI
Patient already on ARNI: No
Heart Failure ARNI Not Indicated: LV Ejection Fraction >/= 40%
- ACEI/ARB
Patient already on ACEI/ARB: Yes
- Beta Lyn
Patient already on Evidence Based Beta Lyn: No
Heart Failure Evidence Based Beta Lyn Not Indicated: LV Ejection Fraction > 40%
- Mineralocorticord Receptor Antagonist
Patient already on MRA: No
Heart Failure MRA Not Indicated: LV Ejection Fraction > 40%
- SGLT-2 Inhibitor
Patient already on SGLT-2 Inhibitor: No
Heart Failure SGLT-2 Inhibitor Contraindication: Patient Refusal (UTI)
- Afib Anticoagulation
Patient already on Anticoagulation for Afib: No
Heart Failure Afib Anticoagulation Contraindication: GI Ulcers / Bleeding
- NYHA CHF Classification
NYHA CHF Classification Level: Class III - Symptoms w/ min exertion, interferes w/ nml daily activity
- ACC/AHA Stage
ACC/AHA Stage: Stage C: Symptomatic Heart Failure
== END 2025-09-09 19:47 | DRG 286 ==
LOC: 3 WEST ACU 15:56
PROVIDERS: Emergency Medicine; Internal Medicine Interventional Cardiology; Specialist; ADMITTING PHYSICIAN Internal Medicine; ATTENDING PHYSICIAN Internal Medicine; CONSULT PHYSICIAN Internal Medicine; CONSULT PHYSICIAN Specialist; EMERGENCY PHYSICIAN Emergency Medicine; FAMILY PHYSICIAN Nurse Practitioner Adult Health; OTHER PHYSICIAN Internal Medicine Cardiovascular Disease
PROC: 5A09357 Assistance with Respiratory Ventilation, Less than 24 Consecutive Hours, Continuous Positive Airway Pressure (ICD-10-PCS; 2025-08-25)
PROC: 4A023N6 Measurement of Cardiac Sampling and Pressure, Right Heart, Percutaneous Approach (ICD-10-PCS; 2025-08-29)
PROC: B2141ZZ Fluoroscopy of Right Heart using Low Osmolar Contrast (ICD-10-PCS; 2025-08-29)
DX: I11.0 Hypertensive heart disease with heart failure (principal); I50.33 Acute on chronic diastolic (congestive) heart failure; K76.6 Portal hypertension; N17.9 Acute kidney failure, unspecified; G61.81 Chronic inflammatory demyelinating polyneuritis; N39.0 Urinary tract infection, site not specified; E87.1 Hypo-osmolality and hyponatremia; K74.60 Unspecified cirrhosis of liver; E11.42 Type 2 diabetes mellitus with diabetic polyneuropathy; E11.51 Type 2 diabetes mellitus with diabetic peripheral angiopathy without gangrene; R54 Age-related physical debility; E78.00 Pure hypercholesterolemia, unspecified; K21.9 Gastro-esophageal reflux disease without esophagitis; K57.30 Diverticulosis of large intestine without perforation or abscess without bleeding; F32.A Depression, unspecified; G47.33 Obstructive sleep apnea (adult) (pediatric); J43.9 Emphysema, unspecified; K59.09 Other constipation; M10.9 Gout, unspecified; K75.81 Nonalcoholic steatohepatitis (NASH); E78.49 Other hyperlipidemia; D50.0 Iron deficiency anemia secondary to blood loss (chronic); G25.81 Restless legs syndrome; E66.09 Other obesity due to excess calories; R26.2 Difficulty in walking, not elsewhere classified; J30.81 Allergic rhinitis due to animal (cat) (dog) hair and dander; J30.89 Other allergic rhinitis; J30.1 Allergic rhinitis due to pollen; I35.0 Nonrheumatic aortic (valve) stenosis; I25.10 Atherosclerotic heart disease of native coronary artery without angina pectoris; I34.0 Nonrheumatic mitral (valve) insufficiency; D47.2 Monoclonal gammopathy; D63.8 Anemia in other chronic diseases classified elsewhere; I48.0 Paroxysmal atrial fibrillation; N32.81 Overactive bladder; I35.8 Other nonrheumatic aortic valve disorders; R09.02 Hypoxemia; R06.89 Other abnormalities of breathing; R91.1 Solitary pulmonary nodule; R06.03 Acute respiratory distress; B96.20 Unspecified Escherichia coli [E. coli] as the cause of diseases classified elsewhere; R33.9 Retention of urine, unspecified; Z60.2 Problems related to living alone; Z90.710 Acquired absence of both cervix and uterus; Z90.49 Acquired absence of other specified parts of digestive tract; Z87.891 Personal history of nicotine dependence; Z80.0 Family history of malignant neoplasm of digestive organs; Z80.49 Family history of malignant neoplasm of other genital organs; Z80.3 Family history of malignant neoplasm of breast; Z82.49 Family history of ischemic heart disease and other diseases of the circulatory system; Z79.84 Long term (current) use of oral hypoglycemic drugs; Z79.899 Other long term (current) drug therapy; Z79.82 Long term (current) use of aspirin; Z88.1 Allergy status to other antibiotic agents; Z88.2 Allergy status to sulfonamides; Z88.8 Allergy status to other drugs, medicaments and biological substances; Z91.048 Other nonmedicinal substance allergy status; Z68.29 Body mass index [BMI] 29.0-29.9, adult; Z87.440 Personal history of urinary (tract) infections; Z82.0 Family history of epilepsy and other diseases of the nervous system
CPT/HCPCS: 71045; 71046; 76775; 80048; 80053; 81003; 81015; 81050; 82570; 82728; 82784; 82962; 83036; 83516; 83520; 83521; 83540; 83550; 83880; 84155; 84156; 84165; 84300; 84484; 85025; 85027; 86038; 86160; 86334; 86335; 87077; 87086; 87186; 93005; 93306; 93451; 93970; 94660; 96374; 97110; 97116; 97163; 97167; 97530; 97535; 99285; C1769; C1894

== ENCOUNTER → 2025-09-12 10:21 | Outpatient (REF) | payer OTHER, MEDICARE, SELFPAY ==
[2025-09-12 11:35] LABS: Hematocrit 34.0 % (37.0-47.0); Hemoglobin 10.3 g/dL (12.0-16.0); Mean Corp Hgb Conc. 30.3 g/dL (33.0-37.0); Mean Corpuscular Volume 97.4 fL (81.0-99.0); Nucleated Red Blood Cells % 0 %; Platelet Count 172 10^3/uL (130-400); Red Cell Dist. Width 16.6 % (11.5-14.5)
[2025-09-12 11:49] LABS: Blood Urea Nitrogen 52 mg/dl (7-17); Calcium 9.5 mg/dl (8.4-10.2); Carbon Dioxide 32 mmol/L (22-30); Chloride 102 mmol/L (98-107); Glucose 133 mg/dl (70-99); Potassium 3.6 mmol/L (3.5-5.1); Sodium 140 mmol/L (135-145); eGFR 34.15
== END ==
LOC: OLABP 10:21
PROVIDERS: ATTENDING PHYSICIAN Family Medicine
DX: I50.9 Heart failure, unspecified (principal); E11.9 Type 2 diabetes mellitus without complications; D64.9 Anemia, unspecified; K74.60 Unspecified cirrhosis of liver; E11.40 Type 2 diabetes mellitus with diabetic neuropathy, unspecified; K21.9 Gastro-esophageal reflux disease without esophagitis; J44.9 Chronic obstructive pulmonary disease, unspecified; I10 Essential (primary) hypertension; E78.5 Hyperlipidemia, unspecified; I89.0 Lymphedema, not elsewhere classified; N17.9 Acute kidney failure, unspecified; I48.91 Unspecified atrial fibrillation; C90.01 Multiple myeloma in remission; G61.81 Chronic inflammatory demyelinating polyneuritis
CPT/HCPCS: 36415; 80048; 85025

== ENCOUNTER → 2025-09-16 12:33 | Outpatient (REF) | payer OTHER, MEDICARE, SELFPAY ==
[2025-09-16 13:08] LABS: Hematocrit 33.8 % (37.0-47.0); Hemoglobin 10.1 g/dL (12.0-16.0); Mean Corp Hgb Conc. 29.9 g/dL (33.0-37.0); Mean Corpuscular Volume 96.8 fL (81.0-99.0); Nucleated Red Blood Cells % 0 %; Platelet Count 160 10^3/uL (130-400); Red Cell Dist. Width 16.8 % (11.5-14.5)
[2025-09-16 15:09] LABS: Blood Urea Nitrogen 59 mg/dl (7-17); Calcium 9.2 mg/dl (8.4-10.2); Carbon Dioxide 25 mmol/L (22-30); Chloride 104 mmol/L (98-107); Glucose 103 mg/dl (70-99); Potassium 4.2 mmol/L (3.5-5.1); Sodium 136 mmol/L (135-145); eGFR 34.15
== END ==
LOC: OLABP 12:33
PROVIDERS: ATTENDING PHYSICIAN Family Medicine
DX: I10 Essential (primary) hypertension (principal); E11.40 Type 2 diabetes mellitus with diabetic neuropathy, unspecified; I89.0 Lymphedema, not elsewhere classified; N17.9 Acute kidney failure, unspecified; I48.91 Unspecified atrial fibrillation; I25.10 Atherosclerotic heart disease of native coronary artery without angina pectoris
CPT/HCPCS: 36415; 80048; 85025

== ENCOUNTER → 2025-10-03 12:58 | Outpatient (REF) | payer OTHER, MEDICARE, SELFPAY | LOC: HWRAD 12:58 | PROVIDERS: ATTENDING PHYSICIAN Internal Medicine Critical Care Medicine; FAMILY PHYSICIAN Nurse Practitioner Adult Health | DX: R91.1 Solitary pulmonary nodule (principal) | CPT/HCPCS: 71250 ==